=== PATIENT | male | born 1965 | race Hispanic/Latino ===

== ENCOUNTER 2016-09-28 15:15 | Observation (INO) | payer BC, MEDICARE ==
[2016-09-28] MEDS ORDERED: Morphine 4 mg/ml ISec IVP STA (15:41)
[2016-09-28] MEDS ORDERED: oxyCODONE 30 mg Immediate Release Tab PO ONE (15:58)
[2016-09-28 16:02] LABS: ADD MANUAL DIFF? NO
[2016-09-28 16:08] LABS: BASO # 0.03 K/mm3 (0.0-2.0); BASO % 0.3 % (0.0-3.0); EOS # 0.1 (0.0-0.7); GRAN # 5.76 (1.4-6.5); GRAN % 65.9 % (50.0-68.0); LYMPH # 2.3 (1.2-3.4); LYMPH % 26.4 % (22.0-35.0); MEAN CELL VOLUME 85.6 fL (80.0-105.0); MEAN CORPUSCULAR HEMOGLOBIN 30.5 pg (25.0-35.0); MEAN CORPUSCULAR HGB CONC 35.6 g/dl (31.0-37.0); MEAN PLATELET VOLUME 10.2 fl (7.0-11.0); MONO # 0.6 (0.1-0.6); MONO % 6.4 % (1.0-6.0); PLATELET COUNT 319 10^3/uL (120.0-450.0); RED CELL DISTRIBUTION WIDTH 13.5 % (11.5-14.5); WHITE BLOOD COUNT 8.8 10^3/ul (4.5-11.0)
--- NOTE | 2016-09-28 16:08 | ED PDOC ---
Arrival/HPI - General Time Seen by Provider: 09/28/16 15:22 Historian: Patient - History of Present Illness Narrative History of Present Illness (Text): 09/28/16 16:04 Patient w/ PMH of hypertension, chronic lower back pain due to herniated disk, chronic opiate use, depression and bipolar disorder, presents to the Emergency Room complaining of 2 day h/o L sided chest pain which radiates to the L arm associated with numbness to the fingers, chest pain described as soreness which comes and goes, last for a few minutes and resolves spontaneously on its own w/ o taking any medications, occurs even at rest and is not worse or initiated with exertion. Patient states that he takes Xanax 2mg and Oxycodone 30 mg 3 times a day due to chronic low back pain from herniated disk. Otherwise: (-) radiation, (-) diaphoresis, (-) dyspnea, (-) pleuritic component, (-) ripping or tearing quality, (-) positional component, (-) exertional component, (-) dizziness, (-) syncope, (-) nausea, (-) vomiting, (-) calf swelling/pain, (-) neuro deficits, (-) fever, (-) cough, (-) recent travel. Patient also reports having recent stress test and echo, doesn't recall when and what the results were if they were normal or abnormal. Denies any CP at this time. PMD: Dr. Fred Blanco Cardio: Adalberto Past Medical History - Provider Review Nursing Documentation Reviewed: Yes - Infectious Disease Hx of Infectious Diseases: None - Tetanus Immunization Tetanus Immunization: Unknown - Cardiac Hx Cardiac Disorders: Yes Hx Hypertension: Yes - Pulmonary Hx Respiratory Disorders: Yes (H/O OF CIGARETTE SMOKING-NOW USING E VAPE) - Neurological Hx Neurological Disorder: Yes Hx Seizures: Yes (2-16-16 WITHDRAWAL FROM [facility]) - HEENT Hx HEENT Disorder: No - Renal Hx Renal Disorder: Yes Hx Kidney Stones: Yes - Endocrine/Metabolic Hx Endocrine Disorders: No - Hematological/Oncological Hx Blood Disorders: No Hx Cancer: No - Integumentary Hx Dermatological Disorder: Yes (MULTIPLE TATOOS ALL OVER UPPER ARM) - Musculoskeletal/Rheumatological Hx Falls: Yes (Syncope) - Gastrointestinal Hx Gastrointestinal Disorders: Yes Other/Comment: COLON TUMOR REMOVED - Genitourinary/Gynecological Hx Genitourinary Disorders: Yes Hx Prostate Problems: Yes - Psychiatric Hx Psychophysiologic Disorder: Yes Hx Anxiety: Yes Hx Bipolar Disorder: Yes Hx Depression: Yes Hx Panic Disorder: Yes (PANIC ATTACKS) Hx Post Traumatic Stress Disorder: No Hx Psychosis: Yes Hx Schizophrenia: No Hx Substance Use: No Other/Comment: ETOH USE AND SMOKED CIGARETES - Past Surgical History Past Surgical History: Non-Contributing - Anesthesia Hx Anesthesia: Yes Hx Anesthesia Reactions: No Hx Malignant Hyperthermia: No - Suicidal Assessment Feels Threatened In Home Enviroment: No Family/Social History Family/Social History: CAD/KS (mother of [place] at age 66, father of [place] at age 68) Smoking Status: Never Smoked Hx Alcohol Use: No Hx Substance Use: No Hx Substance Use Treatment: No Allergies/Home Meds Allergies/Adverse Reactions: Allergies No Known Allergies Allergy (Verified 12/21/15 23:06) Home Medications: Home Meds Medication Instructions Recorded Confirmed Atorvastatin Calcium [Lipitor] 20 mg PO DAILY 08/05/15 05/11/16 Review of Systems - Review of Systems Constitutional: Normal. absent: Fatigue, Weight Change, Fevers Respiratory: Normal. absent: SOB, Cough, Sputum Cardiovascular: Normal. absent: Palpitations, Edema, Calf Pain Gastrointestinal: Normal. absent: Abdominal Pain, Stool Changes Musculoskeletal: Normal, Back Pain (chronic low back pain). absent: Arthralgias , Neck Pain Skin: Normal. absent: Rash, Pruritis Neurological: Normal. absent: Headache, Dizziness Physical Exam - Physical Exam Narrative Physical Exam (Text): 09/28/16 16:09 GENERAL APPEARANCE: Patient is awake, alert, oriented x 3, in no acute distress. Patient is laying in bed comfortably in no acute distress. SKIN: Warm, dry; (-) cyanosis. EYES: (-) conjunctival pallor. ENMT: Mucous membranes moist. NECK: (-) tenderness, (-) stiffness, (-) lymphadenopathy, (-) JVD. CHEST AND RESPIRATORY: (-) rash, (-) chest wall tenderness. Lungs: (-) rales , (-) rhonchi, (-) wheezes, (-) rub; breath sounds equal bilaterally. HEART AND CARDIOVASCULAR: (-) irregularity; (-) murmur, (-) gallop, (-) rub. ABDOMEN AND GI: Soft; (-) distention, (-) tenderness, (-) palpable pulsatile mass. EXTREMITIES: (-) deformity; (-) edema, (-) calf tenderness. (+) distal pulses. NEURO AND PSYCH: Mental status as above. Cranial nerves grossly intact; strength symmetric. Vital Signs Temp Pulse Resp BP Pulse Ox 09/28/16 16:22 98 F 68 17 123/69 98 09/28/16 15:21 97.2 F L 73 18 141/87 98 Medical Decision Making ED Course and Treatment: 09/28/16 16:10 51 yo M w/ multiple risk factors for heart disease, presents with 2 day h/o L sided CP. Of note, patient's previous medical records reviewed. Patient was last hospitalized in 12/21/15 for syncope, as mentioned in Dr. Pretty's note on 2015, patient's last echo was on 10/2014, which was wnl EF 65%, at that time had a recent holter which showed no arrhythmia, and last stress in 10/2014 was negative. LUIS DANIEL score 2 HEART score 4 Plan: -- Labs w/ troponin -- enameler -- Oxycodone for chronic low back pain -- EKG -- CXR -- Asa -- Reassess and disposition EKG: NSR at 75 bpm, (-) acute ST changes, as read by LEN. CXR: NAD, as read by PA Labs reviewed, 1st troponin (-). Patient made aware. On reevaluation, patient is resting comfortably in bed in no acute distress, using his cell phone. Patient reports no chest pain at this time, dyspnea or shortness of breath. Has no other complaints at this time. Vital signs stable. Call placed to patient's pmd, Dr. Fred Blanco, agrees with current plan for inpatient obs to tele with consult to Dr. Glover. Bridge orders placed. - Lab Interpretations Lab Results: 09/28/16 15:55 09/28/16 15:55 Lab Results 09/28/16 15:55: WBC 8.8 D, RBC 4.79, Hgb 14.6, Hct 41.0 L, MCV 85.6, MCH 30.5, MCHC 35.6, RDW 13.5, Plt Count 319, MPV 10.2, Gran % 65.9, Lymph % (Auto) 26.4, [place] % (Auto) 6.4 H, Eos % (Auto) 1.0 L, Baso % (Auto) 0.3, Gran # 5.76, Lymph # 2.3, [place] # 0.6, Eos # 0.1, Baso # 0.03, Sodium 140, Potassium 4.3, Chloride 106, Carbon Dioxide 23, Anion Gap 15, BUN 13, Creatinine 1.1, Est GFR ( Amer) > 60, Est GFR (Non-Af Amer) > 60, Random Glucose 102, Calcium 9.6, Magnesium 2.0, Total Bilirubin 0.6, AST 35, ALT 48, Alkaline Phosphatase 86, Lactate Dehydrogenase 365, Total Creatine Kinase 76, Troponin I < 0.01, Total Protein 7.4, Albumin 4.3, Globulin 3.2, Albumin/Globulin Ratio 1.3 - RAD Interpretation Radiology Orders: 09/28/16 15:41 CHEST PORTABLE [RAD] Stat - Medication Orders Current Medication Orders: Alprazolam (Xanax) 1.5 mg PO BID DAVE Stop: 10/06/16 10:01 Alprazolam (Xanax) 1.5 mg PO HS DAVE Stop: 10/05/16 22:01 Last Admin: 09/28/16 23:23 Dose: 1.5 MG Behavioural Document 09/28/16 23:23 KTR (Rec: 09/28/16 23:24 KTR [id number]) Maintenance Maintenance Dose Yes Behavior Behavior for Medication: Anxiety Atorvastatin Calcium (Lipitor) 20 mg PO DIN DAVE Oxycodone HCl (Oxycodone Immediate Release Tab) 30 mg PO Q6H PRN PRN Reason: Pain, severe (8-10) Last Admin: 09/28/16 21:43 Dose: 30 MG MAR Pain Assessment Document 09/28/16 21:43 KTR (Rec: 09/28/16 21:43 KTR [id number]) Pain Reassessment Is this a pain reassessment? No Presence of Pain Presence of Pain Yes Pain Scale Used Pain Scale Used Numeric Location Upper or Lower Lower Pain Location Body Site Back Description Description Constant Intensity of Pain at present 10 Aggravating Factors Contant Discontinued Medications Aspirin (Aspirin) Confirm Administered Dose 325 mg .ROUTE .STK-MED ONE Stop: 09/28/16 16:07 Last Admin: 09/28/16 16:08 Dose: 325 MG Aspirin (Aspirin) 325 mg PO STAT STA Stop: 09/28/16 16:09 Last Admin: 09/28/16 16:09 Dose: Oxycodone HCl (Oxycodone Immediate Release Tab) 30 mg PO ONCE ONE Stop: 09/28/16 15:59 Last Admin: 09/28/16 16:04 Dose: 30 MG - PA / SCRIPT MANAGER / Resident Statement MD/DO has reviewed & agrees with the documentation as recorded. Disposition/Present on Arrival - Present on Arrival Any Indicators Present on Arrival: No History of DVT/PE: No History of Uncontrolled Diabetes: No Urinary Catheter: No History Surgical Site Infection Following: None - Disposition Have Diagnosis and Disposition been Completed?: Yes Diagnosis: Chest pain Disposition: HOSPITALIZED Disposition Time: 17:00 Patient Plan: Observation (tele) Patient Problems: Current Active Problems Problem Status Diagnosed Chest pain Acute Condition: STABLE
[2016-09-28 16:19] LABS: ALB/GLOB RATIO 1.3 (1.1-1.8); ALKALINE PHOSPHATASE 86 U/L (38-133); ALT/SGPT 48 U/L (7-56); AST/SGOT 35 U/L (15-59); BILIRUBIN,TOTAL 0.6 mg/dL (0.2-1.3); BLOOD UREA NITROGEN 13 mg/dL (7-21); CALCIUM 9.6 mg/dL (8.4-10.5); CARBON DIOXIDE 23 mmol/L (21-33); CHLORIDE 106 mmol/L (98-107); GFR AFRICAN-AMERICAN > 60; GLUCOSE,RANDOM 102 mg/dL (70-110); POTASSIUM 4.3 mmol/L (3.6-5.0); SODIUM 140 mmol/L (132-148); TOTAL PROTEIN 7.4 g/dL (5.8-8.3)
[2016-09-28 16:24] VITALS: BMI 28.8
[2016-09-28 16:31] LABS: TROPONIN I < 0.01 ng/mL
[2016-09-28] MEDS: oxyCODONE 30 mg Immediate Release Tab PO PRN (21:43)
[2016-09-29] MEDS: oxyCODONE 30 mg Immediate Release Tab PO PRN ×3 (06:18→18:29)
[2016-09-29 07:22] LABS: ADD MANUAL DIFF? NO
[2016-09-29 07:25] LABS: BASO # 0.02 K/mm3 (0.0-2.0); BASO % 0.2 % (0.0-3.0); EOS # 0.1 (0.0-0.7); EOS % 1.3 % (1.5-5.0); GRAN # 4.38 (1.4-6.5); HEMATOCRIT 38.7 % (42.0-52.0); LYMPH # 3.3 (1.2-3.4); LYMPH % 38.8 % (22.0-35.0); MEAN CELL VOLUME 86.8 fL (80.0-105.0); MEAN CORPUSCULAR HEMOGLOBIN 30.5 pg (25.0-35.0); MEAN CORPUSCULAR HGB CONC 35.1 g/dl (31.0-37.0); MEAN PLATELET VOLUME 10.3 fl (7.0-11.0); MONO # 0.8 (0.1-0.6); MONO % 8.7 % (1.0-6.0); PLATELET COUNT 295 10^3/uL (120.0-450.0); RED CELL DISTRIBUTION WIDTH 13.8 % (11.5-14.5); WHITE BLOOD COUNT 8.6 10^3/ul (4.5-11.0)
[2016-09-29 07:47] LABS: BLOOD UREA NITROGEN 19 mg/dL (7-21); CALCIUM 9.2 mg/dL (8.4-10.5); CARBON DIOXIDE 23 mmol/L (21-33); CHLORIDE 108 mmol/L (98-107); GFR AFRICAN-AMERICAN > 60; GLUCOSE,RANDOM 98 mg/dL (70-110); SODIUM 139 mmol/L (132-148)
[2016-09-29 07:57] LABS: TROPONIN I 0.01 ng/mL
--- NOTE | 2016-09-29 08:03 | HP ---
CHIEF COMPLAINT: Chest pain. HISTORY OF PRESENT ILLNESS: This is a 51-year-old man who came to the office today complaining of 4 days of chest pain. He describes it as left-sided chest pain radiating up to the shoulder, and sometimes going down the left arm. He has multiple risk factors for coronary artery disease, and was sent to the Emergency Room. He came to [facility]'s ER and was evaluated. Labs and troponins were negative, but because of the history and the multiple risk factors, arrangements were made for him to be admitted. PAST MEDICAL HISTORY: This 51-year-old man has been on disability because of back pain. This is his first visit to the Emergency Room this year, but he came to the Emergency Room by ambulance on 7 different occasions last year; was admitted on 4 of those occasions. He came to the radiology department for x- rays in 2015. He was admitted only once. He had a thallium stress test in 2014 which was unremarkable, was seen by Dr. Palmer and Sukhwinder at that time, was unremarkable. On the last 4 days the patient reports a nonexertional type of chest pain. He said it seemed to come on at almost any time. He could be sitting or watching TV. It was not related to walking or carrying packages. There were no episodes of diaphoresis, or unusual dyspnea. He denied palpitations. He describes the pain as rather sharp and in the left upper chest wall to the shoulder. PAST MEDICAL HISTORY: Significant for hypertension, chronic low back pain, chronic opiate use, depression, bipolar disorder, benzodiazepine withdrawal seizures, and generalized anxiety disorder. He saw a psychiatrist in the past and was treated with Seroquel, amitriptyline, and Suboxone, although most recently he has only been taking opiates and benzos. CURRENT MEDICATIONS: Oxycodone 30 mg 4 or 5 times a day, Xanax 2 mg 3 times a day, and Ambien 10 mg at bedtime. He has no known allergies to medications. Has a history of tobacco use and alcohol consumption. REVIEW OF SYSTEMS: Positive for back pain. PHYSICAL EXAMINATION: The patient is a short muscular 51-year-old man. He moves about the room with relative ease. HEAD AND NECK: Unremarkable. Conjunctivae are pink. Mucous membranes are moist. NECK: Supple, without masses. The thyroid is not palpable. There are no palpable lymph nodes or JVD. LUNGS: Show good aeration, right and left. HEART: Regular, nontachycardic. ABDOMEN: Benign. EXTREMITIES: Showed no edema. IMPRESSION: 1. Atypical chest pain, most likely musculoskeletal origin, in a 51-year-old man with multiple risk factors, including family history of coronary artery disease, diabetes, tobacco use, and elevated cholesterol. 2. Chronic back pain and chronic opiate use. 3. Chronic benzodiazepine use. 4. Generalized anxiety disorder. 5. History of benzodiazepine withdrawal seizures. PLAN: The patient was already admitted to the telemetry floor. I am seeing him late this Tuesday evening in room 268. I spoke with him at length regarding his opiate dependency and benzodiazepine use, and I urged him to reconsider following up with a psychiatrist for depression, anxiety, and bipolar disorder, but he is not interested in doing so. I suggested he resumed the Suboxone in an attempt to taper down or discontinued his opiates, but he is not interested. I suggested spine followup, orthopedic or pain management, but he would rather just stay with his primary physician and take the medications as outlined above. In spite of my lengthy and exhaustive attempts at counseling the patient, he is just not interested in modifying his medication regimen. I explained to him that I will continue some dose of benzodiazepines to prevent withdrawal seizures , but while he was admitted under my service I will try to decrease his benzodiazepine and opiate analgesic use. I will ask cardiology to schedule thallium stress test in the morning. If unremarkable, he should be ready for discharge to home later tomorrow. I will talk with his private physician regarding his current prescriptions and suggested SSRIs and/or other antidepressants and pain management for his chronic opiate use. The last thallium stress test was negative 2014. If tomorrow's stress test was normal I imagine he would be ready for discharge to home relatively quickly soon thereafter. Alan Blanco MD cc: [id number] TT: 09/29/2016 08:03:38 jn CLARI
[2016-09-29 08:16] LABS: FREE T4 0.87 ng/dL (0.78-2.19); THYROID STIMULATING HORMONE 2.9 MIU/ml (0.46-4.68)
[2016-09-29 09:03] LABS: CHOLESTEROL 188 mg/dL (130-200)
--- NOTE | 2016-09-29 09:29 | RAD ---
HISTORY: chest pain COMPARISON: 05/26/2016 FINDINGS: LUNGS: No active pulmonary disease. PLEURA: No significant pleural effusion identified, no pneumothorax apparent. CARDIOVASCULAR: Possible mild left ventricular enlargement OSSEOUS STRUCTURES: Thoracic spondylosis VISUALIZED UPPER ABDOMEN: Normal. OTHER FINDINGS: None. IMPRESSION: No active pulmonary disease. Possible left ventricular enlargement
[2016-09-29] MEDS ORDERED: Aminophylline 25 mg/ml Inj ONE (09:35)
--- NOTE | 2016-09-29 09:45 | CON ---
DATE: 09/29/2016 REASON FOR CONSULTATION: Chest pain, cardiac evaluation. BRIEF CLINICAL HISTORY: This is a 51-year-old male with past medical history significant for psychia tric disorder who was admitted yesterday because of having chest pain often and no relation to exerti on, comes on the left side of chest, sometimes radiated, so patient decided to come. It has been hap pening for more than a month. PAST MEDICAL HISTORY: Significant for psychiatric disorder, history of hyperlipidemia, history of shantal mbar radiculopathy, history of multiple admissions to psych floor; history of back surgery, on disabi lity. PREVIOUS CARDIAC WORKUP: The patient had a stress test 10/25/2014 that shows normal myocardial perfu sascha study, normal wall motion. No interval change when compared from 01/29/2013. It was a Lexiscan . The patient cannot walk on the treadmill and prefers to have Lexiscan because of back surgery. Th e patient had echocardiography 11/04/2014 that shows normal LV size, ejection fraction 55%, trace aor tic regurgitation, trace mitral regurgitation and trace tricuspid regurg, RV systolic pressure at 27. SOCIAL HISTORY: Used to smoke a pack a day for many years, quit 2-3 months ago. Drinks every now an d then, but now says he is not drinking at all. He used to be a heavy drinker before. No history of other substance abuse. Currently, the patient is on disability. FAMILY HISTORY: No significant history of coronary artery disease. CURRENT MEDICATIONS: The patient is taking oxycodone 5 pills daily at least for back pain and takes clonazepam, amlodipine, Seroquel and atorvastatin. REVIEW OF SYSTEMS: As per HPI. PHYSICAL EXAMINATION: VITAL SIGNS: Temperature afebrile, heart rate 72, blood pressure 116/78. HEENT: PERRLA. Extraocular muscles intact. NECK: Supple. No carotid bruits. No thyromegaly. CHEST: Clear to auscultation. HEART: S1, S2 regular. ABDOMEN: Soft. EXTREMITIES: Clubbing and cyanosis negative. BLOOD WORKUP: WBC 8.6, hemoglobin 13.6, hematocrit 38.7, platelet count 295. Chemistry shows sodium 139, potassium 4, chloride 108, carbon dioxide 23, anion gap of 12, BUN 19, creatinine 1.2. Troponi n 0.01. EKG showed normal sinus, rate of 78. IMPRESSION: Atypical chest pain. Given his lifestyle and multiple risk factors, suggest echocardiog jack and stress test. The patient has multiple risk factors including hypertension, psychiatric disor francois as well, and hyperlipidemia. RECOMMENDATION: Will get a stress test today. The patient preferred to have Lexiscan, says he canno t walk on the treadmill because of the back surgery and also patient's disability. Will get lipid pr ofile, TSH, hemoglobin A1c as well. Will keep n.p.o. for now. Thank you, Dr. Blanco, for providing this opportunity in taking care of the patient. Javid Pretty MD cc: [id number] TT: 09/29/2016 09:45:13 Confirmation # [id number] Dictation # [id number] mn
--- NOTE | 2016-09-29 15:35 | CARD ---
APPROVED REPORT EKG Measurement Heart [id number] OR 134P4 [id number] <Conclusion> Normal sinus rhythm PRWP NSSTW changes
--- NOTE | 2016-09-29 17:35 | CARD ---
APPROVED REPORT EXAM: Two-dimensional and M-mode echocardiogram with Doppler and color Doppler. INDICATION Chest Pain LVFX 2D DIMENSIONS Left Atrium (2D)3.9 (1.6-4.0cm)IVSd1.0 (0.7-1.1cm) LVDd4.4 (3.9-5.9cm)PWd1.1 (0.7-1.1cm) LVDs2.9 (2.5-4.0cm)FS (%) 33.8 % LVEF (%)62.8 (>50%) M-Mode DIMENSIONS Aortic Root3.40 (2.2-3.7cm)Aortic Cusp Exc.2.00 (1.5-2.0cm) Aortic Valve AoV Peak Tdytxhay452.0cm/Arlin Peak GR.8mmHg Mitral Valve MV E Dipqmzwg56.6cm/sMV A Fqkwnfqh48.2cm/sE/A ratio0.9 TDI Lateral E' Peak V11.30cm/sMedial E' Peak V6.82cm/sE/Lateral E'6.3 E/Medial E'10.5 Pulmonary Valve PV Peak Itaiksvt14.0cm/sPV Peak Grad.1mmHg Tricuspid Valve TR Peak Wsfabjbh183ff/sRAP RVELTBJT91xcQcMK Peak Gr.20mmHg [id number] LEFT VENTRICLE The left ventricle is normal size. There is normal left ventricular wall thickness. The left ventricular function is normal.EF-55-60% There is normal LV segmental wall motion. Transmitral Doppler flow pattern is Grade III-reversible restrictive diastolic dysfunction. No left ventricle thrombus noted on this study. There is no ventricular septal defect visualized. There is no left ventricular aneurysm. RIGHT VENTRICLE The right ventricle is normal size. There is normal right ventricular wall thickness. The right ventricular systolic function is normal. ATRIA The left atrium size is normal. The right atrium size is normal. The interatrial septum is intact with no evidence for an atrial septal defect. AORTIC VALVE The aortic valve is thickened but opens well. There is trace aortic regurgitation. There is no aortic valvular stenosis. There is no aortic valvular vegetation. MITRAL VALVE The mitral valve is thickened but opens well. Mitral annular calcification is mild. Mitral regurgitation is trace to mild. There is no mitral valve stenosis. There is no evidence of mitral valve prolapse. TRICUSPID VALVE The tricuspid valve leaflets are thickened , but open well. There is trace to mild tricuspid regurgitation.RVSP-30 mmof Hg. There is no tricuspid valve stenosis. There is no tricuspid valve prolapse or vegetation. PULMONIC VALVE The pulmonic valve is borderline thickened. There is trace pulmonic valvular regurgitation. There is no pulmonic valvular stenosis. GREAT VESSELS The aortic root is normal in size. The ascending aorta is normal in size. The pulmonary artery is normal. The IVC is normal in size and collapses >50% with inspiration. PERICARDIAL EFFUSION There is no pleural effusion. Trivial Pericardial effusion <Conclusion> The left ventricle is normal size. There is normal left ventricular wall thickness. The left ventricular function is normal.EF-55-60% There is trace aortic regurgitation. Mitral regurgitation is trace to mild. There is trace to mild tricuspid regurgitation.RVSP-30 mmof Hg. There is trace pulmonic valvular regurgitation. There is no pleural effusion. Trivial Pericardial effusion The IVC is normal in size and collapses >50% with inspiration.
--- NOTE | 2016-09-29 22:12 | CARD ---
APPROVED REPORT Protocol: LEXISCAN Test Type: Lexiscan Sestamibi Stress Test Attending Physician: Dr. Javid Palmer Referring Physician: Dr. Alan Blanco Test Indications: Chest Pain Height:5 ft 8 in Weight:190lbs Medications: Xanax,Lipitor,Oxycodone Medical History: 51 y/o male. Hx of chest pain,hypertension,family hx of heart disease,back pain,bipolar. Target HR: 171 bpm Resting ECG: RSR. Non Specific ST_T Changes. Resting Heart Rate: 61 bpm Resting Blood Pressure: 100/60mmHg Submaximum (85%): 145 bpm PROCEDURE Pharmacologic stress testing was performed using 0.4mg per 5ml of regadenoson given intravenously over 7-10 seconds. POST EXERCISE Reason for Termination: Protocol completed Target HR: No Max HR: 63 bpm 64% of Maximum Predicted HR: 171 bpm Exercise duration: 00:30 min:sec, 0 Stage Exercise capacity: 1.0METs Max Blood Pressure: 120/70mmHg Blood Pressure response to exercise: normal resting BP - appropriate response Heart Rate response to exercise: appropriate Chest Pain: No, none Angina index: 0 Arrhythmia: No, none ST Change: No, none Deviation: 0 mm INTERPRETATION Stress EKG Conclusion: IV LEXISCAN NUCLEAR STRESS TEST NEGATIVE FOR CHEST PAIN AND NEGATIVE FOR ST-T CHANGES. NUCLEAR SCAN REPORT TO FOLLOW. Signed by Javid Palmer Electronically Approved: 09/29/2016 11:32:52 EXAM: Myocardial Perfusion REST/STRESS Stress Test Type: Pharmacologic Imaging Protocol Rest Spect myocardial perfusion imaging was performed in supine position 45 minutes following the injection of 10.3 mCi of Tc-99 Myoview. At peak stress, the patient was injected intravenously with 30.7mCi of Tc-99 tetrofosmin after an infusion time of 0 minutes and 10 seconds. Gated Stress Spect was performed 65 minutes after intravenous Tc-99 Myoview injection. The images were gated to evaluate regional wall motion and calculate ventricular ejection fraction.Images were reconstructed using backfilter projection method in short horizontal and verticle long axis. Spect slices were generated. LV Perfusion The quality of the study is good. The left ventricle is normal in size. The right ventricle is unremarkable. The lung uptake is within normal limits. The distribution of tracer reveals normal uptake pattern throughout the LV myocardium on the stress study. The rest myocardial perfusion study shows no significant change. Wall Motion Wall motion study shows good contractility of the left ventricle. LVEF = 74%. Conclusion 1. Normal SPECT myocardial perfusion study. 2. Normal gated wall motion of the left ventricle. 3. In comparison with the last study of 11/04/2014, there is no significant change.
[2016-09-30] MEDS: oxyCODONE 30 mg Immediate Release Tab PO PRN ×2 (00:04→07:46)
[2016-09-30 06:24] VITALS: O2SAT 97
[2016-09-30] MEDS ORDERED: oxyCODONE 20 mg Immediate Release Tab PO PRN (10:04)
[2016-09-30 13:11] VITALS: BP 96/57; PULSE 65; RESP 15; TEMP 97.7
[2016-09-30] MEDS ORDERED: oxyCODONE 30 mg Immediate Release Tab PO SCH (14:00)
--- NOTE | 2016-09-30 16:24 | PN ---
DATE: 09/30/2016 REASON FOR CONSULTATION AND FOLLOWUP: Chest pain, cardiac evaluation. BRIEF CLINICAL HISTORY: This is a 51-year-old male with past medical history significant for psychia tric disorder who was admitted yesterday because of having some chest pain off and on, no relation to exertion; history of back surgery. The patient underwent yesterday IV Lexiscan because of the patie nt's back surgery; it was essentially negative. Denies any chest pain, shortness of breath, any palp itation. PHYSICAL EXAMINATION: VITAL SIGNS: Temperature afebrile, heart rate ____, blood pressure 122/80. HEENT: PERRLA. Extraocular muscles intact. NECK: Supple. No carotid bruits. No thyromegaly. CHEST: Clear to auscultation. HEART: S1, S2 regular. ABDOMEN: Soft. EXTREMITIES: Clubbing and cyanosis negative. BLOOD WORKUP: WBC as of yesterday 8.6, hemoglobin 13.6, hematocrit 38.7, platelet count 295. Chemis try shows sodium 139, potassium 4, chloride 108, carbon dioxide 23, anion gap of 12, BUN 19, creatini ne 1.2. Triglyceride 523, cholesterol 188, LDL 83, HDL 29. TSH 2.9. Stress test showed normal wall motion and contractility, ejection fraction 74%. When compared with t he study of 11/04/2014, no significant change noted. The patient underwent also echocardiography on 09/29/2016 (that is yesterday) which shows ejection fraction 55-60%, trace to mild mitral regurgitati on, trace to mild tricuspid regurgitation, right ventricular systolic pressure 30, trace pulmonary in sufficiency, no pleural effusion, trivial pericardial effusion. RECOMMENDATION: Continue aggressive medical treatment, emphasis on weight reduction, modification of lifestyle, modification of risk factors for coronary artery disease. No further cardiac workup is p lanned at this time. We will consider to adding on Tricor, and abstinence of alcohol and abstinence of tobacco abuse. Will follow with you. Thank you, Dr. Blanco, for providing the opportunity in taking care of the patient. Will follow w ith you. Javid Pretty MD cc: [id number] TT: 09/30/2016 16:22:58 Confirmation # [id number] Dictation # [id number]
--- NOTE | 2016-09-30 23:13 | DS ---
SUBJECTIVE: This is a 51-year-old man I rarely see except for when hospitalized. 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 He came to the Emergency Room complaining of chest pain in the chest and left shoulder. He had thallium stress test 1-1/2 years a go. Because of multiple risk factors including hypertension, hyperlipidemia, smoking and family hist ory, he was admitted and stress test was ordered the following morning, but, unfortunately, the repor t was not read until late that evening. The patient stayed overnight. I saw him this morning. He w as hoping to stay overnight again one more night. I explained that I had decreased his benzodiazepin es, decreased his opiates and he should continue to taper these medicines. He should be on an SSRI a nd follow up with a psychiatrist, but he refused all these recommendations. In fact, he wanted to st ay another day because his pain medicines would not be ready at the drugstore until tomorrow. I expl ained to him that his tests were normal, there was no suspicion of coronary artery disease and he is ready for discharge from the acute care facility. FINAL DISCHARGE DIAGNOSES: 1. Chest pain not of cardiac origin. 2. Musculoskeletal chest wall and left shoulder pain. 3. Chronic low back pain. 4. Chronic opiate use. 5. Generalized anxiety disorder. 6. Chronic benzodiazepine use. 7. History of benzodiazepine withdrawal seizures. 8. Hypertension. PLAN: He was instructed to follow up. All of my recommendations were again reviewed with the day t, though it is unlikely he will follow up on any of them. I did suggest he follow up with his prima care physician and bring to his mind some of these suggestions I have made. Alan Blanco MD cc: [id number] TT: 09/30/2016 23:12:46 curtis
== END 2016-09-30 15:14 | disposition home or self-care (01) ==
LOC: ED 15:15 → ERH 17:09 → 2RNO 18:40
PROVIDERS: ADMIT Internal Medicine; ATTEND Internal Medicine
DX: R07.89 Other chest pain (principal); I10 Essential (primary) hypertension; E78.5 Hyperlipidemia, unspecified; G89.29 Other chronic pain; F31.9 Bipolar disorder, unspecified; F32.9 Major depressive disorder, single episode, unspecified; F41.1 Generalized anxiety disorder; Z79.891 Long term (current) use of opiate analgesic; M25.512 Pain in left shoulder; M54.5 Low back pain; Z87.891 Personal history of nicotine dependence; Z82.49 Family history of ischemic heart disease and other diseases of the circulatory system; Z83.3 Family history of diabetes mellitus
CPT/HCPCS: 36415; 71010; 78452; 80048; 80053; 80061; 82550; 83615; 83735; 84439; 84443; 84484; 85025; 93005; 93017; 93306; 99282; A9502; G0378

== ENCOUNTER 2016-10-18 18:00 | Emergency (ER) | payer BC, MEDICARE ==
[2016-10-18 18:05] VITALS: BMI 27.3
[2016-10-18 18:16] VITALS: TEMP 98.8
[2016-10-18 18:33] LABS: ADD MANUAL DIFF? NO
[2016-10-18 18:46] LABS: BASO # 0.01 K/mm3 (0.0-2.0); BASO % 0.2 % (0.0-3.0); EOS % 0.5 % (1.5-5.0); GRAN # 4.12 (1.4-6.5); GRAN % 66.3 % (50.0-68.0); HEMATOCRIT 40.5 % (42.0-52.0); LYMPH # 1.7 (1.2-3.4); LYMPH % 27.5 % (22.0-35.0); MEAN CELL VOLUME 87.1 fL (80.0-105.0); MEAN CORPUSCULAR HEMOGLOBIN 30.5 pg (25.0-35.0); MEAN CORPUSCULAR HGB CONC 35.1 g/dl (31.0-37.0); MEAN PLATELET VOLUME 10.2 fl (7.0-11.0); MONO # 0.3 (0.1-0.6); MONO % 5.5 % (1.0-6.0); PLATELET COUNT 323 10^3/uL (120.0-450.0); RED CELL DISTRIBUTION WIDTH 13.2 % (11.5-14.5); WHITE BLOOD COUNT 6.2 10^3/ul (4.5-11.0)
[2016-10-18] MEDS ORDERED: oxyCODONE 10 mg Immediate Release Tab PO STA (18:46)
[2016-10-18 19:03] LABS: ALB/GLOB RATIO 1.3 (1.1-1.8); ALKALINE PHOSPHATASE 92 U/L (38-133); ALT/SGPT 29 U/L (7-56); AST/SGOT 21 U/L (15-59); BILIRUBIN,TOTAL 0.6 mg/dL (0.2-1.3); BLOOD UREA NITROGEN 5 mg/dL (7-21); CALCIUM 9.7 mg/dL (8.4-10.5); CARBON DIOXIDE 25 mmol/L (21-33); CHLORIDE 105 mmol/L (98-107); GFR AFRICAN-AMERICAN > 60; GLUCOSE,RANDOM 140 mg/dL (70-110); MAGNESIUM 2.2 mg/dL (1.7-2.2); POTASSIUM 3.8 mmol/L (3.6-5.0); SODIUM 140 mmol/L (132-148); TOTAL PROTEIN 7.8 g/dL (5.8-8.3)
[2016-10-18 19:14] LABS: TROPONIN I < 0.01 ng/mL
[2016-10-18 20:36] VITALS: BP 128/78; PULSE 88; RESP 18; O2SAT 99
--- NOTE | 2016-10-18 20:56 | ED PDOC ---
Arrival/HPI - General Chief Complaint: Chest Pain Time Seen by Provider: 10/18/16 18:16 Historian: Patient - History of Present Illness Narrative History of Present Illness (Text): 10/18/16 18:16 A 51 year old male presents to the emergency department complaining of left sided chest pain radiating to left arm for the past 3 months. Patient describes the pain as a sharp sensation. He reports he was admitted 3 weeks ago for similar symptoms and had a negative stress test and echocardiogram. Patient denies any fever, chills, nausea, vomiting, diarrhea, abdominal pain, urinary symptoms, shortness of breath or any other complaints. PMD: Dr. Blanco Time/Duration: Other (3 months) Symptom Course: Unchanged Quality: Other Context: Other Past Medical History - Provider Review Nursing Documentation Reviewed: Yes - Infectious Disease Hx of Infectious Diseases: None - Tetanus Immunization Tetanus Immunization: Unknown - Cardiac Hx Cardiac Disorders: Yes Hx Hypertension: Yes - Pulmonary Hx Respiratory Disorders: Yes (H/O OF CIGARETTE SMOKING-NOW USING E VAPE) - Neurological Hx Neurological Disorder: Yes Hx Seizures: Yes - HEENT Hx HEENT Disorder: No - Renal Hx Renal Disorder: Yes Hx Kidney Stones: Yes - Endocrine/Metabolic Hx Endocrine Disorders: No - Hematological/Oncological Hx Blood Disorders: No Hx Cancer: No - Integumentary Hx Dermatological Disorder: Yes (tattoos) - Musculoskeletal/Rheumatological Hx Musculoskeletal Disorders: Yes Hx Falls: Yes (Syncope) - Gastrointestinal Hx Gastrointestinal Disorders: Yes Other/Comment: COLON TUMOR REMOVED - Genitourinary/Gynecological Hx Genitourinary Disorders: Yes Hx Prostate Problems: Yes - Psychiatric Hx Psychophysiologic Disorder: Yes Hx Anxiety: Yes Hx Bipolar Disorder: Yes Hx Depression: Yes Hx Panic Disorder: Yes (PANIC ATTACKS) Hx Post Traumatic Stress Disorder: No Hx Psychosis: Yes Hx Schizophrenia: No Hx Substance Use: No Other/Comment: SMOKED CIGARETES, USED TO SMOKE - Past Surgical History Past Surgical History: Non-Contributing - Anesthesia Hx Anesthesia: Yes Hx Anesthesia Reactions: No Hx Malignant Hyperthermia: No - Suicidal Assessment Feels Threatened In Home Enviroment: No Family/Social History - Physician Review Nursing Documentation Reviewed: Yes Family/Social History: No Known Family HX Smoking Status: Current Some Days Smoker Hx Alcohol Use: No Hx Substance Use: No Hx Substance Use Treatment: No Allergies/Home Meds Allergies/Adverse Reactions: Allergies No Known Allergies Allergy (Verified 12/21/15 23:06) Home Medications: Home Meds Medication Instructions Recorded Confirmed Atorvastatin Calcium [Lipitor] 20 mg PO DAILY 08/05/15 10/18/16 Review of Systems - Physician Review All systems were reviewed & negative as marked: Yes - Review of Systems Constitutional: absent: Fevers, Night Sweats Respiratory: absent: SOB Cardiovascular: Chest Pain (Left sided chest pain radiating to left arm) Gastrointestinal: absent: Abdominal Pain, Diarrhea, Nausea, Vomiting Genitourinary Male: absent: Dysuria, Frequency, Hematuria, Urinary Output Changes Physical Exam Vital Signs Reviewed: Yes Vital Signs Temp Pulse Resp BP Pulse Ox 10/18/16 20:35 88 18 128/78 99 10/18/16 18:07 98.8 F 80 16 134/81 98 Temperature: Afebrile Blood Pressure: Normal Pulse: Regular Respiratory Rate: Normal Appearance: Positive for: Well-Appearing, Non-Toxic, Comfortable Pain Distress: None Mental Status: Positive for: Alert and Oriented X 3 - Systems Exam Head: Present: Atraumatic, Normocephalic Pupils: Present: PERRL Extroacular Muscles: Present: EOMI Conjunctiva: Present: Normal Mouth: Present: Moist Mucous Membranes Neck: Present: Normal Range of Motion Respiratory/Chest: Present: Clear to Auscultation, Good Air Exchange. No: Respiratory Distress, Accessory Muscle Use Cardiovascular: Present: Regular Rate and Rhythm, Normal S1, S2. No: Murmurs Abdomen: Present: Normal Bowel Sounds. No: Tenderness, Distention, Peritoneal Signs Back: Present: Normal Inspection Upper Extremity: Present: Normal Inspection. No: Cyanosis, Edema Lower Extremity: Present: Normal Inspection. No: Edema Neurological: Present: GCS=15, CN II-XII Intact, Speech Normal Skin: Present: Warm, Dry, Normal Color. No: Rashes Psychiatric: Present: Alert, Oriented x 3, Normal Insight, Normal Concentration Medical Decision Making ED Course and Treatment: 10/18/16 18:16 Impression: A 51 year old male with left sided chest pain radiating to left arm. Physical exam unremarkable. Plan: -- Chest xray -- EKG -- Labs -- Urinalysis -- Xanax and Oxycodone -- Reassess and disposition Progress Notes: EKG shows NSR at [address]-segment elevations, normal intervals. Interpreted by me. Case discussed with Dr. Blanco, who agrees with plan to discharge patient and have him follow up outpatient in his office. 10/18/16 20:30 On re-evaluation, patient feels better and is in no acute distress. I have discussed the results and plan with the patient, who expresses understanding. Patient in agreement with plan to be discharged home. Patient is stable for discharge. Patient was instructed to follow up with physician or return if symptoms worsen or new concerning symptoms arise. - Lab Interpretations Lab Results: 10/18/16 18:10 10/18/16 18:10 Lab Results 10/18/16 18:10: Sodium 140, Potassium 3.8, Chloride 105, Carbon Dioxide 25, Anion Gap 14, BUN 5 L, Creatinine 0.9, Est GFR ( Amer) > 60, Est GFR (Non -Af Amer) > 60, Random Glucose 140 H, Calcium 9.7, Magnesium 2.2, Total Bilirubin 0.6, AST 21, ALT 29, Alkaline Phosphatase 92, Lactate Dehydrogenase 333, Total Creatine Kinase 122, Troponin I < 0.01, Total Protein 7.8, Albumin 4.4, Globulin 3.4, Albumin/Globulin Ratio 1.3 10/18/16 18:10: WBC 6.2 D, RBC 4.65, Hgb 14.2, Hct 40.5 L, MCV 87.1, MCH 30.5, MCHC 35.1, RDW 13.2, Plt Count 323, MPV 10.2, Gran % 66.3, Lymph % (Auto) 27.5, [place] % (Auto) 5.5, Eos % (Auto) 0.5 L, Baso % (Auto) 0.2, Gran # 4.12, Lymph # 1.7, [place] # 0.3, Eos # 0.0, Baso # 0.01 I have reviewed the lab results: Yes - RAD Interpretation Radiology Orders: 10/18/16 18:16 CHEST PORTABLE [RAD] Stat - Medication Orders Current Medication Orders: Discontinued Medications Alprazolam (Xanax) 2 mg PO STAT STA PRN Reason: Protocol Stop: 10/18/16 18:47 Last Admin: 10/18/16 18:56 Dose: 2 mg Oxycodone HCl (Oxycodone Immediate Release Tab) 10 mg PO STAT STA Stop: 10/18/16 18:47 Last Admin: 10/18/16 18:56 Dose: 10 mg - Scribe Statement The provider has reviewed the documentation as recorded by the Nieves Estrada Provider Salvatoreibpauline Attestation: All medical record entries made by the Scribe were at my direction and personally dictated by me. I have reviewed the chart and agree that the record accurately reflects my personal performance of the history, physical exam, medical decision making, and the department course for this patient. I have also personally directed, reviewed, and agree with the discharge instructions and disposition. Disposition/Present on Arrival - Present on Arrival Any Indicators Present on Arrival: No History of DVT/PE: No History of Uncontrolled Diabetes: No Urinary Catheter: No History of Decub. Ulcer: No History Surgical Site Infection Following: None - Disposition Have Diagnosis and Disposition been Completed?: Yes Diagnosis: Non-cardiac chest pain Disposition: HOME/ ROUTINE Disposition Time: 19:20 Condition: GOOD Discharge Instructions (ExitCare): Chest Pain (ED) Additional Instructions: Thank you for letting us take care of you today. Your provider was Dr. Vazquez. You were treated for non-cardiac chest pain. The emergency medical care you received today was directed at your acute symptoms. If you were prescribed any medication, please fill it and take as directed. It may take several days for your symptoms to resolve. Return to the Emergency Department if your symptoms worsen, do not improve, or if you have any other problems. Please contact your doctor or call one of the physicians/clinics you have been referred to that are listed on the Patient Visit Information form that is included in your discharge packet. Bring any paperwork you were given at discharge with you along with any medications you are taking to your follow up visit. Our treatment cannot replace ongoing medical care by a primary care provider (PCP) outside of the emergency department. Thank you for allowing the [facility] team to be part of your care today. Follow up with your doctor in 2-3 days to be re-evaluated. Referrals: Devin Blanco MD [Primary Care Provider] - Follow up with primary
--- NOTE | 2016-10-19 08:30 | RAD ---
HISTORY: chest pain COMPARISON: 09/28/2016 FINDINGS: LUNGS: No active pulmonary disease. PLEURA: No significant pleural effusion identified, no pneumothorax apparent. CARDIOVASCULAR: Normal. OSSEOUS STRUCTURES: No significant abnormalities. VISUALIZED UPPER ABDOMEN: Normal. OTHER FINDINGS: None. IMPRESSION: No active disease.
--- NOTE | 2016-10-19 22:55 | CARD ---
APPROVED REPORT EKG Measurement Heart [id number] <Conclusion> Normal sinus rhythm Nonspecific T wave abnormality Abnormal ECG
== END 2016-10-18 20:35 | disposition home or self-care (01) ==
LOC: ED 18:00
DX: R07.89 Other chest pain (principal)

== ENCOUNTER 2016-10-20 18:55 | Observation (INO) | payer BC, MEDICARE ==
[2016-10-20 18:55] VITALS: BMI 27.3
[2016-10-20] MEDS ORDERED: oxyCODONE 30 mg Immediate Release Tab PO ONE (19:59)
--- NOTE | 2016-10-20 20:12 | ED PDOC ---
Arrival/HPI - General Chief Complaint: Chest Pain Time Seen by Provider: 10/20/16 19:20 Historian: Patient - History of Present Illness Narrative History of Present Illness (Text): 10/20/16 19:20 A 51 year old male, whose past medical history includes hypertension, hyperlipidemia, vertebral disc disease, kidney stones, bipolar disorder, and BPH , presents to the emergency department complaining of chest discomfort radiating to the left arm. Patient states symptoms have been intermittent for 1 week. He says he was seen in the emergency department on different occasions over the past couple of months. He reports he was admitted and had a negative stress test. Patient says he was told symptoms are musculoskeletal. Patient states he feels it is much more and therefore he came to this emergency department for further evaluation. Patient denies any associated shortness of breath, fever, chills, abdominal pain, or any other complaints at this time. Patient mentions he was given Aspirin prior to arrival by the medics. PMD: Dr. Blanco Time/Duration: 1 week Symptom Onset: Sudden Symptom Course: Intermittent Quality: Other Activities at Onset: Rest Context: Home Past Medical History - Provider Review Nursing Documentation Reviewed: Yes - Infectious Disease Hx of Infectious Diseases: None - Tetanus Immunization Tetanus Immunization: Unknown - Cardiac Hx Hypertension: Yes - Pulmonary Hx Respiratory Disorders: Yes (H/O OF CIGARETTE SMOKING-NOW USING E VAPE) - Neurological Hx Seizures: Yes - HEENT Hx HEENT Disorder: No - Renal Hx Renal Disorder: Yes Hx Kidney Stones: Yes - Endocrine/Metabolic Hx Endocrine Disorders: No - Hematological/Oncological Hx Blood Disorders: No Hx Cancer: No - Integumentary Hx Dermatological Disorder: Yes (tattoos) - Musculoskeletal/Rheumatological Hx Musculoskeletal Disorders: Yes Hx Falls: Yes (Syncope) - Gastrointestinal Hx Gastrointestinal Disorders: Yes Other/Comment: COLON TUMOR REMOVED - Genitourinary/Gynecological Hx Sexually Transmitted Diseases: No - Psychiatric Hx Anxiety: Yes Hx Bipolar Disorder: Yes Hx Depression: Yes Hx Substance Use: No - Past Surgical History Past Surgical History: Non-Contributing - Anesthesia Hx Anesthesia: Yes Hx Anesthesia Reactions: No Hx Malignant Hyperthermia: No - Suicidal Assessment Feels Threatened In Home Enviroment: No Family/Social History - Physician Review Nursing Documentation Reviewed: Yes Family/Social History: Unknown Family HX Smoking Status: Current Some Days Smoker Hx Alcohol Use: No Hx Substance Use: No Hx Substance Use Treatment: No Allergies/Home Meds Allergies/Adverse Reactions: Allergies No Known Allergies Allergy (Verified 10/20/16 19:10) Home Medications: Home Meds Medication Instructions Recorded Confirmed Atorvastatin Calcium [Lipitor] 20 mg PO DAILY 08/05/15 10/20/16 Amitriptyline HCl 10 mg PO HS 10/19/16 10/20/16 Review of Systems - Physician Review All systems were reviewed & negative as marked: Yes - Review of Systems Constitutional: absent: Fevers, Other (chills) Respiratory: absent: SOB Cardiovascular: Chest Pain Gastrointestinal: absent: Abdominal Pain Physical Exam Vital Signs Reviewed: Yes Vital Signs Temp Pulse Resp BP Pulse Ox 10/20/16 21:11 69 19 138/89 98 10/20/16 19:59 98.2 F 70 19 129/87 100 Temperature: Afebrile Blood Pressure: Normal Pulse: Regular Respiratory Rate: Normal Appearance: Positive for: Well-Appearing, Non-Toxic, Comfortable Pain Distress: None Mental Status: Positive for: Alert and Oriented X 3 - Systems Exam Head: Present: Atraumatic, Normocephalic Pupils: Present: PERRL Extroacular Muscles: Present: EOMI Conjunctiva: Present: Normal Mouth: Present: Moist Mucous Membranes Neck: Present: Normal Range of Motion Respiratory/Chest: Present: Clear to Auscultation, Good Air Exchange. No: Respiratory Distress, Accessory Muscle Use Cardiovascular: Present: Regular Rate and Rhythm, Normal S1, S2. No: Murmurs Abdomen: Present: Normal Bowel Sounds. No: Tenderness, Distention, Peritoneal Signs Back: Present: Normal Inspection Upper Extremity: Present: Normal Inspection. No: Cyanosis, Edema Lower Extremity: Present: Normal Inspection. No: Edema Neurological: Present: GCS=15, CN II-XII Intact, Speech Normal Skin: Present: Warm, Dry, Normal Color. No: Rashes Psychiatric: Present: Alert, Oriented x 3, Normal Insight, Normal Concentration Medical Decision Making ED Course and Treatment: 10/20/16 19:20 Impression: A 51 year old male with chest pain. Differential Diagnosis include but are not limited to: ACS vs. musculoskeletal Plan: -- EKG -- Chest X-ray -- Labs -- Oxycodone -- Reassess and disposition Prior Visits: Notes and results from previous visits were reviewed. The patient last presented to the emergency department on 10/19/16 for evaluation of chest pain. Progress Notes: EKG: Ordered, reviewed, and independently interpreted the EKG. Rate : 70 BPM Rhythm : NSR Interpretation : Nonspecific ST/T changes. 10/20/16 21:04 Reviewed radiology, Chest X-ray shows no active disease. 10/20/16 21:[address] Sugey Blanco, who is aware and agrees with plan. Accepts pt in to his service. Pt will go to remote telemetry observation for chest pain. - Lab Interpretations Lab Results: 10/20/16 18:00 10/20/16 18:00 Lab Results 10/20/16 18:00: WBC 6.6, RBC 4.15, Hgb 12.8 L, Hct 36.8 L, MCV 88.7, MCH 30.8, MCHC 34.8, RDW 13.3, Plt Count 281, MPV 10.0 10/20/16 18:00: PT 11.3, INR 1.05, APTT 28.6 10/20/16 18:00: Sodium 141, Potassium 3.7, Chloride 106, Carbon Dioxide 26, Anion Gap 13, BUN 10, Creatinine 1.1, Est GFR ( Amer) > 60, Est GFR (Non- Af Amer) > 60, Random Glucose 97, Calcium 9.1, Total Bilirubin 0.4, AST 16, ALT 33, Alkaline Phosphatase 77, Lactate Dehydrogenase 350, Total Creatine Kinase 89 , Troponin I < 0.01, Total Protein 6.8, Albumin 4.0, Globulin 2.9, Albumin/ Globulin Ratio 1.4 I have reviewed the lab results: Yes - RAD Interpretation Radiology Orders: 10/20/16 19:53 CHEST PORTABLE [RAD] Stat - Medication Orders Current Medication Orders: Morphine Sulfate (Morphine) 6 mg IVP STAT STA Stop: 10/20/16 21:53 Discontinued Medications Oxycodone HCl (Oxycodone Immediate Release Tab) 30 mg PO ONCE ONE Stop: 10/20/16 20:00 Last Admin: 10/20/16 20:25 Dose: 30 mg - Scribe Statement The provider has reviewed the documentation as recorded by the Nieves Hand Provider Scribe Attestation: All medical record entries made by the Nieves were at my direction and personally dictated by me. I have reviewed the chart and agree that the record accurately reflects my personal performance of the history, physical exam, medical decision making, and the department course for this patient. I have also personally directed, reviewed, and agree with the discharge instructions and disposition. Disposition/Present on Arrival - Present on Arrival Any Indicators Present on Arrival: No History of DVT/PE: No History of Uncontrolled Diabetes: No Urinary Catheter: No History of Decub. Ulcer: No History Surgical Site Infection Following: None - Disposition Have Diagnosis and Disposition been Completed?: Yes Diagnosis: Chest pain Disposition: HOSPITALIZED Disposition Time: 21:28 Patient Plan: Observation Patient Problems: Current Active Problems Problem Status Onset Chest pain Acute Condition: STABLE Discharge Instructions (ExitCare): Chest Pain (ED) Referrals: Devin Blanco MD [Primary Care Provider] - Follow up with primary
[2016-10-20 20:15] LABS: HEMATOCRIT 36.8 % (42.0-52.0); MEAN CELL VOLUME 88.7 fL (80.0-105.0); MEAN CORPUSCULAR HEMOGLOBIN 30.8 pg (25.0-35.0); MEAN CORPUSCULAR HGB CONC 34.8 g/dl (31.0-37.0); RED CELL DISTRIBUTION WIDTH 13.3 % (11.5-14.5); WHITE BLOOD COUNT 6.6 10^3/ul (4.5-11.0)
[2016-10-20 20:21] LABS: INR 1.05 (0.93-1.08); PARTIAL THROMBOPLASTIN TIME 28.6 Seconds (23.7-30.8)
[2016-10-20 20:35] LABS: ALB/GLOB RATIO 1.4 (1.1-1.8); ALKALINE PHOSPHATASE 77 U/L (38-133); ALT/SGPT 33 U/L (7-56); AST/SGOT 16 U/L (15-59); BILIRUBIN,TOTAL 0.4 mg/dL (0.2-1.3); BLOOD UREA NITROGEN 10 mg/dL (7-21); CALCIUM 9.1 mg/dL (8.4-10.5); CARBON DIOXIDE 26 mmol/L (21-33); CHLORIDE 106 mmol/L (98-107); GFR AFRICAN-AMERICAN > 60; GLUCOSE,RANDOM 97 mg/dL (70-110); POTASSIUM 3.7 mmol/L (3.6-5.0); SODIUM 141 mmol/L (132-148); TOTAL PROTEIN 6.8 g/dL (5.8-8.3)
[2016-10-20 20:43] LABS: TROPONIN I < 0.01 ng/mL
[2016-10-21] MEDS ORDERED: oxyCODONE 30 mg Immediate Release Tab PO STA (06:00)
--- NOTE | 2016-10-21 06:44 | CP.PCM.PN ---
Subjective - Date & Time of Evaluation Date of Evaluation: 10/21/16 Time of Evaluation: 06:44 - Subjective Subjective: Patient was seen at bedside. He requested xanax which he takes at home. Later on requested oxycodone for his back pain. Has no other complaints. Medical record was reviewed. This 51 year old male was admitted with chest pain, neck pain , shoulder pain/ atypical chest pain. Has PMH of HTN, chronic low back pain, depression, seizure from benzodiazepine withdrawal, anxiety, chronic opiate use. Objective - Vital Signs/Intake and Output Vital Signs (last 24 hours): Temp Pulse Resp BP Pulse Ox 97.4 F L 71 20 124/87 98 10/21/16 00:36 10/21/16 06:00 10/21/16 00:36 10/21/16 00:36 10/20/16 23:31 - Labs Labs: PT 11.3 Seconds (9.9-11.8) 10/20/16 18:00 INR 1.05 (0.93-1.08) 10/20/16 18:00 APTT 28.6 Seconds (23.7-30.8) 10/20/16 18:00 - Constitutional Appears: Well, No Acute Distress - Head Exam Head Exam: ATRAUMATIC, NORMAL INSPECTION, NORMOCEPHALIC - Eye Exam Eye Exam: Normal appearance - ENT Exam ENT Exam: Normal External Ear Exam - Neck Exam Neck Exam: Normal Inspection - Respiratory Exam Respiratory Exam: NORMAL BREATHING PATTERN - Cardiovascular Exam Cardiovascular Exam: absent: JVD - GI/Abdominal Exam GI & Abdominal Exam: absent: Distended - Rectal Exam Rectal Exam: Deferred - Extremities Exam Extremities Exam: Normal Inspection - Back Exam Back Exam: NORMAL INSPECTION - Neurological Exam Neurological Exam: Alert, Oriented x3 - Psychiatric Exam Psychiatric exam: Normal Affect, Normal Mood - Skin Skin Exam: Normal Color Assessment and Plan - Assessment and Plan (Free Text) Assessment: A/P:Low back pain. Hypertension. Opiate use. Anxiety/Depression. Continue present management. Oxycodone as ordered.
--- NOTE | 2016-10-21 08:11 | RAD ---
HISTORY: chest pain COMPARISON: 10/18/2016 FINDINGS: LUNGS: No active pulmonary disease. PLEURA: No significant pleural effusion identified, no pneumothorax apparent. CARDIOVASCULAR: Normal. OSSEOUS STRUCTURES: No significant abnormalities. VISUALIZED UPPER ABDOMEN: Normal. OTHER FINDINGS: None. IMPRESSION: No active disease.
[2016-10-21] MEDS: oxyCODONE 30 mg Immediate Release Tab PO PRN ×3 (09:32→21:16)
[2016-10-21] MEDS: Pantoprazole 40 mg EC Tab PO SCH (10:59)
[2016-10-21] MEDS: Naproxen 550 mg Tab PO SCH ×2 (12:07→17:21)
--- NOTE | 2016-10-21 12:19 | CARD ---
APPROVED REPORT EKG Measurement Heart [id number] 144P [id number] <Conclusion> Arm lead reversal Normal sinus rhythm Nonspecific ST and T wave abnormality Abnormal ECG
--- NOTE | 2016-10-21 12:26 | CON ---
DATE: 10/21/2016 The patient is in room 363, bed 1. REASON FOR CONSULTATION: Chest pain. HISTORY OF PRESENT ILLNESS: A 51-year-old male, known psychiatric problem, was admitted with a histo ry that he was having left chest and left arm pain, which was continuous and it was also getting wors e by moving side to side and also moving the arm or raising the arm or moving the wrist, and he is al so tender at the points of pain in the chest area pain and also on the arm and wrist and shoulder. I t has no relation to exertion. PAST MEDICAL HISTORY: Significant for psychiatric disorder, history of hyperlipidemia, history of shantal mbar radiculopathy, history of multiple admissions to psychiatric floor, history of back surgery. Th e patient off and on gets back pain. PREVIOUS CARDIAC WORKUP: The patient had stress test 10/25/2014, which was normal and it was compared to stress test of 01/29/2013. There was no change. The patient again on 09/29/2016 had a stress test which was negative with LV ejection fraction 74%. The patient had echo 11/04/2014, which was normal with trace regurgitation and patient again had echo 09/29/2016, which again was normal with normal LV ejection fraction and trace regurgitation. PERSONAL HISTORY: The patient used to smoke a pack a day for many years. He stopped about 3-4 month s ago. He used to be heavy drinking before. He states that he stopped drinking. No history of subs tance abuse. FAMILY HISTORY: Not significant. MEDICATIONS AT HOME: The patient takes oxycodone for back pain, also takes clonazepam, amlodipine, S eroquel, atorvastatin. REVIEW OF SYSTEMS: All the systems reviewed, positives mentioned in the history, others were negativ e. PHYSICAL EXAMINATION: VITAL SIGNS: Blood pressure 151/108, respirations 18, pulse 61, temperature 97.4. HEAD: Normocephalic. EYES: Pupils normal. Conjunctivae normal. NECK: JVP low. Carotid equal. THORAX: AP diameter normal, tenderness on the left chest area of pain. MUSCULOSKELETAL: Also tenderness on left shoulder and left arm and left wrist, all the areas which p atient complaining of pain. LUNGS: Clear. CARDIOVASCULAR: S1, S2. ABDOMEN: Soft, no tenderness, no organomegaly. EXTREMITIES: No clubbing, no cyanosis. LABORATORIES: WBC 6.6, hemoglobin 12.8, hematocrit 36.8. Yesterday, hemoglobin was 13.7, hematocrit 40.6, platelets 281. Sodium 141, potassium 3.7, BUN 10, creatinine 1.1. AST, ALT normal. Troponin negative. Protein, albumin normal. Chest x-ray clear. EKG: Regular sinus rhythm, but was done with reversed limb leads, so we will rep eat the EKG. DIAGNOSES: Chest and arm pain, musculoskeletal, psychiatric disorder, hypertension, hyperlipidemia. As mentioned before, stress test and echo 09/29/2016 normal. PLAN: We will give Naprosyn b.i.d. for musculoskeletal pain. The patient is getting Klonopin 2 mg b .i.d., Elavil 10 mg at bedtime, Lipitor 20 daily, Pepcid 40 mg p.o. at bedtime, Protonix 40 in the mo rning. We will monitor blood pressure. If it stays up, we will adjust the medication. Will follow with you. Javid Palmer MD cc: [id number] TT: 10/21/2016 12:25:43 Confirmation # [id number] Dictation # [id number]
--- NOTE | 2016-10-21 17:09 | CARD ---
APPROVED REPORT EKG Measurement Heart [id number] <Conclusion> Normal sinus rhythm Normal ECG
[2016-10-21 17:39] VITALS: TEMP 97.9; O2SAT 96
--- NOTE | 2016-10-21 22:31 | HP ---
CHIEF COMPLAINT: Chest pain in the neck, pectoralis muscle, and then a sudden onset of left-sided wr ist pain with pain across the shoulder. HISTORY OF PRESENT ILLNESS: This is the second hospitalization this year for this 51-year-old man, v guy worried about his family history of coronary artery disease. He was admitted in 09/2016. He was also admitted to [facility] on 4 occasions in 2016 and there have been several ambulance trips to the Emergency Room throughout the course of 2010, 2011, 2012, 2013, 2014, and 2016. In the Emergency Room, labs and troponins were negative, but because of strong family history and multiple risk factors, arrangements were made for him to be admitted. PAST MEDICAL HISTORY: This 51-year-old man has been on disability because of back pain. He had a coleman llium stress test in 2014, which was unremarkable as well as a thallium stress test earlier this year , which was also negative. Holter monitor, 10 months ago was unremarkable. EKGs and echocardiogram d one in September of this year was also unremarkable with good LV function and a normal ejection fraction. The patient reports this to be a nonexertional type pain. It comes on at almost any time. He can be sitting watching TV. It was not related to walking or carrying packages. There was no episode of di aphoresis or exertional dyspnea. He denies palpitations and describes the pain as being rather sharp in the pectoralis muscle, in the neck, across the left shoulder and in the wrist. PAST MEDICAL HISTORY: Significant for hypertension, chronic low back pain, chronic opiate use, depr ession, bipolar disorder, benzodiazepine withdrawal seizures, generalized anxiety disorder. He saw a psychiatrist in the past and was treated with Seroquel, amitriptyline, Suboxone, although most recen tly, he has only been taking opiates and benzodiazepines. CURRENT MEDICATIONS: Include oxycodone, Xanax and Ambien. ALLERGIES: He has no known allergies to medications. SOCIAL HISTORY: Has a history of tobacco use and alcohol consumption. REVIEW OF SYSTEMS: Positive for back pain. PHYSICAL EXAMINATION: GENERAL: The patient is short muscular 51-year-old man. He moves about that room with relative ease . HEAD AND NECK: Unremarkable. HEENT: Conjunctivae are pink. Mucous membranes are moist. NECK: Supple, without masses. Thyroid is not palpable. There is no JVD, no swollen lymph nodes. LUNGS: Clear with good aeration, right and left. HEART: Regular, nontachycardic. ABDOMEN: Soft and benign. EXTREMITIES: Lower extremities show no edema. Upper extremities show no crepitus shoulder or elbow. There is no cervical spasm in the posterior cervical and trapezius group, although he does report t his to be a radiating pain many times from the neck down the arm. IMPRESSION: 1. Atypical chest pain, most likely musculoskeletal in origin in a 51-year-old man with multiple risk factors for coronary artery disease including diabetes, tobacco use and elevated cholesterol. 2. Chronic back pain. 3. Chronic opiate use. 4. Chronic benzodiazepine use. 5. Generalized anxiety disorder. 6. History of benzodiazepine withdrawal seizures. PLAN: In view of ____ etiology of the admitting symptoms has essentially been ruled out on prior adm issions, I will pursue further other possible causes including GI, and musculoskeletal. We will add a proton pump inhibitor at this time and consider GI consultation if symptoms persist. I have reviewe d his medical record and I see that x-ray or MRI of the cervical spine has never been looked into; th erefore, we will order an MRI of the C-spine for today to look for foraminal narrowing in the C6-7 ar ea. Prior labs have already been ordered by Dr. Devin Blanco upon admission late last night, and we will follow closely. Alan Blanco MD cc: [phone] TT: 10/21/2016 22:31:09 [email or web address]
[2016-10-22] MEDS: oxyCODONE 30 mg Immediate Release Tab PO PRN ×2 (04:11→09:53)
[2016-10-22] MEDS: Pantoprazole 40 mg EC Tab PO SCH (08:12)
[2016-10-22] MEDS: Naproxen 550 mg Tab PO SCH (09:29)
[2016-10-22 09:33] VITALS: BP 121/85
--- NOTE | 2016-10-22 09:41 | MRI ---
PROCEDURE: MR CERVICAL SPINE WITHOUT CONTRAST HISTORY: Left radicular pain COMPARISON: None available. TECHNIQUE: Multiecho multiplanar sequences were performed through the cervical spine without the use of intravenous contrast. FINDINGS: Normal lordotic curvature. Craniocervical junction unremarkable. Vertebral body heights preserved. No marrow signal abnormality. Normal cervical cord. No paraspinal abnormality. C2-C3: No disc herniation, spinal canal stenosis or neural foraminal narrowing. C3-C4: No disc herniation, spinal canal stenosis or neural foraminal narrowing. C4-C5: Minimal central disc protrusion C5-C6: No disc herniation, spinal canal stenosis or neural foraminal narrowing. C6-C7: There is a mild disc bulge and osteophytic ridge with mild bilateral foraminal stenosis C7-T1: No disc herniation, spinal canal stenosis or neural foraminal narrowing. OTHER FINDINGS: None. IMPRESSION: Disc bulge in osteophytic ridge at C6-7 with mild bilateral foraminal stenosis
[2016-10-22 10:01] VITALS: PULSE 72; RESP 18
--- NOTE | 2016-10-22 12:16 | PN ---
DATE: 10/22/2016 The patient is in room 363, bed 1. REASON FOR CONSULTATION: Chest pain. HISTORY OF PRESENT ILLNESS: The patient is a 51-year-old male, known psychiatric problem, was admitt ed with a history that he was having left chest and left arm pain which was continuous and was also g etting worse by moving side to side and raising the arm is also tender at the same points on the arm as well as on chest and wrist. Chest pain has no relation with exertion. The patient had 3 stress t ests in the past which were mentioned in our consultation and last stress test was 09/29/2016 which wa s negative with a normal LV ejection fraction. The patient was put on naproxen and his symptoms are much better. PHYSICAL EXAMINATION: VITAL SIGNS: Blood pressure 121/85, respirations 18, pulse 72, temperature 97.9. HEAD: Normocephalic. EYES: Pupils normal. Conjunctivae normal. NOSE AND THROAT: Normal. NECK: JVP low. Carotid equal. THORAX: AP diameter normal. LUNGS: Clear. CARDIOVASCULAR: S1, S2. Tenderness on the chest wall and arm is much better. ABDOMEN: Soft. No organomegaly. Bowel sounds normal. EXTREMITIES: No clubbing, no cyanosis. LABORATORY DATA: Done on 10/20 and they were mentioned in our previous progress note. DIAGNOSES: Chest pain and arm pain, musculoskeletal; psychiatric disorder, hypertension, hyperlipide eli. The patient had a stress test and echo on 09/29/2016. Both were normal. Prior to that, the [facility] also had a stress test on 10/25/2014 and 01/29/2013. All these stress tests were negative. The neris chapa's chest pain is musculoskeletal in nature. We will continue present therapy. We will follow w ith you. Javid Palmer MD cc: [id number] TT: 10/22/2016 12:16:25 Confirmation # [id number] Dictation # [id number] tn
--- NOTE | 2016-10-23 21:07 | DS ---
This is a 51-year-old man who has a history of polysubstance use, multiple tattoos, tobacco use, etc. , who has recently been hospitalized on several occasions because of atypical chest pain. A recent s tress test was unremarkable. Cardiac evaluation was negative. Echocardiogram was unremarkable and t he patient was home. He reported on the day of admission, he had a pain in his neck radiating down t o his left chest, across his chest, into the pectoralis and then had a sudden sharp pain in his wrist , prompting him to come to the Emergency Room. In the Emergency Room, he once again told the staff cesario carpenter was terribly concerned with his multiple risk factors including family history of coronary artery d isease, tobacco use, cholesterol and hypertension, so he was admitted. On the telemetry floor, he wa s monitored and was unremarkable. A detailed history taken. I felt the symptoms were more musculosk eletal, perhaps related to his cervical radiculopathy and of course the secondary etiology to h is symptoms have to be entertained. He was treated with IV proton pump inhibitors and MRI of the cer vical spine was scheduled with proton pump inhibitors and p.o. NSAID (naproxen 375 mg b.i.d.) His sy mptoms seemed to have improved. The MRI revealed a foraminal narrowing at the C6-7 foramen on the le ft, which correlated clearly with his symptoms. The patient was informed and in fact quite relieved to hear there was an etiology to his symptoms confirmed and he was ready for discharge to home. FINAL DISCHARGE DIAGNOSES: 1. Left cervical radiculopathy. 2. Chest pain. 3. Hypertension. 4. Hyperlipidemia. 5. Tobacco use. 6. Family history of coronary artery disease. 7. Chronic pain. 8. Anxiety. 9. Polysubstance use. PLAN: He will follow up with us in the office in 1 week. Alan Blanco MD cc: [id number] TT: 10/23/2016 21:07:26 [email or web address]
== END 2016-10-22 12:24 | disposition home or self-care (01) ==
LOC: ED 18:55 → ERH 21:24 → 3RNO 23:50
PROVIDERS: ADMIT Internal Medicine; ATTEND Internal Medicine
DX: M54.12 Radiculopathy, cervical region (principal); R07.89 Other chest pain; I10 Essential (primary) hypertension; E78.5 Hyperlipidemia, unspecified; F41.1 Generalized anxiety disorder; F31.9 Bipolar disorder, unspecified; M79.602 Pain in left arm; M54.16 Radiculopathy, lumbar region; G89.29 Other chronic pain; Z87.891 Personal history of nicotine dependence; Z79.891 Long term (current) use of opiate analgesic; Z82.49 Family history of ischemic heart disease and other diseases of the circulatory system
CPT/HCPCS: 71010; 72141; 80053; 82550; 83615; 84484; 85027; 85610; 85730; 93005; 96374; 99284; G0378; J2270

== ENCOUNTER 2016-10-24 20:30 | Observation (INO) | payer BC, MEDICARE ==
[2016-10-24 20:35] VITALS: BMI 28.5
--- NOTE | 2016-10-24 21:41 | ED PDOC ---
Arrival/HPI - General Chief Complaint: Chest Pain Time Seen by Provider: 10/24/16 21:23 Historian: Patient - History of Present Illness Narrative History of Present Illness (Text): 10/24/16 21:41 A 51 year old male presents to the emergency department complaining of sudden onset left sided chest pain that started about an hour prior to arrival. Patient notes sharp and stabbing pain radiating to back. Patient reports he was sitting and watching TV. Patient notes he has shortness of breath, but denies any fever, cough, abdominal pain or any other complaints at this time. Time/Duration: 1 hour Symptom Onset: Sudden Symptom Course: Unchanged Activities at Onset: Rest Modifying Factors (Text): none Context: Home Associated Symptoms (Text): shortness of breath Past Medical History - Provider Review Nursing Documentation Reviewed: Yes - Infectious Disease Hx of Infectious Diseases: None - Tetanus Immunization Tetanus Immunization: Unknown - Cardiac Hx Hypertension: Yes - Pulmonary Hx Respiratory Disorders: Yes (H/O OF CIGARETTE SMOKING-NOW USING E VAPE) - Neurological Hx Seizures: Yes - HEENT Hx HEENT Disorder: No - Renal Hx Renal Disorder: Yes Hx Kidney Stones: Yes - Endocrine/Metabolic Hx Endocrine Disorders: No - Hematological/Oncological Hx Blood Disorders: No Hx Cancer: No - Integumentary Hx Dermatological Disorder: Yes (tattoos) - Musculoskeletal/Rheumatological Hx Falls: Yes (PASS OUT AFTER AN OVERDOSE OF AMITRIPTYLINE) - Gastrointestinal Hx Gastrointestinal Disorders: Yes Other/Comment: COLON TUMOR REMOVED - Genitourinary/Gynecological Hx Sexually Transmitted Diseases: No - Psychiatric Hx Anxiety: Yes Hx Bipolar Disorder: Yes Hx Depression: Yes Hx Substance Use: No - Past Surgical History Past Surgical History: Non-Contributing - Anesthesia Hx Anesthesia: Yes Hx Anesthesia Reactions: No Hx Malignant Hyperthermia: No - Suicidal Assessment Feels Threatened In Home Enviroment: No Family/Social History - Physician Review Nursing Documentation Reviewed: Yes Family/Social History: No Known Family HX Smoking Status: Current Some Days Smoker Hx Alcohol Use: No Hx Substance Use: No Hx Substance Use Treatment: No Allergies/Home Meds Allergies/Adverse Reactions: Allergies No Known Allergies Allergy (Verified 10/24/16 20:36) Home Medications: Home Meds Medication Instructions Recorded Confirmed Atorvastatin Calcium [Lipitor] 20 mg PO DAILY 08/05/15 10/24/16 Amitriptyline HCl 10 mg PO HS 10/19/16 10/24/16 Alprazolam [Xanax] 2 mg PO QID 10/21/16 10/24/16 Naproxen [Anaprox DS] 550 mg PO BID 10/22/16 10/24/16 Omeprazole 40 mg PO DAILY 10/22/16 10/24/16 Review of Systems - Review of Systems Constitutional: absent: Fevers Respiratory: SOB. absent: Cough Cardiovascular: Chest Pain Gastrointestinal: absent: Abdominal Pain Physical Exam - Physical Exam Narrative Physical Exam (Text): 10/24/16 21:39 Head: Atraumatic. Normocephalic. Eyes: PERRL. EOMI. Conjunctivae are not pale. ENT: Mucous membranes are moist and intact. Oropharynx is clear and symmetric. Neck: Supple. Full ROM. No JVD. No lymphadenopathy. Paraspinal tenderness. Cardiovascular: Regular rate. Regular rhythm. No murmurs, rubs, or gallops. Distal pulses are 2+ and symmetric. Pulses equal in both upper extremities. Pulmonary/Chest: Palpable left anterior wall chest pain. Lungs clear. No rash or edema. Abdominal: Soft and non-distended. There is no tenderness. No rebound, guarding, or rigidity. No organomegaly. Good bowel sounds. Back: No CVA tenderness. No midline tenderness. No rash. Palpable left upper back pain with no edema/erythema. Extremities: No edema. No cyanosis. No clubbing. Full range of motion in all extremities. No calf tenderness. Mild pain to lateral aspect of left knee, no swelling or drawers sign, no ligamentous laxity, no patella or bony pain, no ankle or hip pain bilaterally. Distal pulses intact. Skin: Skin is warm and dry. No petechiae. No purpura. Neurological: Alert, awake, and oriented to person, place, time, and situation. Normal speech. Motor and sensory exam intact. Psychiatric: No suicidal ideation. No depression. Anxious. Vital Signs Reviewed: Yes Vital Signs Temp Pulse Resp BP Pulse Ox 10/24/16 20:30 97.8 F 88 18 124/77 100 Temperature: Afebrile Blood Pressure: Normal Pulse: Regular Respiratory Rate: Normal Appearance: Positive for: Well-Appearing, Non-Toxic, Comfortable Pain Distress: None Mental Status: Positive for: Alert and Oriented X 3 Medical Decision Making ED Course and Treatment: 10/24/16 21:45 Impression: A 51 year old male complaining of sudden onset left sided chest pain radiating to back. Plan: -- EKG -- chest xray -- labs -- Urinalysis -- Aspirin -- Reassess and disposition Prior Visits: Notes and results from previous visits were reviewed. Patient last reported to emergency department on 10/20/16 for evaluation of chest discomfort radiating to the left arm. Dr. Blanco accepted patient to his service. Patient went to remote telemetry observation for chest pain. Patient was advised to follow up and discharged on 10/22/16. Progress Notes: Patient's multiple recent visits for chest pain reviewed. Patient had an unremarkable stress test, never had cardiac catheterization. Patient reports smoking, and a family history of [place] and hypercholesterolemia. Plan is to obtain cardiac enzyme, D Dimer, and consult cardiology. Ddimer unremarkable. Plan to obtain ct angio to evaluate for dissection, although at this time no pulse deficits. I discussed case with PMD and I consulted with Dr. Palmer, patient's symptoms and risk factors reviewed. He has not had cardiac catherization in past, he continues to have chest pain intermittently. Prior unremarkable stress test reportedly. Will admit due to PERSISTENT CHEST PAIN and multiple risk factors, will admit to telemetry. Patient with no calf pain. States his "left knee gave out" as he was on steps prior to getting on ambulance. On exam, no ligamentous laxity, mild lateral pain but weight bearing with no edema or calf pain. Suspect mild left knee sprain. - Lab Interpretations Lab Results: 10/24/16 21:50 10/24/16 21:50 Lab Results 10/24/16 21:50: Sodium 141, Potassium 4.0, Chloride 106, Carbon Dioxide 26, Anion Gap 13, BUN 14, Creatinine 0.9, Est GFR ( Amer) > 60, Est GFR (Non- Af Amer) > 60, Random Glucose 99, Calcium 9.1, Total Bilirubin 0.6, AST 31, ALT 35, Alkaline Phosphatase 90, Total Protein 6.9, Albumin 3.9, Globulin 3.0, Albumin/Globulin Ratio 1.3 10/24/16 21:50: PT 10.8, INR 1.00, APTT 28.1, D-Dimer, Quantitative 0.23 10/24/16 21:50: WBC 8.4 D, RBC 4.29, Hgb 13.3 L, Hct 37.9 L, MCV 88.3, MCH 31.0 , MCHC 35.1, RDW 13.5, Plt Count 277, MPV 10.1, Gran % 65.1, Lymph % (Auto) 29.4 , Clay % (Auto) 4.5, Eos % (Auto) 0.8 L, Baso % (Auto) 0.2, Gran # 5.44, Lymph # 2.5, Clay # 0.4, Eos # 0.1, Baso # 0.02 10/24/16 21:50: Lactate Dehydrogenase 459, Total Creatine Kinase 92, Troponin I < 0.01 I have reviewed the lab results: Yes - RAD Interpretation Radiology Orders: 10/24/16 21:36 CHEST PORTABLE [RAD] Stat 10/24/16 22:58 ANGIOGRAPHY DISECTION PROTOCOL [CT] Stat - EKG Interpretation EKG Interpretation (Text): 10/24/16 22:56 EKG at 20:41 normal sinus rhythm no acute st elevations Interpreted by ED Physician: Yes Type: 12 lead EKG - Medication Orders Current Medication Orders: Discontinued Medications Aspirin (Aspirin Chewable) 81 mg PO STAT STA Stop: 10/24/16 21:37 Last Admin: 10/24/16 21:56 Dose: 81 mg - Scribe Statement The provider has reviewed the documentation as recorded by the Nieves Javier All medical record entries made by the Salvatoreibpauline were at my direction and personally dictated by me. I have reviewed the chart and agree that the record accurately reflects my personal performance of the history, physical exam, medical decision making, and the department course for this patient. I have also personally directed, reviewed, and agree with the discharge instructions and disposition. Disposition/Present on Arrival - Present on Arrival Any Indicators Present on Arrival: No History of DVT/PE: No History of Uncontrolled Diabetes: No Urinary Catheter: No History of Decub. Ulcer: No History Surgical Site Infection Following: None - Disposition Have Diagnosis and Disposition been Completed?: Yes Diagnosis: Chest pain, Back pain, Knee sprain Disposition: HOSPITALIZED Disposition Time: 23:02 Patient Plan: Admission, Observation, Telemetry Patient Problems: Current Active Problems Problem Status Onset Back pain Acute Chest pain Acute Condition: FAIR Discharge Instructions (ExitCare): Chest Pain (ED) Referrals: Suczewski,Edward J, MD [Primary Care Provider] - Follow up with primary
[2016-10-24 22:02] LABS: ADD MANUAL DIFF? NO
[2016-10-24 22:29] LABS: BASO # 0.02 K/mm3 (0.0-2.0); BASO % 0.2 % (0.0-3.0); EOS # 0.1 (0.0-0.7); EOS % 0.8 % (1.5-5.0); GRAN # 5.44 (1.4-6.5); GRAN % 65.1 % (50.0-68.0); HEMATOCRIT 37.9 % (42.0-52.0); LYMPH # 2.5 (1.2-3.4); LYMPH % 29.4 % (22.0-35.0); MEAN CELL VOLUME 88.3 fL (80.0-105.0); MEAN CORPUSCULAR HGB CONC 35.1 g/dl (31.0-37.0); MEAN PLATELET VOLUME 10.1 fl (7.0-11.0); MONO # 0.4 (0.1-0.6); MONO % 4.5 % (1.0-6.0); PLATELET COUNT 277 10^3/uL (120.0-450.0); RED CELL DISTRIBUTION WIDTH 13.5 % (11.5-14.5); WHITE BLOOD COUNT 8.4 10^3/ul (4.5-11.0)
[2016-10-24 22:35] LABS: TROPONIN I < 0.01 ng/mL
[2016-10-24 22:36] LABS: ALB/GLOB RATIO 1.3 (1.1-1.8); ALKALINE PHOSPHATASE 90 U/L (38-133); ALT/SGPT 35 U/L (7-56); AST/SGOT 31 U/L (15-59); BILIRUBIN,TOTAL 0.6 mg/dL (0.2-1.3); BLOOD UREA NITROGEN 14 mg/dL (7-21); CALCIUM 9.1 mg/dL (8.4-10.5); CARBON DIOXIDE 26 mmol/L (21-33); CHLORIDE 106 mmol/L (98-107); GFR AFRICAN-AMERICAN > 60; GLUCOSE,RANDOM 99 mg/dL (70-110); SODIUM 141 mmol/L (132-148); TOTAL PROTEIN 6.9 g/dL (5.8-8.3)
[2016-10-24 22:37] LABS: PARTIAL THROMBOPLASTIN TIME 28.1 Seconds (23.7-30.8)
[2016-10-24 22:39] LABS: D DIMER 0.23 mg/L FEU (0-0.50)
[2016-10-25 00:49] LABS: URINE BILIRUBIN NEGATIVE (NEGATIVE); URINE BLOOD NEGATIVE (NEGATIVE); URINE GLUCOSE (UA) NEGATIVE (NEGATIVE); URINE KETONE NEGATIVE (NEGATIVE); URINE LEUKOCYTE ESTERASE NEGATIVE Leu/uL (NEGATIVE); URINE PROTEIN NEGATIVE mg/dL (<30 mg/dL); URINE UROBILINOGEN 0.2 E.U./dL (<1 E.U./dL)
[2016-10-25 00:58] LABS: URINE APPEARANCE CLEAR (CLEAR); URINE COLOR YELLOW (YELLOW)
--- NOTE | 2016-10-25 01:13 | CP.PCM.PN ---
Subjective - Date & Time of Evaluation Date of Evaluation: 10/25/16 Time of Evaluation: 01:12 - Subjective Subjective: Patient was seen at bedside. States that he takes xanax 2 mg prn and Roxycodone for pain, has seen , pain managment MD in the past. 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 States that he wants his xanax now and he will needd his oxycodone in the morning when he wakes up , when he is expecting to have pain, states that he does not want pain medication now . Has no other complaints now. Medical record was reviewed. This 51 year old white male is admitted with left sided chest pain, backpain. Has PMH of HTN,back pain, chronic opiate use, depression, bipolar disorder, anxiety, benzodiazepine withdrawal seizures,anxiety. Objective - Vital Signs/Intake and Output Vital Signs (last 24 hours): Temp Pulse Resp BP Pulse Ox 97.7 F 71 18 143/88 99 10/25/16 00:21 10/25/16 00:21 10/25/16 00:21 10/25/16 00:21 10/25/16 00:21 - Labs Labs: PT 10.8 Seconds (9.9-11.8) 10/24/16 21:50 INR 1.00 (0.93-1.08) 10/24/16 21:50 APTT 28.1 Seconds (23.7-30.8) 10/24/16 21:50 - Constitutional Appears: No Acute Distress, Older Than Stated Age - Head Exam Head Exam: ATRAUMATIC, NORMAL INSPECTION, NORMOCEPHALIC - Eye Exam Eye Exam: Normal appearance - ENT Exam ENT Exam: Normal External Ear Exam - Neck Exam Neck Exam: Normal Inspection - Respiratory Exam Respiratory Exam: NORMAL BREATHING PATTERN - Cardiovascular Exam Cardiovascular Exam: absent: JVD - GI/Abdominal Exam GI & Abdominal Exam: absent: Distended - Rectal Exam Rectal Exam: Deferred - Extremities Exam Extremities Exam: Normal Inspection - Back Exam Back Exam: NORMAL INSPECTION - Neurological Exam Neurological Exam: Alert, Oriented x3 - Psychiatric Exam Psychiatric exam: Normal Affect, Normal Mood - Skin Skin Exam: Normal Color Assessment and Plan - Assessment and Plan (Free Text) Assessment: A/P:Low back pain. Chest pain. Bipolar disorder. Anxiety. HTN. Xanax 2 mg PO x 1. Will give oxycodone prn in AM.
[2016-10-25 01:44] VITALS: RESP 20
[2016-10-25] MEDS ORDERED: oxyCODONE 30 mg Immediate Release Tab PO STA (04:53)
[2016-10-25 05:51] VITALS: BP 125/79; PULSE 85; TEMP 97.8; O2SAT 98
--- NOTE | 2016-10-25 07:29 | RAD ---
HISTORY: chest pain COMPARISON: Comparison is made to 10/20/2026 FINDINGS: LUNGS: No active pulmonary disease. PLEURA: No significant pleural effusion identified, no pneumothorax apparent. CARDIOVASCULAR: Normal. OSSEOUS STRUCTURES: No significant abnormalities. VISUALIZED UPPER ABDOMEN: Normal. OTHER FINDINGS: None. IMPRESSION: No active disease.
--- NOTE | 2016-10-25 10:08 | CT ---
PROCEDURE: CT Angiography Chest, Abdomen and Pelvis with and without intravenous contrast HISTORY: chest pain radiating to back COMPARISON: None. TECHNIQUE: Contiguous axial images of the chest, abdomen and pelvis were obtained in the phase of aortic enhancement. A noncontrast enhanced CT of the chest was also obtained to evaluate for possible intramural thrombus. Coronal and sagittal reformats were generated. IV dose administered: 150 cc of Omni 350 Radiation dose: Total exam DLP = 1615 mGy-cm. This CT exam was performed using one or more of the following dose reduction techniques: Automated exposure control, adjustment of the mA and/or kV according to patient size, and/or use of iterative reconstruction technique. FINDINGS: CT ANGIOGRAPHY OF THE CHEST WITH & WITHOUT CONTRAST: AORTA (CHEST AND ABDOMEN): The thoracic and abdominal aorta are unremarkable, without aneurysm, dissection or rupture. No intramural thrombus identified in the thoracic aorta on the non-contrast ct of the chest. The celiac axis, superior mesenteric artery, inferior mesenteric artery and the renal arteries are widely patent. The pelvic arteries are unremarkable. LUNGS: Clear. No nodule, mass or consolidation. MEDIASTINUM: Unremarkable. Normal caliber aorta and pulmonary arterial trunk. No aortic dissection. Normal size heart. LYMPH NODES: Unremarkable. PLEURA: Unremarkable. No pneumothorax. No pleural fluid. BONES: Unremarkable. OTHER FINDINGS: None. CT ANGIOGRAPHY OF THE ABDOMEN AND PELVIS WITH CONTRAST: LIVER: Unremarkable. No gross lesion or ductal dilatation. GALLBLADDER AND BILE DUCTS: Unremarkable. PANCREAS: Unremarkable. No gross lesion or ductal dilatation. SPLEEN: Unremarkable. ADRENALS: Unremarkable. No mass. KIDNEYS AND URETERS: Unremarkable. No hydronephrosis. No solid mass. VASCULATURE: Unremarkable. No aortic aneurysm. STOMACH AND BOWEL: Unremarkable. No obstruction. No gross mural thickening. APPENDIX: Normal appendix. PERITONEUM: Unremarkable. No free fluid. No free air. LYMPH NODES: Unremarkable. No enlarged lymph nodes. BLADDER: Unremarkable. REPRODUCTIVE: Unremarkable. BONES: No acute fracture. OTHER FINDINGS: The report concurs with the preliminary [facility] report IMPRESSION: No evidence of aortic dissection or aneurysm. No evidence of pulmonary embolus
--- NOTE | 2016-10-25 10:23 | CARD ---
APPROVED REPORT EKG Measurement Heart [id number] <Conclusion> Normal sinus rhythm Normal ECG
--- NOTE | 2016-10-25 10:33 | CON ---
DATE: 10/25/2016 REASON FOR CONSULTATION: Recurrent multiple admissions for the chest pain, cardiac evaluation. BRIEF CLINICAL HISTORY: This is a 51-year-old male with a past medical history significant for psych iatric disorder, who admitted this morning again having chest pain. This is the 6th or 7th ER visit with recurrent chest pain in the left side, heavy sitting on the chest all the time. Sometimes , he says it increases on exertion. PAST MEDICAL HISTORY: Significant for psychiatric disorder, history of hyperlipidemia, history of shantal mbar radiculopathy, history of multiple admissions psych floor, history of back injury, history of di sability. PREVIOUS CARDIAC WORKUP: The patient had a stress test 10/25/2014 that shows normal myocardial perfus ion study, normal wall motion, no interval change since 2012. It was a Lexiscan as the patient canno t walk. The patient had echocardiography 11/04/2014 that shows normal size, ejection fraction 55%, tr nino aortic regurgitation, trace mitral regurgitation, trace tricuspid regurgitation, RV systolic pres sure 27. The patient had a repeat stress test on 09/29/2016 that was a Lexiscan, normal myocardial pe rfusion study, no change from 11/04/2014. The patient had also echocardiography 09/29/2016 and that sh ows ejection fraction 55%-60%, trace pulmonary insufficiency, trace to mild tricuspid regurgitation, right ventricular systolic pressure 60, trace to mild mitral regurgitation and trace aortic regurgita tion. SOCIAL HISTORY: Used to smoke a pack for many years, claims that quit 2-3 months. Drinks every now and then and used to be heavy drinker, but now says he slowed down. The patient is on current disabi lity because of back injury. FAMILY HISTORY: Not significant for coronary artery disease. CURRENT MEDICATIONS: The patient is taking oxycodone, clonazepam, amlodipine, omeprazole, Naprosyn, atorvastatin, amitriptyline and Xanax. REVIEW OF SYSTEMS: As per HPI. PHYSICAL EXAMINATION: VITAL SIGNS: Temperature afebrile, heart rate 85, blood pressure 125/79. HEENT: PERRLA. Extraocular muscles intact. NECK: Supple. No carotid bruits. No thyromegaly. CHEST: Clear to auscultation. HEART: S1, S2 regular. ABDOMEN: Soft. EXTREMITIES: Clubbing, cyanosis negative. BLOOD WORKUP: WBC 8.4, hemoglobin 13. , hematocrit 37.9, platelet count 277. Chemistry shows so dium 141, potassium 4, chloride 106, carbon dioxide 26, anion gap of 13, BUN , creatinine 0.9. Troponin 0.01, negative. IMPRESSION: So far troponin negative, no evidence of acute myocardial infarction, multiple ER visits 6-7 times, multiple stress tests, most recently in the last month 10/14/2016. After that, patient ad mitted 3 times complaining of chest pain and he says that he does not want to . That is why he ke eps on coming. In view of above suggested cardiac catheterization to definitely define the cor onary anatomy or rule in or rule out any significant coronary artery disease giving the chest pain. Discussed with the patient risks, benefits, alternatives. The patient agreed. We will proceed for c ardiac catheterization. Though the troponin is negative, but since this is the 7th or 8th ER visit o ai a period of 6 months, suggest cardiac catheterization though all previous stress tests negative. We will follow with you. Discussed with the patient. Thank you, Dr. Blanco, for providing us the opportunity in taking care of the patient. Javid Pretty MD cc: [id number] TT: 10/25/2016 10:32:59 Confirmation # [id number] Dictation # [id number] en
--- NOTE | 2016-10-25 13:08 | CON ---
DATE: 10/25/2016 ADDENDUM REASON FOR DICTATION: Addendum to the initial consult dictated this morning. After discussing with the patient, the patient agreed for cardiac catheterization. The patient was s cheduled for cardiac catheterization at 12:00 noon, but later on learned that patient signed out AMA, so we will hold the cath. We will inform Dr. Blanco. Thank you, Dr. Blanco, for providing us the opportunity in taking care of the patient. REASON FOR ADDENDUM: The patient signed out AMA. Javid Pretty MD cc: [id number] TT: 10/25/2016 13:06:57 Confirmation # [id number] Dictation # [id number] en
== END 2016-10-25 09:30 | disposition left against medical advice (07) ==
LOC: ED 20:30 → ERH 22:00 → 2RNO 10-25 00:34
PROVIDERS: ADMIT Internal Medicine; ATTEND Internal Medicine
DX: R07.9 Chest pain, unspecified (principal); R56.9 Unspecified convulsions; F31.9 Bipolar disorder, unspecified; F41.9 Anxiety disorder, unspecified; F17.210 Nicotine dependence, cigarettes, uncomplicated; E78.5 Hyperlipidemia, unspecified; I10 Essential (primary) hypertension; S83.92XA Sprain of unspecified site of left knee, initial encounter; M54.9 Dorsalgia, unspecified; M54.16 Radiculopathy, lumbar region; I08.8 Other rheumatic multiple valve diseases; Z79.891 Long term (current) use of opiate analgesic; Z87.442 Personal history of urinary calculi; W19.XXXA Unspecified fall, initial encounter
CPT/HCPCS: 71010; 71275; 74175; 80053; 81003; 82550; 83615; 84484; 85025; 85378; 85610; 85730; 93005; 99285; G0378; G0480; Q9967

== ENCOUNTER 2016-12-08 11:16 | Emergency (ER) | payer BC, MEDICARE ==
[2016-12-08 11:21] VITALS: BMI 28.4
[2016-12-08 11:25] VITALS: TEMP 97.3; O2SAT 100
[2016-12-08] MEDS ORDERED: Sodium Chloride 0.9% 1,000 ML IV STA (11:30)
--- NOTE | 2016-12-08 11:37 | ED PDOC ---
Arrival/HPI <Lea Ruiz - Last Filed: 12/08/16 12:43> - General Historian: Patient - History of Present Illness Time/Duration: Other (5 days) Symptom Onset: Gradual Symptom Course: Worsening Activities at Onset: Other (n/a) <Julianna Patel - Last Filed: 12/08/16 12:49> - General Chief Complaint: Cough, Cold, Congestion Time Seen by Provider: 12/08/16 11:19 - History of Present Illness Narrative History of Present Illness (Text): 12/08/16 11:31 Patient is a 51 y/o with pmh of htn, chronic back pain, opioid dependency, active tobacco use, medical non compliance presenting with a "cold". Patient states he feels like he has a cold. However patient denies cough, and congestion. Patient states for the past 5 days, he has been experiencing fatigue and feeling tired. Patient states he vomited 2 days ago, had diarrhea yesterday. Patient admits to subjective fever. Patient denies sick contact, denies eating new foods. Patient denies cp, sob, dysuria. Patient states he took Advil with no relief. (Julianna Patel) Past Medical History - Provider Review Nursing Documentation Reviewed: Yes - Travel History Have you recently traveled outside [place] w/in the past 3 mons?: No - Infectious Disease Hx of Infectious Diseases: None - Tetanus Immunization Tetanus Immunization: Unknown - Cardiac Hx Cardiac Disorders: Yes Hx Hypertension: Yes - Pulmonary Hx Respiratory Disorders: Yes (H/O OF CIGARETTE SMOKING-NOW USING E VAPE) - Neurological Hx Neurological Disorder: No Hx Seizures: No (Pt Denies) - HEENT Hx HEENT Disorder: Yes (wears contacts) - Renal Hx Renal Disorder: No - Endocrine/Metabolic Hx Endocrine Disorders: No - Hematological/Oncological Hx Blood Disorders: No - Integumentary Hx Dermatological Disorder: Yes (tattoos) - Musculoskeletal/Rheumatological Hx Falls: Yes - Gastrointestinal Hx Gastrointestinal Disorders: Yes Other/Comment: COLON TUMOR REMOVED - Genitourinary/Gynecological Hx Genitourinary Disorders: No - Psychiatric Hx Psychophysiologic Disorder: Yes Hx Anxiety: Yes Hx Bipolar Disorder: Yes Hx Depression: Yes Hx Substance Use: Yes - Past Surgical History Past Surgical History: Non-Contributing - Surgical History Other/Comment: Right Knee Surgery due to torn ligament - Anesthesia Hx Anesthesia: Yes Hx Anesthesia Reactions: No Hx Malignant Hyperthermia: No - Suicidal Assessment Feels Threatened In Home Enviroment: No <Julianna Patel - Last Filed: 12/08/16 12:49> Family/Social History - Physician Review Nursing Documentation Reviewed: Yes Family/Social History: No Known Family HX Smoking Status: Light Smoker < 10 Cigarettes Daily Hx Alcohol Use: No Hx Substance Use: Yes Hx Substance Use Treatment: No <Julianna Patel - Last Filed: 12/08/16 12:49> Allergies/Home Meds <SaraLea - Last Filed: 12/08/16 12:43> <Julianna Patel - Last Filed: 12/08/16 12:49> Allergies/Adverse Reactions: Allergies No Known Allergies Allergy (Verified 12/08/16 11:21) Home Medications: Home Meds Medication Instructions Recorded Confirmed Atorvastatin Calcium [Lipitor] 20 mg PO DAILY 08/05/15 12/08/16 Amitriptyline HCl 10 mg PO HS 10/19/16 12/08/16 Alprazolam [Xanax] 2 mg PO QID PRN 10/21/16 12/08/16 Naproxen [Anaprox DS] 550 mg PO BID 10/22/16 12/08/16 Omeprazole 40 mg PO DAILY 10/22/16 12/08/16 Review of Systems - Review of Systems Constitutional: Fatigue, Fevers Eyes: Normal ENT: Normal Respiratory: Normal Cardiovascular: Normal Gastrointestinal: Diarrhea, Nausea, Vomiting. absent: Abdominal Pain, Appetite Changes Genitourinary Male: Normal Musculoskeletal: Back Pain Skin: Normal Neurological: Normal Endocrine: Normal Hemo/Lymphatic: Normal Psychiatric: Depression <Julianna Patel - Last Filed: 12/08/16 12:49> Physical Exam Vital Signs Reviewed: Yes Temperature: Afebrile Blood Pressure: Normal Pulse: Regular Respiratory Rate: Normal Appearance: Positive for: Well-Appearing, Non-Toxic, Comfortable, Unkept Pain Distress: None Mental Status: Positive for: Alert and Oriented X 3 - Systems Exam Head: Present: Atraumatic, Normocephalic Pupils: Present: PERRL Conjunctiva: No: Icteric Mouth: Present: Moist Mucous Membranes Neck: Present: Normal Range of Motion Respiratory/Chest: Present: Clear to Auscultation, Good Air Exchange. No: Respiratory Distress, Accessory Muscle Use, Wheezes, Rales, Retracting, Rhonchi Cardiovascular: Present: Regular Rate and Rhythm, Normal S1, S2. No: Murmurs, Tachycardic, Bradycardic Abdomen: Present: Normal Bowel Sounds. No: Tenderness, Distention (obese abdomen.), Peritoneal Signs, Rebound, Guarding, Hernias Back: Present: Normal Inspection. No: CVA Tenderness, Midline Tenderness, Paraspinal Tenderness Upper Extremity: Present: Normal Inspection. No: Cyanosis, Edema Lower Extremity: Present: Normal Inspection. No: Edema Neurological: Present: GCS=15 Skin: Present: Warm, Dry, Normal Color, Other (multiple tattoos. ). No: Rashes Psychiatric: Present: Alert, Oriented x 3, Normal Insight, Normal Concentration <Julianna Patle - Last Filed: 12/08/16 12:49> Vital Signs Temp Pulse Resp BP Pulse Ox 12/08/16 12:18 89 18 141/76 100 12/08/16 11:24 97.3 F L 92 H 19 143/89 100 Medical Decision Making <Lea Ruiz - Last Filed: 12/08/16 12:43> <Julianna Patel - Last Filed: 12/08/16 12:49> ED Course and Treatment: Patient Seen With Resident: In agreement with resident note. Patient was seen and evaluated with resident, came up with plan and treatment together. A 51 year old male with fatigue after recent nausea, vomiting, and diarrhea. Additional HPI as noted by resident. Patient is obese. No acute findings on physical exam. Ordered chest xray, labs and urinalysis. Will give patient Pepcid , Zofran and IV fluids. 12/08/16 12:44 CXR and labs are unremarkable. No abdominal tenderness on exam, which is otherwise normal. Patient is well-appearing with last vomiting 2-3 days ago and none in the ED; tolerating po - ok for d/c to f/u pmd. (Lea Ruiz) 12/08/16 11:40 patient is a 51 y/o with pmh of htn, chronic back pain, opioid dependency, active tobacco use, medical non compliance c/o fatigue, nausea, vomiting and diarrhea. Differentials: gastroenteritis versus gastritis versus opioid withdrawal. Plan: CBC, CMP, LIPASE, UA Pepcid, zofran and 1 L NS. 12/08/16 12:08 Patient requesting oxycone and xanax. 12/08/16 12:48 All the labs were normal. Patient to be discharged. (Julianna Patel) - Lab Interpretations Lab Results: 12/08/16 11:35 12/08/16 11:35 Lab Results 12/08/16 11:35: Sodium 142, Potassium 3.9, Chloride 107, Carbon Dioxide 24, Anion Gap 15, BUN 10, Creatinine 0.8, Est GFR ( Amer) > 60, Est GFR (Non- Af Amer) > 60, Random Glucose 102, Calcium 9.5, Total Bilirubin 0.5, AST 15, ALT 36, Alkaline Phosphatase 85, Total Protein 7.2, Albumin 4.5, Globulin 2.7, Albumin/Globulin Ratio 1.7, Lipase 118 12/08/16 11:35: WBC 9.4, RBC 5.19, Hgb 15.8, Hct 45.7, MCV 88.1, MCH 30.4, MCHC 34.6, RDW 12.1, Plt Count 258, MPV 10.2, Gran % 72.6 H, Lymph % (Auto) 21.7 L, [place] % (Auto) 5.4, Eos % (Auto) 0.2 L, Baso % (Auto) 0.1, Gran # 6.80 H, Lymph # 2.0, [place] # 0.5, Eos # 0.0, Baso # 0.01 - RAD Interpretation Radiology Orders: 12/08/16 11:46 CHEST TWO VIEWS (PA/LAT) [RAD] Stat - Medication Orders Current Medication Orders: Discontinued Medications Famotidine (Pepcid) 20 mg IVP STAT STA Stop: 12/08/16 11:31 Last Admin: 12/08/16 11:43 Dose: 20 mg Sodium Chloride (Sodium Chloride 0.9%) 1,000 mls @ 999 mls/hr IV .Q1H1M STA Stop: 12/08/16 12:30 Last Admin: 12/08/16 11:41 Dose: 999 mls/hr Ondansetron HCl (Zofran Inj) 4 mg IVP STAT STA Stop: 12/08/16 11:31 Last Admin: 12/08/16 11:43 Dose: 4 mg - PA / RN RECOVERY / Resident Statement / has reviewed & agrees with the documentation as recorded. / has examined the patient and agrees with the treatment plan. <Lea Ruiz - Last Filed: 12/08/16 12:43> Disposition/Present on Arrival - Present on Arrival Any Indicators Present on Arrival: No - Disposition Have Diagnosis and Disposition been Completed?: Yes Disposition Time: 12:40 Patient Plan: Discharge <SaraLea - Last Filed: 12/08/16 12:43> - Present on Arrival History of DVT/PE: No History of Uncontrolled Diabetes: No Urinary Catheter: No History of Decub. Ulcer: No History Surgical Site Infection Following: None <Julianna Patel - Last Filed: 12/08/16 12:49> - Disposition Diagnosis: Nausea, vomiting, and diarrhea Disposition: HOME/ ROUTINE Patient Problems: Current Active Problems Problem Status Onset Nausea, vomiting, and diarrhea Acute Condition: GOOD Discharge Instructions (ExitCare): Acute Nausea and Vomiting (ED), Acute Diarrhea (ED) Additional Instructions: Drink plenty of fluids. Advance diet slowly as tolerated. Follow up with your primary care doctor. Return to the emergency department if any new concerning symptoms. Referrals: Devin Blanco MD [Primary Care Provider] - Follow up with primary
[2016-12-08 11:46] LABS: ADD MANUAL DIFF? NO
[2016-12-08 11:50] LABS: BASO # 0.01 K/mm3 (0.0-2.0); BASO % 0.1 % (0.0-3.0); EOS % 0.2 % (1.5-5.0); GRAN % 72.6 % (50.0-68.0); HEMATOCRIT 45.7 % (42.0-52.0); LYMPH % 21.7 % (22.0-35.0); MEAN CELL VOLUME 88.1 fL (80.0-105.0); MEAN CORPUSCULAR HEMOGLOBIN 30.4 pg (25.0-35.0); MEAN CORPUSCULAR HGB CONC 34.6 g/dl (31.0-37.0); MEAN PLATELET VOLUME 10.2 fl (7.0-11.0); MONO # 0.5 (0.1-0.6); MONO % 5.4 % (1.0-6.0); PLATELET COUNT 258 10^3/uL (120.0-450.0); RED CELL DISTRIBUTION WIDTH 12.1 % (11.5-14.5); WHITE BLOOD COUNT 9.4 10^3/ul (4.5-11.0)
[2016-12-08 11:59] LABS: ALB/GLOB RATIO 1.7 (1.1-1.8); ALKALINE PHOSPHATASE 85 U/L (38-133); ALT/SGPT 36 U/L (7-56); AST/SGOT 15 U/L (15-59); BILIRUBIN,TOTAL 0.5 mg/dL (0.2-1.3); BLOOD UREA NITROGEN 10 mg/dL (7-21); CALCIUM 9.5 mg/dL (8.4-10.5); CARBON DIOXIDE 24 mmol/L (21-33); CHLORIDE 107 mmol/L (98-107); GFR AFRICAN-AMERICAN > 60; GLUCOSE,RANDOM 102 mg/dL (70-110); LIPASE 118 U/L (23-300); POTASSIUM 3.9 mmol/L (3.6-5.0); SODIUM 142 mmol/L (132-148); TOTAL PROTEIN 7.2 g/dL (5.8-8.3)
[2016-12-08 12:18] VITALS: BP 141/76; PULSE 89; RESP 18
--- NOTE | 2016-12-08 12:22 | RAD ---
HISTORY: cough, generalized weakness COMPARISON: 10/24/2016. TECHNIQUE: Chest PA and lateral FINDINGS: LUNGS: The lungs are well inflated and clear. PLEURA: No significant pleural effusion identified. No pneumothorax apparent. CARDIOVASCULAR: Normal. OSSEOUS STRUCTURES: No significant abnormalities. VISUALIZED UPPER ABDOMEN: Normal. OTHER FINDINGS: None. IMPRESSION: No active pulmonary disease.
== END 2016-12-08 12:49 | disposition home or self-care (01) ==
LOC: ED 11:16
DX: R11.2 Nausea with vomiting, unspecified (principal); R19.7 Diarrhea, unspecified; I10 Essential (primary) hypertension; Z72.0 Tobacco use
CPT/HCPCS: 71020; 80053; 83690; 85025; 96374; 96375; 99284; J2405; J7040

== ENCOUNTER 2016-12-25 19:39 | Observation (INO) | payer BC, MEDICARE ==
[2016-12-25 19:39] VITALS: BMI 28.4
[2016-12-25] MEDS ORDERED: Sodium Chloride 0.9% 1,000 ML IV STA (20:19)
[2016-12-25 21:12] LABS: BASO # 0.01 K/mm3 (0.0-2.0); BASO % 0.2 % (0.0-3.0); EOS % 0.6 % (1.5-5.0); GRAN % 71.2 % (50.0-68.0); LYMPH # 1.4 (1.2-3.4); LYMPH % 22.7 % (22.0-35.0); MEAN CELL VOLUME 87.1 fL (80.0-105.0); MEAN CORPUSCULAR HEMOGLOBIN 30.6 pg (25.0-35.0); MEAN CORPUSCULAR HGB CONC 35.1 g/dl (31.0-37.0); MEAN PLATELET VOLUME 9.9 fl (7.0-11.0); MONO # 0.3 (0.1-0.6); MONO % 5.3 % (1.0-6.0); PLATELET COUNT 317 10^3/uL (120.0-450.0); RED CELL DISTRIBUTION WIDTH 11.9 % (11.5-14.5); WHITE BLOOD COUNT 6.2 10^3/ul (4.5-11.0)
[2016-12-25 21:18] LABS: ALB/GLOB RATIO 1.4 (1.1-1.8); ALBUMIN 4.5 g/dL (3.0-4.8); ALT/SGPT 33 U/L (7-56); AST/SGOT 22 U/L (15-59); BLOOD UREA NITROGEN 7 mg/dL (7-21); CALCIUM 9.9 mg/dL (8.4-10.5); GFR AFRICAN-AMERICAN > 60; GFR NON-AFRICAN AMERICAN > 60; LIPASE 23 U/L (23-300)
--- NOTE | 2016-12-25 22:00 | ED PDOC ---
Arrival/HPI - General Chief Complaint: GI Problem Time Seen by Provider: 12/25/16 20:08 Historian: Patient - History of Present Illness Narrative History of Present Illness (Text): 12/25/16 21:54 51 yo M with pmh of anxiety, chronic back pain, high cholesterol, HTN, complains of 1 week history of multiple episodes of nonbloody, nonbilious vomiting every time he eats as well as nonbloody diarrhea after each meal. Reports no abdominal pain. Otherwise: (-) recent travel, (-) recent antibiotic use, (-) sick contacts, (-) urinary symptoms, (-) fever, (-) melena, (-) hematochezia. Has no history of prior abdominal surgery. Patient states that he has had a colonoscopy 2-3 years ago which was normal, has never had an endoscopy. States that he was seen in this ER 1 week ago for similar symptoms. is requesting to be admitted to the hospital. PMD Fred Blanco Past Medical History - Provider Review Nursing Documentation Reviewed: Yes - Infectious Disease Hx of Infectious Diseases: None - Tetanus Immunization Tetanus Immunization: Unknown - Cardiac Hx Cardiac Disorders: Yes Hx Hypertension: Yes - Pulmonary Hx Respiratory Disorders: Yes (H/O OF CIGARETTE SMOKING-NOW USING E VAPE) - Neurological Hx Neurological Disorder: No Hx Seizures: No (Pt Denies) - HEENT Hx HEENT Disorder: Yes (wears contacts) - Renal Hx Renal Disorder: No - Endocrine/Metabolic Hx Endocrine Disorders: No - Hematological/Oncological Hx Blood Disorders: No - Integumentary Hx Dermatological Disorder: Yes (tattoos) - Musculoskeletal/Rheumatological Hx Falls: Yes - Gastrointestinal Hx Gastrointestinal Disorders: Yes Other/Comment: COLON TUMOR REMOVED - Genitourinary/Gynecological Hx Genitourinary Disorders: No - Psychiatric Hx Psychophysiologic Disorder: Yes Hx Anxiety: Yes Hx Bipolar Disorder: Yes Hx Depression: Yes Hx Substance Use: No - Past Surgical History Past Surgical History: Non-Contributing - Surgical History Other/Comment: Right Knee Surgery due to torn ligament - Anesthesia Hx Anesthesia: Yes Hx Anesthesia Reactions: No Hx Malignant Hyperthermia: No - Suicidal Assessment Feels Threatened In Home Enviroment: No Family/Social History - Physician Review Nursing Documentation Reviewed: Yes Family/Social History: No Known Family HX Smoking Status: Light Smoker < 10 Cigarettes Daily Hx Alcohol Use: No Hx Substance Use: No Hx Substance Use Treatment: No Allergies/Home Meds Allergies/Adverse Reactions: Allergies No Known Allergies Allergy (Verified 12/25/16 19:51) Home Medications: Home Meds Medication Instructions Recorded Confirmed Atorvastatin Calcium [Lipitor] 20 mg PO DAILY 08/05/15 12/25/16 Amitriptyline HCl 10 mg PO HS 10/19/16 12/25/16 Alprazolam [Xanax] 2 mg PO QID PRN 10/21/16 12/25/16 Naproxen [Anaprox DS] 550 mg PO BID 10/22/16 12/25/16 Omeprazole 40 mg PO DAILY 10/22/16 12/25/16 Oxycodone HCl [Roxicodone] 30 mg PO QID 12/25/16 12/25/16 Review of Systems - Review of Systems Constitutional: Normal. absent: Fatigue, Weight Change, Fevers Respiratory: Normal. absent: SOB, Cough, Sputum Cardiovascular: Normal. absent: Chest Pain, Palpitations, Edema Gastrointestinal: Normal, Diarrhea, Vomiting. absent: Abdominal Pain, Stool Changes Musculoskeletal: Normal, Back Pain (chronic back pain). absent: Arthralgias, Neck Pain Skin: Normal. absent: Rash, Pruritis, Skin Lesions Physical Exam - Physical Exam Narrative Physical Exam (Text): 12/25/16 22:01 GENERAL APPEARANCE: Patient is awake, alert, oriented x 3, in no acute distress. Patient laying in bed comfortably. SKIN: Warm, dry; (-) cyanosis. EYES: (-) conjunctival pallor, (-) scleral icterus. ENMT: Mucous membranes dry. NECK: (-) tenderness, (-) stiffness, (-) lymphadenopathy. CHEST AND RESPIRATORY: (-) rales, (-) rhonchi, (-) wheezes; breath sounds equal bilaterally. HEART AND CARDIOVASCULAR: (-) irregularity; (-) murmur, (-) gallop. ABDOMEN AND GI: (-) distention. Bowel sounds active; (+) mild LLQ tenderness, (-) guarding, (-) rebound, (-) palpable masses, (-) CVA tenderness. EXTREMITIES: (-) deformity, (-) edema, (+) distal pulses. NEURO AND PSYCH: Mental status as above; (-) focal findings. Vital Signs Temp Pulse Resp BP Pulse Ox 12/25/16 19:46 98.9 F 95 H 19 147/89 98 Medical Decision Making ED Course and Treatment: 12/25/16 22:01 51 yo M with pmh of anxiety, chronic back pain, high cholesterol, HTN, complains of 1 week history of multiple episodes of nonbloody, nonbilious vomiting every time he eats as well as nonbloody diarrhea after each meal. based on history and exam, likely gastroenteritis, to rule out colitis, diverticulitis. Plan: -- Labs -- IV fluids -- Urinalysis -- NS bolus -- Stool for C diff and culture -- Pepcid / Zofran -- Reassess and disposition -- CT AP w/ IV contrast 12/25/16 23:16 Lab results reviewed and are within normal limits. On reevaluation, patient is lying in bed comfortably in no acute distress. Patient went to CT. Patient returned from CT without any incident. On reevaluation, patient reports no nausea at this time and is requesting to eat and drink, however CT results are still pending. Patient is also asking for dose of his pain medication and oxycodone 30 mg, states that he does not have his medications with him and did not take it prior to arrival. On exam, patient is sitting in bed comfortably in no acute distress, abdomen remains soft with no tenderness, no guarding, no rebound. CT results reviewed and shows no acute findings. Case d/w Dr. Blanco, agrees with plan for inpt observation, requesting consult with GI Dr. Lorenz. Diagnostic results discussed with the patient in great detail. Patient states he fully agrees with and understands the plan and disposition. I have given the patient opportunity to ask any additional questions. - Lab Interpretations Lab Results: 12/25/16 20:32 12/25/16 20:32 Lab Results 12/25/16 20:32: Sodium 142, Potassium 3.9, Chloride 105, Carbon Dioxide 26, Anion Gap 15, BUN 7, Creatinine 0.7, Est GFR ( Amer) > 60, Est GFR (Non- Af Amer) > 60, Random Glucose 102, Calcium 9.9, Total Bilirubin 0.4, AST 22, ALT 33, Alkaline Phosphatase 110, Total Protein 7.7, Albumin 4.5, Globulin 3.3, Albumin/Globulin Ratio 1.4, Lipase 23 12/25/16 20:32: WBC 6.2 D, RBC 4.90, Hgb 15.0, Hct 42.7, MCV 87.1, MCH 30.6, MCHC 35.1, RDW 11.9, Plt Count 317, MPV 9.9, Gran % 71.2 H, Lymph % (Auto) 22.7 , Mora % (Auto) 5.3, Eos % (Auto) 0.6 L, Baso % (Auto) 0.2, Gran # 4.40, Lymph # 1.4, Mora # 0.3, Eos # 0.0, Baso # 0.01 I have reviewed the lab results: Yes Interpretation: All labs normal - RAD Interpretation Narrative RAD Interpretations (Text): 12/25/16 23:38 CT A/P w/ IV contrast : FINDINGS: Limitations: Motion artifact - mild. Lower thorax: No acute findings. ABDOMEN: Liver: Unremarkable. No mass. Gallbladder and bile ducts: No calcified stones. No ductal dilation. Pancreas: No ductal dilation. No mass. Spleen: Too small to characterize lesion. Mild splenomegaly. Adrenals: No mass. Kidneys and ureters: Small calculus within RIGHT kidney. No hydronephrosis. Stomach and bowel: Postsurgical changes of descending colon. Moderate to large amount of stool within colon. No definite mural thickening. No obstruction. Appendix: No definite findings to suggest acute appendicitis. PELVIS: Bladder: Unremarkable. Reproductive: Unremarkable as visualized. ABDOMEN and PELVIS: Intraperitoneal space: No significant fluid collection. No free air. Bones/joints: No acute fracture. Soft tissues: Small inguinal hernias containing fat. Vasculature: Mild to moderate atherosclerotic disease of aorta and iliac arteries. Lymph nodes: No pathologically enlarged lymph nodes. IMPRESSION: 1. Mild splenomegaly. 2. Nonobstructing renal calculus. 3. Incidental/non-acute findings are described above. Dictated and Authenticated by: Giovanny Churchill MD 12/25/2016 11:30 PM Eastern Time ([place] & [place]) Radiology Orders: 12/25/16 20:21 ABD & PELVIS IV CONTRAST ONLY [CT] Stat - Medication Orders Current Medication Orders: Discontinued Medications Famotidine (Pepcid) 20 mg IVP STAT STA Stop: 12/25/16 20:20 Last Admin: 12/25/16 20:50 Dose: 20 mg Sodium Chloride (Sodium Chloride 0.9%) 1,000 mls @ 1,000 mls/hr IV .Q1H STA Stop: 12/25/16 21:18 Last Admin: 12/25/16 20:48 Dose: 1,000 mls/hr Iohexol (Omnipaque 350 100 Ml) Confirm Administered Dose 350 mg .ROUTE .STK-MED ONE Stop: 12/25/16 22:16 Ondansetron HCl (Zofran Inj) 4 mg IVP STAT STA Stop: 12/25/16 20:21 Last Admin: 12/25/16 20:50 Dose: 4 mg Oxycodone HCl (Oxycodone Immediate Release Tab) 30 mg PO STAT STA Stop: 12/25/16 23:10 Last Admin: 12/25/16 23:20 Dose: 30 mg - PA / JEWEL [employer]ER / Resident Statement / has reviewed & agrees with the documentation as recorded. Disposition/Present on Arrival - Present on Arrival Any Indicators Present on Arrival: No History of DVT/PE: No History of Uncontrolled Diabetes: No Urinary Catheter: No History of Decub. Ulcer: No History Surgical Site Infection Following: None - Disposition Have Diagnosis and Disposition been Completed?: Yes Diagnosis: Intractable vomiting, Diarrhea, Dehydration Disposition: HOSPITALIZED Disposition Time: 23:30 Patient Plan: Observation Patient Problems: Current Active Problems Problem Status Onset Intractable vomiting Acute Diarrhea Acute Dehydration Acute Condition: STABLE
[2016-12-25] MEDS ORDERED: Iohexol 350 MG/100 ML VIAL ONE (22:15)
[2016-12-25] MEDS ORDERED: oxyCODONE 30 mg Immediate Release Tab PO STA (23:09)
--- NOTE | 2016-12-25 23:30 | CT ---
EXAM: CT Abdomen and Pelvis With Intravenous Contrast CLINICAL HISTORY: 51 years old, male; Pain; Abdominal pain; Patient HX: Diarrhea TECHNIQUE: Axial computed tomography images of the abdomen and pelvis with intravenous contrast. This CT exam was performed using one or more of the following dose reduction techniques: automated exposure control, adjustment of the mA and/or kV according to patient size, and/or use of iterative reconstruction technique. Coronal and sagittal reformatted images were created and reviewed. CONTRAST: 95 mL of OMNIPAQUE 350 administered intravenously. COMPARISON: No relevant prior studies available. FINDINGS: Limitations: Motion artifact - mild. Lower thorax: No acute findings. ABDOMEN: Liver: Unremarkable. No mass. Gallbladder and bile ducts: No calcified stones. No ductal dilation. Pancreas: No ductal dilation. No mass. Spleen: Too small to characterize lesion. Mild splenomegaly. Adrenals: No mass. Kidneys and ureters: Small calculus within RIGHT kidney. No hydronephrosis. Stomach and bowel: Postsurgical changes of descending colon. Moderate to large amount of stool within colon. No definite mural thickening. No obstruction. Appendix: No definite findings to suggest acute appendicitis. PELVIS: Bladder: Unremarkable. Reproductive: Unremarkable as visualized. ABDOMEN and PELVIS: Intraperitoneal space: No significant fluid collection. No free air. Bones/joints: No acute fracture. Soft tissues: Small inguinal hernias containing fat. Vasculature: Mild to moderate atherosclerotic disease of aorta and iliac arteries. Lymph nodes: No pathologically enlarged lymph nodes. IMPRESSION: 1. Mild splenomegaly. 2. Nonobstructing renal calculus. 3. Incidental/non-acute findings are described above.
[2016-12-26] MEDS ORDERED: Sodium Chloride 0.9% 1,000 ML IV SCH (00:15)
--- NOTE | 2016-12-26 01:33 | CP.PCM.PN ---
Subjective - Date & Time of Evaluation Date of Evaluation: 12/26/16 Time of Evaluation: 01:30 - Subjective Subjective: S:Requests something for sleep. Has no other complaints now. Denies CP, sob, nausea, sweating. Pertinent medical record was reviewed. Home medications reviewed. O: Last Vital Signs 3 Temp 98.2 F 12/26/16 00:30 Pulse 95 H 12/26/16 00:39 Resp 16 12/26/16 00:39 BP 144/88 12/26/16 00:30 Pulse Ox 99 12/26/16 00:39 Awake, alert, not in distress. LUNGS:Normal breathing pattern. NEURO:Speech normal. A:Adjustment insomnia. P:Amitriptyline 10 mg PO now. Xanax 2 mg po now. Objective - Vital Signs/Intake and Output Vital Signs (last 24 hours): Temp Pulse Resp BP Pulse Ox 98.2 F 95 H 16 144/88 99 12/26/16 00:30 12/26/16 00:39 12/26/16 00:39 12/26/16 00:30 12/26/16 00:39 Intake and Output: 12/25/16 12/26/16 18:59 06:59 Intake Total 100 Balance 100 - Medications Medications: Current Medications Alprazolam (Xanax) 2 mg PO STAT STA PRN Reason: Protocol Stop: 12/26/16 01:30 Amitriptyline HCl (Elavil) 10 mg PO STAT STA Stop: 12/26/16 01:30 Sodium Chloride (Sodium Chloride 0.9%) 1,000 mls @ 100 mls/hr IV .Q10H DAVE Last Admin: 12/26/16 00:39 Dose: 100 mls/hr
[2016-12-26 06:14] VITALS: BP 143/93; PULSE 113; RESP 20; TEMP 97.7; O2SAT 96
[2016-12-26] MEDS ORDERED: oxyCODONE 30 mg Immediate Release Tab PO SCH (08:45)
[2016-12-27] MEDS ORDERED: Pantoprazole 20 mg EC Tab PO SCH (06:00)
== END 2016-12-26 17:01 | disposition home or self-care (01) ==
LOC: ED 19:39 → ERH 23:52 → 3RNO 12-26 01:08
PROVIDERS: ADMIT Internal Medicine; ATTEND Internal Medicine
DX: N20.0 Calculus of kidney (principal); E86.0 Dehydration; K52.9 Noninfective gastroenteritis and colitis, unspecified; R16.1 Splenomegaly, not elsewhere classified; I10 Essential (primary) hypertension; F51.02 Adjustment insomnia; F41.9 Anxiety disorder, unspecified; E78.00 Pure hypercholesterolemia, unspecified; G89.29 Other chronic pain
CPT/HCPCS: 74177; 80053; 83690; 85025; 96374; 96375; 99285; G0378; J2405; J7040; Q9967

== ENCOUNTER 2017-05-13 08:09 | Emergency (ER) | payer BC, MEDICARE ==
[2017-05-13 08:22] VITALS: BMI 28.1
[2017-05-13 08:34] VITALS: TEMP 97.6
[2017-05-13 08:39] LABS: BASO # 0.01 K/mm3 (0.0-2.0); BASO % 0.2 % (0.0-3.0); EOS % 0.5 % (1.5-5.0); GRAN # 4.59 (1.4-6.5); GRAN % 70.5 % (50.0-68.0); HEMATOCRIT 43.5 % (42.0-52.0); LYMPH # 1.5 (1.2-3.4); LYMPH % 23.3 % (22.0-35.0); MEAN CELL VOLUME 88.8 fl (80.0-105.0); MEAN CORPUSCULAR HEMOGLOBIN 30.8 pg (25.0-35.0); MEAN CORPUSCULAR HGB CONC 34.7 g/dl (31.0-37.0); MEAN PLATELET VOLUME 9.9 fl (7.0-11.0); MONO # 0.4 (0.1-0.6); MONO % 5.5 % (1.0-6.0); RED CELL DISTRIBUTION WIDTH 13.7 % (11.5-14.5); WHITE BLOOD COUNT 6.5 10^3/ul (4.5-11.0)
[2017-05-13 08:49] LABS: ALB/GLOB RATIO 1.7 (1.1-1.8); ALKALINE PHOSPHATASE 95 U/L (38-126); ALT/SGPT 44 U/L (7-56); AST/SGOT 19 U/L (17-59); BILIRUBIN,TOTAL 0.7 mg/dL (0.2-1.3); BLOOD UREA NITROGEN 10 mg/dL (7-21); CALCIUM 9.7 mg/dL (8.4-10.5); CARBON DIOXIDE 23 mmol/L (21-33); CHLORIDE 107 mmol/L (98-107); GFR AFRICAN-AMERICAN > 60; GLUCOSE,RANDOM 189 mg/dL (70-110); POTASSIUM 3.7 mmol/L (3.6-5.0); SODIUM 141 mmol/L (132-148); TOTAL PROTEIN 7.1 g/dL (5.8-8.3)
--- NOTE | 2017-05-13 10:09 | CT ---
PROCEDURE: CT HEAD WITHOUT CONTRAST. HISTORY: r/o ICH - s/p seizure and fall COMPARISON: 05/26/2016 TECHNIQUE: Axial computed tomography images were obtained through the head/brain without intravenous contrast. Radiation dose: Total exam DLP = 714 mGy-cm. This CT exam was performed using one or more of the following dose reduction techniques: Automated exposure control, adjustment of the mA and/or kV according to patient size, and/or use of iterative reconstruction technique. FINDINGS: HEMORRHAGE: No intracranial hemorrhage. BRAIN: No mass effect or edema. No atrophy or chronic microvascular ischemic changes. VENTRICLES: Unremarkable. No hydrocephalus. CALVARIUM: Unremarkable. PARANASAL SINUSES: Unremarkable as visualized. No significant inflammatory changes. MASTOID AIR CELLS: Unremarkable as visualized. No inflammatory changes. OTHER FINDINGS: None. IMPRESSION: No acute findings
--- NOTE | 2017-05-13 10:13 | ED PDOC ---
Arrival/HPI - General Chief Complaint: Altered Mental Status Time Seen by Provider: 05/13/17 08:15 - History of Present Illness Narrative History of Present Illness (Text): 05/13/17 08:25 A 51 year old male, whose past medical history includes anxiety, chronic back pain, high cholesterol, hypertension ziyad substance abuse, presents to the emergency department complaining of possible seizure. Patient reports his sister told him he had a seizure this morning but patient is uncertain. Patient has no physical complaints. Patient denies any tongue bites, urinary incontinence. Patient ambulating normally in ER . PMD: Dr. Alan Blanco Past Medical History - Provider Review Nursing Documentation Reviewed: Yes - Infectious Disease Hx of Infectious Diseases: None - Tetanus Immunization Tetanus Immunization: Unknown - Cardiac Hx Cardiac Disorders: Yes Hx Angina: Yes - Pulmonary Hx Respiratory Disorders: Yes (H/O OF CIGARETTE SMOKING-NOW USING E VAPE) - Neurological Hx Neurological Disorder: No Hx Seizures: No (Pt Denies) - HEENT Hx HEENT Disorder: Yes (wears contacts) - Renal Hx Renal Disorder: No - Endocrine/Metabolic Hx Endocrine Disorders: No - Hematological/Oncological Hx Blood Disorders: No - Integumentary Hx Dermatological Disorder: Yes (tattoos) - Musculoskeletal/Rheumatological Hx Falls: No - Gastrointestinal Hx Gastrointestinal Disorders: Yes Other/Comment: COLON TUMOR REMOVED - Genitourinary/Gynecological Hx Genitourinary Disorders: No - Psychiatric Hx Psychophysiologic Disorder: Yes Hx Anxiety: Yes Hx Bipolar Disorder: Yes Hx Depression: Yes Hx Substance Use: No - Past Surgical History Past Surgical History: Non-Contributing - Surgical History Other/Comment: Knee repair - Anesthesia Hx Anesthesia: Yes Hx Anesthesia Reactions: No Hx Malignant Hyperthermia: No - Suicidal Assessment Feels Threatened In Home Enviroment: No Family/Social History - Physician Review Nursing Documentation Reviewed: Yes Family/Social History: No Known Family HX Smoking Status: Light Smoker < 10 Cigarettes Daily Hx Alcohol Use: No Hx Substance Use: No Hx Substance Use Treatment: No Allergies/Home Meds Allergies/Adverse Reactions: Allergies No Known Allergies Allergy (Verified 05/13/17 08:29) Home Medications: Home Meds Medication Instructions Recorded Confirmed Atorvastatin Calcium [Lipitor] 20 mg PO DAILY 08/05/15 05/13/17 Amitriptyline HCl 10 mg PO HS 10/19/16 05/13/17 Alprazolam [Xanax] 2 mg PO QID PRN 10/21/16 05/13/17 Review of Systems - Review of Systems Constitutional: absent: Other (patient denies of any physical complaints; no tongue bites) Genitourinary Male: absent: Other (no urinary incontinence) Physical Exam Vital Signs Reviewed: Yes Vital Signs Temp Pulse Resp BP Pulse Ox 05/13/17 10:38 100 H 18 124/76 96 05/13/17 08:33 123 H 20 98 05/13/17 08:21 97.6 F 146 H 20 116/83 98 05/13/17 08:10 97.6 F 146 H 18 116/83 98 Temperature: Afebrile Blood Pressure: Normal Pulse: Regular Respiratory Rate: Normal Appearance: Positive for: Well-Appearing Pain Distress: None Mental Status: Positive for: Alert and Oriented X 3 Finger Stick Blood Glucose: 180 - Systems Exam Head: Present: Atraumatic, Normocephalic Pupils: Present: PERRL Extroacular Muscles: Present: EOMI Conjunctiva: Present: Normal Mouth: Present: Moist Mucous Membranes, Normal Tounge (no tongue bites) Neck: Present: Normal Range of Motion Respiratory/Chest: Present: Clear to Auscultation, Good Air Exchange. No: Respiratory Distress, Accessory Muscle Use Cardiovascular: Present: Regular Rate and Rhythm, Normal S1, S2. No: Murmurs Abdomen: Present: Normal Bowel Sounds. No: Tenderness, Distention, Peritoneal Signs Back: Present: Normal Inspection Upper Extremity: Present: Normal Inspection. No: Cyanosis, Edema Lower Extremity: Present: Normal Inspection. No: Edema Neurological: Present: GCS=15, CN II-XII Intact, Speech Normal Skin: Present: Warm, Dry, Normal Color. No: Rashes Psychiatric: Present: Alert, Oriented x 3, Normal Insight, Normal Concentration Medical Decision Making ED Course and Treatment: 05/13/17 08:30 Impression: 51 year old male with complaint of possible seizure this morning. No acute findings on physical exam. Plan: -- Head CT -- Labs -- Reassess and disposition Prior Visits: Notes and results from previous visits were reviewed. Patient was last seen in the emergency department on 12/25/2016 for multiple episodes of nonbloody, nonbilious vomiting with associated nonbloody diarrhea. Patient was admitted. Progress Notes: EKG: Ordered, reviewed, and independently interpreted the EKG. Rate : 132 BPM Rhythm : Sinus tachycardia Interpretation : No ST-segment elevations or depressions, no T-wave inversions, normal intervals. Comparison : No previous EKG for comparison. 05/13/2017 10:[address] IMPRESSION: No acute findings. Dictator: Devin Case MD 05/13/17 10:13 Patient walked out of emergency department with no distress and taken home by [id number]. Patient understood follow-up instructions. - Lab Interpretations Lab Results: 05/13/17 08:30 05/13/17 08:30 Lab Results 05/13/17 10:00: Urine Opiates Screen Negative, Urine Methadone Screen Negative, Ur Barbiturates Screen Negative, Ur Phencyclidine Scrn Negative, Ur Amphetamines Screen Negative, U Benzodiazepines Scrn Positive, U Oth Cocaine Metabols Negative, U Cannabinoids Screen Negative 05/13/17 08:30: Sodium 141, Potassium 3.7, Chloride 107, Carbon Dioxide 23, Anion Gap 14, BUN 10, Creatinine 0.7 L, Est GFR ( Amer) > 60, Est GFR ( Non-Af Amer) > 60, Random Glucose 189 H, Calcium 9.7, Total Bilirubin 0.7, AST 19, ALT 44, Alkaline Phosphatase 95, Total Protein 7.1, Albumin 4.5, Globulin 2.7, Albumin/Globulin Ratio 1.7 05/13/17 08:30: WBC 6.5, RBC 4.90, Hgb 15.1, Hct 43.5, MCV 88.8, MCH 30.8, MCHC 34.7, RDW 13.7, Plt Count 200, MPV 9.9, Gran % 70.5 H, Lymph % (Auto) 23.3, [place] % (Auto) 5.5, Eos % (Auto) 0.5 L, Baso % (Auto) 0.2, Gran # 4.59, Lymph # 1.5, [place] # 0.4, Eos # 0.0, Baso # 0.01 05/13/17 08:28: POC Glucose (mg/dL) 180 H I have reviewed the lab results: Yes - RAD Interpretation Radiology Orders: 05/13/17 08:30 HEAD W/O CONTRAST [CT] Stat - Scribe Statement The provider has reviewed the documentation as recorded by the Scribe Kalia Santorodi Provider Nieves Attestation: All medical record entries made by the Nieves were at my direction and personally dictated by me. I have reviewed the chart and agree that the record accurately reflects my personal performance of the history, physical exam, medical decision making, and the department course for this patient. I have also personally directed, reviewed, and agree with the discharge instructions and disposition. Disposition/Present on Arrival - Present on Arrival Any Indicators Present on Arrival: No History of DVT/PE: No History of Uncontrolled Diabetes: No Urinary Catheter: No History of Decub. Ulcer: No History Surgical Site Infection Following: None - Disposition Have Diagnosis and Disposition been Completed?: Yes Diagnosis: Seizure Disposition: HOME/ ROUTINE Disposition Time: 10:15 Condition: IMPROVED Discharge Instructions (ExitCare): Recurrent Seizures in Adults (ED) Additional Instructions: Thank you for letting us take care of you today. The emergency medical care you received today was directed at your acute symptoms. If you were prescribed any medication, please fill it and take as directed. It may take several days for your symptoms to resolve. Return to the Emergency Department if your symptoms worsen, do not improve, or if you have any other problems. Please contact your doctor or call one of the physicians/clinics you have been referred to that are listed on the Patient Visit Information form that is included in your discharge packet. Bring any paperwork you were given at discharge with you along with any medications you are taking to your follow up visit. Our treatment cannot replace ongoing medical care by a primary care provider (PCP) outside of the emergency department. Thank you for allowing the [facility] team to be part of your care today. Follow up with Dr. Blanco in 1-2 days for re-evaluation and further management. Referrals: Devin Blanco MD [Primary Care Provider] - Follow up with primary Forms: [employer] (Italian)
[2017-05-13 10:40] VITALS: BP 124/76; PULSE 100; RESP 18; O2SAT 96
--- NOTE | 2017-05-14 09:43 | CARD ---
APPROVED REPORT EKG Measurement Heart [id number] <Conclusion> Sinus tachycardia, new Mildly prolonged QTc
== END 2017-05-13 10:41 | disposition home or self-care (01) ==
LOC: ED 08:09
DX: R56.9 Unspecified convulsions (principal); E78.00 Pure hypercholesterolemia, unspecified; F17.210 Nicotine dependence, cigarettes, uncomplicated; I10 Essential (primary) hypertension
CPT/HCPCS: 70450; 80053; 82948; 85025; 93005; 99285; G0480

== ENCOUNTER 2017-05-13 11:14 | Inpatient (IN) | payer BC, MEDICARE ==
[2017-05-13 11:30] VITALS: BMI 29.0
--- NOTE | 2017-05-13 12:13 | ED PDOC ---
Arrival/HPI - General Chief Complaint: Medical Clearance Time Seen by Provider: 05/13/17 11:15 Historian: Patient, EMS - History of Present Illness Narrative History of Present Illness (Text): 05/13/17 11:20 A 51 year old male, whose past medical history includes anxiety, chronic back pain, high cholesterol, hypertension, is brought in by EMS. Patient denies having another seizure. Per EMS, patient's sister was upset patient was not admitted to the hospital. Patient is ambulating normally in ER at this time. PMD: Dr. Alan Blanco Past Medical History - Provider Review Nursing Documentation Reviewed: Yes - Infectious Disease Hx of Infectious Diseases: None - Tetanus Immunization Tetanus Immunization: Unknown - Cardiac Hx Cardiac Disorders: Yes Hx Angina: Yes - Pulmonary Hx Respiratory Disorders: Yes (H/O OF CIGARETTE SMOKING-NOW USING E VAPE) - Neurological Hx Neurological Disorder: No Hx Seizures: No (Pt Denies) - HEENT Hx HEENT Disorder: Yes (wears contacts) - Renal Hx Renal Disorder: No - Endocrine/Metabolic Hx Endocrine Disorders: No - Hematological/Oncological Hx Blood Disorders: No - Integumentary Hx Dermatological Disorder: Yes (tattoos) - Musculoskeletal/Rheumatological Hx Falls: No - Gastrointestinal Hx Gastrointestinal Disorders: Yes Other/Comment: COLON TUMOR REMOVED - Genitourinary/Gynecological Hx Genitourinary Disorders: No - Psychiatric Hx Psychophysiologic Disorder: Yes Hx Anxiety: Yes Hx Bipolar Disorder: Yes Hx Depression: Yes Hx Substance Use: No - Past Surgical History Past Surgical History: Non-Contributing - Surgical History Other/Comment: Knee repair - Anesthesia Hx Anesthesia: Yes Hx Anesthesia Reactions: No Hx Malignant Hyperthermia: No - Suicidal Assessment Feels Threatened In Home Enviroment: No Family/Social History - Physician Review Nursing Documentation Reviewed: Yes Family/Social History: No Known Family HX Smoking Status: Light Smoker < 10 Cigarettes Daily Hx Alcohol Use: No Hx Substance Use: No Hx Substance Use Treatment: No Allergies/Home Meds Allergies/Adverse Reactions: Allergies No Known Allergies Allergy (Verified 05/13/17 08:29) Home Medications: Home Meds Medication Instructions Recorded Confirmed Atorvastatin Calcium [Lipitor] 20 mg PO DAILY 08/05/15 05/13/17 Amitriptyline HCl 10 mg PO HS 10/19/16 05/13/17 Alprazolam [Xanax] 2 mg PO QID PRN 10/21/16 05/13/17 Review of Systems - Review of Systems Constitutional: absent: Other (no physical complaints; no other seizure acitivity since prior visit today) Physical Exam Vital Signs Reviewed: Yes Vital Signs Temp Pulse Resp BP Pulse Ox 05/13/17 12:06 118 H 18 141/87 97 05/13/17 11:30 98.6 F 138 H 20 118/67 99 Temperature: Afebrile Blood Pressure: Normal Pulse: Regular Respiratory Rate: Normal Appearance: Positive for: Well-Appearing Pain Distress: None Mental Status: Positive for: Alert and Oriented X 3 - Systems Exam Head: Present: Atraumatic, Normocephalic Pupils: Present: PERRL Extroacular Muscles: Present: EOMI Conjunctiva: Present: Normal Mouth: Present: Moist Mucous Membranes Neck: Present: Normal Range of Motion Respiratory/Chest: Present: Clear to Auscultation, Good Air Exchange. No: Respiratory Distress, Accessory Muscle Use Cardiovascular: Present: Regular Rate and Rhythm, Normal S1, S2. No: Murmurs Abdomen: Present: Normal Bowel Sounds. No: Tenderness, Distention, Peritoneal Signs Back: Present: Normal Inspection Upper Extremity: Present: Normal Inspection. No: Cyanosis, Edema Lower Extremity: Present: Normal Inspection. No: Edema Neurological: Present: GCS=15, CN II-XII Intact, Speech Normal Skin: Present: Warm, Dry, Normal Color. No: Rashes Psychiatric: Present: Alert, Oriented x 3, Normal Insight, Normal Concentration Medical Decision Making ED Course and Treatment: 05/13/17 11:25 Impression: 51 year old male brought in by EMS for further evaluation. No acute findings on physical exam. Plan: -- Ativan (Cancelled) -- Reassess and disposition Prior Visits: Notes and results from previous visits were reviewed. Patient was last seen in the emergency department earlier today 05/13/2017 for possible seizure. Patient was d/c home. Progress Notes: - Medication Orders Current Medication Orders: Alprazolam (Xanax) 2 mg PO Q6 [facility] Last Admin: 05/13/17 17:30 Dose: 2 mg Amlodipine Besylate (Norvasc) 10 mg PO DAILY [facility] Atorvastatin Calcium (Lipitor) 20 mg PO DIN [facility] Last Admin: 05/13/17 17:29 Dose: 20 mg Oxycodone/Acetaminophen (Percocet 5/325 Mg Tab) 1 tab PO Q4H PRN PRN Reason: Pain, severe (8-10) Stop: 05/16/17 14:20 Last Admin: 05/13/17 14:24 Dose: 1 tab MAR Pain Assessment Document 05/13/17 14:24 RM (Rec: 05/13/17 14:24 RM [id number]) Pain Reassessment Is this a pain reassessment? No Sleep Is patient sleeping during reassessment? No Presence of Pain Presence of Pain Yes Pain Scale Used Pain Scale Used Numeric Location Left, Right or Bilateral Bilateral Upper or Lower Lower Pain Location Body Site Back Description Description Intermittent Intensity of Pain at present 5 - Scribe Statement The provider has reviewed the documentation as recorded by the Nieves Ordoñez Provider Scribe Attestation: All medical record entries made by the Scribe were at my direction and personally dictated by me. I have reviewed the chart and agree that the record accurately reflects my personal performance of the history, physical exam, medical decision making, and the department course for this patient. I have also personally directed, reviewed, and agree with the discharge instructions and disposition. Disposition/Present on Arrival - Present on Arrival Any Indicators Present on Arrival: No History of DVT/PE: No History of Uncontrolled Diabetes: No Urinary Catheter: No History of Decub. Ulcer: No History Surgical Site Infection Following: None - Disposition Have Diagnosis and Disposition been Completed?: Yes Diagnosis: Seizure-like activity Disposition: HOSPITALIZED Disposition Time: 11:40 Condition: STABLE
[2017-05-13] MEDS: Oxycodone/Acetaminophen 5/325 mg Tab PO PRN ×2 (14:24→20:40)
[2017-05-14] MEDS: Oxycodone/Acetaminophen 5/325 mg Tab PO PRN (04:59)
[2017-05-14 09:48] VITALS: BP 163/109; PULSE 88; RESP 20; TEMP 98.3; O2SAT 90
== END 2017-05-14 11:23 | disposition left against medical advice (07) | DRG 101 ==
LOC: ED 11:14 → ERH 11:41 → 3RNO 12:39
PROVIDERS: ADMIT Internal Medicine; ATTEND Internal Medicine
DX: R56.9 Unspecified convulsions (principal); I10 Essential (primary) hypertension; E78.00 Pure hypercholesterolemia, unspecified; M54.9 Dorsalgia, unspecified; G89.29 Other chronic pain; F41.9 Anxiety disorder, unspecified

== ENCOUNTER 2017-05-15 15:45 | Inpatient (IN) | payer BC, MEDICARE ==
[2017-05-15 15:45] VITALS: BMI 29.0
[2017-05-15] MEDS ORDERED: Sodium Chloride 0.9% 1,000 ML IV STA ×2 (16:08→16:42)
[2017-05-15 16:11] LABS: BASO # 0.02 K/mm3 (0.0-2.0); BASO % 0.1 % (0.0-3.0); EOS % 0.1 % (1.5-5.0); GRAN # 15.66 (1.4-6.5); GRAN % 79.4 % (50.0-68.0); HEMATOCRIT 51.6 % (42.0-52.0); LYMPH % 15.4 % (22.0-35.0); MEAN CORPUSCULAR HGB CONC 34.1 g/dl (31.0-37.0); MEAN PLATELET VOLUME 10.7 fl (7.0-11.0); RED CELL DISTRIBUTION WIDTH 13.7 % (11.5-14.5); WHITE BLOOD COUNT 19.7 10^3/ul (4.5-11.0)
[2017-05-15 16:18] LABS: INR 1.01 (0.93-1.08)
[2017-05-15 16:38] LABS: ALB/GLOB RATIO 1.5 (1.1-1.8); ALKALINE PHOSPHATASE 110 U/L (38-126); ALT/SGPT 37 U/L (7-56); AST/SGOT 42 U/L (17-59); BILIRUBIN,TOTAL 0.8 mg/dL (0.2-1.3); BLOOD UREA NITROGEN 10 mg/dL (7-21); CALCIUM 11.1 mg/dL (8.4-10.5); CARBON DIOXIDE 12 mmol/L (21-33); CHLORIDE 103 mmol/L (98-107); GFR AFRICAN-AMERICAN > 60; GLUCOSE,RANDOM 166 mg/dL (70-110); MAGNESIUM 2.4 mg/dL (1.7-2.2); PHOSPHOROUS 3.6 mg/dL (2.5-4.5); POTASSIUM 4.6 mmol/L (3.6-5.0); SODIUM 143 mmol/L (132-148); TOTAL PROTEIN 9.1 g/dL (5.8-8.3)
--- NOTE | 2017-05-15 17:04 | RAD ---
HISTORY: r/o infiltrate COMPARISON: 12/08/2016 FINDINGS: LUNGS: No active pulmonary disease. PLEURA: No significant pleural effusion identified, no pneumothorax apparent. CARDIOVASCULAR: Normal. OSSEOUS STRUCTURES: No significant abnormalities. VISUALIZED UPPER ABDOMEN: Normal. OTHER FINDINGS: None. IMPRESSION: No active disease.
--- NOTE | 2017-05-15 17:36 | ED PDOC ---
Arrival/HPI - General Chief Complaint: Seizure Time Seen by Provider: 05/15/17 15:46 Historian: Patient - History of Present Illness Narrative History of Present Illness (Text): 05/15/17 15:52 A 51 year old male, whose past medical history includes anxiety, chronic back pain, high cholesterol, hypertension, is borught in by EMS and presents to the emergency department complaining of difficulty ambulating and seizure activity. Upon arrival to ER, patient began seizing and was given Ativan 8 mg, which resolved seizure. Patient was admitted 2 days ago for seizure activity at home and left AMA the folowing day. Also, patient also Left Against Medical Advice from [facility] this morning. PMD: Dr. Alan Blanco Past Medical History - Provider Review Nursing Documentation Reviewed: Yes - Infectious Disease Hx of Infectious Diseases: None - Tetanus Immunization Tetanus Immunization: Unknown - Cardiac Hx Cardiac Disorders: Yes Hx Angina: Yes - Pulmonary Hx Respiratory Disorders: Yes (H/O OF CIGARETTE SMOKING-NOW USING E VAPE) - Neurological Hx Neurological Disorder: No Hx Seizures: No (Pt Denies) - HEENT Hx HEENT Disorder: Yes (wears contacts) - Renal Hx Renal Disorder: No - Endocrine/Metabolic Hx Endocrine Disorders: No - Hematological/Oncological Hx Blood Disorders: No - Integumentary Hx Dermatological Disorder: Yes (tattoos) - Musculoskeletal/Rheumatological Hx Falls: No - Gastrointestinal Hx Gastrointestinal Disorders: Yes Other/Comment: COLON TUMOR REMOVED - Genitourinary/Gynecological Hx Genitourinary Disorders: No - Psychiatric Hx Psychophysiologic Disorder: Yes Hx Anxiety: Yes Hx Bipolar Disorder: Yes Hx Depression: Yes Hx Substance Use: No - Past Surgical History Past Surgical History: Non-Contributing - Surgical History Other/Comment: Knee repair - Anesthesia Hx Anesthesia: Yes Hx Anesthesia Reactions: No Hx Malignant Hyperthermia: No - Suicidal Assessment Feels Threatened In Home Enviroment: No Family/Social History - Physician Review Nursing Documentation Reviewed: Yes Family/Social History: No Known Family HX Smoking Status: Light Smoker < 10 Cigarettes Daily Hx Alcohol Use: No Hx Substance Use: No Hx Substance Use Treatment: No Allergies/Home Meds Allergies/Adverse Reactions: Allergies No Known Allergies Allergy (Verified 05/15/17 15:52) Home Medications: Home Meds Medication Instructions Recorded Confirmed Atorvastatin Calcium [Lipitor] 20 mg PO DAILY 08/05/15 05/15/17 Amitriptyline HCl 10 mg PO HS 10/19/16 05/15/17 Alprazolam [Xanax] 2 mg PO QID PRN 10/21/16 05/15/17 Review of Systems - Physician Review All systems were reviewed & negative as marked: Yes - Review of Systems Constitutional: Other (difficulty ambulating) Neurological: Seizure Physical Exam Vital Signs Reviewed: Yes Vital Signs Temp Pulse Resp BP Pulse Ox 05/15/17 16:55 101 H 17 126/85 98 05/15/17 16:09 97.6 F 124 H 20 152/93 H 97 05/15/17 15:45 140 H 20 181/117 H 98 Temperature: Afebrile Blood Pressure: Hypertensive Pulse: Tachycardic Respiratory Rate: Normal Appearance: Positive for: Other (activley seizing) Pain Distress: None Mental Status: Positive for: Alert and Oriented X 3 Finger Stick Blood Glucose: 152 - Systems Exam Head: Present: Atraumatic, Normocephalic Pupils: Present: PERRL Extroacular Muscles: Present: EOMI Conjunctiva: Present: Normal Mouth: Present: Moist Mucous Membranes Neck: Present: Normal Range of Motion Respiratory/Chest: Present: Clear to Auscultation, Good Air Exchange. No: Respiratory Distress, Accessory Muscle Use Cardiovascular: Present: Tachycardic Abdomen: Present: Normal Bowel Sounds. No: Tenderness Back: Present: Normal Inspection Upper Extremity: Present: Normal Inspection. No: Cyanosis, Edema Lower Extremity: Present: Normal Inspection. No: Edema Neurological: Present: GCS=15, CN II-XII Intact, Speech Normal Skin: Present: Warm, Dry, Normal Color. No: Rashes Psychiatric: Present: Alert, Oriented x 3, Normal Insight, Normal Concentration Medical Decision Making ED Course and Treatment: 05/15/17 15:58 Impression: 51 year old male with seizure and difficulty ambulating. Physical exam shows patient actively seizing; tachycardic; normal bowel sounds; lungs clear. Plan: -- EKG -- Chest X-ray -- Labs -- Ativan -- IV Fluids -- Urinalysis -- Urine Culture -- Reassess and disposition Prior Visits: Notes and results from previous visits were reviewed. Patient was last seen in the emergency department on 05/13/2017 for seizure-like activity. Patient returned twice on the same day, first time for possible seizure, 2nd time due to patient's sister being upset that patient wasn't admitted to hospital. Patient was admitted. Progress Notes: EKG: Ordered, reviewed, and independently interpreted the EKG. Rate : 123 BPM Rhythm : Sinus tachycardia Interpretation : No ST-segment elevations or depressions, no T-wave inversions, normal intervals. Comparison : No previous EKG for comparison. 05/15/2017 17:02 Chest X-ray IMPRESSION: No active disease. Dictator: Devin Case MD 05/15/2017 17:[address] Blanco, whom will admit patient under remote telemetry observation. - Lab Interpretations Lab Results: 05/15/17 16:00 05/15/17 16:00 Lab Results 05/15/17 16:00: Alcohol, Quantitative < 10 05/15/17 16:00: Sodium 143, Potassium 4.6, Chloride 103, Carbon Dioxide 12 L, Anion Gap 33 H, BUN 10, Creatinine 1.0, Est GFR ( Amer) > 60, Est GFR ( Non-Af Amer) > 60, Random Glucose 166 H, Calcium 11.1 H, Phosphorus 3.6, Magnesium 2.4 H, Total Bilirubin 0.8, AST 42, ALT 37, Alkaline Phosphatase 110, Total Creatine Kinase 1037 H, CK-MB (CK-2) 4.1 H, CK-MB (CK-2) % Cancelled, Total Protein 9.1 H, Albumin 5.5 H, Globulin 3.6, Albumin/Globulin Ratio 1.5 05/15/17 16:00: PT 11.0, INR 1.01 05/15/17 16:00: WBC 19.7 H D, RBC 5.67, Hgb 17.6 D, Hct 51.6, MCV 91.0, MCH 31.0, MCHC 34.1, RDW 13.7, Plt Count 395, MPV 10.7, Gran % 79.4 H, Lymph % (Auto ) 15.4 L, [place] % (Auto) 5.0, Eos % (Auto) 0.1 L, Baso % (Auto) 0.1, Gran # 15.66 H, Lymph # 3.0, [place] # 1.0 H, Eos # 0.0, Baso # 0.02 I have reviewed the lab results: Yes - RAD Interpretation Radiology Orders: 05/15/17 16:05 CHEST PORTABLE [RAD] Stat - Medication Orders Current Medication Orders: Discontinued Medications Sodium Chloride (Sodium Chloride 0.9%) 1,000 mls @ 999 mls/hr IV .Q1H1M STA Stop: 05/15/17 17:08 Last Admin: 05/15/17 16:14 Dose: 999 mls/hr eMAR Start Stop Document 05/15/17 16:14 SE (Rec: 05/15/17 16:14 SE [id number]) Intravenous Solution Start Date 05/15/17 Start Time 16:14 Sodium Chloride (Sodium Chloride 0.9%) 1,000 mls @ 999 mls/hr IV .Q1H1M STA Stop: 05/15/17 17:42 Last Admin: 05/15/17 16:51 Dose: 999 mls/hr eMAR Start Stop Document 05/15/17 16:51 SE (Rec: 05/15/17 16:51 SE [id number]) Intravenous Solution Start Date 05/15/17 Start Time 16:51 Lorazepam (Ativan) 4 mg IVP ONCE STA PRN Reason: Protocol Stop: 05/15/17 15:49 Last Admin: 05/15/17 15:48 Dose: 4 mg IVP Administration Document 05/15/17 15:48 SE (Rec: 05/15/17 16:07 SE [id number]) Charges for Administration # of IVP Administrations 1 Lorazepam (Ativan) 4 mg IVP ONCE STA PRN Reason: Protocol Stop: 05/15/17 15:59 Last Admin: 05/15/17 15:55 Dose: 4 mg IVP Administration Document 05/15/17 15:55 SE (Rec: 05/15/17 16:07 [id number] Charges for Administration # of IVP Administrations 1 - Scribe Statement The provider has reviewed the documentation as recorded by the Nieves Ordoñez Provider Scribe Attestation: All medical record entries made by the Scribe were at my direction and personally dictated by me. I have reviewed the chart and agree that the record accurately reflects my personal performance of the history, physical exam, medical decision making, and the department course for this patient. I have also personally directed, reviewed, and agree with the discharge instructions and disposition. Disposition/Present on Arrival - Present on Arrival Any Indicators Present on Arrival: No History of DVT/PE: No History of Uncontrolled Diabetes: No Urinary Catheter: No History of Decub. Ulcer: No History Surgical Site Infection Following: None - Disposition Have Diagnosis and Disposition been Completed?: Yes Diagnosis: Benzodiazepine withdrawal, Seizure Disposition: HOSPITALIZED Disposition Time: 17:00 Patient Plan: Admission, Telemetry Condition: FAIR
[2017-05-15 18:11] LABS: URINE BILIRUBIN NEGATIVE (NEGATIVE); URINE BLOOD SMALL (NEGATIVE); URINE GLUCOSE (UA) 100 mg/dL (NEGATIVE); URINE KETONE NEGATIVE (NEGATIVE); URINE LEUKOCYTE ESTERASE NEGATIVE Leu/uL (NEGATIVE); URINE PROTEIN 30 mg/dL (<30 mg/dL); URINE UROBILINOGEN 0.2 E.U./dL (<1 E.U./dL)
[2017-05-15 18:14] LABS: URINE APPEARANCE SL CLOUDY (CLEAR); URINE COLOR YELLOW (YELLOW)
[2017-05-15 18:25] LABS: URINE BACTERIA FEW (NEG)
--- NOTE | 2017-05-15 18:50 | CT ---
EXAM: CT Head Without Intravenous Contrast CLINICAL HISTORY: 51 years old, male; Signs and symptoms; Weakness, extremity; Patient HX: R/O ich TECHNIQUE: Axial computed tomography images of the head/brain without intravenous contrast. All CT scans at this facility use one or more dose reduction techniques, viz.: automated exposure control; ma/kV adjustment per patient size (including targeted exams where dose is matched to indication; i.e. head); or iterative reconstruction technique. COMPARISON: CT - HEAD W/O CONTRAST 2017-05-13 09:02 FINDINGS: Brain: No intracranial hemorrhage. No mass. No definite edema. Ventricles: No hydrocephalus. Bones/joints: No acute fracture. Soft tissues: Unremarkable. Sinuses: No acute sinusitis. Mastoid air cells: No mastoid effusion. Orbits: Unremarkable as visualized. IMPRESSION: 1. No intracranial hemorrhage.
[2017-05-15] MEDS: Oxycodone/Acetaminophen 5/325 mg Tab PO PRN (20:39)
[2017-05-15] MEDS ORDERED: levETIRAcetam 1,000 MG in Sodium Chloride 0.9% 100 ML IV ONE (21:27)
[2017-05-15] MEDS ORDERED: Multivitamin (MVI) 10 ML, Thiamine 100 MG, Folic Acid 1 MG in Sodium Chloride 0.9% 1,00... IV ONE ×2 (21:28→21:49)
[2017-05-15 22:38] LABS: BASO # 0.01 K/mm3 (0.0-2.0); BASO % 0.1 % (0.0-3.0); EOS % 0.1 % (1.5-5.0); GRAN # 13.28 (1.4-6.5); GRAN % 87.5 % (50.0-68.0); HEMATOCRIT 44.3 % (42.0-52.0); LYMPH % 6.6 % (22.0-35.0); MEAN CELL VOLUME 89.3 fl (80.0-105.0); MEAN CORPUSCULAR HEMOGLOBIN 30.6 pg (25.0-35.0); MEAN CORPUSCULAR HGB CONC 34.3 g/dl (31.0-37.0); MEAN PLATELET VOLUME 9.8 fl (7.0-11.0); MONO # 0.9 (0.1-0.6); MONO % 5.7 % (1.0-6.0); RED CELL DISTRIBUTION WIDTH 13.7 % (11.5-14.5); WHITE BLOOD COUNT 15.2 10^3/ul (4.5-11.0)
--- NOTE | 2017-05-15 22:51 | PCM.RRT ---
MUD CAR WORKER Nurse Assessment - Situation Date: 05/15/17 Time MUD CAR WORKER was called: 22:15 MUD CAR WORKER Responder Arrival Time: 22:45 MUD CAR WORKER Location:: [address] [place] [address] Room Number: [id number] MUD CAR WORKER Reason for Call: Looks Sicker (possible seizure) MUD CAR WORKER Called By: RN - IV IV Inserted during MUD CAR WORKER?: Yes - Respiratory Oxygen Delivery Method: Nasal Cannula @L/min Oxygen Flow Rate: 2 Received Nebulizer Treatments:: No Was the Patient Ventilated with Bag/Mask 100% O2?: No Secretions Suctioned?: No Was the Patient Intubated?: No Was the Patient Placed on a Ventilator?: No - Medication Medications Administered During MUD CAR WORKER: ativan 2mgIVP x2 - Diagnostic Test Ordered EKG: No Chest X-Ray: No CT Scan: No - Stat Labs Ordered MUD CAR WORKER Stat Labs Ordered: CBC, BLOOD C&S X2 MUD CAR WORKER Other Labs Ordered: CK, CPR started during MUD CAR WORKER?: No - Vital Signs Vital Sign: Rapid Response Vital Sign Blood Pressure 212/146 Pulse Rate 149 Respiratory Rate 21 Temperature 97.8 F Oxygen Saturation 95 - Finger Stick Blood Glucose Finger Stick Blood Glucose: 116 - [place] Coma Scale Coma Scale Eye Opening: Spontaneous Coma Scale Motor: Obeys Commands Movement Coma Scale Verbal: Oriented - Sepsis Screen Part 2 Sepsis Screen Part 2: WBC over 12,000 - Time MUD CAR WORKER Ended Time MUD CAR WORKER Ended: 21:45 - Vital Signs at end of MUD CAR WORKER Vital Signs at end of MUD CAR WORKER: Rapid Response End Vital Sign Blood Pressure 183/118 Pulse Rate 123 Respiratory Rate 22 Temperature 99.8 F O2 Sat by Pulse Oximetry 97 - Recommendations 5) MUD CAR WORKER Level of Care Recommendations: Remain in current setting Notifications: Attending Physician I.Reason for MUD CAR WORKER - A) Acute Change in Patient: (Select all that apply): Staff member or family is worried about patient - Neurological Status (Select all that apply): Alert, Responsive, Oriented, Verbal, Follows Commands. absent: Confused, Lethargic - Respiratory Oxygen Delivery Method: Nasal Cannula @L/min Oxygen Flow Rate: 2 (2L) - Constitutional Appears: Well, Non-toxic, No Acute Distress - Head Head Exam: ATRAUMATIC, NORMAL INSPECTION, NORMOCEPHALIC - Eyes Eye Exam: EOMI, Normal appearance Additional Comments: pupils were dilated and poorly reactive to light - Respiratory Exam Respiratory Exam: Clear to Ausculation Bilateral. absent: Wheezes, Respiratory Distress - Cardiovascular Exam Cardiovascular Exam: Tachycardia, +S1, +S2. absent: JVD - GI/Abdominal Exam GI & Abdominal Exam: Soft. absent: Distended, Tenderness - Neurological Exam Neurological Exam: Alert, Awake, Oriented x3 - Extremities Exam Extremities Exam: Normal Inspection Additional comments: tattoos covering UE b/l RLE was intermittently flexed up at the hip (raised to ceiling) Plan - Assessment of Findings&Treatment Plan 51yo M PMH anxiety, chronic back pain, high cholesterol, hypertension admitted for seizures. MUD CAR WORKER was called for possible seizure like activity, and team responded STAT. The patient was able to provide information that he is on Percocet and Xanax for chronic back pain and anxiety, respectively, but that he has not taken his medications in a week because he "cannot find the bottles." Patient denied ETOH, tobacco or substance abuse. Patient was noted to be awake and alert and able to follow conversation and was answering questions in coherent manner and following commands. The patient had intermittent RLE and neck clonus. The patient did not have any tongue biting (but was actually able to converse), foaming at mouth, loss of urine/bowel control. 2mg Ativan IVP were given and clonus resolved but returned after a few minutes, when another 2mg IVP Ativan was given. Patient's symptoms resolved and he expressed that he was feeling better. No post-ictal state was noted. Meds and Labs were reviewed. Given patient's ability to converse during episodes and was not altered, this episode was likely a pseudoseizure/psychomotor agitation likely 2/2 benzodiazepene vs true seizure. Plan: 1. Psychomotor agitation likely 2/2 benzo withdrawal vs seizure - ordered CBC, CMP, Mag, Phos AM labs - blood cultures were ordered given elevated WBC; CXR, CT Head and UA were unremarkable - banana bag ordered - Keppra 1gm ordered - Ativan 2mg Q2H PRN added - EEG ordered - aspiration precautions - fall risk precautions - neuro checks Q4H - seizure precautions - VS Q4H
[2017-05-15] MEDS ORDERED: diaZEpam 10 mg/2 ml Inj IVP STA (23:11)
[2017-05-16 00:41] LABS: ALB/GLOB RATIO 1.6 (1.1-1.8); ALKALINE PHOSPHATASE 80 U/L (38-126); ALT/SGPT 49 U/L (7-56); AST/SGOT 44 U/L (17-59); BILIRUBIN,TOTAL 0.6 mg/dL (0.2-1.3); BLOOD UREA NITROGEN 11 mg/dL (7-21); CALCIUM 9.1 mg/dL (8.4-10.5); CARBON DIOXIDE 23 mmol/L (21-33); CHLORIDE 109 mmol/L (98-107); GFR AFRICAN-AMERICAN > 60; GLUCOSE,RANDOM 128 mg/dL (70-110); POTASSIUM 3.8 mmol/L (3.6-5.0); SODIUM 141 mmol/L (132-148); TOTAL PROTEIN 6.8 g/dL (5.8-8.3)
--- NOTE | 2017-05-16 03:10 | CP.PCM.CON ---
<Shawanda Barrera - Last Filed: 05/16/17 03:15> History of Present Illness - History of Present Illness History of Present Illness: Shawanda Barrera DO PGY1 - ICU Consult Note CC: Seizures HPI: 51yo M with PMH of anxiety, chronic back pain, HLD, HTN admitted for seizures. Patient was noted to have seizure-like activity in the ER which resolved with 8mg Ativan IV. After admission, on the floors, MITER CUTTER was called for possible seizure like activity including intermittent RLE and neck clonus. Patient was also severely hypertensive at the time. These symptoms resolved with total 4mg ativan and 0.1mg clonidine. Afterwards, the patient reported that he normally takes upwards of 10mg ativan and 60mg oxycodone daily, for anxiety and chronic back pain, but that he has not been receiving it for the past week because he lost his medications. He reports that he was at [facility] yesterday for detox, and left AMA. Patient was reportedly able to carry on a normal conversation, with unaltered mental status throughout the episodes of seizure-like activity. He denies any history of seizures. He now denies any CP, SOB, headache, back pain, fever, chills, nausea, vomiting, diarrhea. He did not bite his tongue or lose control of his bladder/bowels. 12 point ROS is negative except as listed above. PMH: As above PSH: "colon tumor removed" Soc: Smokes 1/4 PPD; Denies alcohol or illicits All: NKDA Past Patient History - Infectious Disease Hx of Infectious Diseases: None - Tetanus Immunizations Tetanus Immunization: Unknown - Past Social History Smoking Status: Never Smoked - CARDIAC Hx Cardiac Disorders: Yes Hx Angina: Yes - PULMONARY Hx Respiratory Disorders: Yes (H/O OF CIGARETTE SMOKING-NOW USING E VAPE) - NEUROLOGICAL Hx Neurological Disorder: No Hx Seizures: No (Pt Denies) - HEENT Hx HEENT Problems: Yes (wears contacts) - RENAL Hx Chronic Kidney Disease: No - ENDOCRINE/METABOLIC Hx Endocrine Disorders: No - HEMATOLOGICAL/ONCOLOGICAL Hx Blood Disorders: No - INTEGUMENTARY Hx Dermatological Problems: Yes (tattoos) - MUSCULOSKELETAL/RHEUMATOLOGICAL Hx Falls: Yes - GASTROINTESTINAL Hx Gastrointestinal Disorders: Yes Other/Comment: COLON TUMOR REMOVED - GENITOURINARY/GYNECOLOGICAL Hx Genitourinary Disorders: No - PSYCHIATRIC Hx Psychophysiologic Disorder: Yes Hx Anxiety: Yes Hx Bipolar Disorder: Yes Hx Depression: Yes - SURGICAL HISTORY Other/Comment: Knee repair - ANESTHESIA Hx Anesthesia: Yes Hx Anesthesia Reactions: No Hx Malignant Hyperthermia: No Meds Allergies/Adverse Reactions: Allergies Allergy/AdvReac Type Severity Reaction Status Date / Time No Known Allergies Allergy Verified 05/15/17 15:52 - Medications Medications: Current Medications Amitriptyline HCl (Elavil) 10 mg PO HS DAVE Last Admin: 05/15/17 21:41 Dose: 10 mg Clonidine HCl (Catapres) 0.1 mg PO TID DAVE Last Admin: 05/15/17 23:20 Dose: 0.1 mg Multivitamins/Vitamin C 10 ml/Thiamine HCl 100 mg/ Folic Acid 1 mg/ Sodium Chloride 1,011.2 mls @ 100 mls/hr IV .Q10H7M ONE Stop: 05/16/17 07:34 Last Admin: 05/16/17 02:40 Dose: 100 mls/hr Lorazepam (Ativan) 2 mg IVP Q6H DAVE PRN Reason: Protocol Last Admin: 05/16/17 01:40 Dose: 2 mg Lorazepam (Ativan) 2 mg IVP Q2H PRN; Protocol PRN Reason: Seizure activity Oxycodone/Acetaminophen (Percocet 5/325 Mg Tab) 1 tab PO Q4H PRN PRN Reason: Pain, moderate (4-7) Stop: 05/18/17 20:21 Last Admin: 05/15/17 20:39 Dose: 1 tab Physical Exam - Constitutional Appears: Non-toxic, No Acute Distress - Head Exam Head Exam: ATRAUMATIC, NORMOCEPHALIC - Eye Exam Eye Exam: EOMI, Normal appearance, PERRL Additional comments: Patient wearing colored contacts. Difficult to assess pupil reactivity. Patient unwilling to take them off for exam. - ENT Exam ENT Exam: Mucous Membranes Moist - Neck Exam Neck exam: Positive for: Full Rom, Normal Inspection - Respiratory Exam Respiratory Exam: Clear to Auscultation Bilateral, NORMAL BREATHING PATTERN - Cardiovascular Exam Cardiovascular Exam: REGULAR RHYTHM, +S1, +S2 - GI/Abdominal Exam GI & Abdominal Exam: Normal Bowel Sounds, Soft. absent: Tenderness - Extremities Exam Extremities exam: Negative for: calf tenderness, pedal edema - Neurological Exam Neurological exam: Alert, CN II-XII Intact, Oriented x3 Additional comments: Mild tremor in both hands with activity, L>R. No asterixis. - Psychiatric Exam Psychiatric exam: Normal Affect, Normal Mood - Skin Skin Exam: Dry, Intact Results - Vital Signs Recent Vital Signs: Last Vital Signs Temp 98 F 05/16/17 02:00 Pulse 111 H 05/16/17 02:00 Resp 22 05/16/17 02:00 BP 124/87 05/16/17 02:00 Pulse Ox 97 05/16/17 02:00 - Labs Result Diagrams: 05/15/17 22:30 05/16/17 00:10 Labs: Laboratory Results - last 24 hr 05/15/17 05/15/17 05/15/17 18:00 18:00 22:29 WBC RBC Hgb Hct MCV MCH MCHC RDW Plt Count MPV Gran % Lymph % (Auto) [place] % (Auto) Eos % (Auto) Baso % (Auto) Gran # Lymph # [place] # Eos # Baso # Sodium Potassium Chloride Carbon Dioxide Anion Gap BUN Creatinine Est GFR ( Amer) Est GFR (Non-Af Amer) POC Glucose (mg/dL) 116 H Random Glucose Calcium Total Bilirubin AST ALT Alkaline Phosphatase Total Creatine Kinase CK-MB (CK-2) CK-MB (CK-2) % Total Protein Albumin Globulin Albumin/Globulin Ratio Prolactin Urine Color Yellow Urine Appearance Sl cloudy Urine pH 6.0 Ur Specific [place] 1.015 Urine Protein 30 H Urine Glucose (UA) 100 H Urine Ketones Negative Urine Blood Small H Urine Nitrate Negative Urine Bilirubin Negative Urine Urobilinogen 0.2 Ur Leukocyte Esterase Negative Urine RBC 1 - 3 Urine WBC 2 - 5 Ur Epithelial Cells 1 - 3 Urine Bacteria Few Urine Opiates Screen Negative Urine Methadone Screen Negative Ur Barbiturates Screen Negative Ur Phencyclidine Scrn Negative Ur Amphetamines Screen Negative U Benzodiazepines Scrn Positive U Oth Cocaine Metabols No result U Cannabinoids Screen Negative 05/15/17 05/16/17 22:30 00:10 WBC 15.2 H D RBC 4.96 Hgb 15.2 D Hct 44.3 MCV 89.3 MCH 30.6 MCHC 34.3 RDW 13.7 Plt Count 269 MPV 9.8 Gran % 87.5 H Lymph % (Auto) 6.6 L [place] % (Auto) 5.7 Eos % (Auto) 0.1 L Baso % (Auto) 0.1 Gran # 13.28 H Lymph # 1.0 L [place] # 0.9 H Eos # 0.0 Baso # 0.01 Sodium 141 Potassium 3.8 Chloride 109 H Carbon Dioxide 23 Anion Gap 13 BUN 11 Creatinine 0.8 Est GFR ( Amer) > 60 Est GFR (Non-Af Amer) > 60 POC Glucose (mg/dL) Random Glucose 128 H Calcium 9.1 Total Bilirubin 0.6 AST 44 ALT 49 Alkaline Phosphatase 80 Total Creatine Kinase 2097 H CK-MB (CK-2) 7.9 H CK-MB (CK-2) % 0.4 L Total Protein 6.8 Albumin 4.2 Globulin 2.6 Albumin/Globulin Ratio 1.6 Prolactin Cancelled Urine Color Urine Appearance Urine pH Ur Specific [place] Urine Protein Urine Glucose (UA) Urine Ketones Urine Blood Urine Nitrate Urine Bilirubin Urine Urobilinogen Ur Leukocyte Esterase Urine RBC Urine WBC Ur Epithelial Cells Urine Bacteria Urine Opiates Screen Urine Methadone Screen Ur Barbiturates Screen Ur Phencyclidine Scrn Ur Amphetamines Screen U Benzodiazepines Scrn U Oth Cocaine Metabols U Cannabinoids Screen Assessment & Plan - Assessment and Plan (Free Text) Assessment: 51yo M with PMH of anxiety, chronic back pain, HLD, HTN admitted for seizures. ICU consulted for recurrent seizures and elevated BP. After management of the MITER CUTTER, patient no longer having any seizure like activity , resting comfortably, with stabilization of his vitals. Recommend continue PRN IV Ativan, PRN clonidine, and neurology consult. At this time, patient does not warrant escalation of care to ICU. Please reconsult as needed. <Nati REYNOLDS,Trey - Last Filed: 05/16/17 08:29> Meds - Medications Medications: Current Medications Alprazolam (Xanax) 0.5 mg PO TID DAVE PRN Reason: Protocol Amitriptyline HCl (Elavil) 10 mg PO HS DAVE Last Admin: 05/15/17 21:41 Dose: 10 mg Clonidine HCl (Catapres) 0.1 mg PO TID PRN PRN Reason: Systolic Blood Pressure Lorazepam (Ativan) 2 mg IVP Q2H PRN; Protocol PRN Reason: Seizure activity Last Admin: 05/16/17 06:37 Dose: 2 mg Oxycodone/Acetaminophen (Percocet 5/325 Mg Tab) 1 tab PO Q4H PRN PRN Reason: Pain, moderate (4-7) Stop: 05/18/17 20:21 Last Admin: 05/16/17 04:21 Dose: 1 tab Results - Vital Signs Recent Vital Signs: Last Vital Signs Temp 98 F 05/16/17 02:00 Pulse 111 H 05/16/17 02:00 Resp 22 05/16/17 02:00 BP 124/87 05/16/17 02:00 Pulse Ox 97 05/16/17 02:00 - Labs Result Diagrams: 05/16/17 05:00 05/16/17 05:30 Labs: Laboratory Results - last 24 hr 05/15/17 05/15/17 05/15/17 18:00 18:00 22:29 WBC RBC Hgb Hct MCV MCH MCHC RDW Plt Count MPV Gran % Lymph % (Auto) [place] % (Auto) Eos % (Auto) Baso % (Auto) Gran # Lymph # [place] # Eos # Baso # Sodium Potassium Chloride Carbon Dioxide Anion Gap BUN Creatinine Est GFR ( Amer) Est GFR (Non-Af Amer) POC Glucose (mg/dL) 116 H Random Glucose Calcium Phosphorus Magnesium Total Bilirubin AST ALT Alkaline Phosphatase Total Creatine Kinase CK-MB (CK-2) CK-MB (CK-2) % Total Protein Albumin Globulin Albumin/Globulin Ratio Prolactin Urine Color Yellow Urine Appearance Sl cloudy Urine pH 6.0 Ur Specific [place] 1.015 Urine Protein 30 H Urine Glucose (UA) 100 H Urine Ketones Negative Urine Blood Small H Urine Nitrate Negative Urine Bilirubin Negative Urine Urobilinogen 0.2 Ur Leukocyte Esterase Negative Urine RBC 1 - 3 Urine WBC 2 - 5 Ur Epithelial Cells 1 - 3 Urine Bacteria Few Urine Opiates Screen Negative Urine Methadone Screen Negative Ur Barbiturates Screen Negative Ur Phencyclidine Scrn Negative Ur Amphetamines Screen Negative U Benzodiazepines Scrn Positive U Oth Cocaine Metabols No result U Cannabinoids Screen Negative 05/15/17 05/16/17 05/16/17 22:30 00:10 05:00 WBC 15.2 H D 11.2 H D RBC 4.96 4.83 Hgb 15.2 D 14.4 Hct 44.3 43.3 MCV 89.3 89.6 MCH 30.6 29.8 MCHC 34.3 33.3 RDW 13.7 13.9 Plt Count 269 279 MPV 9.8 10.3 Gran % 87.5 H 71.6 H Lymph % (Auto) 6.6 L 20.9 L [place] % (Auto) 5.7 7.0 H Eos % (Auto) 0.1 L 0.3 L Baso % (Auto) 0.1 0.2 Gran # 13.28 H 8.05 H Lymph # 1.0 L 2.3 Eaton # 0.9 H 0.8 H Eos # 0.0 0.0 Baso # 0.01 0.02 Sodium 141 Potassium 3.8 Chloride 109 H Carbon Dioxide 23 Anion Gap 13 BUN 11 Creatinine 0.8 Est GFR ( Amer) > 60 Est GFR (Non-Af Amer) > 60 POC Glucose (mg/dL) Random Glucose 128 H Calcium 9.1 Phosphorus Magnesium Total Bilirubin 0.6 AST 44 ALT 49 Alkaline Phosphatase 80 Total Creatine Kinase 2097 H CK-MB (CK-2) 7.9 H CK-MB (CK-2) % 0.4 L Total Protein 6.8 Albumin 4.2 Globulin 2.6 Albumin/Globulin Ratio 1.6 Prolactin Cancelled Urine Color Urine Appearance Urine pH Ur Specific [place] Urine Protein Urine Glucose (UA) Urine Ketones Urine Blood Urine Nitrate Urine Bilirubin Urine Urobilinogen Ur Leukocyte Esterase Urine RBC Urine WBC Ur Epithelial Cells Urine Bacteria Urine Opiates Screen Urine Methadone Screen Ur Barbiturates Screen Ur Phencyclidine Scrn Ur Amphetamines Screen U Benzodiazepines Scrn U Oth Cocaine Metabols U Cannabinoids Screen 05/16/17 05:30 WBC RBC Hgb Hct MCV MCH MCHC RDW Plt Count MPV Gran % Lymph % (Auto) [place] % (Auto) Eos % (Auto) Baso % (Auto) Gran # Lymph # [place] # Eos # Baso # Sodium 140 Potassium 3.9 Chloride 109 H Carbon Dioxide 24 Anion Gap 11 BUN 10 Creatinine 0.8 Est GFR ( Amer) > 60 Est GFR (Non-Af Amer) > 60 POC Glucose (mg/dL) Random Glucose 98 Calcium 9.2 Phosphorus 3.0 Magnesium 2.2 Total Bilirubin 0.8 AST 49 ALT 47 Alkaline Phosphatase 79 Total Creatine Kinase CK-MB (CK-2) CK-MB (CK-2) % Total Protein 6.8 Albumin 4.2 Globulin 2.6 Albumin/Globulin Ratio 1.6 Prolactin Urine Color Urine Appearance Urine pH Ur Specific [place] Urine Protein Urine Glucose (UA) Urine Ketones Urine Blood Urine Nitrate Urine Bilirubin Urine Urobilinogen Ur Leukocyte Esterase Urine RBC Urine WBC Ur Epithelial Cells Urine Bacteria Urine Opiates Screen Urine Methadone Screen Ur Barbiturates Screen Ur Phencyclidine Scrn Ur Amphetamines Screen U Benzodiazepines Scrn U Oth Cocaine Metabols U Cannabinoids Screen Attending/Attestation - Attestation I have personally seen and examined this patient.: Yes I have fully participated in the care of the patient.: Yes I have reviewed all pertinent clinical information: Yes Notes (Text): -I agree with the above ICU consult note completed by the resident physician, with the following additions and/or changes: -The patient is a 51 year old man with a history of anxiety disorder, chronic low-back pain, HLD, HTN, chronic benzodiazepine and opiate medication use, who was admitted yesterday for seizures. Of note, patient's previous medical records indicate a history of benzo withdrawal seizures. Overnight, a rapid response was activated by the telemetry lopez after the patient was found to be seizing. IV Ativan doses were administered with resolution of the seizure. Post- seizure, the patient was very hypertensive, with SBP's ranging in the 180's and tachycardic (HX=[id number]'s). Presumably, the underlying etiology of this seizure appears to be benzo withdrawal (similar to patient's prior episodes). However, will defer to primary team to consult neurology in AM for a definitive epilepsy work-up. We added PRN Clonidine for his HTN and PRN IV Ativan for seizures. Also , low-dose Xanax TID (scheduled dose) was started (to help patient gradually wean off and/or decrease dependence on Benzo's). Overnight, the patient's BP normalized with the Clonidine. Consequently, because his vitals are relatively normal and he's in no acute distress, he doesn't require ICU level of care at this time. Please feel free to re-consult if the patient's condition deteriorates. Thanks.
[2017-05-16] MEDS: Oxycodone/Acetaminophen 5/325 mg Tab PO PRN ×5 (04:21→22:03)
[2017-05-16 06:29] LABS: BASO # 0.02 K/mm3 (0.0-2.0); BASO % 0.2 % (0.0-3.0); EOS % 0.3 % (1.5-5.0); GRAN # 8.05 (1.4-6.5); GRAN % 71.6 % (50.0-68.0); HEMATOCRIT 43.3 % (42.0-52.0); LYMPH # 2.3 (1.2-3.4); LYMPH % 20.9 % (22.0-35.0); MEAN CELL VOLUME 89.6 fl (80.0-105.0); MEAN CORPUSCULAR HEMOGLOBIN 29.8 pg (25.0-35.0); MEAN CORPUSCULAR HGB CONC 33.3 g/dl (31.0-37.0); MEAN PLATELET VOLUME 10.3 fl (7.0-11.0); MONO # 0.8 (0.1-0.6); RED CELL DISTRIBUTION WIDTH 13.9 % (11.5-14.5); WHITE BLOOD COUNT 11.2 10^3/ul (4.5-11.0)
[2017-05-16 06:37] LABS: ALB/GLOB RATIO 1.6 (1.1-1.8); ALKALINE PHOSPHATASE 79 U/L (38-126); ALT/SGPT 47 U/L (7-56); AST/SGOT 49 U/L (17-59); BILIRUBIN,TOTAL 0.8 mg/dL (0.2-1.3); BLOOD UREA NITROGEN 10 mg/dL (7-21); CALCIUM 9.2 mg/dL (8.4-10.5); CARBON DIOXIDE 24 mmol/L (21-33); CHLORIDE 109 mmol/L (98-107); GFR AFRICAN-AMERICAN > 60; GLUCOSE,RANDOM 98 mg/dL (70-110); MAGNESIUM 2.2 mg/dL (1.7-2.2); POTASSIUM 3.9 mmol/L (3.6-5.0); SODIUM 140 mmol/L (132-148); TOTAL PROTEIN 6.8 g/dL (5.8-8.3)
--- NOTE | 2017-05-16 10:01 | CARD ---
APPROVED REPORT EKG Measurement Heart [id number] <Conclusion> Sinus tachycardia Mildly prolonged QTc No change
[2017-05-16 14:03] LABS: URINE BILIRUBIN NEGATIVE (NEGATIVE); URINE BLOOD TRACE-INTACT (NEGATIVE); URINE GLUCOSE (UA) NEGATIVE (NEGATIVE); URINE KETONE 40 mg/dL (NEGATIVE); URINE LEUKOCYTE ESTERASE NEGATIVE Leu/uL (NEGATIVE); URINE PROTEIN TRACE mg/dL (<30 mg/dL); URINE UROBILINOGEN 0.2 E.U./dL (<1 E.U./dL)
[2017-05-16 14:27] LABS: URINE APPEARANCE CLEAR (CLEAR); URINE COLOR YELLOW (YELLOW)
[2017-05-16 14:38] LABS: URINE RBC 0 - 2 /hpf (0-2); URINE WBC 0 - 2 /hpf (0-6)
[2017-05-16 14:39] LABS: URINE BACTERIA FEW (NEG); URINE EPITHELIAL CELLS 0 - 2 /hpf (0-5); URINE URIC ACID CRYSTALS FEW /hpf
--- NOTE | 2017-05-16 16:12 | CP.PCM.CON ---
<Christina Osorio - Last Filed: 05/16/17 17:44> History of Present Illness - History of Present Illness History of Present Illness: PGY-2 Neurology consult note for Dr. Ortega's service 51 yo male with PMH of anxiety, chronic back pain, HLD, HTN admitted for benzodiazepeine withdrawal. Patient states he came to the hospital because he was having a mental breakdown. He state he was shaking in the ED. Patient was noted to have seizure-like activity in the ER and received 8mg Ativan. An SURVEILLANCE INSPECTOR was called overnight for possible seizure like activity as well, during these episodes patient was hypertensive. symptoms resolved after receiving 4mg ativan and clonidine. Pateint denies tongue biting, loss of bowel or bladder, or postictal states. Patient states that he normally takes xanax and percocet, for anxiety and chronic back pain. He reports that he was at [facility] yesterday for detox, and left AMA. He states that he is non compliant with his HTN medication. He denies any history of seizures. He denies any CP, SOB, headache, back pain, fever, chills, nausea, vomiting, diarrhea. He did not bite his tongue or lose control of his bladder/bowels. PMH: HTN, hyperlipidemia, anxiety PSH: colonoscopy Soc: Smokes 1/4 PPD; Denies alcohol or illicit drug use family history: heart disease All: NKDA Review of Systems - Review of Systems All systems: reviewed and no additional remarkable complaints except (as stated in HPI) Past Patient History - Infectious Disease Hx of Infectious Diseases: None - Tetanus Immunizations Tetanus Immunization: Unknown - Past Social History Smoking Status: Never Smoked - CARDIAC Hx Cardiac Disorders: Yes Hx Angina: Yes - PULMONARY Hx Respiratory Disorders: Yes (H/O OF CIGARETTE SMOKING-NOW USING E VAPE) - NEUROLOGICAL Hx Neurological Disorder: No Hx Seizures: No (Pt Denies) - HEENT Hx HEENT Problems: Yes (wears contacts) - RENAL Hx Chronic Kidney Disease: No - ENDOCRINE/METABOLIC Hx Endocrine Disorders: No - HEMATOLOGICAL/ONCOLOGICAL Hx Blood Disorders: No - INTEGUMENTARY Hx Dermatological Problems: Yes (tattoos) - MUSCULOSKELETAL/RHEUMATOLOGICAL Hx Falls: Yes - GASTROINTESTINAL Hx Gastrointestinal Disorders: Yes Other/Comment: COLON TUMOR REMOVED - GENITOURINARY/GYNECOLOGICAL Hx Genitourinary Disorders: No - PSYCHIATRIC Hx Psychophysiologic Disorder: Yes Hx Anxiety: Yes Hx Bipolar Disorder: Yes Hx Depression: Yes - SURGICAL HISTORY Other/Comment: Knee repair - ANESTHESIA Hx Anesthesia: Yes Hx Anesthesia Reactions: No Hx Malignant Hyperthermia: No Meds Allergies/Adverse Reactions: Allergies Allergy/AdvReac Type Severity Reaction Status Date / Time No Known Allergies Allergy Verified 05/15/17 15:52 - Medications Medications: Current Medications Alprazolam (Xanax) 0.5 mg PO TID DAVE PRN Reason: Protocol Last Admin: 05/16/17 14:06 Dose: 0.5 mg Amitriptyline HCl (Elavil) 10 mg PO HS DAVE Last Admin: 05/15/17 21:41 Dose: 10 mg Clonidine HCl (Catapres) 0.1 mg PO TID PRN PRN Reason: Systolic Blood Pressure Sodium Chloride (Sodium Chloride 0.9%) 1,000 mls @ 100 mls/hr IV .Q10H DAVE Lorazepam (Ativan) 2 mg IVP Q2H PRN; Protocol PRN Reason: Seizure activity Last Admin: 05/16/17 06:37 Dose: 2 mg Oxycodone/Acetaminophen (Percocet 5/325 Mg Tab) 1 tab PO Q4H PRN PRN Reason: Pain, moderate (4-7) Stop: 05/18/17 20:21 Last Admin: 05/16/17 14:10 Dose: 1 tab Physical Exam - Constitutional Appears: No Acute Distress - Head Exam Head Exam: ATRAUMATIC, NORMAL INSPECTION, NORMOCEPHALIC - Eye Exam Eye Exam: EOMI, Normal appearance - ENT Exam ENT Exam: Mucous Membranes Moist - Respiratory Exam Respiratory Exam: Clear to Auscultation Bilateral, NORMAL BREATHING PATTERN. absent: Rales, Rhonchi, Wheezes, Respiratory Distress - Cardiovascular Exam Cardiovascular Exam: REGULAR RHYTHM. absent: Tachycardia - Neurological Exam Neurological exam: Alert, CN II-XII Intact, Oriented x3 - Skin Skin Exam: Dry, Intact, Normal Color, Warm Results - Vital Signs Recent Vital Signs: Last Vital Signs Temp 98.1 F 05/16/17 08:55 Pulse 96 H 05/16/17 08:55 Resp 20 05/16/17 08:55 BP 132/93 H 05/16/17 08:55 Pulse Ox 96 05/16/17 08:55 - Labs Result Diagrams: 05/16/17 05:00 05/16/17 05:30 Labs: Laboratory Results - last 24 hr 05/15/17 05/15/17 05/15/17 18:00 18:00 22:29 WBC RBC Hgb Hct MCV MCH MCHC RDW Plt Count MPV Gran % Lymph % (Auto) [place] % (Auto) Eos % (Auto) Baso % (Auto) Gran # Lymph # [place] # Eos # Baso # Sodium Potassium Chloride Carbon Dioxide Anion Gap BUN Creatinine Est GFR ( Amer) Est GFR (Non-Af Amer) POC Glucose (mg/dL) 116 H Random Glucose Calcium Phosphorus Magnesium Total Bilirubin AST ALT Alkaline Phosphatase Total Creatine Kinase CK-MB (CK-2) CK-MB (CK-2) % Total Protein Albumin Globulin Albumin/Globulin Ratio Prolactin Urine Color Yellow Urine Appearance Sl cloudy Urine pH 6.0 Ur Specific [place] 1.015 Urine Protein 30 H Urine Glucose (UA) 100 H Urine Ketones Negative Urine Blood Small H Urine Nitrate Negative Urine Bilirubin Negative Urine Urobilinogen 0.2 Ur Leukocyte Esterase Negative Urine RBC 1 - 3 Urine WBC 2 - 5 Ur Epithelial Cells 1 - 3 Uric Acid Crystals Urine Bacteria Few Urine Opiates Screen Negative Urine Methadone Screen Negative Ur Barbiturates Screen Negative Ur Phencyclidine Scrn Negative Ur Amphetamines Screen Negative U Benzodiazepines Scrn Positive U Oth Cocaine Metabols No result U Cannabinoids Screen Negative 05/15/17 05/16/17 05/16/17 22:30 00:10 05:00 WBC 15.2 H D 11.2 H D RBC 4.96 4.83 Hgb 15.2 D 14.4 Hct 44.3 43.3 MCV 89.3 89.6 MCH 30.6 29.8 MCHC 34.3 33.3 RDW 13.7 13.9 Plt Count 269 279 MPV 9.8 10.3 Gran % 87.5 H 71.6 H Lymph % (Auto) 6.6 L 20.9 L [place] % (Auto) 5.7 7.0 H Eos % (Auto) 0.1 L 0.3 L Baso % (Auto) 0.1 0.2 Gran # 13.28 H 8.05 H Lymph # 1.0 L 2.3 [place] # 0.9 H 0.8 H Eos # 0.0 0.0 Baso # 0.01 0.02 Sodium 141 Potassium 3.8 Chloride 109 H Carbon Dioxide 23 Anion Gap 13 BUN 11 Creatinine 0.8 Est GFR ( Amer) > 60 Est GFR (Non-Af Amer) > 60 POC Glucose (mg/dL) Random Glucose 128 H Calcium 9.1 Phosphorus Magnesium Total Bilirubin 0.6 AST 44 ALT 49 Alkaline Phosphatase 80 Total Creatine Kinase 2097 H CK-MB (CK-2) 7.9 H CK-MB (CK-2) % 0.4 L Total Protein 6.8 Albumin 4.2 Globulin 2.6 Albumin/Globulin Ratio 1.6 Prolactin Cancelled Urine Color Urine Appearance Urine pH Ur Specific [place] Urine Protein Urine Glucose (UA) Urine Ketones Urine Blood Urine Nitrate Urine Bilirubin Urine Urobilinogen Ur Leukocyte Esterase Urine RBC Urine WBC Ur Epithelial Cells Uric Acid Crystals Urine Bacteria Urine Opiates Screen Urine Methadone Screen Ur Barbiturates Screen Ur Phencyclidine Scrn Ur Amphetamines Screen U Benzodiazepines Scrn U Oth Cocaine Metabols U Cannabinoids Screen 05/16/17 05/16/17 05:30 13:49 WBC RBC Hgb Hct MCV MCH MCHC RDW Plt Count MPV Gran % Lymph % (Auto) [place] % (Auto) Eos % (Auto) Baso % (Auto) Gran # Lymph # [place] # Eos # Baso # Sodium 140 Potassium 3.9 Chloride 109 H Carbon Dioxide 24 Anion Gap 11 BUN 10 Creatinine 0.8 Est GFR ( Amer) > 60 Est GFR (Non-Af Amer) > 60 POC Glucose (mg/dL) Random Glucose 98 Calcium 9.2 Phosphorus 3.0 Magnesium 2.2 Total Bilirubin 0.8 AST 49 ALT 47 Alkaline Phosphatase 79 Total Creatine Kinase CK-MB (CK-2) CK-MB (CK-2) % Total Protein 6.8 Albumin 4.2 Globulin 2.6 Albumin/Globulin Ratio 1.6 Prolactin Urine Color Yellow Urine Appearance Clear Urine pH 6.0 Ur Specific [place] >= 1.030 Urine Protein Trace H Urine Glucose (UA) Negative Urine Ketones 40 H Urine Blood Trace-intact H Urine Nitrate Negative Urine Bilirubin Negative Urine Urobilinogen 0.2 Ur Leukocyte Esterase Negative Urine RBC 0 - 2 Urine WBC 0 - 2 Ur Epithelial Cells 0 - 2 Uric Acid Crystals Few Urine Bacteria Few Urine Opiates Screen Urine Methadone Screen Ur Barbiturates Screen Ur Phencyclidine Scrn Ur Amphetamines Screen U Benzodiazepines Scrn U Oth Cocaine Metabols U Cannabinoids Screen Assessment & Plan - Assessment and Plan (Free Text) Assessment: 51 yo male with PMH of anxiety, chronic back pain, HLD, HTN admitted for benzodiazepeine withdrawal and seizures like activity, provoked seizure from detox of medications. 1. provoked seizure - work up in the past was negative - head CT negative - avoid chronic use of benzo and opiates, they will lower seizure threshold - no AEDs for now - EEG reviewed, showed medication changes due to beta effect, otherwise normal EEG - psych consult, follow recommendation thank you for the consult, please reconsult if needed Case reviewed and discussed with attending, Dr. Ortega <Dean Ortega - Last Filed: 05/16/17 21:58> Meds - Medications Medications: Current Medications Alprazolam (Xanax) 0.5 mg PO TID DAVE PRN Reason: Protocol Last Admin: 05/16/17 17:47 Dose: 0.5 mg Amitriptyline HCl (Elavil) 10 mg PO HS DAVE Last Admin: 05/15/17 21:41 Dose: 10 mg Clonidine HCl (Catapres) 0.1 mg PO TID PRN PRN Reason: Systolic Blood Pressure Sodium Chloride (Sodium Chloride 0.9%) 1,000 mls @ 100 mls/hr IV .Q10H DAVE Last Admin: 05/16/17 17:48 Dose: 100 mls/hr Lorazepam (Ativan) 2 mg IVP Q2H PRN; Protocol PRN Reason: Seizure activity Last Admin: 05/16/17 06:37 Dose: 2 mg Oxycodone/Acetaminophen (Percocet 5/325 Mg Tab) 1 tab PO Q4H PRN PRN Reason: Pain, moderate (4-7) Stop: 05/18/17 20:21 Last Admin: 05/16/17 17:47 Dose: 1 tab Results - Vital Signs Recent Vital Signs: Last Vital Signs Temp 98.5 F 05/16/17 16:00 Pulse 89 05/16/17 16:00 Resp 20 05/16/17 16:00 BP 152/98 H 05/16/17 16:00 Pulse Ox 95 05/16/17 16:00 - Labs Result Diagrams: 05/16/17 05:00 05/16/17 05:30 Labs: Laboratory Results - last 24 hr 05/15/17 05/15/17 05/16/17 22:29 22:30 00:10 WBC 15.2 H D RBC 4.96 Hgb 15.2 D Hct 44.3 MCV 89.3 MCH 30.6 MCHC 34.3 RDW 13.7 Plt Count 269 MPV 9.8 Gran % 87.5 H Lymph % (Auto) 6.6 L [place] % (Auto) 5.7 Eos % (Auto) 0.1 L Baso % (Auto) 0.1 Gran # 13.28 H Lymph # 1.0 L [place] # 0.9 H Eos # 0.0 Baso # 0.01 Sodium 141 Potassium 3.8 Chloride 109 H Carbon Dioxide 23 Anion Gap 13 BUN 11 Creatinine 0.8 Est GFR ( Amer) > 60 Est GFR (Non-Af Amer) > 60 POC Glucose (mg/dL) 116 H Random Glucose 128 H Calcium 9.1 Phosphorus Magnesium Total Bilirubin 0.6 AST 44 ALT 49 Alkaline Phosphatase 80 Total Creatine Kinase 2097 H CK-MB (CK-2) 7.9 H CK-MB (CK-2) % 0.4 L Total Protein 6.8 Albumin 4.2 Globulin 2.6 Albumin/Globulin Ratio 1.6 Prolactin Cancelled Urine Color Urine Appearance Urine pH Ur Specific [place] Urine Protein Urine Glucose (UA) Urine Ketones Urine Blood Urine Nitrate Urine Bilirubin Urine Urobilinogen Ur Leukocyte Esterase Urine RBC Urine WBC Ur Epithelial Cells Uric Acid Crystals Urine Bacteria 05/16/17 05/16/17 05/16/17 05:00 05:30 13:49 WBC 11.2 H D RBC 4.83 Hgb 14.4 Hct 43.3 MCV 89.6 MCH 29.8 MCHC 33.3 RDW 13.9 Plt Count 279 MPV 10.3 Gran % 71.6 H Lymph % (Auto) 20.9 L [place] % (Auto) 7.0 H Eos % (Auto) 0.3 L Baso % (Auto) 0.2 Gran # 8.05 H Lymph # 2.3 [place] # 0.8 H Eos # 0.0 Baso # 0.02 Sodium 140 Potassium 3.9 Chloride 109 H Carbon Dioxide 24 Anion Gap 11 BUN 10 Creatinine 0.8 Est GFR ( Amer) > 60 Est GFR (Non-Af Amer) > 60 POC Glucose (mg/dL) Random Glucose 98 Calcium 9.2 Phosphorus 3.0 Magnesium 2.2 Total Bilirubin 0.8 AST 49 ALT 47 Alkaline Phosphatase 79 Total Creatine Kinase CK-MB (CK-2) CK-MB (CK-2) % Total Protein 6.8 Albumin 4.2 Globulin 2.6 Albumin/Globulin Ratio 1.6 Prolactin Urine Color Yellow Urine Appearance Clear Urine pH 6.0 Ur Specific [place] >= 1.030 Urine Protein Trace H Urine Glucose (UA) Negative Urine Ketones 40 H Urine Blood Trace-intact H Urine Nitrate Negative Urine Bilirubin Negative Urine Urobilinogen 0.2 Ur Leukocyte Esterase Negative Urine RBC 0 - 2 Urine WBC 0 - 2 Ur Epithelial Cells 0 - 2 Uric Acid Crystals Few Urine Bacteria Few Attending/Attestation - Attestation I have personally seen and examined this patient.: Yes I have fully participated in the care of the patient.: Yes I have reviewed all pertinent clinical information: Yes
[2017-05-16] MEDS: Sodium Chloride 0.9% 1,000 ML IV SCH ×2 (17:48→23:11)
--- NOTE | 2017-05-16 18:04 | EEG ---
DATE: 05/16/2017 CONDITION OF THE RECORDING: Drowsy. DIAGNOSIS: Seizure. MEDICATIONS: Reviewed by nurse's reconciliation sheet. INTERPRETATION: This is a 16-channel [employer] recording. The background activity was composed of 8 to 9 cycles per second. There was increased amount of beta activity of 16 to 20 cycles per second seen in this recording likely due to medication effect. There was a small amount of theta activity of 5 to 7 cycles per second seen in this tracing. Drowsiness was characterized by mixed beta and theta activities. Sleep was characterized by vertex transient waves, sleep spindles, and bilateral slowing. Photic stimulation showed no change in the tracing. No paroxysmal activity is noted in the recording. CONCLUSION: This is a normal drowsy EEG with increased beta activity due to medication effect. No evidence of any seizure-like activity. Please clinically correlate. Dean Ortega MD
--- NOTE | 2017-05-16 23:59 | CP.PCM.PN ---
Subjective - Date & Time of Evaluation Date of Evaluation: 05/16/17 Time of Evaluation: 23:58 - Subjective Subjective: S:Patient was seen for insomnia. Has no other complaints. Medical record was reviewed. O:Not in acute distress. Last Vital Signs 3 Temp 98.5 F 05/16/17 16:00 Pulse 89 05/16/17 16:00 Resp 20 05/16/17 16:00 BP 152/98 H 05/16/17 16:00 Pulse Ox 95 05/16/17 16:00 LUNGS:Normal breathing pattern. A:Adjustment insomnia. P:Benadryl 25 mg PO stat. Recheck BP. Objective - Vital Signs/Intake and Output Vital Signs (last 24 hours): Temp Pulse Resp BP Pulse Ox 98.5 F 89 20 152/98 H 95 05/16/17 16:00 05/16/17 16:00 05/16/17 16:00 05/16/17 16:00 05/16/17 16:00 Intake and Output: 05/16/17 05/17/17 18:59 06:59 Intake Total 700 540 Output Total 1100 Balance 700 -560 - Medications Medications: Current Medications Alprazolam (Xanax) 0.5 mg PO TID DAVE PRN Reason: Protocol Last Admin: 05/16/17 17:47 Dose: 0.5 mg Amitriptyline HCl (Elavil) 10 mg PO HS [facility] Last Admin: 05/16/17 22:03 Dose: 10 mg Clonidine HCl (Catapres) 0.1 mg PO TID PRN PRN Reason: Systolic Blood Pressure Sodium Chloride (Sodium Chloride 0.9%) 1,000 mls @ 100 mls/hr IV .Q10H [facility] Last Admin: 05/16/17 23:11 Dose: Not Given Lorazepam (Ativan) 2 mg IVP Q2H PRN; Protocol PRN Reason: Seizure activity Last Admin: 05/16/17 06:37 Dose: 2 mg Oxycodone/Acetaminophen (Percocet 5/325 Mg Tab) 1 tab PO Q4H PRN PRN Reason: Pain, moderate (4-7) Stop: 05/18/17 20:21 Last Admin: 05/16/17 22:03 Dose: 1 tab - Labs Labs: 05/16/17 05:00 05/16/17 05:30 PT 11.0 SECONDS (9.4-12.5) 05/15/17 16:00 INR 1.01 (0.93-1.08) 05/15/17 16:00
[2017-05-17] MEDS: Sodium Chloride 0.9% 1,000 ML IV SCH ×2 (04:34→21:39)
[2017-05-17] MEDS: Oxycodone/Acetaminophen 5/325 mg Tab PO PRN ×5 (04:36→21:37)
--- NOTE | 2017-05-17 08:19 | HP ---
HISTORY OF PRESENT ILLNESS: The patient is a 51-year-old male, who was admitted with seizure, possible benzodiazepine and opiate withdrawal. PAST MEDICAL HISTORY: The patient is known to have a past medical history positive for lower back pain, which was treated with opioids. He also has a history of hypertension. He has a history of anxiety and depression. SOCIAL HISTORY: He is a former smoker. Denies drinking alcohol. The patient presented to the Emergency Room several days ago at the sister's request because of mental status changes. The sister claims that the patient was wandering around the house and unable to understand her. She was unable to understand him. She became quite concerned, therefore he came to the Emergency Room; however, signed out against the medical advice. Upon return to home, he apparently suffered another seizure. This time, he went to [facility] where they kept the patient overnight. They told him they do not do detoxification on inpatient, he was therefore sent home. Once again at home, he suffered a seizure once again. The family called for a squad, he was brought to the Emergency Room. In the Emergency Room at [facility], seizure was witnessed by the ER staff. Rapid response was called and the patient is admitted. MEDICATIONS: At the time of admission included Lipitor 20 mg once a day, amitriptyline 10 mg at bedtime, Xanax 2 mg four times a day, and Percocet four times a day. ALLERGIES: HE HAS NO KNOWN MEDICAL ALLERGIES. PHYSICAL EXAMINATION VITAL SIGNS: His blood pressure 181/117, heart rate is 140, and he is afebrile. When seen, the patient is awake and alert; however, he does not appear to be normal self. He appears to be rather more paranoid than usual. HEENT: The head, eyes, ears, nose, and throat are unremarkable. NECK: Supple. No lymphadenopathy. No goiter. LUNGS: Clear to auscultation and percussion. HEART: Regular. ABDOMEN: Round, soft and nontender. EXTREMITIES: Free of cyanosis, clubbing, or edema. There are multiple tattoos over the upper extremity. LABORATORY DATA: The white blood cell count is 19.7, hemoglobin and hematocrit are 17.6 and 51.6, and platelet count is 395. BUN and creatinine are 10 and 1.0 respectively. Sodium is 143, potassium is 4.6, bicarb is low at 12, nonfasting glucose is 166. CK is elevated at 1037 with CKMB at 4.1, which is also elevated. IMPRESSION AND PLAN: So, the patient is admitted to remote telemetry. We are requesting consultation from Psychiatry as well as Neurology. The patient to be reevaluated in the morning and to be followed closely. Devin Blanco MD
--- NOTE | 2017-05-17 09:50 | CP.PCM.CON ---
History of Present Illness - History of Present Illness History of Present Illness: Patient was seen at bedside. Indicates he is stable and doing well. He denies any psychiatric symptoms. He says that when he gets back out of the hospital, he will be able to fill his xanax and percocet prescriptions and that he plans to continue with these meds from his previous prescriber. Client has no insight in regards to his addiction, and does not want change at this time. He was offered referrals which he declined. I will sign off on this patient, please call if there are any further needs. Past Patient History - Infectious Disease Hx of Infectious Diseases: None - Tetanus Immunizations Tetanus Immunization: Unknown - Past Social History Smoking Status: Never Smoked - CARDIAC Hx Cardiac Disorders: Yes Hx Angina: Yes - PULMONARY Hx Respiratory Disorders: Yes (H/O OF CIGARETTE SMOKING-NOW USING E VAPE) - NEUROLOGICAL Hx Neurological Disorder: No Hx Seizures: No (Pt Denies) - HEENT Hx HEENT Problems: Yes (wears contacts) - RENAL Hx Chronic Kidney Disease: No - ENDOCRINE/METABOLIC Hx Endocrine Disorders: No - HEMATOLOGICAL/ONCOLOGICAL Hx Blood Disorders: No - INTEGUMENTARY Hx Dermatological Problems: Yes (tattoos) - MUSCULOSKELETAL/RHEUMATOLOGICAL Hx Falls: Yes - GASTROINTESTINAL Hx Gastrointestinal Disorders: Yes Other/Comment: COLON TUMOR REMOVED - GENITOURINARY/GYNECOLOGICAL Hx Genitourinary Disorders: No - PSYCHIATRIC Hx Psychophysiologic Disorder: Yes Hx Anxiety: Yes Hx Bipolar Disorder: Yes Hx Depression: Yes - SURGICAL HISTORY Other/Comment: Knee repair - ANESTHESIA Hx Anesthesia: Yes Hx Anesthesia Reactions: No Hx Malignant Hyperthermia: No Meds Allergies/Adverse Reactions: Allergies Allergy/AdvReac Type Severity Reaction Status Date / Time No Known Allergies Allergy Verified 05/15/17 15:52 - Medications Medications: Current Medications Alprazolam (Xanax) 0.5 mg PO TID DAVE PRN Reason: Protocol Last Admin: 05/17/17 09:26 Dose: 0.5 mg Amitriptyline HCl (Elavil) 10 mg PO HS [facility] Last Admin: 05/16/17 22:03 Dose: 10 mg Clonidine HCl (Catapres) 0.1 mg PO TID PRN PRN Reason: Systolic Blood Pressure Sodium Chloride (Sodium Chloride 0.9%) 1,000 mls @ 100 mls/hr IV .Q10H [facility] Last Admin: 05/17/17 04:34 Dose: 100 mls/hr Lorazepam (Ativan) 2 mg IVP Q2H PRN; Protocol PRN Reason: Seizure activity Last Admin: 05/16/17 06:37 Dose: 2 mg Oxycodone/Acetaminophen (Percocet 5/325 Mg Tab) 1 tab PO Q4H PRN PRN Reason: Pain, moderate (4-7) Stop: 05/18/17 20:21 Last Admin: 05/17/17 09:27 Dose: 1 tab Results - Vital Signs Recent Vital Signs: Last Vital Signs Temp 98.7 F 05/17/17 08:29 Pulse 91 H 05/17/17 08:29 Resp 20 05/17/17 08:29 BP 150/90 05/17/17 08:29 Pulse Ox 97 05/17/17 08:29 - Labs Result Diagrams: 05/16/17 05:00 05/16/17 05:30 Labs: Laboratory Results - last 24 hr 05/16/17 13:49 Urine Color Yellow Urine Appearance Clear Urine pH 6.0 Ur Specific [place] >= 1.030 Urine Protein Trace H Urine Glucose (UA) Negative Urine Ketones 40 H Urine Blood Trace-intact H Urine Nitrate Negative Urine Bilirubin Negative Urine Urobilinogen 0.2 Ur Leukocyte Esterase Negative Urine RBC 0 - 2 Urine WBC 0 - 2 Ur Epithelial Cells 0 - 2 Uric Acid Crystals Few Urine Bacteria Few
--- NOTE | 2017-05-17 15:06 | PN ---
DATE: 05/16/2017 The patient is a 51-year-old male who was admitted with a seizure. Seizure was witnessed in the emergency room by the ER staff. The patient had apparently presented to the emergency room because of some seizure-like activity several days ago. However, he was awake, alert, and oriented and showed not postictal signs in ER and was discharged to home. As he returned home, his sister witnessed further seizure activity. Again, the patient presented to the emergency room. He was admitted overnight, but the following morning, he signed out against medical advise before I could see the patient. He returned home, again showed seizure activity, kimber was called. At this time, he went to [facility], spent overnight and was discharged to home the following morning. Upon returning to home, he again showed seizure activity, was brought to the emergency room and this was witnessed and that is why the patient is admitted. During his hospital stay, he underwent EEG which was negative for epileptogenic lesions. When seeing this evening, the patient is awake, alert and oriented. He is not a good historian. The patient seems to be twisting events and denying the seriousness of his condition. I spoke to the patient's sister, Kami, by phone. She told be me that she was actually fearful for her life because of his strange actions. They are moving from their house, she is afraid and does not want to live with him anymore. She is seeking a lone apartment. Dr. Ruano, the psychiatrist, has been asked to consult on the patient as well as Dr. Ortega, the neurologist. As mentioned above, when seeing, the patient was awake, alert and oriented and initially seen appropriate; however, was caught in several untruth during our discussion. Morning laboratory shows a white blood cell count to be 11.2, hemoglobin and hematocrit are 14.4 and 43.3, BUN and creatinine are 10 and 0.8 respectively. His blood pressure is 132/93, heart rate is 96, and he is afebrile. The patient is to be reevaluated in the morning and case to be discussed with psychiatry as well as neurology. Devin Blanco MD MTDD
--- NOTE | 2017-05-17 19:51 | CON ---
HISTORY OF PRESENT ILLNESS: Shortly, the patient is a 51-year-old male, long history of benzodiazepine as well as pain killers abuse and misuse, questionable history of bipolar disorder. The patient was admitted on the medical side for evaluation of possible seizure activities and benzodiazepine dependence and confused, possibly delirium stage. Psych consult was called for evaluation of medication as well as confusion. This mortgage or loan underwriter is very familiar with this patient from the multiple interactions with him into the Psychiatric Inpatient Unit which took place here in [place] in 2014. The patient also was admitted to the medical side and this mortgage or loan underwriter was consulting on the case. The patient has history of agitation and aggressive behavior, but aggressive behavior was related to delirium stage. The patient was seen and examined today, discussed with nurse practitioner . The patient presented to be alert and mildly confused, but he knows that he is in the hospital. The patient also knows what is the date today, but the patient was looking in the board where date was recorded. The patient is superficially cooperative, reported that he feels good. He denied that he had any seizure activities. The patient said that he might be withdrawing from the benzodiazepines and Xanax. The patient reported now he feels better. He denied being depressed, denied thoughts of killing himself or others. The patient denied hearing voices or seeing things. The patient reported that he is not seeing psychiatrist in the community, but he is planning to do so. The patient said he does not want to go to Dr. Vizcarra's office as outpatient because he had some argument in the office. The patient was educated about [facility] as well as [facility] as well as [facility] as well as [facility] outpatient programs. Discussed with nursing staff. As per nursing staff, the patient is compliant with treatment, no agitation, no aggression. This mortgage or loan underwriter also reviewed Neurology note and Neurology notes indicate that the patient does not have seizure activities, but changes on EEG related to the medication what he is taking. Also Neurology note indicates that the patient was at [facility] and left AMA 2 days prior. The patient gave permission to speak to the patient's sister, Kami, phone number for her is [phone]. The patient does not remember her phone number and this phone number was taken from the previous notes. This mortgage or loan underwriter contacted Kami, left a message, awaiting for call back. MEDICATIONS: This mortgage or loan underwriter reviewed medications. Medications are Xanax 0.5 mg 3 times a day as scheduled, Elavil 10 mg at nighttime, Catapres, Ativan, Percocet as well as sodium chloride. LABORATORY DATA: Labs reviewed. WBC is 11.2. Chemistry is also reviewed. AST and ALT within normal limits. Total creatine kinase is elevated, but it is trending down. Toxicology was positive for benzodiazepines but not opioids. MENTAL STATUS EXAMINATION: The patient presented to be alert, oriented, superficially cooperative. The patient has multiple tattoos on upper extremities, on neck, on the lower extremities. Intermittent eye contact. Speech was normal rate but underproductive. Mood described "I feel fine." Affect was constricted but reactive. Mood congruent. Thought process seems to be goal directed. Thought content, the patient denied visual, auditory, or tactile hallucinations. Denied paranoid ideation. The patient denied thoughts of harming himself or others. Denied intent or plan. Insight and judgment seem to be limited but improving. Impulses are well controlled. The patient denied being depressed and does not appear to be depressed either. IMPRESSION: The patient has history of pain killers as well as benzodiazepines addiction. Most likely, the patient was withdrawing from the benzodiazepines, that is what the patient said, and most likely, the patient had seizure-like activities due to withdrawal symptoms. The patient has questionable history of bipolar disorder, history of polysubstance abuse and dependence. PLAN: Continue current management. This mortgage or loan underwriter contacted the patient's sister, Kami, left a message, awaiting for call back. Discussed with the nursing staff as well as previous notes reviewed. The patient was offered psychiatric admission in order to make sure that the patient is not confused anymore as well as medication management. The patient declined that offer. At this presentation, the patient does not meet the criteria for psychiatric screening services for involuntary commitment. Case will be discussed with the primary care physician, Dr. Blanco. We also will call Pharmacy to confirm the medications. We will get back to him and advise accordingly. Thank you very much for letting me participate in care of your patient. Bindu Sandy MD
[2017-05-18] MEDS: Oxycodone/Acetaminophen 5/325 mg Tab PO PRN ×3 (01:34→09:52)
[2017-05-18] MEDS: Sodium Chloride 0.9% 1,000 ML IV SCH (05:49)
[2017-05-18 08:20] VITALS: BP 149/100; PULSE 78; RESP 18; TEMP 97.8; O2SAT 96
--- NOTE | 2017-05-18 10:30 | PN ---
DATE: 05/17/2017 SUBJECTIVE: The patient seen this Tuesday at [facility] in room 367, bed 2. Prior to my visiting the patient, I received a phone call from my partner, Dr. Devin Blanco, who spoke with the patient's sister, who is concerned about her safety as the patient sometime seems to go off on confused tangents. She was moving from the apartment today and requesting that we keep him in the hospital as she was concerned for herself. I spoke with Dr. Ruano, psychiatrist, who knows the patient well for the 4 years approximately. The patient had been evaluated for a psychiatric involuntary commitment on two occasions in the recent past, so it was felt to not be a threat to himself or others. She has been following the patient during this hospital stay and feels he is not a threat, but has offered him voluntary admission to mental health floor here at [facility]. The patient had declined, but she will offer that opportunity to him again tomorrow. PHYSICAL EXAMINATION: GENERAL: Today on physical exam, the patient has an obviously clouded sensorium. He is not his usual self, he is still little bit foggy, this may be chronic because of his longstanding benzodiazepine and opiate use. HEAD AND NECK: Otherwise, unremarkable except for multiple tattoos. LUNGS: Clear. HEART: Regular, not tachycardic. EXTREMITIES: Show no edema. IMPRESSION: 1. Multiple benzodiazepine withdrawal seizures in the past week with at least four visits to emergency room, admission to leave AMA, then a hospital admission to another facility, and now this admission. That's four occasions, all in the past week. 2. Longstanding history of benzodiazepine withdrawal seizures. 3. History of longstanding opiate use. 4. Chronic low back pain. 5. History of hypertension. 6. Anxiety. 7. Depression. 8. History of tobacco use. 9. Altered mental status, perhaps due to chronic medication use and abuse, and/or current dosing of high-dose benzodiazepines. PLAN: The patient will stay in the hospital overnight to be reevaluated by Psychiatry in the morning. Neurology notes appreciated as well. The patient is currently being tapered from his benzodiazepines. In the future, I would urge all physicians to avoid benzodiazepines and narcotic analgesics due to his deteriorating overall health and mental status, including alertness and cognitive function. Alan Blanco MD [facility] # [id number] CLARI
--- NOTE | 2017-05-18 20:00 | PN ---
DATE: SUBJECTIVE: The patient was followed up today. As per nursing report, the patient was compliant with the medication. There is no aggression or agitation. The patient has a long history of misusing and abusing pain killers as well as benzodiazepines. The patient acknowledged that he was not using benzodiazepines appropriately and that is why most likely he might be withdrawing from the benzodiazepines. This bid writer is familiar with this patient for the past 3 to 4 years. This admission, the patient presented very well, improving very fast. There is no agitation or aggression. The patient was compliant with the medication and units rules and regulations. This bid writer attempted to speak to the patient's sister yesterday, give her a call, but she did not call me back. Based on the presentation, the patient might benefit from the psychiatric admission for medication adjustment, but the patient declined that offer. At the same time, the patient does not meet the criteria for [facility] involuntary screening process. This bid writer discussed the case with Dr. Blanco in details yesterday. This bid writer offered the patient admission today, but the patient declined that offer. OBJECTIVE: VITAL SIGNS: Reviewed, temperature is 97.8, pulse is 78, blood pressure is 149/100, respirations are 18, and oxygen saturation is 96. MENTAL STATUS EXAMINATION: The patient was seen today at the morning time. The patient presented to be alert, pleasant, and cooperative. The patient had fair eye contact. Speech was normal rate, tone, quality, and quantity. Mood described "I feel better." Affect was constricted, but reactive. Mood congruent. Thought process was coherent and goal directed, but the patient also has some cognitive limitations due to chronic infuse and abuse painkillers. The patient denied hearing voices, denied seeing things, and denied paranoid type ideation. The patient adamantly denied thoughts of harming himself or others. Denied intent or plan. Insight and judgment improving. Impulses are well controlled. MEDICATIONS: Reviewed. The patient was on Xanax 0.5 mg three times a day, Elavil 10 mg at the nighttime, Catapres, Ativan, and Percocet. LABORATORY DATA: Reviewed. IMPRESSION: Rule out substance-induced mood disorder, rule out benzodiazepines misuse and abuse, rule out pain killers misuse and abuse, and medications were confirmed yesterday by nurse practitioner. PLAN: The patient is to follow up with outpatient psychiatrist. The patient knows information about [facility]. The patient has history of being seen by in the Community, but does not want to go back there. The patient might benefit from the admission to the psychiatric inpatient unit, but declined that offer. The patient does not meet the criteria for involuntary commitment. Case was discussed with the primary care physician. The patient was found to be not in any imminent danger to self or others. Should you have any questions, give me a call back. Thank you very much for letting me to participate in the care of your patient. Bindu Sandy MD
== END 2017-05-18 15:20 | disposition home or self-care (01) | DRG 897 ==
LOC: ED 15:45 → ERH 17:17 → 3RNO 18:28
PROVIDERS: ADMIT Internal Medicine; ATTEND Internal Medicine
DX: F13.239 Sedative, hypnotic or anxiolytic dependence with withdrawal, unspecified (principal); R56.9 Unspecified convulsions; F41.9 Anxiety disorder, unspecified; G89.29 Other chronic pain; M54.5 Low back pain; I10 Essential (primary) hypertension; F51.02 Adjustment insomnia; E78.00 Pure hypercholesterolemia, unspecified; F17.210 Nicotine dependence, cigarettes, uncomplicated; Z91.14 Patient's other noncompliance with medication regimen

== ENCOUNTER 2017-05-23 10:08 | Emergency (ER) | payer BC, MEDICARE ==
[2017-05-23 10:32] VITALS: BMI 71.8
--- NOTE | 2017-05-23 10:42 | ED PDOC ---
Arrival/HPI - General Chief Complaint: Psychiatric Evaluation Time Seen by Provider: 05/23/17 10:23 Historian: Patient - History of Present Illness Narrative History of Present Illness (Text): 05/23/17 10:39 51yo male with PMHx of anxiety and chronic back pain present to ED requesting refill of his Xanax and Percocet. states he took Xanax this morning, but out of his Percocet. States his PMD refused to prescribe the Percocet and referred him to a pain specialist and he have not seen the pain specialist. Notes Percocet is for his back pain secondary to herniated disc. He denies any trauma, urinary/ fecal incontinence, abdominal pain, saddle anesthesia, focal weakness, suicidal ideation, homicidal ideation, hallucination. Past Medical History - Provider Review Nursing Documentation Reviewed: Yes - Infectious Disease Hx of Infectious Diseases: None - Tetanus Immunization Tetanus Immunization: Unknown - Cardiac Hx Cardiac Disorders: Yes Hx Angina: Yes - Pulmonary Hx Respiratory Disorders: Yes (H/O OF CIGARETTE SMOKING-NOW USING E VAPE) - Neurological Hx Neurological Disorder: No Hx Seizures: No (Pt Denies) - HEENT Hx HEENT Disorder: Yes (wears contacts) - Renal Hx Renal Disorder: No - Endocrine/Metabolic Hx Endocrine Disorders: No - Hematological/Oncological Hx Blood Disorders: No - Integumentary Hx Dermatological Disorder: Yes (tattoos) - Musculoskeletal/Rheumatological Hx Falls: Yes - Gastrointestinal Hx Gastrointestinal Disorders: Yes Other/Comment: COLON TUMOR REMOVED - Genitourinary/Gynecological Hx Genitourinary Disorders: No - Psychiatric Hx Psychophysiologic Disorder: Yes Hx Anxiety: Yes Hx Bipolar Disorder: Yes Hx Depression: Yes Hx Substance Use: No - Past Surgical History Past Surgical History: Non-Contributing - Surgical History Other/Comment: Knee repair - Anesthesia Hx Anesthesia: Yes Hx Anesthesia Reactions: No Hx Malignant Hyperthermia: No - Suicidal Assessment Feels Threatened In Home Enviroment: No Family/Social History - Physician Review Nursing Documentation Reviewed: Yes Family/Social History: Unknown Family HX Smoking Status: Never Smoked Hx Alcohol Use: No Hx Substance Use: No Hx Substance Use Treatment: No Allergies/Home Meds Allergies/Adverse Reactions: Allergies No Known Allergies Allergy (Verified 05/15/17 15:52) Home Medications: Home Meds Medication Instructions Recorded Confirmed Atorvastatin Calcium [Lipitor] 20 mg PO DAILY 08/05/15 05/23/17 Amitriptyline HCl 10 mg PO HS 10/19/16 05/23/17 Alprazolam [Xanax] 2 mg PO QID PRN 10/21/16 05/23/17 Oxycodone HCl/Acetaminophen 1 each PO PRN PRN 05/23/17 05/23/17 [Percocet 10-325 mg Tablet] Review of Systems - Physician Review All systems were reviewed & negative as marked: Yes - Review of Systems Constitutional: Normal Eyes: Normal ENT: Normal Respiratory: Normal Cardiovascular: Normal Gastrointestinal: Normal Genitourinary Male: Normal Musculoskeletal: Back Pain Skin: Normal Neurological: Normal Endocrine: Normal Hemo/Lymphatic: Normal Psychiatric: Normal Physical Exam Vital Signs Reviewed: Yes Vital Signs Temp Pulse Resp BP Pulse Ox 05/23/17 10:36 98.7 F 98 H 19 161/88 H 99 Temperature: Afebrile Blood Pressure: Normal Pulse: Regular Respiratory Rate: Normal Appearance: Positive for: Well-Appearing, Non-Toxic, Comfortable Pain Distress: None Mental Status: Positive for: Alert and Oriented X 3 - Systems Exam Head: Present: Atraumatic, Normocephalic Pupils: Present: PERRL Extroacular Muscles: Present: EOMI Conjunctiva: Present: Normal Mouth: Present: Moist Mucous Membranes Neck: Present: Normal Range of Motion Respiratory/Chest: Present: Clear to Auscultation, Good Air Exchange. No: Respiratory Distress, Accessory Muscle Use Cardiovascular: Present: Regular Rate and Rhythm, Normal S1, S2. No: Murmurs Abdomen: Present: Normal Bowel Sounds. No: Tenderness, Distention, Peritoneal Signs Back: Present: Midline Tenderness, Paraspinal Tenderness. No: Pain with Leg Raise Upper Extremity: Present: Normal Inspection. No: Cyanosis, Edema Lower Extremity: Present: Normal Inspection. No: Edema Neurological: Present: GCS=15, CN II-XII Intact, Speech Normal Skin: Present: Warm, Dry, Normal Color. No: Rashes Psychiatric: Present: Alert, Oriented x 3, Normal Insight, Normal Concentration Medical Decision Making ED Course and Treatment: 05/23/17 11:18 PT declined blood work in ED. States he have to leave because he have somewhere to be. He plan follow his psychiatrist and pain management for his prescriptions. He denied SI/HI in ED. He was ambulatory and had no focal neurological deficit. He was DC and advised to f/u with his PMD - Medication Orders Current Medication Orders: Discontinued Medications Ketorolac Tromethamine (Toradol) 60 mg IM STAT STA Stop: 05/23/17 10:34 Last Admin: 05/23/17 11:15 Dose: 60 mg MAR Pain Assessment Document 05/23/17 11:15 [facility] (Rec: 05/23/17 11:17 [facility]-[id number]) Pain Reassessment Is this a pain reassessment? No Sleep Is patient sleeping during reassessment? No Presence of Pain Presence of Pain Yes Pain Scale Used Pain Scale Used Numeric IM Administration Charges Document 05/23/17 11:15 [facility] (Rec: 05/23/17 11:17 [facility]-[id number]) Injection Site MAR Injection Site Left Deltoid Charges for Administration # of IM Administrations 1 Disposition/Present on Arrival - Present on Arrival Any Indicators Present on Arrival: No History of DVT/PE: No History of Uncontrolled Diabetes: No Urinary Catheter: No History of Decub. Ulcer: No History Surgical Site Infection Following: None - Disposition Have Diagnosis and Disposition been Completed?: Yes Diagnosis: Back pain Disposition: HOME/ ROUTINE Disposition Time: 11:20 Patient Plan: Discharge Condition: STABLE Discharge Instructions (ExitCare): Chronic Back Pain (ED) Additional Instructions: Follow up with your doctors for prescription refill Return to ED for any new symptoms Referrals: [facility] [Outside] - Follow up with primary Forms: Girly Stuff (Divehi)
[2017-05-23 10:44] VITALS: BP 161/88; PULSE 98; RESP 19; TEMP 98.7; O2SAT 99
[2017-05-23 11:22] LABS: BASO # 0.01 K/mm3 (0.0-2.0); BASO % 0.1 % (0.0-3.0); EOS % 0.1 % (1.5-5.0); GRAN # 7.07 (1.4-6.5); GRAN % 70.5 % (50.0-68.0); HEMATOCRIT 47.3 % (42.0-52.0); LYMPH # 2.3 (1.2-3.4); LYMPH % 23.1 % (22.0-35.0); MEAN CELL VOLUME 91.1 fl (80.0-105.0); MEAN PLATELET VOLUME 10.2 fl (7.0-11.0); MONO # 0.6 (0.1-0.6); MONO % 6.2 % (1.0-6.0); RED CELL DISTRIBUTION WIDTH 13.7 % (11.5-14.5)
[2017-05-23 12:04] LABS: ALB/GLOB RATIO 1.6 (1.1-1.8); ALKALINE PHOSPHATASE 81 U/L (38-126); ALT/SGPT 39 U/L (7-56); AST/SGOT 24 U/L (17-59); BILIRUBIN,TOTAL 0.6 mg/dL (0.2-1.3); BLOOD UREA NITROGEN 10 mg/dL (7-21); CALCIUM 10.5 mg/dL (8.4-10.5); CARBON DIOXIDE 23 mmol/L (21-33); CHLORIDE 106 mmol/L (98-107); GFR AFRICAN-AMERICAN > 60; GLUCOSE,RANDOM 102 mg/dL (70-110); POTASSIUM 4.1 mmol/L (3.6-5.0); SODIUM 142 mmol/L (132-148)
== END 2017-05-23 11:33 | disposition home or self-care (01) ==
LOC: ED 10:08
DX: M54.9 Dorsalgia, unspecified (principal); G89.29 Other chronic pain; F41.9 Anxiety disorder, unspecified
CPT/HCPCS: 80053; 85025; 96372; 99283; G0480; J1885

== ENCOUNTER 2017-05-23 14:16 | Emergency (ER) | payer BC, MEDICARE ==
[2017-05-23 14:16] VITALS: BMI 71.8
[2017-05-23 14:32] VITALS: RESP 18; TEMP 98.2; O2SAT 99
--- NOTE | 2017-05-23 14:40 | ED PDOC ---
Arrival/HPI - General Chief Complaint: Psychiatric Evaluation Time Seen by Provider: 05/23/17 14:36 Historian: Patient - History of Present Illness Narrative History of Present Illness (Text): 05/23/17 14:37 51yo male biba for right hand pain s/p trauma. Notes that he punched a wall during an argument with a family member. He was seen here few hours ago for percocet refill. He is now demanding percocet. He denies SI/HI, any other complaint. Past Medical History - Provider Review Nursing Documentation Reviewed: Yes - Infectious Disease Hx of Infectious Diseases: None - Tetanus Immunization Tetanus Immunization: Unknown - Cardiac Hx Cardiac Disorders: Yes Hx Angina: Yes - Pulmonary Hx Respiratory Disorders: Yes (H/O OF CIGARETTE SMOKING-NOW USING E VAPE) - Neurological Hx Neurological Disorder: No Hx Seizures: No (Pt Denies) - HEENT Hx HEENT Disorder: Yes (wears contacts) - Renal Hx Renal Disorder: No - Endocrine/Metabolic Hx Endocrine Disorders: No - Hematological/Oncological Hx Blood Disorders: No - Integumentary Hx Dermatological Disorder: Yes (tattoos) - Musculoskeletal/Rheumatological Hx Falls: Yes - Gastrointestinal Hx Gastrointestinal Disorders: Yes Other/Comment: COLON TUMOR REMOVED - Genitourinary/Gynecological Hx Genitourinary Disorders: No - Psychiatric Hx Psychophysiologic Disorder: Yes Hx Anxiety: Yes Hx Bipolar Disorder: Yes Hx Depression: Yes Hx Substance Use: No - Past Surgical History Past Surgical History: Non-Contributing - Surgical History Other/Comment: Knee repair - Anesthesia Hx Anesthesia: Yes Hx Anesthesia Reactions: No Hx Malignant Hyperthermia: No - Suicidal Assessment Feels Threatened In Home Enviroment: No Family/Social History - Physician Review Nursing Documentation Reviewed: Yes Family/Social History: Unknown Family HX Smoking Status: Never Smoked Hx Alcohol Use: No Hx Substance Use: No Hx Substance Use Treatment: No Allergies/Home Meds Allergies/Adverse Reactions: Allergies No Known Allergies Allergy (Verified 05/23/17 14:26) Home Medications: Home Meds Medication Instructions Recorded Confirmed Atorvastatin Calcium [Lipitor] 20 mg PO DAILY 08/05/15 05/23/17 Amitriptyline HCl 10 mg PO HS 10/19/16 05/23/17 Alprazolam [Xanax] 2 mg PO QID PRN 10/21/16 05/23/17 Review of Systems - Physician Review All systems were reviewed & negative as marked: Yes - Review of Systems Constitutional: Normal Eyes: Normal ENT: Normal Respiratory: Normal Cardiovascular: Normal Gastrointestinal: Normal Genitourinary Male: Normal Musculoskeletal: Arthralgias (right hand pain) Skin: Normal Neurological: Normal Endocrine: Normal Hemo/Lymphatic: Normal Psychiatric: Normal Physical Exam Vital Signs Reviewed: Yes Vital Signs Temp Pulse Resp BP Pulse Ox 05/23/17 14:31 98.2 F 84 18 151/91 H 99 Temperature: Afebrile Blood Pressure: Normal Pulse: Regular Respiratory Rate: Normal Appearance: Positive for: Well-Appearing, Non-Toxic, Comfortable Pain Distress: None Mental Status: Positive for: Alert and Oriented X 3 - Systems Exam Head: Present: Atraumatic, Normocephalic Pupils: Present: PERRL Extroacular Muscles: Present: EOMI Conjunctiva: Present: Normal Mouth: Present: Moist Mucous Membranes Neck: Present: Normal Range of Motion Respiratory/Chest: Present: Clear to Auscultation, Good Air Exchange. No: Respiratory Distress, Accessory Muscle Use Cardiovascular: Present: Regular Rate and Rhythm, Normal S1, S2. No: Murmurs Abdomen: Present: Normal Bowel Sounds. No: Tenderness, Distention, Peritoneal Signs Back: Present: Normal Inspection Upper Extremity: Present: Normal ROM, NORMAL PULSES, Neurovascularly Intact, Other (Small abrasions noted on right volar hand). No: Cyanosis, Edema, Tenderness (Right hand), Swelling, Deformity Lower Extremity: Present: Normal Inspection. No: Edema Neurological: Present: GCS=15, CN II-XII Intact, Speech Normal Skin: Present: Warm, Dry, Normal Color. No: Rashes Psychiatric: Present: Alert, Oriented x 3, Normal Insight, Normal Concentration Medical Decision Making ED Course and Treatment: 05/23/17 15:10 Right hand xray - No acute fracture/dislocation noted Wound cleaned with peroxide. Bacitracine applied and dressed. Referred to his PMD - RAD Interpretation Radiology Orders: 05/23/17 14:37 HAND RIGHT 3 VIEWS [RAD] Stat Disposition/Present on Arrival - Present on Arrival Any Indicators Present on Arrival: No History of DVT/PE: No History of Uncontrolled Diabetes: No Urinary Catheter: No History of Decub. Ulcer: No History Surgical Site Infection Following: None - Disposition Have Diagnosis and Disposition been Completed?: Yes Diagnosis: Hand contusion Disposition: HOME/ ROUTINE Disposition Time: 15:15 Patient Plan: Discharge Condition: STABLE Discharge Instructions (ExitCare): Abrasion (ED), Arthralgia (ED) Additional Instructions: Follow up with your doctor Keep wound clean and dry Return to Ed for nay new symptoms Prescriptions: Bacitracin 1 ea EXT BID #15 fp Ibuprofen [Motrin Tab] 600 mg PO Q6 #20 tab Forms: FUJIAN HAIYUAN (Armenian)
--- NOTE | 2017-05-23 15:25 | RAD ---
PROCEDURE: Right Hand Radiographs. HISTORY: hand pain s/p trauma COMPARISON: None. FINDINGS: BONES: Normal. No fracture. JOINTS: Normal. No osteoarthritic changes. SOFT TISSUES: Normal. OTHER FINDINGS: The patient has rings on each finger which she refused to remove. IMPRESSION: No acute findings
[2017-05-23 15:28] VITALS: BP 148/86; PULSE 79
== END 2017-05-23 15:55 | disposition home or self-care (01) ==
LOC: ED 14:16
DX: S60.221A Contusion of right hand, initial encounter (principal); W22.01XA Walked into wall, initial encounter; Y92.89 Other specified places as the place of occurrence of the external cause

== ENCOUNTER 2017-05-26 14:27 | Emergency (ER) | payer BC, MEDICARE ==
[2017-05-26 14:35] VITALS: BMI 31.1
[2017-05-26 15:13] VITALS: BP 148/87; PULSE 100; RESP 18; TEMP 98.4; O2SAT 97
--- NOTE | 2017-05-26 15:39 | ED PDOC ---
Arrival/HPI - General Chief Complaint: Back Pain Time Seen by Provider: 05/26/17 14:50 Historian: Patient EM Caveat: Altered Mental Status - History of Present Illness Narrative History of Present Illness (Text): 51 year old male with Past medical history of MDD w/ Psychosis, Schizoaffective disorder, possible dementia, hyperlipidemia, and hypertension presents with back pain. Of note, patient seems to be slightly altered. History and ROS was difficult to obtain. Patient is a poor historian. Per patient, the back pain started 10 minutes ago. When asked again he stated that the back pain started on "02/28" and then begins to tell a story about his 02/28 experience and his attempt to get his gun license. He states the back pain is a 10/10, achy, constants, and radiates to the back and front of his leg. When asked again about radiation he denied it. Pain is exacerbated with extension. When asked what makes the pain better he states "pain meds". Patient stated he went to multiple hospitals and pharmacies to try to receive pain medication without any success. His primary stopped his percocet prescriptions and referred him to a roof cement and paint maker. Patient states he has an appointment with pain management tomorrow. He denies any bowel/urinary incontinence, or saddle anaesthesias. ROS POSITIVES: back pain NEGATIVES: bowel/urinary incontinence, saddle anaesthesia, fever, chills, headache, stomach pain, nausea, vomiting, diarrhea, constipation, urinary symptoms, chest pain, shortness of breath. Past medical history: hypertension, hyperlipidemia, MDD w/ Psychosis, schizoaffective disorder, possible dementia Past surgical history: lipoma removal. Colonoscopy (States he has scar from colonoscopy on his head) Allergies: Denies Social Hx: 2 PPD for 15 years, admits to occasional alcohol use, denies illicit drug use Hos: [facility] [place] for Seizure. Please refer to chart. Patient says he thought it was a seizure because he was sticking his tongue out, but it was back pain. FamilyHx: Father - DC, stroke, Alzheimer's Dementia Meds: Reviewed Time/Duration: Prior to Arrival Symptom Onset: Sudden Symptom Course: Unchanged Quality: Aching Severity Level: 10 Past Medical History - Provider Review Nursing Documentation Reviewed: Yes - Infectious Disease Hx of Infectious Diseases: None - Tetanus Immunization Tetanus Immunization: Unknown - Cardiac Hx Cardiac Disorders: Yes Hx Angina: Yes - Pulmonary Hx Respiratory Disorders: Yes (H/O OF CIGARETTE SMOKING-NOW USING E VAPE) - Neurological Hx Neurological Disorder: No Hx Seizures: No (Pt Denies) - HEENT Hx HEENT Disorder: Yes (wears contacts) - Renal Hx Renal Disorder: No - Endocrine/Metabolic Hx Endocrine Disorders: No - Hematological/Oncological Hx Blood Disorders: No - Integumentary Hx Dermatological Disorder: Yes (tattoos) - Musculoskeletal/Rheumatological Hx Falls: Yes - Gastrointestinal Hx Gastrointestinal Disorders: Yes Other/Comment: COLON TUMOR REMOVED - Genitourinary/Gynecological Hx Genitourinary Disorders: No - Psychiatric Hx Psychophysiologic Disorder: Yes Hx Anxiety: Yes Hx Bipolar Disorder: Yes Hx Depression: Yes Hx Substance Use: No - Past Surgical History Past Surgical History: Non-Contributing - Surgical History Other/Comment: Knee repair - Anesthesia Hx Anesthesia: Yes Hx Anesthesia Reactions: No Hx Malignant Hyperthermia: No - Suicidal Assessment Feels Threatened In Home Enviroment: No Family/Social History - Physician Review Nursing Documentation Reviewed: Yes Family/Social History: CVA/TIA, CAD/DC Smoking Status: Never Smoked Hx Alcohol Use: No Hx Substance Use: No Hx Substance Use Treatment: No Allergies/Home Meds Allergies/Adverse Reactions: Allergies No Known Allergies Allergy (Verified 05/26/17 11:41) Home Medications: Home Meds Medication Instructions Recorded Confirmed Atorvastatin Calcium [Lipitor] 20 mg PO DAILY 08/05/15 05/26/17 Amitriptyline HCl 10 mg PO HS 10/19/16 05/26/17 Alprazolam [Xanax] 2 mg PO QID PRN 10/21/16 05/26/17 Review of Systems - Physician Review All systems were reviewed & negative as marked: Yes - Review of Systems Respiratory: Normal. absent: SOB Cardiovascular: Normal. absent: Chest Pain Physical Exam - Physical Exam Physical Exam Limitations: Altered Mental Status, Uncooperative Vital Signs Reviewed: Yes Vital Signs Temp Pulse Resp BP Pulse Ox 05/26/17 14:28 98.4 F 100 H 18 148/87 97 Temperature: Afebrile Blood Pressure: Normal Pulse: Tachycardic Respiratory Rate: Normal Appearance: Positive for: Non-Toxic, Comfortable, Unkept. No: Ill-Appearing Pain Distress: Other (unable to determine.) Mental Status: Positive for: Confused - Systems Exam Head: Present: Atraumatic, Normocephalic Pupils: Present: Sluggish Extroacular Muscles: Present: EOMI Conjunctiva: Present: Normal Ears: Present: Normal Mouth: Present: Moist Mucous Membranes Nose (External): Present: Atraumatic Respiratory/Chest: Present: Clear to Auscultation. No: Respiratory Distress, Wheezes, Rales, Rhonchi, Tender to Palpation Cardiovascular: Present: Regular Rate and Rhythm, Normal S1, S2, Peripheal Pulses Present. No: Murmurs Abdomen: Present: Normal Bowel Sounds. No: Tenderness, Distention, Peritoneal Signs, Rebound, Guarding Back: Present: Paraspinal Tenderness (in region of L3/L4), Other (NEGATIVE straight leg test). No: CVA Tenderness, Midline Tenderness Upper Extremity: Present: Normal Inspection Lower Extremity: Present: Normal Inspection, NORMAL PULSES, Normal ROM, Neurovascularly Intact, Capillary Refill < 2 s. No: Edema Neurological: Present: GCS=15, Speech Normal, Motor Func Grossly Intact, Normal Sensory Function, Gait Normal Psychiatric: Present: Alert, Other (Tangetial, circumstantial, flight of ideas, Odd behavior. ) Medical Decision Making ED Course and Treatment: 51 year old male who presents with back pain. --Patient Eloped before orders could be put in. Disposition/Present on Arrival - Present on Arrival Any Indicators Present on Arrival: No History of DVT/PE: No History of Uncontrolled Diabetes: No Urinary Catheter: No History of Decub. Ulcer: No History Surgical Site Infection Following: None - Disposition Have Diagnosis and Disposition been Completed?: Yes Diagnosis: Lumbar back pain Disposition: ELOPEMENT - ER ONLY Disposition Time: 15:52 Patient Plan: Discharge Condition: GOOD Discharge Instructions (ExitCare): Back Pain (ED) Additional Instructions: Please follow up with your primary medical physician as soon as possible Please follow up with pain management physician. Referrals: [facility], [Primary Care Provider] - Follow up with primary Forms: [employer] (Colombian)
== END 2017-05-26 16:09 | disposition left against medical advice (07) ==
LOC: ED 14:27
DX: M54.5 Low back pain (principal); E78.5 Hyperlipidemia, unspecified; I10 Essential (primary) hypertension

== ENCOUNTER 2017-05-26 17:49 | Emergency (ER) | payer BC, MEDICARE ==
[2017-05-26 17:51] VITALS: BMI 31.1
--- NOTE | 2017-05-26 18:06 | ED PDOC ---
Arrival/HPI - General Chief Complaint: Back Pain Time Seen by Provider: 05/26/17 17:51 Historian: Patient - Critical Care Narrative Critical Care (Text): 05/26/17 18:07 Patient has back pain since 2010. He has a current prescription but does not want to wait for the pharmacy to fill the prescription. Patient was discharged from here about 1 hour ago. No additional complaints. He admits to going to multiple ERs and multiple pharmacies throughout the day. He also has an appointment tomorrow with Dr Felix for an epidural injection. - History of Present Illness Narrative History of Present Illness (Text): 05/26/17 18:09 see above Past Medical History - Infectious Disease Hx of Infectious Diseases: None - Tetanus Immunization Tetanus Immunization: Unknown - Cardiac Hx Cardiac Disorders: Yes Hx Angina: Yes - Pulmonary Hx Respiratory Disorders: Yes (H/O OF CIGARETTE SMOKING-NOW USING E VAPE) - Neurological Hx Neurological Disorder: No Hx Seizures: No (Pt Denies) - HEENT Hx HEENT Disorder: Yes (wears contacts) - Renal Hx Renal Disorder: No - Endocrine/Metabolic Hx Endocrine Disorders: No - Hematological/Oncological Hx Blood Disorders: No - Integumentary Hx Dermatological Disorder: Yes (tattoos) - Musculoskeletal/Rheumatological Hx Falls: Yes - Gastrointestinal Hx Gastrointestinal Disorders: Yes Other/Comment: COLON TUMOR REMOVED - Genitourinary/Gynecological Hx Genitourinary Disorders: No - Psychiatric Hx Psychophysiologic Disorder: Yes Hx Anxiety: Yes Hx Bipolar Disorder: Yes Hx Depression: Yes Hx Substance Use: No - Past Surgical History Past Surgical History: Non-Contributing - Surgical History Other/Comment: Knee repair - Anesthesia Hx Anesthesia: Yes Hx Anesthesia Reactions: No Hx Malignant Hyperthermia: No - Suicidal Assessment Feels Threatened In Home Enviroment: No Family/Social History Family/Social History: No Known Family HX Smoking Status: Never Smoked Hx Alcohol Use: No Hx Substance Use: No Hx Substance Use Treatment: No Allergies/Home Meds Allergies/Adverse Reactions: Allergies No Known Allergies Allergy (Verified 05/26/17 11:41) Home Medications: Home Meds Medication Instructions Recorded Confirmed Atorvastatin Calcium [Lipitor] 20 mg PO DAILY 08/05/15 05/26/17 Amitriptyline HCl 10 mg PO HS 10/19/16 05/26/17 Alprazolam [Xanax] 2 mg PO QID PRN 10/21/16 05/26/17 Physical Exam Temperature: Afebrile Pulse: Regular Respiratory Rate: Normal Pain Distress: Mild Mental Status: Positive for: Alert and Oriented X 3 - Systems Exam Head: Present: Atraumatic Disposition/Present on Arrival - Present on Arrival Any Indicators Present on Arrival: No History of DVT/PE: No History of Uncontrolled Diabetes: No Urinary Catheter: No History Surgical Site Infection Following: None - Disposition Have Diagnosis and Disposition been Completed?: Yes Diagnosis: Back pain Disposition: HOME/ ROUTINE Disposition Time: 18:10 Patient Problems: Current Active Problems Problem Status Onset Back pain Acute Condition: STABLE Discharge Instructions (ExitCare): Chronic Back Pain (ED) Additional Instructions: Keep your appointment for epidural injection tomorrow. Go to pharmacy to fill current prescription Forms: [employer] (Paraguayan)
[2017-05-26 18:13] VITALS: BP 139/74; PULSE 78; RESP 18; TEMP 97.6; O2SAT 96
== END 2017-05-26 18:24 | disposition home or self-care (01) ==
LOC: ED 17:49
DX: M54.9 Dorsalgia, unspecified (principal)

== ENCOUNTER 2017-05-26 19:57 | Emergency (ER) | payer BC, MEDICARE ==
[2017-05-26 19:58] VITALS: BMI 31.1
== END 2017-05-26 20:00 | disposition left against medical advice (07) ==
LOC: ED 19:57
DX: Z02.89 Encounter for other administrative examinations (principal); Z00.00 Encounter for general adult medical examination without abnormal findings

== ENCOUNTER → 2017-05-26 | Emergency (ER) | payer BC, MEDICARE ==
[2017-05-26 11:36] VITALS: BMI 71.8
--- NOTE | 2017-05-26 11:44 | ED PDOC ---
Arrival/HPI - General Time Seen by Provider: 05/26/17 11:42 Historian: Patient - History of Present Illness Narrative History of Present Illness (Text): 05/26/17 11:44 51 y/o male, pmh including htn/hyperlipidemia/seizure, nkda, c/o Past Medical History - Infectious Disease Hx of Infectious Diseases: None - Tetanus Immunization Tetanus Immunization: Unknown - Cardiac Hx Cardiac Disorders: Yes Hx Angina: Yes - Pulmonary Hx Respiratory Disorders: Yes (H/O OF CIGARETTE SMOKING-NOW USING E VAPE) - Neurological Hx Neurological Disorder: No Hx Seizures: No (Pt Denies) - HEENT Hx HEENT Disorder: Yes (wears contacts) - Renal Hx Renal Disorder: No - Endocrine/Metabolic Hx Endocrine Disorders: No - Hematological/Oncological Hx Blood Disorders: No - Integumentary Hx Dermatological Disorder: Yes (tattoos) - Musculoskeletal/Rheumatological Hx Falls: Yes - Gastrointestinal Hx Gastrointestinal Disorders: Yes Other/Comment: COLON TUMOR REMOVED - Genitourinary/Gynecological Hx Genitourinary Disorders: No - Psychiatric Hx Psychophysiologic Disorder: Yes Hx Anxiety: Yes Hx Bipolar Disorder: Yes Hx Depression: Yes Hx Substance Use: No - Past Surgical History Past Surgical History: Non-Contributing - Surgical History Other/Comment: Knee repair - Anesthesia Hx Anesthesia: Yes Hx Anesthesia Reactions: No Hx Malignant Hyperthermia: No - Suicidal Assessment Feels Threatened In Home Enviroment: No Family/Social History Smoking Status: Never Smoked Hx Alcohol Use: No Hx Substance Use: No Hx Substance Use Treatment: No Allergies/Home Meds Allergies/Adverse Reactions: Allergies No Known Allergies Allergy (Verified 05/26/17 11:41) Home Medications: Home Meds Medication Instructions Recorded Confirmed Atorvastatin Calcium [Lipitor] 20 mg PO DAILY 08/05/15 05/26/17 Amitriptyline HCl 10 mg PO HS 10/19/16 05/26/17 Alprazolam [Xanax] 2 mg PO QID PRN 10/21/16 05/26/17 Disposition/Present on Arrival - Present on Arrival History of DVT/PE: No History of Uncontrolled Diabetes: No Urinary Catheter: No History Surgical Site Infection Following: None - Disposition
== END | disposition left against medical advice (07) ==
LOC: ED 11:36
DX: Z02.89 Encounter for other administrative examinations (principal); M54.9 Dorsalgia, unspecified

== ENCOUNTER 2017-05-27 20:54 | Emergency (ER) | payer BC, MEDICARE ==
[2017-05-27 20:56] VITALS: BP 143/101; PULSE 91; RESP 18; O2SAT 99; BMI 23.3
[2017-05-27] MEDS ORDERED: Oxycodone/Acetaminophen 5/325 mg Tab PO STA (21:14)
--- NOTE | 2017-05-27 21:19 | ED PDOC ---
Arrival/HPI - General Chief Complaint: Back Pain Time Seen by Provider: 05/27/17 20:56 Historian: Patient - History of Present Illness Narrative History of Present Illness (Text): you were treated in the ED today for lower back pain otherwise without any fall/ injury/nausea/vomiting/headache/dizziness/difficulty breathing/chest pain/ abdomen pain/numbness/tingling/loss of limb or bowel or bladder function/pain with urination/thoughts to harm yourself or others or hallucinations. 05/27/17 21:15 Past Medical History - Provider Review Nursing Documentation Reviewed: Yes - Travel History Have you recently traveled outside [place] w/in the past 3 mons?: No - Infectious Disease Hx of Infectious Diseases: None - Tetanus Immunization Tetanus Immunization: Unknown - Cardiac Hx Cardiac Disorders: Yes Hx Hypertension: Yes - Pulmonary Hx Respiratory Disorders: Yes (H/O OF CIGARETTE SMOKING-NOW USING E VAPE) - Neurological Hx Neurological Disorder: No - HEENT Hx HEENT Disorder: Yes (wears contacts) - Renal Hx Renal Disorder: Yes Hx Kidney Stones: Yes - Endocrine/Metabolic Hx Endocrine Disorders: No - Hematological/Oncological Hx Blood Disorders: No - Integumentary Hx Dermatological Disorder: Yes (tattoos) - Musculoskeletal/Rheumatological Hx Musculoskeletal Disorders: Yes Hx Falls: Yes - Gastrointestinal Hx Gastrointestinal Disorders: Yes Other/Comment: COLON TUMOR REMOVED - Genitourinary/Gynecological Hx Sexually Transmitted Diseases: No - Psychiatric Hx Anxiety: Yes Hx Bipolar Disorder: Yes Hx Depression: Yes Hx Substance Use: No - Past Surgical History Past Surgical History: Non-Contributing - Surgical History Other/Comment: Knee repair - Anesthesia Hx Anesthesia: Yes Hx Anesthesia Reactions: No Hx Malignant Hyperthermia: No - Suicidal Assessment Feels Threatened In Home Enviroment: No Family/Social History - Physician Review Nursing Documentation Reviewed: Yes Family/Social History: No Known Family HX Smoking Status: Never Smoked Hx Alcohol Use: No Hx Substance Use: No Hx Substance Use Treatment: No Allergies/Home Meds Allergies/Adverse Reactions: Allergies No Known Allergies Allergy (Verified 05/27/17 03:53) Home Medications: Home Meds Medication Instructions Recorded Confirmed Atorvastatin Calcium [Lipitor] 20 mg PO DAILY 08/05/15 05/26/17 Amitriptyline HCl 10 mg PO HS 10/19/16 05/26/17 Alprazolam [Xanax] 2 mg PO QID PRN 10/21/16 05/26/17 Review of Systems - Review of Systems Constitutional: Normal Eyes: Normal ENT: Normal Respiratory: Normal Cardiovascular: Normal Gastrointestinal: Normal Genitourinary Male: Normal Musculoskeletal: Other (lumbar back pain) Skin: Normal Neurological: Normal Endocrine: Normal Hemo/Lymphatic: Normal Psychiatric: Normal Physical Exam Vital Signs Reviewed: Yes Vital Signs Pulse Resp BP Pulse Ox 05/27/17 20:55 91 H 18 143/101 H 99 Temperature: Afebrile Blood Pressure: Hypertensive Pulse: Regular Respiratory Rate: Normal Appearance: Positive for: Well-Appearing Pain Distress: None Mental Status: Positive for: Alert and Oriented X 3 - Systems Exam Head: Present: Atraumatic, Normocephalic Pupils: Present: PERRL Extroacular Muscles: Present: EOMI Conjunctiva: Present: Normal Ears: Present: Normal Mouth: Present: Moist Mucous Membranes Pharnyx: Present: Normal Nose (External): Present: Atraumatic Nose (Internal): Present: Normal Inspection Neck: Present: Normal Range of Motion Respiratory/Chest: Present: Clear to Auscultation Cardiovascular: Present: Regular Rate and Rhythm Abdomen: No: Tenderness, Distention, Normal Bowel Sounds, Peritoneal Signs, Rebound, Guarding, McBurney's Point Tender, Rovsing's Sign Present, Hernias, Feeding Tubes, Ostomy Tubes, Mass/Organomegaly, Scars, Other Back: Present: Normal Inspection, Other (no cervical or thoracic or lumbar spinal or paraspinal tenderness.) Upper Extremity: Present: Normal Inspection Lower Extremity: Present: Normal Inspection Neurological: Present: GCS=15, CN II-XII Intact, Speech Normal Medical Decision Making ED Course and Treatment: you were treated in the ED today for lower back pain otherwise without any fall/ injury/nausea/vomiting/headache/dizziness/difficulty breathing/chest pain/ abdomen pain/numbness/tingling/loss of limb or bowel or bladder function/pain with urination/thoughts to harm yourself or others or hallucinations. You were otherwise breathing easily, smiling, good strength/sensation, walking easily, clear lungs, no abdomen tenderness, no spinal tenderness or redness or sign of infection, no fever temp 97.9, stable heart rate 91, stable breathing rate 18, excellent oxygen level 99% room air, elevated blood pressure 143/101 which we recommend repeat in 2-3 days primary care office to determine further treatment , you have been recommended for spine imaginag but you refused and cautioned for complications, but you stated you have had so many radiology images done you don't want any more at this time, 1 percocet done in the ED with improvement , counselled to monitor symptoms and thus discharged home with a taxi ride; as you weren't driving. 1. Recommend tylenol for mild pain. 2. Recommend motrin as directed for moderate pain. 3. Recommend followup primary care 2-3 days to review symptoms, referral to spine clinic. 4. If any worsening pain, fever, chills, nausea, vomiting, difficulty breathing, numbness, loss of limb function , pain with urination or any medical condition then return to the ED. 05/27/17 21:20 Reassessment Condition: Re-examined - Medication Orders Current Medication Orders: Oxycodone/Acetaminophen (Percocet 5/325 Mg Tab) 1 tab PO STAT STA Stop: 05/27/17 21:15 Disposition/Present on Arrival - Present on Arrival Any Indicators Present on Arrival: No History of DVT/PE: No History of Uncontrolled Diabetes: No Urinary Catheter: No History of Decub. Ulcer: No History Surgical Site Infection Following: None - Disposition Have Diagnosis and Disposition been Completed?: Yes Diagnosis: Low back pain Disposition: HOME/ ROUTINE Disposition Time: 21:23 Condition: IMPROVED Additional Instructions: you were treated in the ED today for lower back pain otherwise without any fall/ injury/nausea/vomiting/headache/dizziness/difficulty breathing/chest pain/ abdomen pain/numbness/tingling/loss of limb or bowel or bladder function/pain with urination/thoughts to harm yourself or others or hallucinations. You were otherwise breathing easily, smiling, good strength/sensation, walking easily, clear lungs, no abdomen tenderness, no spinal tenderness or redness or sign of infection, no fever temp 97.9, stable heart rate 91, stable breathing rate 18, excellent oxygen level 99% room air, elevated blood pressure 143/101 which we recommend repeat in 2-3 days primary care office to determine further treatment , you have been recommended for spine imaginag but you refused and cautioned for complications, but you stated you have had so many radiology images done you don't want any more at this time, 1 percocet done in the ED with improvement , counselled to monitor symptoms and thus discharged home with a taxi ride; as you weren't driving. 1. Recommend tylenol for mild pain. 2. Recommend motrin as directed for moderate pain. 3. Recommend followup primary care 2-3 days to review symptoms, referral to spine clinic. 4. If any worsening pain, fever, chills, nausea, vomiting, difficulty breathing, numbness, loss of limb function , pain with urination or any medical condition then return to the ED.
== END 2017-05-27 21:40 | disposition home or self-care (01) ==
LOC: ED 20:54
DX: M54.5 Low back pain (principal)

== ENCOUNTER 2017-05-29 04:48 | Emergency (ER) | payer BC, MEDICARE ==
[2017-05-29 04:49] VITALS: BMI 23.3
[2017-05-29 05:00] VITALS: BP 136/88; PULSE 105; RESP 20; TEMP 98.1; O2SAT 97
--- NOTE | 2017-05-29 05:17 | ED PDOC ---
Arrival/HPI - General Chief Complaint: Back Pain Time Seen by Provider: 05/29/17 05:04 Historian: Patient - History of Present Illness Narrative History of Present Illness (Text): 05/29/17 05:10 A 51 year old male, whose past medical history includes chronic back pain, hypertension, and hyperlipidemia, presents to the emergency department complaining of place to stay. Patient reports he has "nowhere to go". Has no acute medical concern. Patient hostile to questioning and insists we need to provide him a place to stay. Patient has been offered medical screening and will most likely be discharged, to which he objected to. PMD: Dr. Devin Blanco Past Medical History - Provider Review Nursing Documentation Reviewed: Yes - Infectious Disease Hx of Infectious Diseases: None - Tetanus Immunization Tetanus Immunization: Unknown - Cardiac Hx Cardiac Disorders: Yes Hx Hypertension: Yes - Pulmonary Hx Respiratory Disorders: Yes (H/O OF CIGARETTE SMOKING-NOW USING E VAPE) - Neurological Hx Neurological Disorder: No - HEENT Hx HEENT Disorder: Yes (wears contacts) - Renal Hx Renal Disorder: Yes Hx Kidney Stones: Yes - Endocrine/Metabolic Hx Endocrine Disorders: No - Hematological/Oncological Hx Blood Disorders: No - Integumentary Hx Dermatological Disorder: Yes (tattoos) - Musculoskeletal/Rheumatological Hx Musculoskeletal Disorders: Yes Hx Falls: Yes - Gastrointestinal Hx Gastrointestinal Disorders: Yes Other/Comment: COLON TUMOR REMOVED - Genitourinary/Gynecological Hx Sexually Transmitted Diseases: No - Psychiatric Hx Anxiety: Yes Hx Bipolar Disorder: Yes Hx Depression: Yes Hx Substance Use: No - Past Surgical History Past Surgical History: Non-Contributing - Surgical History Other/Comment: Knee repair - Anesthesia Hx Anesthesia: Yes Hx Anesthesia Reactions: No Hx Malignant Hyperthermia: No - Suicidal Assessment Feels Threatened In Home Enviroment: No Family/Social History - Physician Review Nursing Documentation Reviewed: Yes Family/Social History: No Known Family HX Smoking Status: Never Smoked Hx Alcohol Use: No Hx Substance Use: No Hx Substance Use Treatment: No Allergies/Home Meds Allergies/Adverse Reactions: Allergies No Known Allergies Allergy (Verified 05/27/17 03:53) Home Medications: Home Meds Medication Instructions Recorded Confirmed Atorvastatin Calcium [Lipitor] 20 mg PO DAILY 08/05/15 05/29/17 Amitriptyline HCl 10 mg PO HS 05/02/17 12/10/17 Alprazolam [Xanax] 2 mg PO QID PRN 10/21/16 05/29/17 Review of Systems - Review of Systems Systems not reviewed;Unavailable: Other (has no acute medical concern) Physical Exam Vital Signs Reviewed: Yes Vital Signs Temp Pulse Resp BP Pulse Ox 05/29/17 04:59 98.1 F 105 H 20 136/88 97 Temperature: Afebrile Blood Pressure: Normal Pulse: Regular Respiratory Rate: Normal Appearance: Positive for: Well-Appearing, Non-Toxic Pain Distress: None Mental Status: Positive for: Alert and Oriented X 3 - Systems Exam Head: Present: Atraumatic, Normocephalic Pupils: Present: PERRL Extroacular Muscles: Present: EOMI Conjunctiva: Present: Normal Mouth: Present: Moist Mucous Membranes Neck: Present: Normal Range of Motion Respiratory/Chest: Present: Clear to Auscultation, Good Air Exchange. No: Respiratory Distress, Accessory Muscle Use Cardiovascular: Present: Regular Rate and Rhythm, Normal S1, S2. No: Murmurs Abdomen: Present: Other (prutiberent) Back: Present: Normal Inspection Upper Extremity: Present: Normal Inspection. No: Cyanosis, Edema Lower Extremity: Present: Normal Inspection. No: Edema Neurological: Present: GCS=15, CN II-XII Intact, Speech Normal Skin: Present: Other (extensive tattoos) Psychiatric: Present: Alert, Oriented x 3, Normal Insight, Normal Concentration Medical Decision Making ED Course and Treatment: 05/29/17 05:12 Impression: 51 year old male with no acute medical concern and asking for a place to stay. Plan: -- Reassess and disposition Prior Visits: Notes and results from previous visits were reviewed. Patient was last seen in the emergency department on 05/27/2017 for lower back pain. Patient d/c home. Progress Notes: - Scribe Statement The provider has reviewed the documentation as recorded by the Nieves Ordoñez Provider Scribe Attestation: All medical record entries made by the Salvatoreibpauline were at my direction and personally dictated by me. I have reviewed the chart and agree that the record accurately reflects my personal performance of the history, physical exam, medical decision making, and the department course for this patient. I have also personally directed, reviewed, and agree with the discharge instructions and disposition. Disposition/Present on Arrival - Present on Arrival Any Indicators Present on Arrival: No History of DVT/PE: No History of Uncontrolled Diabetes: No Urinary Catheter: No History of Decub. Ulcer: No History Surgical Site Infection Following: None - Disposition Have Diagnosis and Disposition been Completed?: Yes Diagnosis: Back pain Disposition: HOME/ ROUTINE Disposition Time: 06:02 Patient Plan: Discharge Condition: FAIR Discharge Instructions (ExitCare): Chronic Back Pain (ED) Print Language: ITALIAN Forms: [employer] (Tajik)
== END 2017-05-29 05:20 | disposition home or self-care (01) ==
LOC: ED 04:48
DX: M54.5 Low back pain (principal); E78.5 Hyperlipidemia, unspecified; I10 Essential (primary) hypertension

== ENCOUNTER 2017-05-29 07:41 | Emergency (ER) | payer BC, MEDICARE ==
[2017-05-29 07:41] VITALS: BMI 23.3
== END 2017-05-29 07:58 | disposition left against medical advice (07) ==
LOC: ED 07:41
DX: Z02.89 Encounter for other administrative examinations (principal); Z00.00 Encounter for general adult medical examination without abnormal findings

== ENCOUNTER 2017-07-16 20:59 | Observation (INO) | payer BC, MEDICARE ==
[2017-07-16 20:59] VITALS: BMI 20.5
[2017-07-16 22:16] LABS: HEMOGLOBIN 14.3 g/dL (14.0-18.0); MEAN CELL VOLUME 91.4 fl (80.0-105.0); MEAN CORPUSCULAR HEMOGLOBIN 30.8 pg (25.0-35.0); MEAN CORPUSCULAR HGB CONC 33.6 g/dl (31.0-37.0); MEAN PLATELET VOLUME 10.9 fl (7.0-11.0); RBC 4.65 10^6/uL (3.5-6.1); RED CELL DISTRIBUTION WIDTH 13.3 % (11.5-14.5); WHITE BLOOD COUNT 10.1 10^3/ul (4.5-11.0)
[2017-07-16 22:31] LABS: ALB/GLOB RATIO 1.7 (1.1-1.8); ALT/SGPT 38 U/L (7-56); AST/SGOT 22 U/L (17-59); BLOOD UREA NITROGEN 15 mg/dL (7-21); CALCIUM 9.6 mg/dL (8.4-10.5); GFR AFRICAN-AMERICAN > 60; GFR NON-AFRICAN AMERICAN > 60
[2017-07-16 22:36] LABS: INR 0.91 (0.93-1.08); PARTIAL THROMBOPLASTIN TIME 30.2 Seconds (25.1-36.5); PROTHROMBIN TIME 10.4 SECONDS (9.4-12.5)
[2017-07-16 22:40] LABS: TROPONIN I < 0.01 ng/mL
--- NOTE | 2017-07-16 23:18 | ED PDOC ---
Arrival/HPI - General Chief Complaint: Chest Pain Time Seen by Provider: 07/16/17 21:05 Historian: Patient - History of Present Illness Narrative History of Present Illness (Text): 07/16/17 22:30 51 year old male, whose past medical history includes depression, anxiety, hypertension, hyperlipidemia, and chronic lower back pain, presents to the Emergency department complaining of intermittent chest discomfort for that past couple days. Patient describes the discomfort as a heaviness sensation. Patient is a smoker, but denies any fevers, chills, cough, shortness of breath, abdominal pain, nausea, vomiting, diarrhea, back pain, neck pain, leg urinary/ bowel changes, headache, dizziness, or any other complaint. PMD: Dr. Blanco Time/Duration: Other (couple days) Symptom Course: Intermittent Activities at Onset: Light Context: Home Past Medical History - Provider Review Nursing Documentation Reviewed: Yes - Infectious Disease Hx of Infectious Diseases: None - Tetanus Immunization Tetanus Immunization: Unknown - Cardiac Hx Hypertension: Yes - Pulmonary Hx Respiratory Disorders: Yes (H/O OF CIGARETTE SMOKING-NOW USING E VAPE) - Neurological Hx Seizures: No (Pt Denies) - HEENT Hx HEENT Disorder: Yes (wears contacts) - Renal Hx Renal Disorder: Yes Hx Kidney Stones: Yes - Endocrine/Metabolic Hx Endocrine Disorders: No - Hematological/Oncological Hx Blood Disorders: No - Integumentary Hx Dermatological Disorder: Yes (tattoos) - Musculoskeletal/Rheumatological Hx Musculoskeletal Disorders: Yes Hx Falls: Yes - Gastrointestinal Hx Gastrointestinal Disorders: Yes Other/Comment: COLON TUMOR REMOVED - Genitourinary/Gynecological Hx Sexually Transmitted Diseases: No - Psychiatric Hx Anxiety: Yes Hx Bipolar Disorder: Yes Hx Depression: Yes Hx Substance Use: No - Past Surgical History Past Surgical History: Non-Contributing - Surgical History Other/Comment: Knee repair - Anesthesia Hx Anesthesia: Yes Hx Anesthesia Reactions: No Hx Malignant Hyperthermia: No - Suicidal Assessment Feels Threatened In Home Enviroment: No Family/Social History - Physician Review Nursing Documentation Reviewed: Yes Family/Social History: No Known Family HX Smoking Status: Heavy Smoker > 10 Cigarettes Daily Hx Alcohol Use: No Hx Substance Use: No Hx Substance Use Treatment: No Allergies/Home Meds Allergies/Adverse Reactions: Allergies No Known Allergies Allergy (Verified 05/30/17 09:17) Home Medications: Home Meds Medication Instructions Recorded Confirmed Atorvastatin Calcium [Lipitor] 20 mg PO DAILY 08/05/15 05/30/17 Oxycodone HCl/Acetaminophen 1 each PO BID 05/30/17 05/30/17 [Percocet 10-325 mg Tablet] Review of Systems - Physician Review All systems were reviewed & negative as marked: Yes - Review of Systems Constitutional: absent: Fevers, Other (Chills) Respiratory: absent: SOB, Cough Cardiovascular: Chest Pain Gastrointestinal: absent: Abdominal Pain, Diarrhea, Nausea, Vomiting Genitourinary Male: absent: Dysuria, Frequency, Hematuria Musculoskeletal: absent: Back Pain, Neck Pain, Other (leg pain) Neurological: absent: Headache, Dizziness Physical Exam Vital Signs Reviewed: Yes Vital Signs Temp Pulse Resp BP Pulse Ox 07/16/17 22:55 106 H 18 126/87 95 07/16/17 21:02 98.8 F 115 H 20 155/94 H 95 Temperature: Afebrile Blood Pressure: Normal Pulse: Tachycardic Respiratory Rate: Normal Appearance: Positive for: Well-Appearing, Non-Toxic, Comfortable Pain Distress: None Mental Status: Positive for: Alert and Oriented X 3 - Systems Exam Head: Present: Atraumatic, Normocephalic Pupils: Present: PERRL Extroacular Muscles: Present: EOMI Conjunctiva: Present: Normal Mouth: Present: Moist Mucous Membranes Neck: Present: Normal Range of Motion Respiratory/Chest: Present: Clear to Auscultation, Good Air Exchange. No: Respiratory Distress, Accessory Muscle Use Cardiovascular: Present: Regular Rate and Rhythm, Normal S1, S2. No: Murmurs Abdomen: Present: Normal Bowel Sounds. No: Tenderness, Distention, Peritoneal Signs Back: Present: Normal Inspection Upper Extremity: Present: Normal Inspection. No: Cyanosis, Edema Lower Extremity: Present: Normal Inspection. No: Edema Neurological: Present: GCS=15, CN II-XII Intact, Speech Normal Skin: Present: Warm, Dry, Normal Color. No: Rashes Psychiatric: Present: Alert, Oriented x 3, Normal Insight, Normal Concentration Medical Decision Making ED Course and Treatment: 07/16/17 21:30 Impression: 51 year old male presents complaining of intermittent chest discomfort for the past couple of days. Plan: -- EKG -- Labs -- Chest X-ray -- Aspirin -- Reassess and disposition Prior Visits: Notes and results from previous visits were reviewed. Patient was last seen in the emergency department on 05/29/17 05:[address]. Patient was discharged. Progress Notes: EKG shows Sinus Tachycardic at 112 BPM with non-specific ST/T changes. Interpreted by me. 07/16/17 23:26 CXR Impression: As read by me, no acute processes. 07/16/17 23:[address] Case discussed [address] PMD Dr[address] Blanco who is aware and agrees with the plan. 07/17/17 00:00 Pt. was further questioned about his past opiate and benzodiazepam use.States he has been off all drugs for over a month and does not request any of the meds.States he feels fine and has not been experiencing any withdrawal symptoms. - Lab Interpretations Lab Results: 07/16/17 21:55 07/16/17 21:55 Lab Results 07/16/17 21:55: D-Dimer, Quantitative < 200 07/16/17 21:55: WBC 10.1, RBC 4.65, Hgb 14.3, Hct 42.5, MCV 91.4, MCH 30.8, MCHC 33.6, RDW 13.3, Plt Count 273, MPV 10.9 07/16/17 21:55: Sodium 140, Potassium 4.0, Chloride 106, Carbon Dioxide 24, Anion Gap 14, BUN 15, Creatinine 0.8, Est GFR ( Amer) > 60, Est GFR (Non- Af Amer) > 60, Random Glucose 105, Calcium 9.6, Total Bilirubin 0.3, AST 22, ALT 38, Alkaline Phosphatase 88, Lactate Dehydrogenase 404, Total Creatine Kinase 267 H, CK-MB (CK-2) 2.0, CK-MB (CK-2) % Cancelled, Troponin I < 0.01, Total Protein 6.3, Albumin 4.0, Globulin 2.3, Albumin/Globulin Ratio 1.7 07/16/17 21:55: PT 10.4, INR 0.91 L, APTT 30.2 I have reviewed the lab results: Yes - RAD Interpretation Radiology Orders: 07/16/17 21:36 CHEST PORTABLE [RAD] Stat - EKG Interpretation Interpreted by ED Physician: Yes Type: 12 lead EKG - Medication Orders Current Medication Orders: Discontinued Medications Aspirin (Aspirin) 325 mg PO ONCE STA Stop: 07/16/17 21:38 Last Admin: 07/16/17 21:52 Dose: 325 mg - Scribe Statement The provider has reviewed the documentation as recorded by the Nieves Fried Provider Nieves Attestation: All medical record entries made by the Scribe were at my direction and personally dictated by me. I have reviewed the chart and agree that the record accurately reflects my personal performance of the history, physical exam, medical decision making, and the department course for this patient. I have also personally directed, reviewed, and agree with the discharge instructions and disposition. Disposition/Present on Arrival - Present on Arrival Any Indicators Present on Arrival: No History of DVT/PE: No History of Uncontrolled Diabetes: No Urinary Catheter: No History of Decub. Ulcer: No History Surgical Site Infection Following: None - Disposition Have Diagnosis and Disposition been Completed?: Yes Diagnosis: Chest pain Disposition: HOSPITALIZED Disposition Time: 00:03 Patient Plan: Observation Condition: STABLE Discharge Instructions (ExitCare): Chest Pain (ED) Referrals: Devin Blanco MD [Primary Care Provider] - Follow up with primary Forms: [employer] (Slovenian)
[2017-07-17 04:08] LABS: BARBITURATES, UR NEGATIVE (NEGATIVE); OPIATES, UR NEGATIVE (NEGATIVE); PHENCYCLIDINE, UR NEGATIVE (NEGATIVE)
[2017-07-17 04:15] LABS: BENZODIAZEPINES, UR POSITIVE (NEGATIVE)
--- NOTE | 2017-07-17 09:02 | RAD ---
HISTORY: Chest pain COMPARISON: 05/15/2017. FINDINGS: LUNGS: The lungs are well inflated and clear. PLEURA: No significant pleural effusion identified, no pneumothorax apparent. CARDIOVASCULAR: Normal. OSSEOUS STRUCTURES: No significant abnormalities. VISUALIZED UPPER ABDOMEN: Normal. OTHER FINDINGS: None. IMPRESSION: No active pulmonary disease.
[2017-07-17 11:56] VITALS: RESP 20
[2017-07-17] MEDS: Naproxen 275 mg Tab PO SCH ×2 (12:10→17:52)
--- NOTE | 2017-07-17 19:31 | CARD ---
APPROVED REPORT EKG Measurement Heart [id number] [id number] <Conclusion> Sinus tachycardia Otherwise normal ECG
[2017-07-17] MEDS ORDERED: Naproxen 275 mg Tab PO STA (22:53)
--- NOTE | 2017-07-17 22:53 | CP.PCM.PN ---
Subjective - Date & Time of Evaluation Date of Evaluation: 07/17/17 Time of Evaluation: 22:35 - Subjective Subjective: S:Patient was seen at bedside. He requests something for sleep and pain. Take trazodone , amitryptiline at home for sleep. States that he has tow herniated disc, he is being worked up for gout. Needs pain medication. No other complaints. Pertinent medical record was reviewed. O: Last Vital Signs 3 Temp 97.4 F L 07/17/17 17: Pulse 95 H 07/17/17 18:00 Resp 20 07/17/17 17:19 BP 137/88 07/17/17 17:19 Pulse Ox 98 07/17/17 06:00 Awake, alert , not in distress. LUNGS: Normal breathing pattern. A: back pain. Adjustment insomnia. P:Anaprox 275 mg PO x 1. Ambien 10 mg PO x 1. Objective - Vital Signs/Intake and Output Vital Signs (last 24 hours): Temp Pulse Resp BP Pulse Ox 97.4 F L 95 H 20 137/88 98 07/17/17 17:19 07/17/17 18:00 07/17/17 17:19 07/17/17 17:19 07/17/17 06:00 - Medications Medications: Current Medications Acetaminophen (Tylenol 325mg Tab) 650 mg PO Q6H PRN PRN Reason: Fever >100.4 F Alprazolam (Xanax) 0.25 mg PO BID [facility] Stop: 07/24/17 12:01 Last Admin: 07/17/17 17:52 Dose: 0.25 mg Amlodipine Besylate (Norvasc) 10 mg PO DAILY [facility] Last Admin: 07/17/17 08:59 Dose: 10 mg Atorvastatin Calcium (Lipitor) 20 mg PO DIN [facility] Last Admin: 07/17/17 17:52 Dose: 20 mg Gabapentin (Neurontin) 300 mg PO TID [facility] PRN Reason: Protocol Last Admin: 07/17/17 17:52 Dose: 300 mg Naproxen (Anaprox) 275 mg PO BID [facility] Last Admin: 07/17/17 17:52 Dose: 275 mg - Labs Labs: PT 10.4 SECONDS (9.4-12.5) 07/16/17 21:55 INR 0.91 (0.93-1.08) L 07/16/17 21:55 APTT 30.2 Seconds (25.1-36.5) 07/16/17 21:55
--- NOTE | 2017-07-17 22:57 | CON ---
CARDIOLOGY CONSULTATION DATE: 07/17/2017 HISTORY OF PRESENT ILLNESS: The patient is a 51-year-old male who presented with atypical chest pain. His symptoms were described as focal in nature. The patient has had similar symptoms in the past where he underwent a stress test in September of last year with Dr. Pretty which was reported to be within normal limits. His cardiac risk factors includes hypertension, hypercholesterolemia and also occasional smoking. No diabetes mellitus noted. SOCIAL HISTORY: The patient is an active smoker. FAMILY HISTORY: He has a family history for CAD. REVIEW OF SYSTEMS: A 14-point review of systems was reviewed in detail. The patient is completely asymptomatic now. PHYSICAL EXAMINATION VITAL SIGNS: Stable. NECK: Negative JVD. LUNGS: Without rales. HEART: S1 and S2. EXTREMITIES: Without edema. EKG shows normal sinus rhythm with no acute changes. LABORATORY DATA: Troponins are negative x2. Potassium is 4.0. The hemoglobin is 14.3. IMPRESSION 1. Atypical chest pain. 2. No evidence for acute coronary syndrome. 3. Hypertension. 4. Nicotine addiction. 5. Hypercholesterolemia. Given these findings, we will obtain serial troponins. We will continue in the morning, we will transfer the case back to Dr. Pretty. Raymond Reyes MD
[2017-07-18 06:20] VITALS: O2SAT 96
[2017-07-18 08:22] LABS: HDL CHOLESTEROL 42 mg/dL (29-60)
[2017-07-18 08:33] LABS: LDL CHOLESTEROL 84 mg/dL (0-129)
[2017-07-18 08:34] LABS: TROPONIN I < 0.01 ng/mL
[2017-07-18] MEDS: Naproxen 275 mg Tab PO SCH ×2 (09:52→18:00)
[2017-07-18] MEDS ORDERED: Influenza Vaccine 60 mcg/0.5 mL SYR (4YR UP) IM ONE (15:10)
--- NOTE | 2017-07-18 15:19 | PN ---
DATE: 07/18/2017 REASON FOR CONSULTATION AND FOLLOWUP: Atypical chest pain, cardiac evaluation, refused cardiac catheterization. SUBJECTIVE: Patient denies right lower pain, lying flat on the bed, not in apparent distress. PHYSICAL EXAMINATION: As follows: VITAL SIGNS: Temperature afebrile, heart rate 77, blood pressure 109/70. HEENT: PERRLA intact. NECK: Supple. No carotid bruits or thyromegaly. CHEST: Clear to auscultation. HEART: S1. S2, regular. ABDOMEN: Soft. EXTREMITIES: Clubbing and cyanosis negative. LABORATORY DATA: Blood workup as follows: , hemoglobin , hematocrit 42.5, platelet count 273,000. Chemistry shows sodium 140, potassium 4, chloride 106, carbon dioxide 24. Anion gap of 14, BUN 15, creatinine 0.8, troponin 0.01 x2 negative, triglycerides 201, cholesterol 147, LDL 84, HDL 42, TSH 1.21. IMPRESSION: Atypical chest pain, multiple admissions for the chest pain, patient recently had multiple times admitted and prior stress test was negative. Patient's last stress test in 10/25/2014 was negative. Then patient's most recently stress test done in 09/29/2016, Lexiscan was negative. Patient's echocardiogram on 09/29/2016, ejection fraction percent, trace pulmonary insufficiency, tricuspid regurgitation, [id number] mitral regurgitation, mild aortic regurgitation. Troponin negative, so far no evidence of acute myocardial infarction. In view of above cardiac catheterization offered, patient is scheduled for 10 o'clock, but patient refused cardiac catheterization. Prior to that, patient has also been scheduled on 10/25/ cardiac catheterization, but patient refused. We will discontinue telemetry. Further recommendation as per hospital course. Atypical chest pain again, no evidence of acute myocardial infarction, but since because of recurrent multiple episodes of chest pain, cardiac catheterization offered today again and patient refused, scheduled at 10 o'clock. Patient prior to that also refused cardiac catheterization, 10/25/2016 and signed out against medical advice. We will discontinue telemetry. Thank you, Dr. Blanco, for the opportunity in taking care of the patient, Sami Alvarez. Javid Pretty MD [facility] # [id number]
[2017-07-18 18:07] VITALS: BP 145/91; PULSE 89; TEMP 98.3
--- NOTE | 2017-07-20 10:09 | HP ---
CHIEF COMPLAINT: Chest pain. HISTORY OF PRESENT ILLNESS: This is a 51-year-old man with risk factors including smoking and tobacco use with a normal thallium stress test several months ago, who came to the emergency room complaining of chest pain. He states that in the past, he has seen Dr. Pretty, and cardiac catheterization was recommended because of his continued chest pain. The patient declined catheterization, but now reports chest pain on the left chest, and therefore, after evaluation in the emergency room, admission was arranged late Tuesday night. PAST MEDICAL HISTORY: Significant for benzodiazepine withdrawal seizures, opiate use and abuse, osteoarthritis, hyperlipidemia, tobacco use, hypertension, chronic low back pain, anxiety and depression. SOCIAL HISTORY: He is a former smoker. He does not drink alcohol. HOME MEDICATIONS: Include Lipitor and amlodipine. ALLERGIES: HE HAS NO KNOWN ALLERGIES TO MEDICATIONS. LABORATORY DATA: Essentially unremarkable. Troponin is negative. EKG is unremarkable. Urine drug screen is positive for benzodiazepines, negative for opiates. PHYSICAL EXAMINATION: GENERAL: On physical exam, the patient was seen in room# 270, bed 2, on a court monitor. He is awake, alert, clear, and appropriate. He reports the chest pain with his left axillary area and shoulder area pain, feels achiness, did not radiate down the arm. There was no associated palpitation, diaphoresis, or nausea. He also reports multitude of personal and social problems related to his sister, ____ restraining where he will stay. [facility], but it was closed. He contacted the police to look for assistance, and he states he developed these symptoms and came to the ER. HEAD AND NECK: Unremarkable. HEENT: Conjunctivae pink. Mucous membranes moist. NECK: Supple without masses. LUNGS: Clear. HEART: Regular, not tachycardic. ABDOMEN: Soft, nontender. EXTREMITIES: Show no edema. SKIN: Multiple tattoos on whole body. IMPRESSION: Atypical chest pain in a patient with multiple risk factors including hypertension, hyperlipidemia, tobacco use, and family history. PLAN: We will admit for overnight observation as the patient came in early this Tuesday morning. Ask Cardiology to eval as to whether or not he will be a candidate for catheterization as was earlier reported in the emergency room, however, I feel strongly that the symptoms are unlikely to be a cardiac origin. We will follow closely. Alan Blanco MD [facility] # [id number]
== END 2017-07-18 20:58 | disposition home or self-care (01) ==
LOC: ED 20:59 → ERH 07-17 00:28 → 2RSO 07-17 02:18
PROVIDERS: ADMIT Internal Medicine; ATTEND Internal Medicine
DX: R07.89 Other chest pain (principal); I10 Essential (primary) hypertension; E78.00 Pure hypercholesterolemia, unspecified; F17.200 Nicotine dependence, unspecified, uncomplicated; F51.02 Adjustment insomnia; Z82.49 Family history of ischemic heart disease and other diseases of the circulatory system
CPT/HCPCS: 36415; 71045; 80053; 80061; 82550; 82553; 83036; 83615; 84443; 84484; 85027; 85378; 85610; 85730; 90674; 93005; 99285; G0008; G0378; G0480

== ENCOUNTER 2017-07-18 21:41 | Emergency (ER) | payer BC, MEDICARE ==
[2017-07-18 21:42] VITALS: BMI 20.5
[2017-07-18 22:02] VITALS: TEMP 98.8
--- NOTE | 2017-07-18 23:01 | ED PDOC ---
Arrival/HPI - General Chief Complaint: Chest Pain Time Seen by Provider: 07/18/17 22:28 Historian: Patient - History of Present Illness Narrative History of Present Illness (Text): 07/18/17 23:01 Sami Alvarez is a 51 year old male, whose past medical history includes hypertension, hyperlipidemia, anxiety, and depression, who presents to the Emergency department complaining of chest pain and auditory hallucinations. Patient was recently admitted to the hospital on 07/16/2017 for chest pain .He was seen and cleared by the slasher tender.Hx. of negative stress test.He denies any drug use.Discomfort appears reproducible with movement and is positional.Patient denies any fever, chills, shortness of breath, nausea, vomiting, diarrhea, neck pain, headache, dizziness, suicidal/homicidal ideation or any other complaints. Symptom Onset: Gradual Symptom Course: Unchanged Activities at Onset: Light Context: Home Past Medical History - Provider Review Nursing Documentation Reviewed: Yes - Infectious Disease Hx of Infectious Diseases: None - Tetanus Immunization Tetanus Immunization: Unknown - Cardiac Hx Hypertension: Yes - Pulmonary Hx Respiratory Disorders: No - Neurological Hx Neurological Disorder: No - HEENT Hx HEENT Disorder: No - Renal Hx Renal Disorder: No - Endocrine/Metabolic Hx Endocrine Disorders: No - Hematological/Oncological Hx Blood Disorders: No - Integumentary Hx Dermatological Disorder: No - Musculoskeletal/Rheumatological Hx Musculoskeletal Disorders: No Hx Falls: Yes - Gastrointestinal Hx Gastrointestinal Disorders: No - Genitourinary/Gynecological Hx Genitourinary Disorders: No - Psychiatric Hx Anxiety: Yes Hx Depression: Yes Hx Substance Use: No - Past Surgical History Past Surgical History: Non-Contributing - Surgical History Other/Comment: Knee repair - Anesthesia Hx Anesthesia: Yes Hx Anesthesia Reactions: No Hx Malignant Hyperthermia: No - Suicidal Assessment Feels Threatened In Home Enviroment: No Family/Social History - Physician Review Nursing Documentation Reviewed: Yes Family/Social History: Unknown Family HX Smoking Status: Former Smoker Hx Alcohol Use: No Hx Substance Use: No Hx Substance Use Treatment: No Allergies/Home Meds Allergies/Adverse Reactions: Allergies No Known Allergies Allergy (Verified 05/30/17 09:17) Home Medications: Home Meds Medication Instructions Recorded Confirmed Atorvastatin Calcium [Lipitor] 20 mg PO DAILY 08/05/15 07/18/17 Review of Systems - Physician Review All systems were reviewed & negative as marked: Yes - Review of Systems Constitutional: Normal. absent: Fevers Eyes: Normal ENT: Normal Respiratory: Normal. absent: SOB, Cough Cardiovascular: Chest Pain Gastrointestinal: Normal. absent: Abdominal Pain, Diarrhea, Nausea, Vomiting Genitourinary Male: Normal. absent: Dysuria, Frequency, Hematuria, Urinary Output Changes Musculoskeletal: Normal. absent: Back Pain, Neck Pain Skin: Normal. absent: Rash Neurological: Normal. absent: Headache, Dizziness Endocrine: Normal Hemo/Lymphatic: Normal Psychiatric: Other (+hallucinations) Physical Exam Vital Signs Reviewed: Yes Vital Signs Temp Pulse Resp BP Pulse Ox 07/19/17 04:52 68 18 130/93 H 98 07/19/17 02:39 86 16 133/72 96 07/19/17 00:00 89 18 136/78 97 07/18/17 22:01 98.8 F 104 H 20 142/83 95 Temperature: Afebrile Blood Pressure: Normal Pulse: Regular Respiratory Rate: Normal Appearance: Positive for: Well-Appearing, Non-Toxic, Comfortable Pain Distress: None Mental Status: Positive for: Alert and Oriented X 3 - Systems Exam Head: Present: Atraumatic, Normocephalic Pupils: Present: PERRL Extroacular Muscles: Present: EOMI Conjunctiva: Present: Normal Mouth: Present: Moist Mucous Membranes Neck: Present: Normal Range of Motion Respiratory/Chest: Present: Clear to Auscultation, Good Air Exchange. No: Respiratory Distress, Accessory Muscle Use Cardiovascular: Present: Regular Rate and Rhythm, Normal S1, S2. No: Murmurs Abdomen: Present: Normal Bowel Sounds. No: Tenderness, Distention, Peritoneal Signs Back: Present: Normal Inspection Upper Extremity: Present: Normal Inspection. No: Cyanosis, Edema Lower Extremity: Present: Normal Inspection. No: Edema Neurological: Present: GCS=15, CN II-XII Intact, Speech Normal Skin: Present: Warm, Dry, Normal Color. No: Rashes Psychiatric: Present: Alert, Oriented x 3, Normal Insight, Normal Concentration Medical Decision Making ED Course and Treatment: 07/18/17 23:01 Impression: 51 year old male complaining of chest pain and auditory hallucinations today. Plan: -- EKG -- Chest X-ray -- Labs, cardiac enzymes, alcohol level -- Reassess and disposition Prior Visits: Notes and results from previous visits were reviewed. Progress Notes: Reviewed EKG, sinus tachycardia at 106 bpm. Septal infarct. Non-specific ST/T wave changes. 07/19/17 01:58 Chest X-ray reviewed, shows no acute processes. Case discussed with Dr. Givens.States pt. with non cardiac chest pain evaluated by the slasher tender.Pt. with psychiatric issues to be evaluated by PES. - Lab Interpretations Lab Results: 07/18/17 22:05 07/18/17 22:05 Lab Results 07/19/17 01:35: Urine Opiates Screen Negative, Urine Methadone Screen Negative, Ur Barbiturates Screen Negative, Ur Phencyclidine Scrn Negative, Ur Amphetamines Screen Negative, U Benzodiazepines Scrn Positive, U Oth Cocaine Metabols Negative, U Cannabinoids Screen Negative 07/18/17 22:05: WBC 9.3, RBC 4.75, Hgb 14.7, Hct 42.9, MCV 90.3, MCH 30.9, MCHC 34.3, RDW 12.8, Plt Count 248, MPV 11.0 07/18/17 22:05: Alcohol, Quantitative < 10 07/18/17 22:05: Sodium 141, Potassium 3.6, Chloride 102, Carbon Dioxide 25, Anion Gap 18, BUN 17, Creatinine 0.9, Est GFR ( Amer) > 60, Est GFR (Non- Af Amer) > 60, Random Glucose 145 H, Calcium 9.9, Total Bilirubin 0.4, AST 28, ALT 37, Alkaline Phosphatase 80, Lactate Dehydrogenase 393, Total Creatine Kinase 107, Troponin I < 0.01, Total Protein 7.1, Albumin 4.3, Globulin 2.8, Albumin/Globulin Ratio 1.5 07/18/17 22:05: PT 10.8, INR 0.95, APTT 30.4 I have reviewed the lab results: Yes - RAD Interpretation Radiology Orders: 07/18/17 22:57 CHEST PORTABLE [RAD] Stat Software Verification Engineer: ED Physician - EKG Interpretation Interpreted by ED Physician: Yes Type: 12 lead EKG - Scribe Statement The provider has reviewed the documentation as recorded by the Scribe Mary Gill All medical record entries made by the Scribe were at my direction and personally dictated by me. I have reviewed the chart and agree that the record accurately reflects my personal performance of the history, physical exam, medical decision making, and the department course for this patient. I have also personally directed, reviewed, and agree with the discharge instructions and disposition. Disposition/Present on Arrival - Present on Arrival Any Indicators Present on Arrival: No History of DVT/PE: No History of Uncontrolled Diabetes: No Urinary Catheter: No History of Decub. Ulcer: No History Surgical Site Infection Following: None - Disposition Have Diagnosis and Disposition been Completed?: Yes Diagnosis: Chest pain, Bipolar disorder Disposition: HOME/ ROUTINE Disposition Time: 05:40 Patient Plan: Discharge Condition: GOOD Discharge Instructions (ExitCare): Chest Pain (ED), Bipolar Disorder (ED) Additional Instructions: Follow up outpatient as instructed by psychiatry/PES.Follow up with your doctor this week. Referrals: Magdalena Bradshaw Req, [Primary Care Provider] - Follow up with [facility] [Outside] - Follow up with primary Forms: [employer] (Mosotho)
[2017-07-18 23:18] LABS: HEMOGLOBIN 14.7 g/dL (14.0-18.0); MEAN CELL VOLUME 90.3 fl (80.0-105.0); MEAN CORPUSCULAR HEMOGLOBIN 30.9 pg (25.0-35.0); MEAN CORPUSCULAR HGB CONC 34.3 g/dl (31.0-37.0); RBC 4.75 10^6/uL (3.5-6.1); RED CELL DISTRIBUTION WIDTH 12.8 % (11.5-14.5); WHITE BLOOD COUNT 9.3 10^3/ul (4.5-11.0)
[2017-07-18 23:30] LABS: INR 0.95 (0.93-1.08); PARTIAL THROMBOPLASTIN TIME 30.4 Seconds (25.1-36.5); PROTHROMBIN TIME 10.8 SECONDS (9.4-12.5)
[2017-07-18 23:51] LABS: ALB/GLOB RATIO 1.5 (1.1-1.8); ALBUMIN 4.3 g/dL (3.0-4.8); ALT/SGPT 37 U/L (7-56); AST/SGOT 28 U/L (17-59); BLOOD UREA NITROGEN 17 mg/dL (7-21); CALCIUM 9.9 mg/dL (8.4-10.5); GFR AFRICAN-AMERICAN > 60; GFR NON-AFRICAN AMERICAN > 60; TROPONIN I < 0.01 ng/mL
[2017-07-19 02:12] LABS: BARBITURATES, UR NEGATIVE (NEGATIVE); OPIATES, UR NEGATIVE (NEGATIVE); PHENCYCLIDINE, UR NEGATIVE (NEGATIVE)
[2017-07-19 02:27] LABS: BENZODIAZEPINES, UR POSITIVE (NEGATIVE)
[2017-07-19 04:54] VITALS: BP 130/93; PULSE 68; RESP 18; O2SAT 98
--- NOTE | 2017-07-19 08:40 | RAD ---
HISTORY: chest pain COMPARISON: 07/16/2017 FINDINGS: LUNGS: No active pulmonary disease. PLEURA: No significant pleural effusion identified, no pneumothorax apparent. CARDIOVASCULAR: Normal. OSSEOUS STRUCTURES: No significant abnormalities. VISUALIZED UPPER ABDOMEN: Normal. OTHER FINDINGS: None. IMPRESSION: No active disease.
--- NOTE | 2017-07-19 10:57 | CARD ---
APPROVED REPORT EKG Measurement Heart [id number] DC [id number] [id number] <Conclusion> Sinus tachycardia Septal infarct, age undetermined Abnormal ECG
== END 2017-07-19 06:09 | disposition home or self-care (01) ==
LOC: ED 21:41
DX: R07.9 Chest pain, unspecified (principal); F31.9 Bipolar disorder, unspecified; I10 Essential (primary) hypertension; E78.5 Hyperlipidemia, unspecified; Z87.891 Personal history of nicotine dependence
CPT/HCPCS: 71045; 80053; 82550; 83615; 84484; 85027; 85610; 85730; 90791; 93005; 99284; G0480

== ENCOUNTER 2017-08-03 08:45 | Emergency (ER) | payer BC, MEDICARE ==
[2017-08-03 08:46] VITALS: BMI 20.5
[2017-08-03 09:37] VITALS: BP 137/81; PULSE 92; RESP 16; TEMP 98; O2SAT 97
--- NOTE | 2017-08-03 09:55 | ED PDOC ---
Arrival/HPI - General Chief Complaint: Back Pain Time Seen by Provider: 08/03/17 09:50 Historian: Patient - History of Present Illness Narrative History of Present Illness (Text): 08/03/17 09:52 51 y/o male, pmh including lumber herniated disc, psychiatric history including benzo withdrawal, nkda, c/o lower back pain s/p sneeze this morning. Pt. stated that he walk to the ER without any cane or crutches, stated that he has lower back pain s/p sneezing, no numbness or tinging, no urinary or bowel incontinence or retention, no rash, no urinary symptoms, no pain medication taken at home, request food and oral pain medication, no tremors or facial twitching, no abdominal pain, no nausea or vomiting, no other medical or psychological complaints. Past Medical History - Provider Review Nursing Documentation Reviewed: Yes - Infectious Disease Hx of Infectious Diseases: None - Tetanus Immunization Tetanus Immunization: Unknown - Cardiac Hx Hypertension: Yes - Pulmonary Hx Respiratory Disorders: No - Neurological Hx Neurological Disorder: No - HEENT Hx HEENT Disorder: No - Renal Hx Renal Disorder: No - Endocrine/Metabolic Hx Endocrine Disorders: No - Hematological/Oncological Hx Blood Disorders: No - Integumentary Hx Dermatological Disorder: No - Musculoskeletal/Rheumatological Hx Musculoskeletal Disorders: No Hx Falls: Yes - Gastrointestinal Hx Gastrointestinal Disorders: No - Genitourinary/Gynecological Hx Genitourinary Disorders: No - Psychiatric Hx Anxiety: Yes Hx Depression: Yes Hx Substance Use: No - Past Surgical History Past Surgical History: Non-Contributing - Surgical History Other/Comment: Knee repair - Anesthesia Hx Anesthesia: Yes Hx Anesthesia Reactions: No Hx Malignant Hyperthermia: No - Suicidal Assessment Feels Threatened In Home Enviroment: No Family/Social History - Physician Review Nursing Documentation Reviewed: Yes Family/Social History: Unknown Family HX Smoking Status: Former Smoker Hx Alcohol Use: No Hx Substance Use: No Hx Substance Use Treatment: No Allergies/Home Meds Allergies/Adverse Reactions: Allergies No Known Allergies Allergy (Verified 08/03/17 09:15) Home Medications: Home Meds Medication Instructions Recorded Confirmed Atorvastatin Calcium [Lipitor] 20 mg PO DAILY 08/05/15 08/03/17 Review of Systems - Review of Systems Constitutional: absent: Fatigue, Fevers Eyes: absent: Vision Changes ENT: absent: Hearing Changes Respiratory: absent: SOB, Cough Cardiovascular: absent: Chest Pain Gastrointestinal: absent: Abdominal Pain, Diarrhea, Nausea, Vomiting Musculoskeletal: Back Pain, Myalgias. absent: Arthralgias, Neck Pain, Joint Swelling Skin: absent: Rash, Pruritis Neurological: absent: Headache, Dizziness Psychiatric: absent: Anxiety, Depression Physical Exam Vital Signs Reviewed: Yes Vital Signs Temp Pulse Resp BP Pulse Ox 08/03/17 09:18 98.0 F 92 H 16 137/81 97 Temperature: Afebrile Blood Pressure: Normal Pulse: Regular Respiratory Rate: Normal Appearance: Positive for: Well-Appearing, Non-Toxic, Comfortable Pain Distress: Mild Mental Status: Positive for: Alert and Oriented X 3 - Systems Exam Head: Present: Atraumatic, Normocephalic Pupils: Present: PERRL Extroacular Muscles: Present: EOMI Conjunctiva: Present: Normal Mouth: Present: Moist Mucous Membranes Neck: Present: Normal Range of Motion Respiratory/Chest: Present: Clear to Auscultation, Good Air Exchange. No: Respiratory Distress, Accessory Muscle Use Cardiovascular: Present: Regular Rate and Rhythm, Normal S1, S2. No: Murmurs Abdomen: Present: Normal Bowel Sounds. No: Tenderness, Distention, Peritoneal Signs, Rebound, Guarding Back: Present: Normal Inspection, Other (LS spine: no midline tenderness or step off, no paraspinal tenderness, no rash, SLR test negative, FROM without limitation, sensation intact, motor 5/5, walking with normal gait and posture. ) Upper Extremity: Present: Normal Inspection. No: Cyanosis, Edema Lower Extremity: Present: Normal Inspection. No: Edema Neurological: Present: GCS=15, CN II-XII Intact, Speech Normal. No: Motor Func Grossly Intact, Gait Normal, Memory Normal Skin: Present: Warm, Dry, Normal Color. No: Rashes Psychiatric: Present: Alert, Oriented x 3, Normal Insight, Normal Concentration Medical Decision Making ED Course and Treatment: 08/03/17 09:56 -MOtrin and flexeril ordered -no emergent indication of radiology study at this time -Food and juice given -Pt. has no further questions. -Discharge home with Naproxen, flexeril, bed rest, follow up with your own pmd and pain management within 2 days, return to the ER for any new or worsening signs or symptoms. - Medication Orders Current Medication Orders: Cyclobenzaprine HCl (Flexeril) 10 mg PO STAT STA Stop: 08/03/17 09:52 Ibuprofen (Motrin Tab) 600 mg PO STAT STA Stop: 08/03/17 09:52 - PA / DIRECTOR GENERAL / Resident Statement / has reviewed & agrees with the documentation as recorded. Disposition/Present on Arrival - Present on Arrival Any Indicators Present on Arrival: No History of DVT/PE: No History of Uncontrolled Diabetes: No Urinary Catheter: No History of Decub. Ulcer: No History Surgical Site Infection Following: None - Disposition Have Diagnosis and Disposition been Completed?: Yes Diagnosis: Lower back pain Disposition: HOME/ ROUTINE Disposition Time: 09:57 Patient Plan: Discharge Condition: GOOD Additional Instructions: -Discharge home with Naproxen, flexeril, bed rest, follow up with your own pmd and pain management within 2 days, return to the ER for any new or worsening signs or symptoms. Prescriptions: Cyclobenzaprine [Cyclobenzaprine HCl] 10 mg PO TID PRN #21 tab PRN Reason: Other Naproxen 500 mg PO BID PRN #20 tab PRN Reason: Other Referrals: [facility] [Outside] - Follow up with primary Forms: WORK NOTE
== END 2017-08-03 10:27 | disposition home or self-care (01) ==
LOC: ED 08:45
DX: M54.5 Low back pain (principal)

== ENCOUNTER 2017-09-07 02:18 | Emergency (ER) | payer BC, MEDICARE ==
[2017-09-07 02:19] VITALS: BMI 20.5
--- NOTE | 2017-09-07 02:43 | ED PDOC ---
Arrival/HPI - General Chief Complaint: Trauma Time Seen by Provider: 09/07/17 02:21 Historian: Patient - History of Present Illness Narrative History of Present Illness (Text): 09/07/17 02:41 Sami Alvarez is a 51 year old male, whose past medical history includes substance abuse, hypertension, hyperlipidemia, chronic lower back pain, anxiety , and depression, who presents to the Emergency department status post mechanical fall. Patient states he fell while walking prior to arrival and sustained abrasions to his right hand with associated discomfort to the area. Patient also reports some lower back pain and notes he has a history of chronic lower back pain/herniated discs. Patient denies any decreased range out motion, weakness/numbness/tingling in the extremity, head trauma, headache, dizziness, or any other complaints. Time/Duration: Prior to Arrival Symptom Onset: Sudden Symptom Course: Unchanged Activities at Onset: Light Context: Walking Past Medical History - Provider Review Nursing Documentation Reviewed: Yes - Infectious Disease Hx of Infectious Diseases: None - Tetanus Immunization Tetanus Immunization: Unknown - Cardiac Hx Hypertension: Yes - Pulmonary Hx Respiratory Disorders: No - Neurological Hx Neurological Disorder: No - HEENT Hx HEENT Disorder: No - Renal Hx Renal Disorder: No - Endocrine/Metabolic Hx Endocrine Disorders: No - Hematological/Oncological Hx Blood Disorders: No - Integumentary Hx Dermatological Disorder: No - Musculoskeletal/Rheumatological Hx Musculoskeletal Disorders: No Hx Falls: Yes - Gastrointestinal Hx Gastrointestinal Disorders: No - Genitourinary/Gynecological Hx Genitourinary Disorders: No - Psychiatric Hx Anxiety: Yes Hx Depression: Yes Hx Substance Use: No - Past Surgical History Past Surgical History: Non-Contributing - Surgical History Other/Comment: Knee repair - Anesthesia Hx Anesthesia: Yes Hx Anesthesia Reactions: No Hx Malignant Hyperthermia: No - Suicidal Assessment Feels Threatened In Home Enviroment: No Family/Social History - Physician Review Nursing Documentation Reviewed: Yes Family/Social History: Unknown Family HX Smoking Status: Light Smoker < 10 Cigarettes Daily Hx Alcohol Use: Yes Frequency of alcohol use: Socially Hx Substance Use: No Hx Substance Use Treatment: No Allergies/Home Meds Allergies/Adverse Reactions: Allergies No Known Allergies Allergy (Verified 08/03/17 09:15) Home Medications: Home Meds Medication Instructions Recorded Confirmed Atorvastatin Calcium [Lipitor] 20 mg PO DAILY 08/05/15 08/03/17 Review of Systems - Physician Review All systems were reviewed & negative as marked: Yes - Review of Systems Constitutional: Normal. absent: Fevers Eyes: Normal ENT: Normal Respiratory: Normal. absent: SOB, Cough Cardiovascular: Normal. absent: Chest Pain Gastrointestinal: Normal. absent: Abdominal Pain, Nausea, Vomiting Genitourinary Male: Normal. absent: Dysuria, Frequency, Hematuria, Urinary Output Changes Musculoskeletal: Back Pain. absent: Neck Pain Skin: Other (+abrasions to right hand) Neurological: Normal. absent: Headache, Dizziness Endocrine: Normal Hemo/Lymphatic: Normal Psychiatric: Normal Physical Exam Vital Signs Reviewed: Yes Temperature: Afebrile Blood Pressure: Normal Pulse: Regular Respiratory Rate: Normal Appearance: Positive for: Well-Appearing, Non-Toxic, Comfortable Pain Distress: None Mental Status: Positive for: Alert and Oriented X 3 - Systems Exam Head: Present: Atraumatic, Normocephalic Pupils: Present: PERRL Extroacular Muscles: Present: EOMI Conjunctiva: Present: Normal Mouth: Present: Moist Mucous Membranes Neck: Present: Normal Range of Motion. No: Meningeal Signs, MIDLINE TENDERNESS , Paraspinal Tenderness Respiratory/Chest: Present: Clear to Auscultation, Good Air Exchange. No: Respiratory Distress, Accessory Muscle Use Cardiovascular: Present: Regular Rate and Rhythm, Normal S1, S2. No: Murmurs Abdomen: Present: Normal Bowel Sounds. No: Tenderness, Distention, Peritoneal Signs Back: Present: Paraspinal Tenderness (Paralumbar tenderness/muscle spasms). No : CVA Tenderness, Midline Tenderness Upper Extremity: Present: Normal ROM, NORMAL PULSES, Tenderness (Superficial abrasion to dorsum of right hand with some palpable tenderness to the area.), Neurovascularly Intact, Capillary Refill < 2s. No: Cyanosis, Edema, Swelling, Erythema, Temperature Abnormalties, Deformity Lower Extremity: Present: Normal Inspection, NORMAL PULSES, Normal ROM, Neurovascularly Intact. No: Edema, CALF TENDERNESS, Tenderness, Swelling, Erythema, Deformity Neurological: Present: GCS=15, CN II-XII Intact, Speech Normal, Motor Func Grossly Intact, Normal Sensory Function, Normal Cerebellar Funct, Gait Normal, Memory Normal Skin: Present: Warm, Dry, Normal Color. No: Rashes Psychiatric: Present: Alert, Oriented x 3, Normal Insight, Normal Concentration Medical Decision Making ED Course and Treatment: 09/07/17 02:42 Impression: 52 year old male complaining of right hand abrasion with associated discomfort to the area and lower back pain. Plan: -- XR Right Hand -- XR Lumbar Spine -- Toradol -- Flexeril -- Reassess and disposition Prior Visits: Notes and results from previous visits were reviewed. Progress Notes: 09/07/17 03:19 Reviewed radiology, XR Right Hand shows no acute fractures/processes. XR Lumbar Spine shows no acute fractures/processes. - RAD Interpretation Radiology Orders: 09/07/17 02:46 HAND RIGHT 3 VIEWS [RAD] Stat LS SPINE WITH OBL > 18 YRS OLD [RAD] Stat Marble Finisher: ED Physician - Medication Orders Current Medication Orders: Discontinued Medications Cyclobenzaprine HCl (Flexeril) 10 mg PO ONCE ONE Stop: 09/07/17 02:48 Last Admin: 09/07/17 02:53 Dose: 10 mg Ketorolac Tromethamine (Toradol) 60 mg IM ONCE ONE Stop: 09/07/17 02:48 Last Admin: 09/07/17 02:53 Dose: 60 mg MAR Pain Assessment Document 09/07/17 02:53 RD (Rec: 09/07/17 02:54 RD [id number]) Pain Reassessment Is this a pain reassessment? No Sleep Is patient sleeping during reassessment? No Presence of Pain Presence of Pain Yes Location Upper or Lower Lower Pain Location Body Site Back Description Description Intermittent Pain Behavior Irritability Aggravating Factors ADL's IM Administration Charges Document 09/07/17 02:53 RD (Rec: 09/07/17 02:54 RD [id number]) Injection Site MAR Injection Site Right Vastus Lateralis Charges for Administration # of IM Administrations 1 - Scribe Statement The provider has reviewed the documentation as recorded by the Scribe Mary Gill All medical record entries made by the Scribe were at my direction and personally dictated by me. I have reviewed the chart and agree that the record accurately reflects my personal performance of the history, physical exam, medical decision making, and the department course for this patient. I have also personally directed, reviewed, and agree with the discharge instructions and disposition. Disposition/Present on Arrival - Present on Arrival Any Indicators Present on Arrival: No History of DVT/PE: No History of Uncontrolled Diabetes: No Urinary Catheter: No History of Decub. Ulcer: No History Surgical Site Infection Following: None - Disposition Have Diagnosis and Disposition been Completed?: Yes Diagnosis: Low back strain, Muscle spasm Disposition: HOME/ ROUTINE Disposition Time: 03:49 Patient Plan: Discharge Condition: GOOD Discharge Instructions (ExitCare): Lumbar Muscle Strain (DC), Muscle Spasms (DC ) Additional Instructions: Rest/no strenuous physical activity/take meds as prescribed/follow up with your doctor this week Prescriptions: Cyclobenzaprine [Cyclobenzaprine HCl] 10 mg PO TID PRN #15 tab PRN Reason: Muscle Spasm Naproxen [Naprosyn] 500 mg PO BID PRN #14 tab PRN Reason: Pain Forms: [employer] (Dutch), WORK NOTE
[2017-09-07 04:07] VITALS: RESP 17; TEMP 98.1; O2SAT 100
[2017-09-07 04:08] VITALS: BP 137/84; PULSE 85
--- NOTE | 2017-09-07 12:14 | RAD ---
PROCEDURE: Right Hand Radiographs. HISTORY: injury COMPARISON: None. FINDINGS: BONES: Fracture involving the distal tuft of the 5th digit only seen on the lateral view. JOINTS: Normal. No osteoarthritic changes. SOFT TISSUES: Soft tissue swelling attests to the acuity of the fracture. OTHER FINDINGS: None. IMPRESSION: Distal tuft fracture, acute 5th digit.
--- NOTE | 2017-09-07 12:15 | RAD ---
PROCEDURE: Radiographs of the Lumbar Spine. HISTORY: injury COMPARISON: No prior. FINDINGS: BONES: Normal alignment. No listhesis. No fracture. Non marginal osteophyte formation noted lower lumbar spine DISC SPACES: Disc degenerative changes, primarily disc space narrowing L3-4 and L4-5. OTHER FINDINGS: Calcified nonaneurysmal abdominal aorta. IMPRESSION: No significant or acute findings to account for/ related to the clinical presentation.
== END 2017-09-07 04:07 | disposition home or self-care (01) ==
LOC: ED 02:18
DX: S39.012A Strain of muscle, fascia and tendon of lower back, initial encounter (principal); W19.XXXA Unspecified fall, initial encounter; Y93.01 Activity, walking, marching and hiking; F17.210 Nicotine dependence, cigarettes, uncomplicated; I10 Essential (primary) hypertension; E78.5 Hyperlipidemia, unspecified
CPT/HCPCS: 72110; 73130; 96372; 99284; J1885

== ENCOUNTER 2017-09-12 10:51 | Emergency (ER) | payer BC, MEDICARE ==
[2017-09-12 10:52] VITALS: BMI 20.5
[2017-09-12 11:05] VITALS: BP 144/92; PULSE 96; RESP 16; TEMP 98.3; O2SAT 97
--- NOTE | 2017-09-12 11:13 | ED PDOC ---
Arrival/HPI - General Chief Complaint: Med Refill Time Seen by Provider: 09/12/17 11:10 Historian: Patient - History of Present Illness Narrative History of Present Illness (Text): 09/12/17 11:13 Sami Alvarez is a 51 year old male, whose past medical history includes substance abuse, hypertension, hyperlipidemia, chronic lower back pain, anxiety , and depression, who presents to the Emergency department requesting refill for Roxicodon, Xanax. Patient stated he was not able to see Dr. Blanco today , but he has an appointment to see him tomorrow. Patient denies other somatic complains. Denies sob, cp, abdominal pain, GI/ incontinence, saddle anesthesia, urinary retention, or abnormal gait. Time/Duration: Other (see hpi) Quality: Aching Context: Home Past Medical History - Provider Review Nursing Documentation Reviewed: Yes - Infectious Disease Hx of Infectious Diseases: None - Tetanus Immunization Tetanus Immunization: Unknown - Cardiac Hx Cardiac Disorders: Yes Hx Hypertension: Yes - Pulmonary Hx Respiratory Disorders: No - Neurological Hx Neurological Disorder: No - HEENT Hx HEENT Disorder: No - Renal Hx Renal Disorder: No - Endocrine/Metabolic Hx Endocrine Disorders: No - Hematological/Oncological Hx Blood Disorders: No - Integumentary Hx Dermatological Disorder: No - Musculoskeletal/Rheumatological Hx Musculoskeletal Disorders: Yes Hx Falls: Yes - Gastrointestinal Hx Gastrointestinal Disorders: No - Genitourinary/Gynecological Hx Genitourinary Disorders: No - Psychiatric Hx Psychophysiologic Disorder: Yes Hx Anxiety: Yes Hx Depression: Yes Hx Substance Use: Yes - Past Surgical History Past Surgical History: Non-Contributing - Surgical History Hx Orthopedic Surgery: Yes Other/Comment: Knee repair - Anesthesia Hx Anesthesia: Yes Hx Anesthesia Reactions: No Hx Malignant Hyperthermia: No - Suicidal Assessment Feels Threatened In Home Enviroment: No Family/Social History - Physician Review Nursing Documentation Reviewed: Yes Family/Social History: Other (noncontributory) Smoking Status: Light Smoker < 10 Cigarettes Daily Hx Alcohol Use: Yes Hx Substance Use: Yes Hx Substance Use Treatment: No Allergies/Home Meds Allergies/Adverse Reactions: Allergies No Known Allergies Allergy (Verified 09/12/17 10:58) Home Medications: Home Meds Medication Instructions Recorded Confirmed Atorvastatin Calcium [Lipitor] 20 mg PO DAILY 08/05/15 08/03/17 Review of Systems - Review of Systems Constitutional: Normal. absent: Fatigue, Weight Change, Fevers, Night Sweats Eyes: Normal ENT: Normal Respiratory: Normal Cardiovascular: Normal Gastrointestinal: Normal Genitourinary Male: Normal Musculoskeletal: Back Pain (chronic back pain) Skin: Normal Neurological: Normal Endocrine: Normal Hemo/Lymphatic: Normal Psychiatric: Anxiety (chronic anxiety) Physical Exam Vital Signs Temp Pulse Resp BP Pulse Ox 09/12/17 10:58 98.3 F 96 H 16 144/92 H 97 Temperature: Afebrile Blood Pressure: Normal Pulse: Regular Respiratory Rate: Normal Appearance: Positive for: Well-Appearing, Non-Toxic, Comfortable Pain Distress: None Mental Status: Positive for: Alert and Oriented X 3 - Systems Exam Head: Present: Atraumatic, Normocephalic Pupils: Present: PERRL Extroacular Muscles: Present: EOMI Conjunctiva: Present: Normal Mouth: Present: Moist Mucous Membranes Neck: Present: Normal Range of Motion Respiratory/Chest: Present: Clear to Auscultation, Good Air Exchange. No: Respiratory Distress, Accessory Muscle Use, Wheezes, Decreased Breath Sounds, Rales, Retracting, Rhonchi Cardiovascular: Present: Regular Rate and Rhythm, Normal S1, S2. No: Murmurs Abdomen: No: Tenderness Back: Present: Normal Inspection, Other (No skin rash visualized on lower back) . No: CVA Tenderness, Midline Tenderness, Paraspinal Tenderness, Pain with Leg Raise Upper Extremity: Present: Normal Inspection, Normal ROM Lower Extremity: Present: Normal Inspection, NORMAL PULSES, Normal ROM Neurological: Present: GCS=15, CN II-XII Intact, Motor Func Grossly Intact, Normal Sensory Function, Normal Cerebellar Funct, Gait Normal Skin: Present: Warm, Dry, Normal Color. No: Rashes Psychiatric: Present: Alert, Oriented x 3, Normal Insight Medical Decision Making ED Course and Treatment: 09/12/17 11:22 Re-evaluation. Patient feels better. Discussed results and plan with patient who expresses understanding. All questions answered and there is agreement with the plan to discharge home with instructions. Patient stable for discharge. Return if symptoms persist or worsen. Patient stated he has an appointment to see Dr. Blanco tomorrow. Patient was recommended to return to emergency if symptoms worsen. Patient was recommended to stop smoking in ED bathroom. Security spoke with patient regarding smoking in hospital property. Re-evaluation Time: 11:22 Reassessment Condition: Re-examined, Improved Disposition/Present on Arrival - Present on Arrival Any Indicators Present on Arrival: No History of DVT/PE: No History of Uncontrolled Diabetes: No Urinary Catheter: No History of Decub. Ulcer: No History Surgical Site Infection Following: None - Disposition Have Diagnosis and Disposition been Completed?: Yes Diagnosis: Chronic lower back pain Disposition: HOME/ ROUTINE Disposition Time: Patient Plan: Discharge Patient Problems: Current Active Problems Problem Status Onset Chronic lower back pain Acute Condition: GOOD Additional Instructions: Call Dr. Blanco PMD for follow up visit in 1 day. Take medication as instructed. Return to emergency if symptoms worsen. Have your doctor check your blood pressure tomorrow. Prescriptions: Cyclobenzaprine [Cyclobenzaprine HCl] 10 mg PO DAILY #5 tab Naproxen 500 mg PO BID PRN #10 tablet PRN Reason: Pain, Severe (8-10) Referrals: [facility] Leeann Hogan, [Primary Care Provider] - Follow up with primary Devin Blanco MD [Staff Provider] - Follow up with primary Forms: [employer] (Arabic)
== END 2017-09-12 11:43 | disposition home or self-care (01) ==
LOC: ED 10:51
DX: M54.5 Low back pain (principal); G89.29 Other chronic pain
CPT/HCPCS: 96372; 99282; J1885

== ENCOUNTER 2017-09-19 20:49 | Emergency (ER) | payer BC, MEDICARE ==
[2017-09-19 20:49] VITALS: BMI 20.5
--- NOTE | 2017-09-19 21:25 | ED PDOC ---
Arrival/HPI - General Chief Complaint: Chest Pain Time Seen by Provider: 09/19/17 21:07 Historian: Patient - History of Present Illness Narrative History of Present Illness (Text): 09/19/17 21:24 52 year old male, whose past medical history includes substance abuse, hypertension (on unknown blood pressure medication), hyperlipidemia (on Lipitor) , chronic lower back pain, anxiety, and depression, presents to the emergency department complaining of left sided chest pain that began yesterday. Patient also reports he was packing up boxes yesterday. He also reports he has family history of heart disease and wanted to be evaluated. Patient denies any associated symptoms. Patient denies any fever, chills, shortness of breath, nausea, vomiting, diarrhea, urinary symptoms, back pain, neck pain, headache, dizziness, trauma/injury, suicidal/homicidal ideation or any other complaints. PMD: Dr. Blanco Time/Duration: 24 hours Symptom Onset: Sudden Symptom Course: Unchanged Activities at Onset: Light Context: Home Past Medical History - Provider Review Nursing Documentation Reviewed: Yes - Infectious Disease Hx of Infectious Diseases: None - Tetanus Immunization Tetanus Immunization: Unknown - Cardiac Hx Cardiac Disorders: Yes Hx Hypertension: Yes - Pulmonary Hx Respiratory Disorders: No - Neurological Hx Neurological Disorder: No - HEENT Hx HEENT Disorder: No - Renal Hx Renal Disorder: No - Endocrine/Metabolic Hx Endocrine Disorders: No - Hematological/Oncological Hx Blood Disorders: No - Integumentary Hx Dermatological Disorder: No - Musculoskeletal/Rheumatological Hx Musculoskeletal Disorders: Yes Hx Falls: Yes - Gastrointestinal Hx Gastrointestinal Disorders: No - Genitourinary/Gynecological Hx Genitourinary Disorders: No - Psychiatric Hx Psychophysiologic Disorder: Yes Hx Anxiety: Yes Hx Depression: Yes Hx Substance Use: Yes - Past Surgical History Past Surgical History: Non-Contributing - Surgical History Hx Orthopedic Surgery: Yes Other/Comment: Knee repair - Anesthesia Hx Anesthesia: Yes Hx Anesthesia Reactions: No Hx Malignant Hyperthermia: No - Suicidal Assessment Feels Threatened In Home Enviroment: No Family/Social History - Physician Review Nursing Documentation Reviewed: Yes Family/Social History: Other (Heart disease ) Smoking Status: Light Smoker < 10 Cigarettes Daily Hx Alcohol Use: Yes Hx Substance Use: Yes Hx Substance Use Treatment: No Allergies/Home Meds Allergies/Adverse Reactions: Allergies No Known Allergies Allergy (Verified 09/12/17 10:58) Home Medications: Home Meds Medication Instructions Recorded Confirmed Atorvastatin Calcium [Lipitor] 20 mg PO DAILY 08/05/15 09/19/17 Review of Systems - Physician Review All systems were reviewed & negative as marked: Yes - Review of Systems Constitutional: absent: Fevers, Other (Chills) Respiratory: absent: SOB Cardiovascular: Chest Pain (left sided chest pain) Gastrointestinal: absent: Abdominal Pain, Diarrhea, Nausea, Vomiting Genitourinary Male: absent: Dysuria, Frequency Musculoskeletal: absent: Back Pain, Neck Pain Neurological: absent: Headache, Dizziness Psychiatric: absent: Suicidal Ideation (homicidal ideation ) Physical Exam Vital Signs Reviewed: Yes Vital Signs Pulse Resp BP Pulse Ox 09/20/17 05:00 76 18 128/74 97 09/20/17 03:00 77 18 124/78 97 09/20/17 01:00 77 18 126/76 97 09/19/17 23:00 85 18 130/83 98 09/19/17 21:07 90 20 139/88 97 Blood Pressure: Normal Pulse: Regular Respiratory Rate: Normal Appearance: Positive for: Well-Appearing, Non-Toxic, Comfortable Pain Distress: None Mental Status: Positive for: Alert and Oriented X 3 - Systems Exam Head: Present: Atraumatic, Normocephalic Pupils: Present: PERRL Extroacular Muscles: Present: EOMI Conjunctiva: Present: Normal Mouth: Present: Moist Mucous Membranes Neck: Present: Normal Range of Motion Respiratory/Chest: Present: Clear to Auscultation, Good Air Exchange. No: Respiratory Distress, Accessory Muscle Use, Tender to Palpation Cardiovascular: Present: Regular Rate and Rhythm, Normal S1, S2. No: Murmurs Abdomen: No: Tenderness, Distention, Peritoneal Signs Back: Present: Normal Inspection Upper Extremity: Present: Normal Inspection. No: Cyanosis, Edema Lower Extremity: Present: Normal Inspection. No: Edema Neurological: Present: GCS=15, CN II-XII Intact, Speech Normal Skin: Present: Warm, Dry, Normal Color. No: Rashes Psychiatric: Present: Alert, Oriented x 3, Normal Insight, Normal Concentration Medical Decision Making ED Course and Treatment: 09/19/17 21:25 Impression: 52 year old male presents complaining of left sided chest pain that began yesterday. Plan: -- Labs -- EKG -- Chest X-ray -- Asprin, Nitrostat -- Urinalysis -- Reassess and disposition Prior Visits: Notes and results from previous visits were reviewed. Patient was last seen in the emergency department on 09/12/17 presents for refill of Roxicodon, Xanax. Patient was discharged. Progress Notes: EKG shows NSR at 91 BPM with Normal axis. Normal Intervals. Normal EKG. Interpreted by me. CXR Impression: As read by me, no acute processes. 09/19/17 23:[address] Blanco who is aware and agrees with the plan. Pending results and disposition. Requests patient to follow up with him. - Lab Interpretations Lab Results: 09/19/17 21:40 09/19/17 21:40 Lab Results 09/20/17 05:00: Lactate Dehydrogenase 362, Total Creatine Kinase 760 H, CK-MB ( CK-2) Pending, CK-MB (CK-2) % Pending, Troponin I < 0.01 09/19/17 21:40: Sodium 142, Potassium 4.0, Chloride 104, Carbon Dioxide 26, Anion Gap 16, BUN 19, Creatinine 0.9, Est GFR ( Amer) > 60, Est GFR (Non- Af Amer) > 60, Random Glucose 93, Calcium 10.3, Total Bilirubin 0.6, AST 48, ALT 46, Alkaline Phosphatase 110, Lactate Dehydrogenase 459, Total Creatine Kinase 1100 H, CK-MB (CK-2) 4.9 H, CK-MB (CK-2) % Cancelled, Troponin I < 0.01, Total Protein 7.4, Albumin 4.5, Globulin 2.9, Albumin/Globulin Ratio 1.6 09/19/17 21:40: PT 11.3, INR 0.99 09/19/17 21:40: WBC 9.4, RBC 5.17, Hgb 15.8, Hct 45.9, MCV 88.8, MCH 30.6, MCHC 34.4, RDW 12.7, Plt Count 256, MPV 11.0, Gran % 68.4 H, Lymph % (Auto) 26.2, Craig % (Auto) 4.6, Eos % (Auto) 0.7 L, Baso % (Auto) 0.1, Gran # 6.40, Lymph # ( Auto) 2.5, Craig # (Auto) 0.4, Eos # (Auto) 0.1, Baso # (Auto) 0.01 I have reviewed the lab results: Yes - RAD Interpretation Radiology Orders: 09/19/17 21:27 CHEST PORTABLE [RAD] Stat - EKG Interpretation Interpreted by ED Physician: Yes Type: 12 lead EKG - Medication Orders Current Medication Orders: Discontinued Medications Aspirin (Aspirin Chewable) 324 mg PO STAT STA Stop: 09/19/17 21:28 Last Admin: 09/19/17 21:40 Dose: 324 mg Nitroglycerin (Nitrostat Sl Tab) 0.4 mg SL STAT STA Stop: 09/19/17 21:28 Last Admin: 09/19/17 21:40 Dose: 0.4 mg - Scribe Statement The provider has reviewed the documentation as recorded by the Nieves Fried Provider Scribe Attestation: All medical record entries made by the Salvatoreibpauline were at my direction and personally dictated by me. I have reviewed the chart and agree that the record accurately reflects my personal performance of the history, physical exam, medical decision making, and the department course for this patient. I have also personally directed, reviewed, and agree with the discharge instructions and disposition. Disposition/Present on Arrival - Present on Arrival Any Indicators Present on Arrival: No History of DVT/PE: No History of Uncontrolled Diabetes: No Urinary Catheter: No History of Decub. Ulcer: No History Surgical Site Infection Following: None - Disposition Have Diagnosis and Disposition been Completed?: Yes Diagnosis: Atypical chest pain Disposition: HOME/ ROUTINE Disposition Time: 06:33 Patient Plan: Discharge Condition: GOOD Discharge Instructions (ExitCare): Chest Pain (ED) Referrals: Devin Blanco MD [Primary Care Provider] - Follow up with primary Forms: [employer] (Korean)
[2017-09-19 22:16] LABS: BASO # 0.01 K/mm3 (0.0-2.0); BASO % 0.1 % (0.0-3.0); EOS # 0.1 (0.0-0.7); EOS % 0.7 % (1.5-5.0); GRAN # 6.4 (1.4-6.5); GRAN % 68.4 % (50.0-68.0); HEMOGLOBIN 15.8 g/dL (14.0-18.0); LYMPH # 2.5 (1.2-3.4); LYMPH % 26.2 % (22.0-35.0); MEAN CELL VOLUME 88.8 fl (80.0-105.0); MEAN CORPUSCULAR HEMOGLOBIN 30.6 pg (25.0-35.0); MEAN CORPUSCULAR HGB CONC 34.4 g/dl (31.0-37.0); MONO # 0.4 (0.1-0.6); MONO % 4.6 % (1.0-6.0); RBC 5.17 10^6/uL (3.5-6.1); RED CELL DISTRIBUTION WIDTH 12.7 % (11.5-14.5); WHITE BLOOD COUNT 9.4 10^3/ul (4.5-11.0)
[2017-09-19 22:21] LABS: ALB/GLOB RATIO 1.6 (1.1-1.8); ALBUMIN 4.5 g/dL (3.0-4.8); ALT/SGPT 46 U/L (7-56); AST/SGOT 48 U/L (17-59); BLOOD UREA NITROGEN 19 mg/dL (7-21); CALCIUM 10.3 mg/dL (8.4-10.5); GFR AFRICAN-AMERICAN > 60; GFR NON-AFRICAN AMERICAN > 60
[2017-09-19 22:24] LABS: INR 0.99 (0.93-1.08); PROTHROMBIN TIME 11.3 SECONDS (9.4-12.5)
[2017-09-19 22:38] LABS: CK-MB 4.9 ng/mL (0.0-3.6); TROPONIN I < 0.01 ng/mL
[2017-09-20 06:02] VITALS: RESP 18
[2017-09-20 06:25] LABS: TROPONIN I < 0.01 ng/mL
[2017-09-20 06:42] LABS: CK-MB 3.9 ng/mL (0.0-3.6)
[2017-09-20 07:00] VITALS: BP 127/72; PULSE 70; O2SAT 98
--- NOTE | 2017-09-20 08:03 | RAD ---
HISTORY: Chest Pain, Left Sided COMPARISON: Chest radiograph 07/18/2017. FINDINGS: LUNGS: Diminished inspiratory volume noted. No acute infiltrate bilaterally. PLEURA: No significant pleural effusion identified, no pneumothorax apparent. CARDIOVASCULAR: Normal. OSSEOUS STRUCTURES: No significant abnormalities. VISUALIZED UPPER ABDOMEN: Normal. OTHER FINDINGS: None. IMPRESSION: Diminished inspiratory volume. No acute infiltrate or pleural effusion identified bilaterally.
--- NOTE | 2017-09-20 19:26 | CARD ---
APPROVED REPORT EKG Measurement Heart [id number] <Conclusion> Normal sinus rhythm Nonspecific T wave abnormality Abnormal ECG
== END 2017-09-20 06:35 | disposition home or self-care (01) ==
LOC: ED 20:49
DX: R07.89 Other chest pain (principal); E78.5 Hyperlipidemia, unspecified; I10 Essential (primary) hypertension; F17.210 Nicotine dependence, cigarettes, uncomplicated

== ENCOUNTER 2017-09-20 18:25 | Emergency (ER) | payer BC, MEDICARE ==
[2017-09-20 18:26] VITALS: BMI 20.5
[2017-09-20 18:52] VITALS: BP 153/93; PULSE 90; RESP 17; TEMP 97.8; O2SAT 97
--- NOTE | 2017-09-20 18:55 | ED PDOC ---
Arrival/HPI - General Chief Complaint: Anxiety Time Seen by Provider: 09/20/17 18:42 Historian: Patient - History of Present Illness Narrative History of Present Illness (Text): 09/20/17 18:52 pt p/w + worsening anxiety and jitteriness today; pt expressed concern that his symptoms might be approaching the level he had to deal with few years ago and he was admitted to the psych floor at that time for further treatment/management ; pt also states he was seen and treated in the ED overnight here at [facility] for atypical chest pain; pt states when he was discharged home, that's when his anxiety/jitteriness became severe; pt states no HI/SI, pt states he has few auditory hallucinations that he has had in the past, hearing his mother and states there are no commands from the voices; pt states infrequent visual hallucinations (seeing mother in the house?), pt has had similar hallucinations before however; pt states no tactile hallucinations; pt denied fever/chills/sweats, no cp/sob/palpitations, no abd pain, no n/v, no numbness/ tingling, no urinary/bowel changes, no fall/trauma/sick contact, no travel; pt is here for further eval pt's without other complaints. pt also states he ran out of his medications ~ 4 days ago + smoker + infreq drinker PCP: doc Time/Duration: Prior to Arrival Symptom Onset: Sudden Symptom Course: Unchanged Activities at Onset: Rest Context: Home Past Medical History - Provider Review Nursing Documentation Reviewed: Yes - Travel History Have you recently traveled outside [place] w/in the past 3 mons?: No - Past History Past History: No Previous - Infectious Disease Hx of Infectious Diseases: None - Tetanus Immunization Tetanus Immunization: Unknown - Cardiac Hx Cardiac Disorders: Yes Hx Hypertension: Yes - Pulmonary Hx Respiratory Disorders: No - Neurological Hx Neurological Disorder: No - HEENT Hx HEENT Disorder: No - Renal Hx Renal Disorder: No - Endocrine/Metabolic Hx Endocrine Disorders: No - Hematological/Oncological Hx Blood Disorders: No - Integumentary Hx Dermatological Disorder: No - Musculoskeletal/Rheumatological Hx Musculoskeletal Disorders: Yes Hx Back Pain: Yes Hx Falls: Yes - Gastrointestinal Hx Gastrointestinal Disorders: No - Genitourinary/Gynecological Hx Genitourinary Disorders: No - Psychiatric Hx Psychophysiologic Disorder: Yes Hx Anxiety: Yes Hx Depression: Yes Hx Substance Use: Yes - Past Surgical History Past Surgical History: Non-Contributing - Surgical History Hx Orthopedic Surgery: Yes Other/Comment: Knee repair - Anesthesia Hx Anesthesia: Yes Hx Anesthesia Reactions: No Hx Malignant Hyperthermia: No - Suicidal Assessment Feels Threatened In Home Enviroment: No Family/Social History - Physician Review Nursing Documentation Reviewed: Yes Family/Social History: No Known Family HX Smoking Status: Light Smoker < 10 Cigarettes Daily Hx Alcohol Use: Yes Hx Substance Use: Yes Hx Substance Use Treatment: No Allergies/Home Meds Allergies/Adverse Reactions: Allergies No Known Allergies Allergy (Verified 09/20/17 18:35) Home Medications: Home Meds Medication Instructions Recorded Confirmed Atorvastatin Calcium [Lipitor] 20 mg PO DAILY 08/05/15 09/20/17 Review of Systems - Review of Systems Constitutional: Normal Eyes: Normal ENT: Normal Respiratory: Normal Cardiovascular: Palpitations Gastrointestinal: Normal Genitourinary Male: Normal Musculoskeletal: Normal Skin: Normal Neurological: Normal Endocrine: Normal Hemo/Lymphatic: Normal Psychiatric: Anxiety. absent: Depression, Suicidal Ideation Physical Exam Vital Signs Reviewed: Yes Vital Signs Temp Pulse Resp BP Pulse Ox 09/20/17 18:36 97.8 F 90 17 153/93 H 97 Temperature: Afebrile Blood Pressure: Hypertensive Pulse: Regular Respiratory Rate: Normal Appearance: Positive for: Well-Appearing, Non-Toxic, Other (alert/awake, sitting at the chair in the exam room, NAD, mildly uncomfortable, cooperative) Pain Distress: None Mental Status: Positive for: Alert and Oriented X 3 - Systems Exam Head: Present: Atraumatic, Normocephalic Pupils: Present: PERRL, Other (no nystagmus, no photophobia, sclera anicteric, visual field intact b/l) Extroacular Muscles: Present: EOMI Conjunctiva: Present: Normal Ears: Present: Normal Mouth: Present: Moist Mucous Membranes, Normal Teeth, Other (no drooling/stridor , no dysphonia) Pharnyx: Present: Normal Nose (External): Present: Atraumatic Nose (Internal): Present: Normal Inspection Neck: Present: Normal Range of Motion, Trachea Midline. No: MIDLINE TENDERNESS Respiratory/Chest: Present: Clear to Auscultation, Good Air Exchange, Other ( CTA b/l, no w/r/r). No: Respiratory Distress, Accessory Muscle Use Cardiovascular: Present: Regular Rate and Rhythm, Normal S1, S2. No: Murmurs Abdomen: Present: Normal Bowel Sounds, Other (well nourished male, no focal tenderness, no masses/rebound/guarding/rigidity) Upper Extremity: Present: Normal Inspection, Normal ROM, NORMAL PULSES, Neurovascularly Intact, Capillary Refill < 2s Lower Extremity: Present: Normal Inspection, NORMAL PULSES, Normal ROM, Neurovascularly Intact, Capillary Refill < 2 s, Other (+ ambulatory, strength 5/ 5 grossly intact in all limbs) Neurological: Present: GCS=15, CN II-XII Intact, Speech Normal, Other (NIH stroke scale ~ 0) Skin: Present: Warm, Dry, Normal Color, Other (cap refill < 1sec, no ulcerations , no petechiae) Psychiatric: Present: Alert, Oriented x 3, Normal Affect. No: Depressed Mood, Hallucinations Medical Decision Making ED Course and Treatment: 09/20/17 18:45 Impression: severe anxiety, ? auditory hallucination i have consider all the differential diagnosis regarding pt's chief medical complaints/clinical findings, including but are not limited to: psych eval A/P: severe anxiety - labs - observe - ekg - observe - supportive care PT IS MEDICALLY CLEARED FOR PSYCH EVAL 6:54pm - I spoke to PES counselor reservations and ticketing agent, will evaluate patient 09/20/17 20:08 pt evaluated by PES, states patient is stable and does not exhibit any psych emergencies currently and patient can be discharged with outpt f/u with psych pt is doing well currently pt is awaiting his lab results 09/20/17 21:00 pt remained comfortable pt was resting in bed, napping pt remained MEDICALLY and PSYCH stable for discharge out of the ED pt is made aware of pt's medical results pt is encouraged not to smoke, drink alcohol, and dont do drugs pt is encouraged hydration pt is encouraged outpt f/u pt will be discharged home Re-evaluation Time: 19:00 Reassessment Condition: Improved - Lab Interpretations Lab Results: 09/20/17 20:13 Lab Results 09/20/17 20:13: Sodium 142, Potassium 4.3, Chloride 105, Carbon Dioxide 30, Anion Gap 11, BUN 16, Creatinine 0.9, Est GFR ( Amer) > 60, Est GFR (Non- Af Amer) > 60, Random Glucose 106, Calcium 9.9 09/20/17 20:13: Alcohol, Quantitative < 10 09/20/17 20:13: Salicylates < 1 L, Acetaminophen < 10.0 L I have reviewed the lab results: Yes Interpretation: All labs normal - EKG Interpretation EKG Interpretation (Text): 09/20/17 21:39 PT REFUSED Disposition/Present on Arrival - Present on Arrival Any Indicators Present on Arrival: No History of DVT/PE: No History of Uncontrolled Diabetes: No Urinary Catheter: No History of Decub. Ulcer: No History Surgical Site Infection Following: None - Disposition Have Diagnosis and Disposition been Completed?: Yes Diagnosis: Anxiety, Palpitation, General medical exam, Poor compliance with medication Disposition: HOME/ ROUTINE Disposition Time: 21:00 Patient Plan: Discharge Patient Problems: Current Active Problems Problem Status Onset Anxiety Acute Palpitation Acute General medical exam Acute Poor compliance with medication Acute Condition: STABLE Discharge Instructions (ExitCare): Palpitations, Anxiety, Adult (DC) Print Language: MALTESE Additional Instructions: Make sure to see your doctor in 1-2 days DRINK PLENTY OF FLUIDS take your medications as prescribed DONT SMOKE DONT DO DRUGS DONT Drink alcohol RETURN TO ED IF worse pain, cant breath, persistent vomiting, high fever >101- 102 for hours, altered behavior, slurr speech, facial changes, focal weakness ( arm/leg or both), unable to urinate, suicidal/homicidal ideations, hallucinations, heavy/persistent bleeding, passing out, chest pain, or other medical emergencies Referrals: Devin Blanco MD [Primary Care Provider] - Follow up with primary Forms: [employer] (Albanian)
[2017-09-20 20:28] LABS: BLOOD UREA NITROGEN 16 mg/dL (7-21); CALCIUM 9.9 mg/dL (8.4-10.5); GFR AFRICAN-AMERICAN > 60; GFR NON-AFRICAN AMERICAN > 60
[2017-09-20 20:30] LABS: ACETAMINOPHEN < 10.0 ug/ml (10.0-20.0); SALICYLATE < 1 mg/dL (2.0-20.0)
[2017-09-20 20:32] LABS: BASO # 0.02 K/mm3 (0.0-2.0); BASO % 0.2 % (0.0-3.0); EOS # 0.1 (0.0-0.7); EOS % 0.7 % (1.5-5.0); GRAN # 5.44 (1.4-6.5); GRAN % 64.9 % (50.0-68.0); HEMOGLOBIN 15.3 g/dL (14.0-18.0); LYMPH # 2.5 (1.2-3.4); LYMPH % 29.4 % (22.0-35.0); MEAN CELL VOLUME 88.8 fl (80.0-105.0); MEAN CORPUSCULAR HEMOGLOBIN 30.7 pg (25.0-35.0); MEAN CORPUSCULAR HGB CONC 34.5 g/dl (31.0-37.0); MEAN PLATELET VOLUME 10.7 fl (7.0-11.0); MONO # 0.4 (0.1-0.6); MONO % 4.8 % (1.0-6.0); RBC 4.99 10^6/uL (3.5-6.1); RED CELL DISTRIBUTION WIDTH 12.7 % (11.5-14.5); WHITE BLOOD COUNT 8.4 10^3/ul (4.5-11.0)
== END 2017-09-20 21:30 | disposition home or self-care (01) ==
LOC: ED 18:25
DX: Z00.00 Encounter for general adult medical examination without abnormal findings (principal); F41.9 Anxiety disorder, unspecified; R00.2 Palpitations; Z91.14 Patient's other noncompliance with medication regimen
CPT/HCPCS: 80048; 85025; 99284; G0480

== ENCOUNTER 2017-10-09 02:25 | Emergency (ER) | payer MEDICARE, BC ==
[2017-10-09 02:33] VITALS: BMI 28.8
[2017-10-09 02:36] VITALS: RESP 18; TEMP 98.8; O2SAT 99
--- NOTE | 2017-10-09 03:29 | ED PDOC ---
Arrival/HPI - General Chief Complaint: Back Pain Time Seen by Provider: 10/09/17 02:50 Historian: Patient - History of Present Illness Narrative History of Present Illness (Text): 10/09/17 03:29 52 year old male, whose past medical history includes, substance abuse, chronic lower back pain, hypertension, and anxiety, presents to the emergency department complaining of lower back discomfort after moving his refrigerator to get out an object that had fallen. Patient states he pulled his lower back. patient is able to ambulate without any difficulty. Patient denies any fever, chills, chest pain, shortness of breath, nausea, vomiting, diarrhea, urinary symptoms, neck pain, leg pain/weakness headache, dizziness, or any other complaints. Time/Duration: 1 hour Symptom Onset: Sudden Symptom Course: Unchanged Activities at Onset: Light Context: Home Past Medical History - Provider Review Nursing Documentation Reviewed: Yes - Past History Past History: No Previous - Infectious Disease Hx of Infectious Diseases: None - Tetanus Immunization Tetanus Immunization: Unknown - Cardiac Hx Cardiac Disorders: Yes Hx Hypertension: Yes - Pulmonary Hx Respiratory Disorders: No - Neurological Hx Neurological Disorder: No - HEENT Hx HEENT Disorder: No - Renal Hx Renal Disorder: No - Endocrine/Metabolic Hx Endocrine Disorders: No - Hematological/Oncological Hx Blood Disorders: No - Integumentary Hx Dermatological Disorder: No - Musculoskeletal/Rheumatological Hx Musculoskeletal Disorders: Yes Hx Back Pain: Yes Hx Falls: Yes - Gastrointestinal Hx Gastrointestinal Disorders: No - Genitourinary/Gynecological Hx Genitourinary Disorders: No - Psychiatric Hx Psychophysiologic Disorder: Yes Hx Anxiety: Yes Hx Depression: Yes Hx Substance Use: Yes - Past Surgical History Past Surgical History: Non-Contributing - Surgical History Hx Orthopedic Surgery: Yes Other/Comment: Knee repair - Anesthesia Hx Anesthesia: Yes Hx Anesthesia Reactions: No Hx Malignant Hyperthermia: No - Suicidal Assessment Feels Threatened In Home Enviroment: No Family/Social History - Physician Review Nursing Documentation Reviewed: Yes Family/Social History: No Known Family HX Smoking Status: Light Smoker < 10 Cigarettes Daily Hx Alcohol Use: Yes Hx Substance Use: Yes Hx Substance Use Treatment: No Allergies/Home Meds Allergies/Adverse Reactions: Allergies No Known Allergies Allergy (Verified 09/20/17 18:35) Home Medications: Home Meds Medication Instructions Recorded Confirmed Atorvastatin Calcium [Lipitor] 20 mg PO DAILY 08/05/15 10/09/17 Review of Systems - Physician Review All systems were reviewed & negative as marked: Yes - Review of Systems Constitutional: absent: Fevers, Other (Chills) Respiratory: absent: SOB Cardiovascular: absent: Chest Pain Gastrointestinal: absent: Diarrhea, Nausea, Vomiting Genitourinary Male: absent: Dysuria, Frequency, Hematuria Musculoskeletal: Back Pain. absent: Neck Pain Neurological: absent: Headache, Dizziness Physical Exam Vital Signs Reviewed: Yes Vital Signs Temp Pulse Resp BP Pulse Ox 10/09/17 02:33 98.8 F 88 18 150/94 H 99 Temperature: Afebrile Blood Pressure: Normal Pulse: Regular Respiratory Rate: Normal Appearance: Positive for: Well-Appearing, Non-Toxic, Comfortable Pain Distress: None Mental Status: Positive for: Alert and Oriented X 3 - Systems Exam Head: Present: Atraumatic, Normocephalic Pupils: Present: PERRL Extroacular Muscles: Present: EOMI Conjunctiva: Present: Normal Mouth: Present: Moist Mucous Membranes Neck: Present: Normal Range of Motion Respiratory/Chest: Present: Clear to Auscultation, Good Air Exchange. No: Respiratory Distress, Accessory Muscle Use Cardiovascular: Present: Regular Rate and Rhythm, Normal S1, S2. No: Murmurs Abdomen: No: Tenderness, Distention, Peritoneal Signs Back: Present: Other ((+)Some mild paralumbar spasm (-) dorsal spinal tenderness ) Upper Extremity: Present: Normal Inspection, Normal ROM, Neurovascularly Intact. No: Cyanosis, Edema Lower Extremity: Present: Normal Inspection, Normal ROM, Neurovascularly Intact. No: Edema Neurological: Present: GCS=15, CN II-XII Intact, Speech Normal Skin: Present: Warm, Dry, Normal Color. No: Rashes Psychiatric: Present: Alert, Oriented x 3, Normal Insight, Normal Concentration Medical Decision Making ED Course and Treatment: 10/09/17 03:29 Impression: 52 year old male presents complaining of lower back discomfort after moving his refrigerator. Plan: -- Flexeril -- Toradol -- Reassess and disposition Prior Visits: Notes and results from previous visits were reviewed. Patient was last seen in the emergency department on 09/20/17 presents complaining of of anxiety. Patient was discharged. Progress Notes: - Medication Orders Current Medication Orders: Discontinued Medications Cyclobenzaprine HCl (Flexeril) 10 mg PO ONCE ONE Stop: 10/09/17 03:29 Last Admin: 10/09/17 03:49 Dose: 10 mg Ketorolac Tromethamine (Toradol) 60 mg IM ONCE ONE Stop: 10/09/17 03:29 Last Admin: 10/09/17 03:51 Dose: 60 mg MAR Pain Assessment Document 10/09/17 03:51 JOL (Rec: 10/09/17 03:51 JOL [id number]) Pain Reassessment Is this a pain reassessment? No Sleep Is patient sleeping during reassessment? No Presence of Pain Presence of Pain Yes Pain Scale Used Pain Scale Used Numeric Location Upper or Lower Lower Pain Location Body Site Back Description Intensity of Pain at present 6 IM Administration Charges Document 10/09/17 03:51 JOL (Rec: 10/09/17 03:51 JOL [id number]) Injection Site MAR Injection Site Left Deltoid Charges for Administration # of IM Administrations 1 - Scribe Statement The provider has reviewed the documentation as recorded by the Nieves Fried Provider Scribe Attestation: All medical record entries made by the Nieves were at my direction and personally dictated by me. I have reviewed the chart and agree that the record accurately reflects my personal performance of the history, physical exam, medical decision making, and the department course for this patient. I have also personally directed, reviewed, and agree with the discharge instructions and disposition. Disposition/Present on Arrival - Present on Arrival Any Indicators Present on Arrival: No History of DVT/PE: No History of Uncontrolled Diabetes: No Urinary Catheter: No History of Decub. Ulcer: No History Surgical Site Infection Following: None - Disposition Have Diagnosis and Disposition been Completed?: Yes Diagnosis: Low back strain, Muscle spasm Disposition: HOME/ ROUTINE Disposition Time: 05:19 Patient Plan: Discharge Condition: STABLE Discharge Instructions (ExitCare): Lumbar Muscle Strain (DC), Muscle Spasms (DC ) Additional Instructions: rest/no strenuous physical activity/medication as prescribed/follow up with your doctor Prescriptions: Cyclobenzaprine [Cyclobenzaprine HCl] 10 mg PO TID PRN #15 tab PRN Reason: Muscle Spasm Naproxen [Naprosyn] 500 mg PO BID PRN #14 tab PRN Reason: Pain Forms: [employer] (Lao)
[2017-10-09 06:29] VITALS: BP 134/77; PULSE 74
== END 2017-10-09 06:25 | disposition home or self-care (01) ==
LOC: ED 02:25
DX: S39.012A Strain of muscle, fascia and tendon of lower back, initial encounter (principal); X50.0XXA Overexertion from strenuous movement or load, initial encounter; Y93.E6 Activity, residential relocation; Y92.009 Unspecified place in unspecified non-institutional (private) residence as the place of occurrence of the external cause
CPT/HCPCS: 96372; 99283; J1885

== ENCOUNTER 2017-10-25 01:28 | Emergency (ER) | payer MEDICARE, BC ==
[2017-10-25 01:29] VITALS: BMI 28.8
--- NOTE | 2017-10-25 02:04 | ED PDOC ---
Arrival/HPI - General Chief Complaint: Back Pain Time Seen by Provider: 10/25/17 01:43 - History of Present Illness Narrative History of Present Illness (Text): 10/25/17 02:03 Patient is a 52 year old male whose past medical history includes chronic lower pain,lumbar disc disease who presents to the Emergency department complaining lower back pain. Patient reports pulling a muscle in his lower back while moving furniture. Patient is ambulating normally as he walked into the Emergency department. Patient denies any fever, chills,change in bowel or urinary habits, shortness of breath, chest pain, or other symptoms at this time. Symptom Onset: Sudden Context: Home Past Medical History - Provider Review Nursing Documentation Reviewed: Yes - Past History Past History: No Previous - Infectious Disease Hx of Infectious Diseases: None - Tetanus Immunization Tetanus Immunization: Unknown - Cardiac Hx Cardiac Disorders: Yes Hx Hypertension: Yes - Pulmonary Hx Respiratory Disorders: No - Neurological Hx Neurological Disorder: No - HEENT Hx HEENT Disorder: No - Renal Hx Renal Disorder: No - Endocrine/Metabolic Hx Endocrine Disorders: No - Hematological/Oncological Hx Blood Disorders: No - Integumentary Hx Dermatological Disorder: No - Musculoskeletal/Rheumatological Hx Musculoskeletal Disorders: Yes Hx Back Pain: Yes Hx Falls: Yes - Gastrointestinal Hx Gastrointestinal Disorders: No - Genitourinary/Gynecological Hx Genitourinary Disorders: No - Psychiatric Hx Psychophysiologic Disorder: Yes Hx Anxiety: Yes Hx Depression: Yes Hx Substance Use: Yes - Past Surgical History Past Surgical History: Non-Contributing - Surgical History Hx Orthopedic Surgery: Yes Other/Comment: Knee repair - Anesthesia Hx Anesthesia: Yes Hx Anesthesia Reactions: No Hx Malignant Hyperthermia: No - Suicidal Assessment Feels Threatened In Home Enviroment: No Family/Social History - Physician Review Nursing Documentation Reviewed: Yes Family/Social History: No Known Family HX Smoking Status: Light Smoker < 10 Cigarettes Daily Hx Alcohol Use: Yes Hx Substance Use: Yes Hx Substance Use Treatment: No Allergies/Home Meds Allergies/Adverse Reactions: Allergies No Known Allergies Allergy (Verified 10/25/17 01:55) Home Medications: Home Meds Medication Instructions Recorded Confirmed Atorvastatin Calcium [Lipitor] 20 mg PO DAILY 08/05/15 10/25/17 Review of Systems - Physician Review All systems were reviewed & negative as marked: Yes - Review of Systems Constitutional: absent: Fevers, Night Sweats Respiratory: absent: SOB Cardiovascular: absent: Chest Pain Physical Exam Vital Signs Temp Pulse Resp BP Pulse Ox 10/25/17 04:01 98.1 F 72 17 140/72 100 10/25/17 01:54 98.2 F 87 20 145/96 H 97 Temperature: Afebrile Blood Pressure: Hypertensive Pulse: Regular Respiratory Rate: Normal Appearance: Positive for: Well-Appearing Mental Status: Positive for: Alert and Oriented X 3 - Systems Exam Head: Present: Atraumatic, Normocephalic Pupils: Present: PERRL Extroacular Muscles: Present: EOMI Conjunctiva: Present: Normal Mouth: Present: Moist Mucous Membranes Neck: Present: Normal Range of Motion Respiratory/Chest: Present: Clear to Auscultation, Good Air Exchange. No: Respiratory Distress, Accessory Muscle Use Cardiovascular: Present: Regular Rate and Rhythm, Normal S1, S2. No: Murmurs Abdomen: No: Tenderness, Distention, Peritoneal Signs Back: Present: Normal Inspection, Pain with Leg Raise. No: CVA Tenderness, Midline Tenderness, Paraspinal Tenderness Upper Extremity: Present: Normal Inspection. No: Cyanosis, Edema Lower Extremity: Present: Normal Inspection. No: Edema Neurological: Present: GCS=15, CN II-XII Intact, Speech Normal Skin: Present: Warm, Dry, Normal Color. No: Rashes Psychiatric: Present: Alert, Oriented x 3, Normal Insight, Normal Concentration Medical Decision Making ED Course and Treatment: 10/25/17 02:08 Impression: Patient is a 52 year old male who has lower back pain. Differential Diagnosis included but are not limited to: Lower back strain, muscle strain vs lumbar radiculopathy Plan: --Toradol --Flexeril -- Reassess and disposition Prior Visits: Notes and results from previous visits were reviewed. Progress Notes: - Medication Orders Current Medication Orders: Discontinued Medications Cyclobenzaprine HCl (Flexeril) 10 mg PO ONCE ONE Stop: 10/25/17 02:01 Last Admin: 10/25/17 02:15 Dose: 10 mg Ketorolac Tromethamine (Toradol) 60 mg IM ONCE ONE Stop: 10/25/17 02:01 Last Admin: 10/25/17 02:16 Dose: 60 mg MAR Pain Assessment Document 10/25/17 02:16 IT (Rec: 10/25/17 02:16 IT [id number]) Pain Reassessment Is this a pain reassessment? No Sleep Is patient sleeping during reassessment? No Presence of Pain Presence of Pain Yes Pain Scale Used Pain Scale Used Numeric IM Administration Charges Document 10/25/17 02:16 IT (Rec: 10/25/17 02:16 IT [id number]) Injection Site MAR Injection Site Left Deltoid Charges for Administration # of IM Administrations 1 - Scribe Statement The provider has reviewed the documentation as recorded by the Scribe Candelario Martínez Provider Scribe Attestation: All medical record entries made by the Scribe were at my direction and personally dictated by me. I have reviewed the chart and agree that the record accurately reflects my personal performance of the history, physical exam, medical decision making, and the department course for this patient. I have also personally directed, reviewed, and agree with the discharge instructions and disposition Disposition/Present on Arrival - Present on Arrival Any Indicators Present on Arrival: No History of DVT/PE: No History of Uncontrolled Diabetes: No Urinary Catheter: No History of Decub. Ulcer: No History Surgical Site Infection Following: None - Disposition Have Diagnosis and Disposition been Completed?: Yes Diagnosis: Low back strain Disposition: HOME/ ROUTINE Disposition Time: 03:41 Patient Plan: Discharge Patient Problems: Current Active Problems Problem Status Onset Low back strain Acute Condition: GOOD Discharge Instructions (ExitCare): Lumbar Muscle Strain (DC) Additional Instructions: Take meds as prescribed/rest/no lifting/follow up with your doctor this week Prescriptions: Cyclobenzaprine [Cyclobenzaprine HCl] 10 mg PO TID PRN #15 tab PRN Reason: Muscle Spasm Naproxen [Naprosyn] 500 mg PO BID PRN #14 tab PRN Reason: Pain Forms: [employer] (H[place]er)
[2017-10-25 04:02] VITALS: BP 140/72; PULSE 72; RESP 17; TEMP 98.1; O2SAT 100
== END 2017-10-25 04:00 | disposition home or self-care (01) ==
LOC: ED 01:28
DX: S39.012A Strain of muscle, fascia and tendon of lower back, initial encounter (principal); X50.0XXA Overexertion from strenuous movement or load, initial encounter; Y93.E9 Activity, other interior property and clothing maintenance; Y92.89 Other specified places as the place of occurrence of the external cause
CPT/HCPCS: 96372; 99283; J1885

== ENCOUNTER 2017-11-09 12:10 | Emergency (ER) | payer MEDICARE, BC ==
[2017-11-09 12:13] VITALS: BMI 32.8
--- NOTE | 2017-11-09 12:34 | ED PDOC ---
Arrival/HPI - General Chief Complaint: Dizziness/Lightheaded Time Seen by Provider: 11/09/17 12:18 Historian: Patient - History of Present Illness Narrative History of Present Illness (Text): 11/09/17 12:32 52 year old male, whose past medical history includes substance abuse, hypertension (on unknown blood pressure medication), hyperlipidemia (on Lipitor) , chronic lower back pain, anxiety, and depression, presents to the Emergency department complaining of dizziness/ lightheadedness since 45 minutes. Patient informs walking outside when he felt like passing out from the heat. Patient denies any headache, trauma or previous episodes of syncope. Patient denies any fever, chills, nausea, vomiting, diarrhea, abdominal pain, chest pain, shortness of breath or any other complaints. Patient presents to the Emergency department for medical evaluation. 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) Symptom Onset: Gradual Symptom Course: Unchanged Activities at Onset: Light Context: Street Past Medical History - Provider Review Nursing Documentation Reviewed: Yes - Past History Past History: No Previous - Infectious Disease Hx of Infectious Diseases: None - Tetanus Immunization Tetanus Immunization: Unknown - Cardiac Hx Cardiac Disorders: Yes Hx Hypertension: Yes - Pulmonary Hx Respiratory Disorders: No - Neurological Hx Neurological Disorder: No - HEENT Hx HEENT Disorder: No - Renal Hx Renal Disorder: No - Endocrine/Metabolic Hx Endocrine Disorders: No - Hematological/Oncological Hx Blood Disorders: No - Integumentary Hx Dermatological Disorder: No - Musculoskeletal/Rheumatological Hx Musculoskeletal Disorders: Yes Hx Back Pain: Yes Hx Falls: Yes - Gastrointestinal Hx Gastrointestinal Disorders: No - Genitourinary/Gynecological Hx Genitourinary Disorders: No - Psychiatric Hx Psychophysiologic Disorder: Yes Hx Anxiety: Yes Hx Depression: Yes Hx Substance Use: Yes - Past Surgical History Past Surgical History: Non-Contributing - Surgical History Hx Orthopedic Surgery: Yes Other/Comment: Knee repair - Anesthesia Hx Anesthesia: Yes Hx Anesthesia Reactions: No Hx Malignant Hyperthermia: No - Suicidal Assessment Feels Threatened In Home Enviroment: No Family/Social History - Physician Review Nursing Documentation Reviewed: Yes Family/Social History: No Known Family HX Smoking Status: Light Smoker < 10 Cigarettes Daily Hx Alcohol Use: Yes Hx Substance Use: Yes Hx Substance Use Treatment: No Allergies/Home Meds Allergies/Adverse Reactions: Allergies No Known Allergies Allergy (Verified 10/25/17 01:55) Home Medications: Home Meds Medication Instructions Recorded Confirmed Atorvastatin Calcium [Lipitor] 20 mg PO DAILY 08/05/15 10/25/17 Review of Systems - Physician Review All systems were reviewed & negative as marked: Yes - Review of Systems Constitutional: Normal. absent: Fevers Eyes: Normal ENT: Normal Respiratory: Normal. absent: SOB Cardiovascular: Normal. absent: Chest Pain Gastrointestinal: Normal. absent: Abdominal Pain, Diarrhea, Nausea, Vomiting Genitourinary Male: Normal Musculoskeletal: Normal Skin: Normal Neurological: Dizziness. absent: Headache Endocrine: Normal Hemo/Lymphatic: Normal Physical Exam Vital Signs Reviewed: Yes Vital Signs Temp Pulse Resp BP Pulse Ox 11/09/17 14:15 99 H 20 98 11/09/17 12:46 97.8 F 17 132/80 98 11/09/17 12:38 97.6 F 102 H 19 115/69 96 Temperature: Afebrile Blood Pressure: Normal Pulse: Tachycardic Respiratory Rate: Normal Appearance: Positive for: Well-Appearing, Non-Toxic, Comfortable Pain Distress: None Mental Status: Positive for: Alert and Oriented X 3 - Systems Exam Head: Present: Atraumatic, Normocephalic Pupils: Present: PERRL Extroacular Muscles: Present: EOMI Conjunctiva: Present: Normal Respiratory/Chest: Present: Clear to Auscultation, Good Air Exchange. No: Respiratory Distress, Accessory Muscle Use Cardiovascular: Present: Regular Rate and Rhythm, Normal S1, S2. No: Murmurs Upper Extremity: Present: Normal Inspection. No: Cyanosis, Edema Lower Extremity: Present: Normal Inspection. No: Edema Neurological: Present: GCS=15, CN II-XII Intact, Speech Normal Skin: Present: Warm, Dry, Normal Color. No: Rashes Psychiatric: Present: Alert, Oriented x 3, Normal Insight, Normal Concentration Medical Decision Making ED Course and Treatment: 11/09/17 12:51 Impression: 52 year old male presents to the Emergency department for dizziness/ lightheadedness since 45 minutes prior to arrival. Plan: -- EKG -- Labs -- Urinalysis -- Reassess and disposition Progress Notes: 11/09/17 12:45 EKG: Ordered, reviewed, and independently interpreted the EKG. Rate : 98 BPM Rhythm : NSR Interpretation : No ST-segment elevations or depressions, no T-wave inversions, normal intervals. 11/09/17 14:15 Patient eloped from the Emergency department. - Lab Interpretations Lab Results: 11/09/17 12:45 11/09/17 12:45 Lab Results 11/09/17 12:45: Alcohol, Quantitative < 10 11/09/17 12:45: Sodium 142, Potassium 4.2, Chloride 105, Carbon Dioxide 25, Anion Gap 16, BUN 15, Creatinine 0.9, Est GFR ( Amer) > 60, Est GFR (Non- Af Amer) > 60, Random Glucose 171 H, Calcium 9.5, Total Bilirubin 0.4, AST 20, ALT 39, Alkaline Phosphatase 90, Lactate Dehydrogenase 349, Total Creatine Kinase 153, Troponin I < 0.01, Total Protein 7.1, Albumin 4.4, Globulin 2.7, Albumin/Globulin Ratio 1.6 11/09/17 12:45: PT 11.6, INR 1.01 11/09/17 12:45: WBC 9.4, RBC 5.19, Hgb 16.0, Hct 45.7, MCV 88.1, MCH 30.8, MCHC 35.0, RDW 12.9, Plt Count 219, MPV 10.6, Gran % 75.6 H, Lymph % (Auto) 19.9 L, [place] % (Auto) 4.1, Eos % (Auto) 0.2 L, Baso % (Auto) 0.2, Gran # 7.09 H, Lymph # (Auto) 1.9, [place] # (Auto) 0.4, Eos # (Auto) 0.0, Baso # (Auto) 0.02 - EKG Interpretation Interpreted by ED Physician: Yes Type: 12 lead EKG - Scribe Statement The provider has reviewed the documentation as recorded by the Scribe Monroe [place]. All medical record entries made by the Scribe were at my direction and personally dictated by me. I have reviewed the chart and agree that the record accurately reflects my personal performance of the history, physical exam, medical decision making, and the department course for this patient. I have also personally directed, reviewed, and agree with the discharge instructions and disposition. Disposition/Present on Arrival - Present on Arrival Any Indicators Present on Arrival: No History of DVT/PE: No History of Uncontrolled Diabetes: No Urinary Catheter: No History of Decub. Ulcer: No History Surgical Site Infection Following: None - Disposition Have Diagnosis and Disposition been Completed?: Yes Diagnosis: Malaise, Left against medical advice Disposition: ELOPEMENT - ER ONLY Disposition Time: 14:47 Patient Plan: Discharge Condition: GOOD Forms: [facility] (Romansh)
[2017-11-09 12:48] VITALS: BP 132/80; TEMP 97.8; O2SAT 98
[2017-11-09 12:57] LABS: BASO # 0.02 K/mm3 (0.0-2.0); BASO % 0.2 % (0.0-3.0); EOS % 0.2 % (1.5-5.0); GRAN # 7.09 (1.4-6.5); GRAN % 75.6 % (50.0-68.0); LYMPH # 1.9 (1.2-3.4); LYMPH % 19.9 % (22.0-35.0); MEAN CELL VOLUME 88.1 fl (80.0-105.0); MEAN CORPUSCULAR HEMOGLOBIN 30.8 pg (25.0-35.0); MEAN PLATELET VOLUME 10.6 fl (7.0-11.0); MONO # 0.4 (0.1-0.6); MONO % 4.1 % (1.0-6.0); RBC 5.19 10^6/uL (3.5-6.1); RED CELL DISTRIBUTION WIDTH 12.9 % (11.5-14.5); WHITE BLOOD COUNT 9.4 10^3/ul (4.5-11.0)
[2017-11-09 12:59] LABS: INR 1.01 (0.93-1.08); PROTHROMBIN TIME 11.6 SECONDS (9.4-12.5)
[2017-11-09 13:03] LABS: ALB/GLOB RATIO 1.6 (1.1-1.8); ALBUMIN 4.4 g/dL (3.0-4.8); ALT/SGPT 39 U/L (7-56); AST/SGOT 20 U/L (17-59); BLOOD UREA NITROGEN 15 mg/dL (7-21); CALCIUM 9.5 mg/dL (8.4-10.5); GFR AFRICAN-AMERICAN > 60; GFR NON-AFRICAN AMERICAN > 60
[2017-11-09 13:14] LABS: TROPONIN I < 0.01 ng/mL
[2017-11-09 14:16] VITALS: PULSE 99; RESP 20
--- NOTE | 2017-11-10 09:20 | CARD ---
APPROVED REPORT EKG Measurement Heart [id number] [place] 130P37 [id number] <Conclusion> Normal sinus rhythm Normal ECG
== END 2017-11-09 14:16 | disposition left against medical advice (07) ==
LOC: ED 12:10
DX: R53.81 Other malaise (principal); I10 Essential (primary) hypertension; F17.210 Nicotine dependence, cigarettes, uncomplicated
CPT/HCPCS: 80053; 82550; 83615; 84484; 85025; 85610; 93005; 99284; G0480

== ENCOUNTER 2017-11-11 02:07 | Inpatient (IN) | payer MEDICARE, BC ==
[2017-11-11 02:34] VITALS: BMI 34.7
--- NOTE | 2017-11-11 02:36 | ED PDOC ---
Arrival/HPI - General Time Seen by Provider: 11/11/17 02:11 Historian: Patient - History of Present Illness Narrative History of Present Illness (Text): 11/11/17 02:34 A 52 year old male, whose past medical history includes, substance abuse, hypertension, hyperlipidemia, chronic lower back pain, anxiety, and depression, presents to the emergency department expressing suicidal ideation. The patient states that he has a plan to jump off of a bridge. The patient presents to the emergency department for further evaluation. The patient denies fevers, chills, headache, dizziness, chest pain, shortness of breath, dyspnea on exertion, cough , abdominal pain, nausea, vomiting, diarrhea, back pain, neck pain, urinary/ bowel changes, or any other complaint. PMD: Dr. Solo Coffman Time/Duration: Other (Today) Symptom Onset: Sudden Symptom Course: Unchanged Activities at Onset: Rest, Light Context: Home Past Medical History - Provider Review Nursing Documentation Reviewed: Yes - Past History Past History: No Previous - Infectious Disease Hx of Infectious Diseases: None - Tetanus Immunization Tetanus Immunization: Unknown - Cardiac Hx Cardiac Disorders: Yes Hx Hypertension: Yes - Pulmonary Hx Respiratory Disorders: No - Neurological Hx Neurological Disorder: No - HEENT Hx HEENT Disorder: No - Renal Hx Renal Disorder: No - Endocrine/Metabolic Hx Endocrine Disorders: No - Hematological/Oncological Hx Blood Disorders: No - Integumentary Hx Dermatological Disorder: No - Musculoskeletal/Rheumatological Hx Musculoskeletal Disorders: Yes Hx Back Pain: Yes Hx Falls: Yes - Gastrointestinal Hx Gastrointestinal Disorders: No - Genitourinary/Gynecological Hx Genitourinary Disorders: No - Psychiatric Hx Psychophysiologic Disorder: Yes Hx Anxiety: Yes Hx Depression: Yes Hx Substance Use: Yes - Past Surgical History Past Surgical History: Non-Contributing - Surgical History Hx Orthopedic Surgery: Yes Other/Comment: Knee repair - Anesthesia Hx Anesthesia: Yes Hx Anesthesia Reactions: No Hx Malignant Hyperthermia: No - Suicidal Assessment Feels Threatened In Home Enviroment: No Family/Social History - Physician Review Nursing Documentation Reviewed: Yes Family/Social History: No Known Family HX Smoking Status: Light Smoker < 10 Cigarettes Daily Hx Alcohol Use: Yes Hx Substance Use: Yes Hx Substance Use Treatment: No Allergies/Home Meds Allergies/Adverse Reactions: Allergies No Known Allergies Allergy (Verified 11/11/17 02:32) Home Medications: Home Meds Medication Instructions Recorded Confirmed No Known Home Med 11/11/17 11/11/17 Review of Systems - Physician Review All systems were reviewed & negative as marked: Yes - Review of Systems Constitutional: absent: Fevers, Night Sweats Respiratory: absent: SOB, Cough Cardiovascular: absent: Chest Pain, COHEN Gastrointestinal: absent: Abdominal Pain, Stool Changes, Diarrhea, Nausea, Vomiting Genitourinary Male: absent: Urinary Output Changes Musculoskeletal: absent: Back Pain, Neck Pain Neurological: absent: Headache, Dizziness Psychiatric: Suicidal Ideation Physical Exam Vital Signs Reviewed: Yes Vital Signs Temp Pulse Resp BP Pulse Ox 11/11/17 02:33 97.8 F 98 H 18 143/84 98 Temperature: Afebrile Blood Pressure: Normal Pulse: Tachycardic Respiratory Rate: Normal Appearance: Positive for: Well-Appearing, Non-Toxic, Comfortable Pain Distress: None Mental Status: Positive for: Alert and Oriented X 3 - Systems Exam Head: Present: Atraumatic, Normocephalic Pupils: Present: PERRL Extroacular Muscles: Present: EOMI Conjunctiva: Present: Normal Mouth: Present: Moist Mucous Membranes Neck: Present: Normal Range of Motion Respiratory/Chest: Present: Clear to Auscultation, Good Air Exchange. No: Respiratory Distress, Accessory Muscle Use Cardiovascular: Present: Regular Rate and Rhythm, Normal S1, S2. No: Murmurs Abdomen: No: Tenderness, Distention, Peritoneal Signs Back: Present: Normal Inspection Upper Extremity: Present: Normal Inspection. No: Cyanosis, Edema Lower Extremity: Present: Normal Inspection. No: Edema Neurological: Present: GCS=15, CN II-XII Intact, Speech Normal Skin: Present: Warm, Dry, Normal Color. No: Rashes Psychiatric: Present: Alert, Oriented x 3, Normal Insight, Normal Concentration Medical Decision Making ED Course and Treatment: 11/11/17 02:39 Impression: A 52 year old male presents to the emergency department expressing suicidal ideation. Plan: -- EKG -- Chest X-ray -- Labs -- Urinalysis -- Reassess and disposition Progress Notes: 11/11/17 03:12: Chest X-ray read and interpreted by me shows no acute disease. 11/11/17 04:27 EKG: Ordered, reviewed, and independently interpreted the EKG. Rate : 80 BPM Rhythm : NSR Interpretation : Non- specific T wave changes 11/11/17 05:24: Discussed case with Dr. Reich in emergency department. She will come evaluate patient. - Lab Interpretations Lab Results: 11/11/17 02:45 11/11/17 02:45 Lab Results 11/11/17 02:45: Alcohol, Quantitative < 10 11/11/17 02:45: Salicylates < 1 L, Acetaminophen < 10.0 L 11/11/17 02:45: Sodium 143, Potassium 3.7, Chloride 107, Carbon Dioxide 25, Anion Gap 15, BUN 15, Creatinine 0.8, Est GFR ( Amer) > 60, Est GFR (Non- Af Amer) > 60, Random Glucose 118 H, Calcium 9.1, Magnesium 1.8, Total Bilirubin 0.3, AST 37, ALT 32, Alkaline Phosphatase 80, Total Protein 7.0, Albumin 4.2, Globulin 2.8, Albumin/Globulin Ratio 1.5 11/11/17 02:45: WBC 9.2, RBC 5.00, Hgb 15.2, Hct 44.3, MCV 88.6, MCH 30.4, MCHC 34.3, RDW 13.1, Plt Count 234, MPV 10.5, Gran % 66.4, Lymph % (Auto) 28.0, [place] % (Auto) 4.9, Eos % (Auto) 0.5 L, Baso % (Auto) 0.2, Gran # 6.12, Lymph # (Auto ) 2.6, [place] # (Auto) 0.5, Eos # (Auto) 0.1, Baso # (Auto) 0.02 I have reviewed the lab results: Yes - RAD Interpretation Radiology Orders: 11/11/17 02:34 CHEST PORTABLE [RAD] Stat - EKG Interpretation Interpreted by ED Physician: Yes Type: 12 lead EKG - Scribe Statement The provider has reviewed the documentation as recorded by the Salvatoreibpauline Boland Provider Scribe Attestation: All medical record entries made by the Scribe were at my direction and personally dictated by me. I have reviewed the chart and agree that the record accurately reflects my personal performance of the history, physical exam, medical decision making, and the department course for this patient. I have also personally directed, reviewed, and agree with the discharge instructions and disposition. Disposition/Present on Arrival - Present on Arrival History of DVT/PE: No History of Uncontrolled Diabetes: No Urinary Catheter: No History Surgical Site Infection Following: None - Disposition
[2017-11-11 03:15] LABS: BASO # 0.02 K/mm3 (0.0-2.0); BASO % 0.2 % (0.0-3.0); EOS # 0.1 (0.0-0.7); EOS % 0.5 % (1.5-5.0); GRAN # 6.12 (1.4-6.5); GRAN % 66.4 % (50.0-68.0); HEMOGLOBIN 15.2 g/dL (14.0-18.0); LYMPH # 2.6 (1.2-3.4); MEAN CELL VOLUME 88.6 fl (80.0-105.0); MEAN CORPUSCULAR HEMOGLOBIN 30.4 pg (25.0-35.0); MEAN CORPUSCULAR HGB CONC 34.3 g/dl (31.0-37.0); MEAN PLATELET VOLUME 10.5 fl (7.0-11.0); MONO # 0.5 (0.1-0.6); MONO % 4.9 % (1.0-6.0); RED CELL DISTRIBUTION WIDTH 13.1 % (11.5-14.5); WHITE BLOOD COUNT 9.2 10^3/ul (4.5-11.0)
[2017-11-11 03:18] LABS: ACETAMINOPHEN < 10.0 ug/ml (10.0-20.0); SALICYLATE < 1 mg/dL (2.0-20.0)
[2017-11-11 03:21] LABS: ALB/GLOB RATIO 1.5 (1.1-1.8); ALBUMIN 4.2 g/dL (3.0-4.8); ALT/SGPT 32 U/L (7-56); AST/SGOT 37 U/L (17-59); BLOOD UREA NITROGEN 15 mg/dL (7-21); CALCIUM 9.1 mg/dL (8.4-10.5); GFR AFRICAN-AMERICAN > 60; GFR NON-AFRICAN AMERICAN > 60
[2017-11-11 05:38] LABS: URINE BILIRUBIN NEGATIVE (NEGATIVE); URINE BLOOD TRACE-INTACT (NEGATIVE); URINE GLUCOSE (UA) NEGATIVE (NEGATIVE); URINE LEUKOCYTE ESTERASE NEGATIVE Leu/uL (NEGATIVE); URINE PROTEIN NEGATIVE mg/dL (<30 mg/dL); URINE UROBILINOGEN 0.2 E.U./dL (<1 E.U./dL)
[2017-11-11 05:42] LABS: URINE APPEARANCE CLEAR (CLEAR); URINE COLOR YELLOW (YELLOW)
[2017-11-11 05:44] LABS: BARBITURATES, UR NEGATIVE (NEGATIVE)
[2017-11-11 06:00] LABS: URINE EPITHELIAL CELLS 0 - 2 /hpf (0-5); URINE RBC 0 - 2 /hpf (0-2); URINE WBC 0 - 2 /hpf (0-6)
[2017-11-11 06:02] LABS: BENZODIAZEPINES, UR POSITIVE (NEGATIVE); OPIATES, UR NEGATIVE (NEGATIVE); PHENCYCLIDINE, UR NEGATIVE (NEGATIVE)
[2017-11-11] MEDS ORDERED: oxyCODONE 30 mg Immediate Release Tab PO STA (08:26)
--- NOTE | 2017-11-11 08:59 | RAD ---
HISTORY: pes COMPARISON: 09/19/2017 FINDINGS: LUNGS: No active pulmonary disease. PLEURA: No significant pleural effusion identified, no pneumothorax apparent. CARDIOVASCULAR: Normal. OSSEOUS STRUCTURES: No significant abnormalities. VISUALIZED UPPER ABDOMEN: Normal. OTHER FINDINGS: None. IMPRESSION: No active disease.
--- NOTE | 2017-11-11 09:31 | CARD ---
APPROVED REPORT EKG Measurement Heart [id number] <Conclusion> Normal sinus rhythm Nonspecific T wave abnormality Abnormal ECG
[2017-11-11] MEDS ORDERED: Magnesium Hydroxide Susp 30 ml UD PO PRN (12:20)
[2017-11-11] MEDS ORDERED: Alum-Mag Hydrox-Simethicone Susp (30 mL) PO PRN (12:20)
--- NOTE | 2017-11-11 14:50 | ED PDOC ---
Physical Exam - Physical Exam Narrative Physical Exam (Text): Signed out to me pending psychiatric evaluation. Dr. Cardona came to evaluate patient, accepts for admission for Major depression and suicide risk. Vital Signs Temp Pulse Resp BP Pulse Ox 11/11/17 10:00 98.2 F 84 18 140/98 H 98 11/11/17 08:34 149/88 11/11/17 08:00 98.5 F 78 18 148/98 H 99 11/11/17 05:55 73 18 141/87 98 11/11/17 02:33 97.8 F 98 H 18 143/84 98 Medical Decision Making - Lab Interpretations Lab Results: 11/11/17 02:45 11/11/17 02:45 Lab Results 11/11/17 05:00: Urine Opiates Screen Negative, Urine Methadone Screen Negative, Ur Barbiturates Screen Negative, Ur Phencyclidine Scrn Negative, Ur Amphetamines Screen Negative, U Benzodiazepines Scrn Positive, U Oth Cocaine Metabols Negative, U Cannabinoids Screen Negative 11/11/17 05:00: Urine Color Yellow, Urine Appearance Clear, Urine pH 6.0, Ur Specific [place] 1.025, Urine Protein Negative, Urine Glucose (UA) Negative, Urine Ketones Negative, Urine Blood Trace-intact H, Urine Nitrate Negative, Urine Bilirubin Negative, Urine Urobilinogen 0.2, Ur Leukocyte Esterase Negative , Urine RBC 0 - 2, Urine WBC 0 - 2, Ur Epithelial Cells 0 - 2 11/11/17 02:45: Alcohol, Quantitative < 10 11/11/17 02:45: Salicylates < 1 L, Acetaminophen < 10.0 L 11/11/17 02:45: Sodium 143, Potassium 3.7, Chloride 107, Carbon Dioxide 25, Anion Gap 15, BUN 15, Creatinine 0.8, Est GFR ( Amer) > 60, Est GFR (Non- Af Amer) > 60, Random Glucose 118 H, Calcium 9.1, Magnesium 1.8, Total Bilirubin 0.3, AST 37, ALT 32, Alkaline Phosphatase 80, Total Protein 7.0, Albumin 4.2, Globulin 2.8, Albumin/Globulin Ratio 1.5 11/11/17 02:45: WBC 9.2, RBC 5.00, Hgb 15.2, Hct 44.3, MCV 88.6, MCH 30.4, MCHC 34.3, RDW 13.1, Plt Count 234, MPV 10.5, Gran % 66.4, Lymph % (Auto) 28.0, [place] % (Auto) 4.9, Eos % (Auto) 0.5 L, Baso % (Auto) 0.2, Gran # 6.12, Lymph # (Auto ) 2.6, [place] # (Auto) 0.5, Eos # (Auto) 0.1, Baso # (Auto) 0.02 - RAD Interpretation Radiology Orders: 11/11/17 02:34 CHEST PORTABLE [RAD] Stat - Medication Orders Current Medication Orders: Acetaminophen (Tylenol 325mg Tab) 650 mg PO Q6H PRN PRN Reason: Pain, moderate (4-7) Al Hydrox/Mg Hydrox/Simethicone (Maalox Plus 30 Ml) 30 ml PO DAILY PRN PRN Reason: Indigestion / Heartburn Clonazepam (Klonopin) 1 mg PO TID DAVE PRN Reason: Protocol Last Admin: 11/11/17 13:23 Dose: 1 mg Behavioural Document 11/11/17 13:23 DC (Rec: 11/11/17 13:23 DC [id number]) Maintenance Maintenance Dose Yes Re-Assess: Reassess Psych Meds Document 11/11/17 14:23 DC (Rec: 11/11/17 14:33 DC [id number]) Reassess Psych Med Effective Divalproex Sodium (Depakote Er(Once Daily)) 250 mg PO HS DAVE PRN Reason: Protocol Magnesium Hydroxide (Milk Of Magnesia) 30 ml PO DAILY PRN PRN Reason: Constipation Zaleplon (Sonata) 5 mg PO HS PRN PRN Reason: Insomnia Discontinued Medications Alprazolam (Xanax) 2 mg PO STAT STA PRN Reason: Protocol Stop: 11/11/17 08:27 Last Admin: 11/11/17 08:33 Dose: 2 mg Amlodipine Besylate (Norvasc) 10 mg PO STAT STA Stop: 11/11/17 08:27 Last Admin: 11/11/17 08:34 Dose: 10 mg MAR Blood Pressure Document 11/11/17 08:34 EWO (Rec: 11/11/17 08:34 EWO [id number]) Blood Pressure Blood Pressure (100/60-150/90) 149/88 Atorvastatin Calcium (Lipitor) 20 mg PO STAT STA Stop: 11/11/17 08:27 Last Admin: 11/11/17 08:33 Dose: 20 mg Oxycodone HCl (Oxycodone Immediate Release Tab) 30 mg PO STAT STA Stop: 11/11/17 08:27 Last Admin: 11/11/17 08:34 Dose: 30 mg MAR Pain Assessment Document 11/11/17 08:34 LEENA (Rec: 11/11/17 08:34 LEENA [id number]) Pain Reassessment Is this a pain reassessment? No Sleep Is patient sleeping during reassessment? No Presence of Pain Presence of Pain Yes Pain Scale Used Pain Scale Used Numeric Location Pain Location Body Site Back Description Description Constant Intensity of Pain at present 8 Disposition/Present on Arrival - Present on Arrival Any Indicators Present on Arrival: No History of DVT/PE: No History of Uncontrolled Diabetes: No Urinary Catheter: No History of Decub. Ulcer: No History Surgical Site Infection Following: None - Disposition Have Diagnosis and Disposition been Completed?: Yes Diagnosis: Major depression Disposition: HOSPITALIZED Disposition Time: 09:00 Patient Plan: Admission Condition: GUARDED
[2017-11-11 16:20] VITALS: RESP 20; O2SAT 98
--- NOTE | 2017-11-11 16:25 | PCM.BM ---
<Sunil Willams - Last Filed: 11/11/17 16:22> Treatment Plan Problems - Problems identified on initial assessmt Ineffective Coping Date Initiated: 11/11/17 Time Initiated: Assessment reference: NA Status: Active Priority: 1 Feelings of Worthlessness Date Initiated: 11/11/17 Time Initiated: 30 Assessment reference: NA Status: Active Priority: 2 Medication Nonadherence Date Initiated: 11/11/17 Time Initiated: Assessment reference: NA Status: Active Priority: 3 Treatment assets and liabiliti Patient Assests: adapts well, cooperative, insightful, motivated, self-reliant, ADL independent, physically healthy, negotiates basic needs, financial stabiity , cognitively intact, good interpersonal skills Patient Liabilities: live alone, poor support system, relationship conflicts - Milieu Protocol Maintain good personal hygiene: daily Encourage regular showers, every shift Remind patient to perform daily oral care, every shift Assist patient to perform ADL's Maintain personal safety: every shift Educate patient to report safety concerns to staff, every shift Monitor environment for contraband/sharps Medication safety: Monitor for expected outcome, potential side effects: every shift, Assess barriers to learning: every shift, Assess readiness for medication education: every shift Family Contact Family involvement: Patient does not wish Family/SO involvement Family contact: Patient declines to allow family contact at present - Goals for Treatment Patient goals for treatment: "need a place to stay" Discharge/Continuing Care - Education Needs Education Needs: Patient Medication, Patient Diagnosis/Disease Process, Patient Coping Skills, Patient Anger Management skills, Patient Placement options, Patient Community resources, Patient Activities of Daily Living, Patient Pain, Patient Nutrition, Patient Uses of Medical Equipment, Patient Health Practices/ Safety, Patient Personal Hygiene/Grooming, Patient Aftercare Safety Plan, Patient Other - Discharge Discharge Criteria: Tolerates medication w/o severe side effects <Nabil Cardona - Last Filed: 11/12/17 11:17> - Diagnosis (1) Major depression Status: Acute Interventions: Klonopin 1 mg AMHS for anxiety Depakote 250 mg HS for mood control Sonata 5 mg HS prn: insomnia Awaiting medical consult. 11/12/17 11:17 (2) Benzodiazepine withdrawal Status: Acute Interventions: Klonopin 1 mg AMHS for anxiety Depakote 250 mg HS for mood control [place] 5 mg HS prn: insomnia Awaiting medical consult. 11/12/17 11:17
[2017-11-11] MEDS: Divalproex 250 mg ER (ONCE DAILY formulation) PO SCH (21:22)
[2017-11-12 08:55] LABS: GLUCOSE,FASTING 103 mg/dL (65-110); HDL CHOLESTEROL 41 mg/dL (29-60)
[2017-11-12 09:05] LABS: LDL CHOLESTEROL 135 mg/dL (0-129)
--- NOTE | 2017-11-12 11:16 | PCM.PSYCH ---
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 I interviewed patient in the emergency department yesterday and met with patient at bedside this morning. He remains pleasant and well-oriented to month , year, location and circumstances. Indicates that he is feeling better and that he slept very well last night. Tolerating medications well and he feels like his anxiety and mood are improving. Patient isn't forthcoming about current stressors but he seems more brightly superficial than guarded. Patient does indicate that he is now homeless due to issue with a friend. He denies any drug or excessive alcohol use. Patients responses are generally coherent and related to questioning. He denies perceptual disturbance and does not appear to be responding to internal stimuli. He has been in good control on the unit and there have been no reported behavioral issues thus far. Patient expresses his gratitude for our help on the unit. Belongings checked. A knife and mace were sent with security downstairs. Patient signed 48 hour notice at 07:20 am this morning. SOCIAL HISTORY Patient was born and raised in [place]. He is unemployed and homeless. Reports that he is dating a 21 yo female who lets him stay at her home sometimes. Patient never graduated high school, only went up to the 10th grade. Patient indicates that he is a social drinker and he denies any drug issues. His urine drug screen was only positive for benzos. Of note, patient reports history of xanax withdrawal seizures in the past. 10/2014 admission indicates "When was asked about the drugs, pt said "I will not tell you....", in more detailed questions pt said that he was taking "Roxys, but I will not tell you by whom" Questionable history of opioid abuse in the past related to 10/2014 admission. Patient has a history of chronic pain Patient has been incarcerated at [place] in the past. PSYCHIATRIC HISTORY Admission to [facility] 10/31/14-11/12/14. Diagnosis at that time was: Severe major depression with psychotic features, Benzodiazepine withdrawal with delirium, Opioid withdrawal delirium. Patient was discharged on Prozac 20 mg, Remeron 30 HS, Seroquel 50/100 Dr. Stanley consulted on patient in 2011 s/p overdose. Dr. Stanley recommended transfer to the inpatient psychiatric unit. After that no admission record was found Patient denies having any true suicide attempts, reports that overdose was a gesture for attention. Patient reports that he is prescribed xanax 2 mg po TID, prescribed by his PMD. Last use was 2-3 weeks ago however UDS was positive for benzos. Of note, patient told nursing that he has been noncompliant with seroquel for 2 weeks, this information was not provided to me during our interviews. Current Medications: Active Medications Generic Name Dose Route Start Last Admin Trade Name Freq PRN Reason Stop Dose Admin Acetaminophen 650 mg 11/11/17 12:20 Tylenol 325mg Tab PO Q6H PRN Pain, moderate (4-7) Al Hydrox/Mg Hydrox/Simethicone 30 ml 11/11/17 12:20 Maalox Plus 30 Ml PO DAILY PRN Indigestion / Heartburn Amlodipine Besylate 10 mg 11/12/17 08:00 Norvasc PO DAILY DAVE Atorvastatin Calcium 20 mg 11/12/17 08:00 Lipitor PO DAILY DAVE Clonazepam 1 mg 11/11/17 13:00 11/11/17 17:28 Klonopin PO 1 mg TID DAVE Administration Protocol Divalproex Sodium 250 mg 11/11/17 22:00 11/11/17 21:22 Depakote Er(Once Daily) PO 250 mg HS DAVE Administration Protocol Magnesium Hydroxide 30 ml 11/11/17 12:20 Milk Of Magnesia PO DAILY PRN Constipation Zaleplon 5 mg 11/11/17 12:26 Sonata PO HS PRN Insomnia Past Psychiatric History - Past Psychiatric History Pertinent Medical Hx (Current Medical&Sleep Prob, Allergies): Allergies Allergy/AdvReac Type Severity Reaction Status Date / Time No Known Allergies Allergy Verified 11/11/17 16:32 Alprazolam [Xanax] 2 mg PO QID 11/11/17 Atorvastatin [Lipitor] 20 mg PO DAILY 11/11/17 amLODIPine [Norvasc] 10 mg PO DAILY 11/11/17 oxyCODONE [oxyCODONE Immediate Release Tab] 30 mg PO TID 11/11/17 DSM 5 DX - DSM 5 DSM 5 Diagnosis: Mood Disorder NOS MDD without psychotic features r/o Adjustment disorder with depression r/o Amplification of symptoms for secondary gain r/o Benzo misuse/abuse - Recommended/Plan of Treatment Treatment Recommendations and Plan of Treatment: * group, milieu and supportive tx * Klonopin 1 mg AMHS for anxiety * Depakote 250 mg HS for mood control * Sonata 5 mg HS prn: insomnia * Awaiting medical consult. * Vitals reviewed and noted below: Selected Entries 11/11/17 11/11/17 11/12/17 11:23 16:32 06:58 Temperature 97.5 F L 98.4 F Pulse Rate 86 73 75 Respiratory 20 20 Rate Blood Pressure 110/75 109/73 119/80 * Patient signed 48 hour notice at 07:20 am this morning. If patient continues to improve, he can be discharged on 11/14/17 ER LABS AND STUDIES 11/11/17 03:12: Chest X-ray read and interpreted by Dr. Mac shows no acute disease. 11/11/17 04:27 EKG: Ordered, reviewed, and independently interpreted the EKG. Rate : 80 BPM Rhythm : NSR Interpretation : Non- specific T wave changes 11/11/17 02:45: Alcohol, Quantitative < 10 11/11/17 02:45: Salicylates < 1 L, Acetaminophen < 10.0 L 11/11/17 02:45: Sodium 143, Potassium 3.7, Chloride 107, Carbon Dioxide 25, Anion Gap 15, BUN 15, Creatinine 0.8, Est GFR ( Amer) > 60, Est GFR (Non- Af Amer) > 60, Random Glucose 118 H, Calcium 9.1, Magnesium 1.8, Total Bilirubin 0.3, AST 37, ALT 32, Alkaline Phosphatase 80, Total Protein 7.0, Albumin 4.2, Globulin 2.8, Albumin/Globulin Ratio 1.5 11/11/17 02:45: WBC 9.2, RBC 5.00, Hgb 15.2, Hct 44.3, MCV 88.6, MCH 30.4, MCHC 34.3, RDW 13.1, Plt Count 234, MPV 10.5, Gran % 66.4, Lymph % (Auto) 28.0, [place] % (Auto) 4.9, Eos % (Auto) 0.5 L, Baso % (Auto) 0.2, Gran # 6.12, Lymph # (Auto ) 2.6, [place] # (Auto) 0.5, Eos # (Auto) 0.1, Baso # (Auto) 0.02 Floor labs 11/12/17 11/12/17 07:55 07:55 Fasting Glucose 103 Triglycerides 134 Cholesterol 206 H LDL Cholesterol Direct 135 H HDL Cholesterol 41 TSH 3rd Generation 1.00 - Smoking Cessation Smoking Cessation Initiated: No
[2017-11-12] MEDS ORDERED: oxyCODONE 30 mg Immediate Release Tab PO PRN (11:35)
[2017-11-12] MEDS: oxyCODONE 10 mg Immediate Release Tab PO PRN ×2 (15:52→23:07)
[2017-11-12] MEDS ORDERED: oxyCODONE 30 mg Immediate Release Tab PO SCH (16:00)
[2017-11-12] MEDS: Divalproex 250 mg ER (ONCE DAILY formulation) PO SCH (23:07)
--- NOTE | 2017-11-12 23:26 | CON ---
DATE: 11/12/2017 HISTORY OF PRESENT ILLNESS: I was called to see him in the psychiatric floor. He was sleeping in bed. I easily awakened him and he is asking for pain medications. Round the clock he is in pain for which has been taking oxycodone regularly from his doctors on the outpatient. He is a 52-year-old man who comes into the emergency room expressing suicidal thoughts. He had a plan to jump off the bridge. He wants further evaluation. He states he is feeling little better from that. Patient has a past medical history that includes substance abuse, hypertension, high cholesterol, chronic low back pain from herniated disk, anxiety, depression. There is sudden onset of sudden change. He tells me his regular doctor is Dr. Alonso Coffman. So, I said "okay, I will get Dr. Gupta to take care of you here." He said, no. He wants me to take care of him. So, I will continue to take care of him. He also tells me he is going to be going home on Tuesday. PAST MEDICAL HISTORY: He has a past medical history of hypertension, back pain from herniated disk from falls. He is having anxiety, depression, substance abuse, suicidal thoughts. He has had knee repair. FAMILY HISTORY: No known family history. SOCIAL HISTORY: Still smoking. Still drinking. Still doing drugs. He is on oxycodone. ALLERGIES: NO KNOWN DRUG ALLERGIES. MEDICATIONS: His medication list, he takes atorvastatin for high cholesterol, Norvasc for hypertension, Xanax for his anxiety and takes 30 mg of oxycodone 2 to 3 times a day. REVIEW OF SYSTEMS: He has no fever, no night sweats, no shortness of breath, no cough, no chest pain or dyspnea on exertion, no abdominal pain, no stool changes, no diarrhea, nausea, or vomiting. No urinary tract problems. No back pain or neck pain at this time. No headache or dizziness, but he is suicidal. PHYSICAL EXAMINATION: GENERAL: He looks very comfortable to me right now, but he tells he is in lot of pain. VITAL SIGNS: He has 97.8 temperature, 98 pulse, 18 respiratory rate, 143/84 blood pressure, 98% O2 saturation on room air. HEENT: His head is atraumatic, normocephalic. Extraocular muscles are intact. Pupils are equal and reactive to light and accommodation. Throat is moist. NECK: Supple. HEART: Regular rate. Normal S1, S2. LUNGS: Decreased breath sounds, but clear to auscultation bilaterally. ABDOMEN: Soft, nontender. Positive bowel sounds. No guarding. No rebound. No CVA tenderness. EXTREMITIES: No edema bilaterally. NEUROLOGIC: GCS is 15. Cranial nerves II through XII grossly intact. Speech is normal. SKIN: Warm and dry. No apparent rashes. Multiple tattoos. PSYCHIATRIC: Alert and oriented x3. LYMPHATIC: Thyroid midline. No palpable appreciable lymphadenopathy. LABORATORY DATA: He has some tests done. Chest x-ray was okay. His urine drug screen only showed benzodiazepines. It did not show any opiates yet. Urine is clean. He has 143 sodium, potassium 3.7, BUN 13, creatinine 0.4, GFR is greater than 60, sugar is 118 and also 103, calcium 9.1, magnesium 1.8, total bilirubin 0.3, AST 37, ALT 32, alkaline phosphatase is 80, total protein 7, albumin is 4.2, globulin 2.8. Triglyceride is 134, cholesterol is 206, LDL is 135, TSH is 1. White count is 9.2, hemoglobin 15.2, hematocrit 45.3, platelets 234. PLAN: I will continue with treatment and care. We will check his labs tomorrow and offer him tramadol p.o. for his pain from 4 to 7 and I will offer him his oxycodone for severe pain from 7 to 10 and will see how he does. Btehel Sanchez DO
[2017-11-13 08:22] LABS: MEAN CELL VOLUME 87.8 fl (80.0-105.0); MEAN CORPUSCULAR HEMOGLOBIN 30.9 pg (25.0-35.0); MEAN CORPUSCULAR HGB CONC 35.2 g/dl (31.0-37.0); MEAN PLATELET VOLUME 10.5 fl (7.0-11.0); RBC 5.18 10^6/uL (3.5-6.1); RED CELL DISTRIBUTION WIDTH 12.9 % (11.5-14.5); WHITE BLOOD COUNT 8.2 10^3/ul (4.5-11.0)
[2017-11-13 08:43] LABS: ALB/GLOB RATIO 1.6 (1.1-1.8); ALBUMIN 4.5 g/dL (3.0-4.8); ALT/SGPT 26 U/L (7-56); AST/SGOT 15 U/L (17-59); BLOOD UREA NITROGEN 21 mg/dL (7-21); CALCIUM 9.1 mg/dL (8.4-10.5); GFR AFRICAN-AMERICAN > 60; GFR NON-AFRICAN AMERICAN > 60
[2017-11-13] MEDS: oxyCODONE 10 mg Immediate Release Tab PO PRN ×2 (08:49→20:12)
--- NOTE | 2017-11-13 10:40 | PCM.PYCHPN ---
Psychiatric Progress Note - Psychiatric Progress Note Patient seen today, length of contact: 25 min Problems Identified/Issues Discussed: History of Present Illness and Precipitating Events: Patient is a single 52 year old single male who has a psychiatric history of Major depression with psychotic features, Benzodiazepine withdrawal with delirium, Opioid withdrawal delirium, at least 1-2 prior psychiatric admissions , most recently at [facility] 10/31/14-11/12/14, no current outpatient psychiatric treatment, reportedly noncompliant with Xanax 2 mg po TID x2-3 (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 I interviewed patient in the emergency department yesterday and met with patient at bedside this morning. He remains pleasant and well-oriented to month , year, location and circumstances. Indicates that he is feeling better and that he slept very well last night. Tolerating medications well and he feels like his anxiety and mood are improving. Patient isn't forthcoming about current stressors but he seems more brightly superficial than guarded. Patient does indicate that he is now homeless due to issue with a friend. He denies any drug or excessive alcohol use. Patients responses are generally coherent and related to questioning. He denies perceptual disturbance and does not appear to be responding to internal stimuli. He has been in good control on the unit and there have been no reported behavioral issues thus far. Patient expresses his gratitude for our help on the unit. Belongings checked. A knife and mace were sent with security downstairs. Patient signed 48 hour notice at 07:20 am this morning. SOCIAL HISTORY Patient was born and raised in [place]. He is unemployed and homeless. Reports that he is dating a 21 yo female who lets him stay at her home sometimes. Patient never graduated high school, only went up to the 10th grade. Patient indicates that he is a social drinker and he denies any drug issues. His urine drug screen was only positive for benzos. Of note, patient reports history of xanax withdrawal seizures in the past. 10/2014 admission indicates "When was asked about the drugs, pt said "I will not tell you....", in more detailed questions pt said that he was taking "Roxys, but I will not tell you by whom" Questionable history of opioid abuse in the past related to 10/2014 admission. Patient has a history of chronic pain Patient has been incarcerated at [place] in the past. PSYCHIATRIC HISTORY Admission to [facility] 10/31/14-11/12/14. Diagnosis at that time was: Severe major depression with psychotic features, Benzodiazepine withdrawal with delirium, Opioid withdrawal delirium. Patient was discharged on Prozac 20 mg, Remeron 30 HS, Seroquel 50/100 Dr. Stanley consulted on patient in 2011 s/p overdose. Dr. Stanley recommended transfer to the inpatient psychiatric unit. After that no admission record was found Patient denies having any true suicide attempts, reports that overdose was a gesture for attention. Patient reports that he is prescribed xanax 2 mg po TID, prescribed by his PMD. Last use was 2-3 weeks ago however UDS was positive for benzos. Of note, patient told nursing that he has been noncompliant with seroquel for 2 weeks, this information was not provided to me during our interviews. PROGRESS NOTE I reviewed recent notes and met with patient in the hallway. He remains pleasant and well-oriented to month, year, location and circumstances. Indicates that he is feeling better and that sleep was more restless last night. Tolerating medications well and he feels like his anxiety and mood are improving. Patient remains brightly superficial about current stressors. No paranoia noted. Patients responses are generally coherent and related to questioning. He denies perceptual disturbance and does not appear to be responding to internal stimuli. He has been in good control on the unit and there have been no reported behavioral issues thus far. Diagnostic Results: Mood Disorder NOS MDD without psychotic features r/o Adjustment disorder with depression r/o Amplification of symptoms for secondary gain r/o Benzo misuse/abuse Medication Change: Yes (Sonata increased to 10 mg HS prn) Medical Record Reviewed: Yes Mental Status Examination - Cognitive Function Orientation: Person, Place, Situation Attention: WNL Concentration: WNL Association: WNL Fund of Knowledge: WNL - Mood Mood: Neutral (depression and anxiety are improving) - Affect Affect: Broad - Speech Speech: Appropriate - Formal Thought Process Formal Thought Process: No Impairment - Suicidal Ideation Suicidal Ideation: No - Homicidal Ideation Homicidal Ideation: No Goal/Treatment Plan - Goal/Treatment Plan Progress Toward Problem(s) and Goals/Treatment Plan: * group, milieu and supportive tx * Klonopin 1 mg AMHS for anxiety * Depakote 250 mg HS for mood control * Sonata increased to 10 mg HS prn: insomnia * Appreciate f/u by Dr. Sanchez on 11/12/17 regarding patient's complaints of pain. * Vitals reviewed and noted below: 11/13/17 07:02 Temperature 97.8 F Pulse Rate 80 Respiratory 20 Rate Blood Pressure 124/80 * Patient signed 48 hour notice at 07:20 am 11/12/17. If patient continues to improve, he can be discharged on 11/14/17 ER LABS AND STUDIES 11/11/17 03:12: Chest X-ray read and interpreted by Dr. Mac shows no acute disease. 11/11/17 04:27 EKG: Ordered, reviewed, and independently interpreted the EKG. Rate : 80 BPM Rhythm : NSR Interpretation : Non- specific T wave changes 11/11/17 02:45: Alcohol, Quantitative < 10 11/11/17 02:45: Salicylates < 1 L, Acetaminophen < 10.0 L 11/11/17 02:45: Sodium 143, Potassium 3.7, Chloride 107, Carbon Dioxide 25, Anion Gap 15, BUN 15, Creatinine 0.8, Est GFR ( Amer) > 60, Est GFR (Non- Af Amer) > 60, Random Glucose 118 H, Calcium 9.1, Magnesium 1.8, Total Bilirubin 0.3, AST 37, ALT 32, Alkaline Phosphatase 80, Total Protein 7.0, Albumin 4.2, Globulin 2.8, Albumin/Globulin Ratio 1.5 11/11/17 02:45: WBC 9.2, RBC 5.00, Hgb 15.2, Hct 44.3, MCV 88.6, MCH 30.4, MCHC 34.3, RDW 13.1, Plt Count 234, MPV 10.5, Gran % 66.4, Lymph % (Auto) 28.0, [place] % (Auto) 4.9, Eos % (Auto) 0.5 L, Baso % (Auto) 0.2, Gran # 6.12, Lymph # (Auto ) 2.6, [place] # (Auto) 0.5, Eos # (Auto) 0.1, Baso # (Auto) 0.02 Floor labs 11/12/17 11/12/17 07:55 07:55 Fasting Glucose 103 Triglycerides 134 Cholesterol 206 H LDL Cholesterol Direct 135 H HDL Cholesterol 41 TSH 3rd Generation 1.00
--- NOTE | 2017-11-13 13:43 | PN ---
DATE: 11/13/2017 SUBJECTIVE: I saw him resting comfortably in bed. He slept well. He is participating. He is taking his medications. He is feeling a little bit better with his pain meds, although I did discuss getting off his pain meds and seeing a pain management to get him off, he listened. MEDICATIONS: He is on Depakote, Klonopin, Lipitor, Maalox, milk of magnesia, Norvasc, oxycodone for pain management, Sonata, Tylenol, Ultram which I told him to use instead of the oxycodone if possible. PHYSICAL EXAMINATION: VITAL SIGNS: He has a 97.8 temp, 80 pulse, 124/80 blood pressure, 20 respiratory rate. HEENT: His head is atraumatic, normocephalic. HEART: Regular rate. LUNGS: Decreased breath sounds, but clear. ABDOMEN: Soft, obese. EXTREMITIES: No edema. LABORATORY DATA: He has 8.2 white count, 16 hemoglobin, 45.5 hematocrit with 240 platelets. 144 sodium, potassium 4.2, BUN 21, creatinine 0.8, GFR is greater than 60, sugar is 98, calcium is 9.1, total bili is 0.3, AST is 15, ALT is 26, alk phos 70, total protein 7.3, albumin is 4.5, total cholesterol is 206, TSH is 1. RPR was nonreactive. ASSESSMENT AND PLAN: As per Psychiatry, he tells me he is being discharged tomorrow. I told him he needs to follow up with an outpatient pain management doctor for his oxycodones. We will continue with aggressive treatment and care for this young man who has got chronic pain, herniated nucleus pulposus, depression, high cholesterol, hypertension. Bethel Sanchez DO [email or web address]
[2017-11-13] MEDS: Divalproex 250 mg ER (ONCE DAILY formulation) PO SCH (21:10)
[2017-11-14 06:35] VITALS: BP 115/76; PULSE 74; TEMP 97.6
[2017-11-14] MEDS: oxyCODONE 10 mg Immediate Release Tab PO PRN (07:18)
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
== END 2017-11-14 10:09 | disposition left against medical advice (07) | DRG 885 ==
LOC: ED 02:07 → ERH 09:04 → PSYC 11:06
PROVIDERS: ADMIT Psychiatry & Neurology Psychiatry; ATTEND Psychiatry & Neurology Psychiatry
DX: F32.2 Major depressive disorder, single episode, severe without psychotic features (principal); F13.239 Sedative, hypnotic or anxiolytic dependence with withdrawal, unspecified; R45.851 Suicidal ideations; F39 Unspecified mood [affective] disorder; I10 Essential (primary) hypertension; G89.29 Other chronic pain; F41.9 Anxiety disorder, unspecified; E78.00 Pure hypercholesterolemia, unspecified; F17.210 Nicotine dependence, cigarettes, uncomplicated; Z59.0 Homelessness; Z91.19 Patient's noncompliance with other medical treatment and regimen

== ENCOUNTER 2017-11-23 17:54 | Inpatient (IN) | payer MEDICARE, BC ==
[2017-11-23 18:06] VITALS: BMI 28.5
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
[2017-11-23 19:25] LABS: BASO # 0.03 K/mm3 (0.0-2.0); BASO % 0.3 % (0.0-3.0); EOS % 0.3 % (1.5-5.0); GRAN # 7.91 (1.4-6.5); GRAN % 72.2 % (50.0-68.0); HEMOGLOBIN 15.7 g/dL (14.0-18.0); LYMPH # 2.1 (1.2-3.4); LYMPH % 19.3 % (22.0-35.0); MEAN CELL VOLUME 87.8 fl (80.0-105.0); MEAN CORPUSCULAR HEMOGLOBIN 29.9 pg (25.0-35.0); MEAN CORPUSCULAR HGB CONC 34.1 g/dl (31.0-37.0); MEAN PLATELET VOLUME 10.9 fl (7.0-11.0); MONO # 0.9 (0.1-0.6); MONO % 7.9 % (1.0-6.0); RBC 5.25 10^6/uL (3.5-6.1); RED CELL DISTRIBUTION WIDTH 13.2 % (11.5-14.5); WHITE BLOOD COUNT 10.9 10^3/ul (4.5-11.0)
[2017-11-23 19:27] LABS: ACETAMINOPHEN < 10.0 ug/ml (10.0-20.0); SALICYLATE < 1 mg/dL (2.0-20.0)
[2017-11-23 19:35] LABS: ALB/GLOB RATIO 1.6 (1.1-1.8); ALBUMIN 4.8 g/dL (3.0-4.8); ALT/SGPT 46 U/L (7-56); AST/SGOT 28 U/L (17-59); BLOOD UREA NITROGEN 15 mg/dL (7-21); CALCIUM 9.9 mg/dL (8.4-10.5); GFR AFRICAN-AMERICAN > 60; GFR NON-AFRICAN AMERICAN > 60
[2017-11-23 21:10] LABS: URINE BILIRUBIN NEGATIVE (NEGATIVE); URINE BLOOD TRACE-INTACT (NEGATIVE); URINE GLUCOSE (UA) NEGATIVE (NEGATIVE); URINE LEUKOCYTE ESTERASE NEGATIVE Leu/uL (NEGATIVE); URINE PROTEIN NEGATIVE mg/dL (<30 mg/dL); URINE UROBILINOGEN 0.2 E.U./dL (<1 E.U./dL)
[2017-11-23 21:13] LABS: URINE APPEARANCE CLEAR (CLEAR); URINE COLOR YELLOW (YELLOW)
[2017-11-23 21:16] LABS: URINE BACTERIA FEW (NEG)
[2017-11-23 21:28] LABS: BARBITURATES, UR NEGATIVE (NEGATIVE); BENZODIAZEPINES, UR NEGATIVE (NEGATIVE); OPIATES, UR NEGATIVE (NEGATIVE)
[2017-11-23 21:43] LABS: PHENCYCLIDINE, UR NEGATIVE (NEGATIVE)
[2017-11-23 22:51] VITALS: O2SAT 98
[2017-11-23] MEDS: Divalproex 250 mg DR (BID formulation) PO SCH (23:49)
[2017-11-23] MEDS ORDERED: Alum-Mag Hydrox-Simethicone Susp (30 mL) PO PRN (23:53)
[2017-11-23] MEDS ORDERED: Magnesium Hydroxide Susp 30 ml UD PO PRN (23:53)
--- NOTE | 2017-11-24 02:26 | PCM.BM ---
<Merlin Garcia - Last Filed: 11/24/17 02:21> Treatment Plan Problems - Problems identified on initial assessmt Ineffective Coping Date Initiated: 11/24/17 Assessment reference: NA Status: Active Altered sleep imbalance Date Initiated: 11/24/17 Assessment reference: NA Status: Active Hopelessness Assessment reference: NA Status: Active Social isolation Assessment reference: NA Status: Active Activity intolerance Assessment reference: NA Status: Active Treatment assets and liabiliti Patient Assests: adapts well, cooperative, insightful, motivated, self-reliant, ADL independent, physically healthy, negotiates basic needs, financial stabiity , cognitively intact, good interpersonal skills Patient Liabilities: poor support system, substance abuse, legal issue - Milieu Protocol Maintain good personal hygiene: daily Encourage regular showers, daily Remind patient to perform daily oral care, daily Assist patient to perform ADL's Maintain personal safety: daily Educate patient to report safety concerns to staff, daily Monitor environment for contraband/sharps Medication safety: Monitor for expected outcome, potential side effects: daily, Assess barriers to learning: daily, Assess readiness for medication education: daily Family Contact Family involvement: Family/SO is involved Family contact: Patient agrees to contact Family contact name: Colleen Clark - Goals for Treatment Patient goals for treatment: I want to get better and go home Discharge/Continuing Care - Education Needs Education Needs: Patient Medication, Patient Diagnosis/Disease Process, Patient Coping Skills, Patient Anger Management skills - Discharge Discharge Criteria: Free of Suicidal thoughts, Normal sleep pattern <Bindu Sandy A - Last Filed: 11/24/17 15:38> - Diagnosis (1) Psychosis Status: Acute Interventions: 11/24/17 15:37 Psychoeducation/psychotherapy Psychopharmacology/adjustment of medications as needed/ monitoring possible side effects Evaluate pt on daily basis Compliance with medications and follow up appointments Long acting medication if pt is noncompliant with pill form Suicide and homicide risk assessment and prevention, coping strategies, safety plan Relapse prevention Reduction of symptoms Improve functional status Possible assertive community treatment Cognitive behavioral therapy Family involvement Possible social skill training as outpatient (2) Substance use disorder Status: Acute Interventions: 11/24/17 15:38 Monitoring withdrawal symptoms Medical detoxification Pharmacotherapy for alcohol/benzos/opioid dependence Maintaining sobriety Relapse prevention Possible rehabilitation Motivational interviewing 12-step programs: AA meetings
--- NOTE | 2017-11-24 08:20 | RAD ---
HISTORY: for medical clearance; suicidal COMPARISON: 11/11/2017 FINDINGS: LUNGS: No active pulmonary disease. PLEURA: No significant pleural effusion identified, no pneumothorax apparent. CARDIOVASCULAR: Normal. OSSEOUS STRUCTURES: No significant abnormalities. VISUALIZED UPPER ABDOMEN: Normal. OTHER FINDINGS: None. IMPRESSION: No active disease.
[2017-11-24 08:36] LABS: GLUCOSE,FASTING 95 mg/dL (65-110); HDL CHOLESTEROL 39 mg/dL (29-60)
[2017-11-24 08:46] LABS: LDL CHOLESTEROL 80 mg/dL (0-129)
[2017-11-24] MEDS: Divalproex 250 mg DR (BID formulation) PO SCH ×3 (09:12→21:25)
--- NOTE | 2017-11-24 11:03 | US ---
PROCEDURE: Ultrasound of the Kidneys HISTORY: microhematuria COMPARISON: Abdomen pelvis CT with contrast 12/25/2016. TECHNIQUE: Sonogram of the kidneys. FINDINGS: RIGHT KIDNEY: Measures: 11.4 x 5.4 x 5.1 cm. Normal size and contour is appreciated over corticomedullary differentiation is limited which may indicate intrinsic medical disease. No hydronephrosis or definite cystic or solid masses identified, however, a 3.5 mm calculus identified at the upper midpole. LEFT KIDNEY: Measures: 11.6 x 5.8 x 5.5 cm. Normal size and contour is appreciated over corticomedullary differentiation is limited which may indicate intrinsic medical disease. No stone, solid mass lesion or hydronephrosis visualized. OTHER FINDINGS: None. IMPRESSION: Potential intrinsic medical disease. No obstructive uropathy bilaterally. 3.5 mm calculus upper to midpole right kidney. None is seen at the left.
--- NOTE | 2017-11-24 12:34 | CARD ---
APPROVED REPORT EKG Measurement Heart [id number] <Conclusion> Normal sinus rhythm Nonspecific T wave abnormality Prolonged QT No change except the QTC is increased.
[2017-11-24] MEDS ORDERED: DiphenhydrAMINE 50 mg/ml Inj IM PRN (13:07)
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
[2017-11-25] MEDS: Divalproex 250 mg DR (BID formulation) PO SCH ×3 (09:11→21:00)
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
--- NOTE | 2017-11-25 16:07 | HP ---
HISTORY OF PRESENT ILLNESS: The patient is a 52-year-old male, currently admitted to Psychiatry. He presented to the emergency room complaining of depression and suicidal ideation. PAST MEDICAL HISTORY: Includes substance abuse, hypertension, hyperlipidemia, chronic lower back pain, anxiety and depression. Past medical history is also remarkable for a surgical knee repair. FAMILY HISTORY: Noncontributory. SOCIAL HISTORY: The patient is a heavy smoker and drinks alcohol. He does have a history of substance abuse. ALLERGIES: NO KNOWN ALLERGIES. PHYSICAL EXAMINATION: VITAL SIGNS: Temp of 97.7, pulse rate is 77, blood pressure 123/74, respiratory rate of 20. HEENT: PERRLA, EOMI. NECK: Supple with a full range of motion. LUNGS: Clear bilaterally. HEART: With a regular rate and rhythm. No murmurs, rubs or gallops. ABDOMEN: Soft, nontender. Bowel sounds are normoactive. EXTREMITIES: Show no deformities or edema. NEUROLOGICAL: There are no focal motor deficits. LABORATORY VALUES: WBC of 10.9, hemoglobin and hematocrit of and 46.1. SMA-23 is normal. Toxicology: Urine screen is negative. IMPRESSION: The patient was admitted to Psychiatry for psychiatric treatment. His vital signs and blood work are normal. We will follow chapito. Alonso Coffman MD
[2017-11-25] MEDS: Naproxen 550 mg Tab PO PRN (18:53)
--- NOTE | 2017-11-26 01:55 | PN ---
DATE: 11/25/2017 SUBJECTIVE: This 52-year-old male remains hospitalized on the psychiatric lopez. He is being followed by Dr. Bindu Sandy from Psychiatry. He has medical issues including chronic hypertension and hyperlipidemia and has been admitted to the psychiatric lopez because of recurrent severe depression and anxiety. PHYSICAL EXAMINATION: VITAL SIGNS: His temperature is 97.6, respirations 20, pulse 75, and blood pressure 105/72 with a pulse ox of 98% on room air. HEENT: Head: Normocephalic, atraumatic. Eyes: No icterus. NECK: Supple. HEART: S1, S2. LUNGS: Clear. ABDOMEN: Soft. EXTREMITIES: No edema. SKIN: With multiple tattoos. VASCULAR: Legs warm to touch. PSYCHOLOGICAL: Extremely anxious. NEUROLOGICAL: Intact. LABORATORY DATA: White count 10,900, hemoglobin 15.7, hematocrit 46.1, platelets 259,000. Sodium 143, K 4.1, chloride 103, bicarb 23, BUN 15, creatinine 0.7, random blood sugar 102. All liver function testing was normal including bilirubin 0.7, AST 28, ALT 46, and alk phos 95. Cholesterol 139, triglycerides 121, LDL 80, and HDL 39. TSH was normal at 0.82. RPR was nonreactive. IMPRESSION: A 52-year-old male admitted with suicidal posturing, anxiety, depression, chronic hypertension, hyperlipidemia, spinal arthritis, chronic pain syndrome, history of opioid abuse in his past. PLAN: Plan at present is to continue psychotropics as per Dr. Bindu Sandy, including Ativan, Depakote, Desyrel, Haldol, Klonopin, Neurontin, and Seroquel while continuing Norvasc 10 mg p.o. daily and Lipitor 20 mg p.o. daily as well as soft bland, heart-healthy diet and psychiatric lopez monitoring. All of the above was discussed with the patient and nursing. The patient's disposition will be decided by Psychiatry. Rhonda Henley MD CLARI
[2017-11-26] MEDS: Divalproex 250 mg DR (BID formulation) PO SCH ×3 (09:09→22:11)
[2017-11-26] MEDS: Naproxen 550 mg Tab PO PRN (09:12)
--- NOTE | 2017-11-26 11:15 | PCM.PYCHPN ---
Psychiatric Progress Note - Psychiatric Progress Note Patient seen today, length of contact: 25 min Problems Identified/Issues Discussed: Patient is a single 52 year old homeless single male who has a psychiatric history of Major depression with psychotic features, Benzodiazepine withdrawal with delirium, Opioid withdrawal delirium, at least 3 prior psychiatric admissions, most recently [place] [facility] [place], pt was discharged AMA, before that 10/31/14-11/12/14, +chronic noncompliance with no current outpatient psychiatric treatment, reportedly came to the hospital for evaluation of depressive symptoms, possible suicidal ideation with the plan to jump off the bridge. I reviewed recent notes and met with patient at bedside. Patient is very familiar to this insurance underwriter from his prior admission and patient recalls my care with him during this time. He is alert and oriented to month, year and location. Apparently patient's behavior has been elevated, labile, loud and grandiose on the unit. Staff notes indicate that he seemed delusional and disorganized. Behavior has been unpredictable. According to multiple accounts, he didn't appear to have much insight about his behavior but this morning he actually reports that he needs help and he is considering retracting his 48 hour letter (though [facility] has already determined he doesn't meet criteria for involuntary commitment). Patient reports that he has been irritable because he feels chastised and yelled at on the unit. Repeats the phrase "you know this isn't my first rodeo". He admits to feeling grayson and anxious. Currently he just feels tired though he indicates that he slept well. He denies hallucinations. Grandiose delusions were not elicited and its possible that this represents the beginning stages of improvement. Regardless, patient is willing to accept our care at this time and is considering extending his admission so that he can obtain full benefit from this hospitalization. Diagnostic Results: r/o substance induced psychosis r/o mood d/o h/o misuse and abuse benzos and pain meds r/o synthetic drug use r/o bipolar disorder r/o schizoaffective disorder Medication Change: Yes Medical Record Reviewed: Yes Mental Status Examination - Cognitive Function Orientation: Person, Place Memory: Impaired Attention: Poor Concentration: Poor Association: Loose Fund of Knowledge: Poor - Mood Mood: Other ("you know me, I am not stupid") - Affect Affect: Other (expanded, labile) - Speech Speech: Pressured - Formal Thought Process Formal Thought Process: Hallucinations, Delusions, Paranoia, Circumstantial - Suicidal Ideation Suicidal Ideation: No - Homicidal Ideation Homicidal Ideation: No Goal/Treatment Plan - Goal/Treatment Plan Need for Continued Stay: Remain at risks for inpatient hospitalization, Severe depression anxiety, Discharge may exacerbated symptoms, Severe functional impairment Progress Toward Problem(s) and Goals/Treatment Plan: * c/w current tx and plan * No new weekend labs thus far * Vitals reviewed and noted below: Selected Entries 11/25/17 11/25/17 11/25/17 07:05 07:56 15:47 Temperature 97.6 F Pulse Rate 75 85 Respiratory 20 Rate Blood Pressure 105/72 105/72 88/55 L * Patient signed 48 hour notice at 20:26 on 11/25/17. [facility] screener evaluated patient at 02:30 on 11/26/17 and determined that patient did not meet involuntary commitment criteria. Estimated Date of D/C: 11/29/17
[2017-11-27] MEDS: Naproxen 550 mg Tab PO PRN ×2 (08:32→22:08)
[2017-11-27] MEDS: Divalproex 250 mg DR (BID formulation) PO SCH ×3 (08:32→21:54)
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
--- NOTE | 2017-11-27 14:36 | PN ---
DATE: 11/27/2017 SUBJECTIVE: This 52-year-old male was examined at his chairside in the day room with nurse present. He is alert and cooperative with staff. He denies any fever, chills, chest pain, or shortness of breath and stating he is resting comfortably on his adjusted psychotropic medication. He denied any suicidal ideology. PHYSICAL EXAMINATION: VITAL SIGNS: Temperature 97.8, respirations 22, pulse 75, and blood pressure 129/87. Physical exam remains unchanged. LABORATORY DATA: White count 10,900, hemoglobin 15.7, hematocrit 46.1, and platelets 259,000. Glucose 95. Cholesterol 139, triglycerides 121, LDL 80, and HDL 39. BUN 15, creatinine 0.7. TSH 0.82. RPR was nonreactive. IMPRESSION: A 52-year-old male with chronic hypertension, hyperlipidemia with history of opioid misuse, history of chronic arthritis, admitted with anxiety and depression, now awaiting Psychiatry disposition. The patient is aware that for any additional opioid prescriptions, he will need to contact Pain Management and follow their recommendations. At the present time, he is tolerating Anaprox p.r.n., Ativan, Depakote, Desyrel, Flexeril, Klonopin, Lipitor, Neurontin, Norvasc, and Tylenol. All of the above was discussed with the patient at his bedside. Rhonda Henley MD MTDD
--- NOTE | 2017-11-27 15:24 | PCM.PYCHPN ---
Psychiatric Progress Note - Psychiatric Progress Note Patient seen today, length of contact: 25 min Problems Identified/Issues Discussed: Patient is a single 52 year old homeless single male who has a psychiatric history of Major depression with psychotic features, Benzodiazepine withdrawal with delirium, Opioid withdrawal delirium, at least 3 prior psychiatric admissions, most recently at [facility] [place] October 2017, pt was discharged AMA, before that 10/31/14-11/12/14, +chronic noncompliance with no current outpatient psychiatric treatment, reportedly came to the hospital for evaluation of depressive symptoms, possible suicidal ideation with the plan to jump off the bridge. I reviewed recent notes and met with patient at bedside. Patient is very familiar to this writer editor from his prior admission and patient recalls my care with him during this time. He is alert and oriented to month year and location. Apparently patient has been elevated, labile, loud and grandiose on the unit. Behavior has been unpredictable and he seemed delusional at times. He didnt appear to have much insight about his behavior but there seems to be some improvement over the weekend. During both my visits, patient acknowledged that he needs more support and stabilization even though [facility] has determined he doesnt meet criteria for involuntary commitment. Patient has been less volatile though still labile and irritable at times. He feels his medications are beneficial and denies side effects. He isn't suicidal or homicidal. Thought process gets scattered if he is allowed to ramble but he can be redirected. Still admits to feeling grayson and anxious. He denies hallucinations. Grandiose delusions were not elicited and its possible that this represents the beginning stages of improvement. Patient mentioned having a 20 year old girlfriend during his prior admission so some version of this is the truth and likely not a delusion. He does remain social, talkative and engaging with other patients. As noted in my prior note, patient is willing to accept our care at this time and agrees to extending his admission so that he can obtain full benefit from this hospitalization. Diagnostic Results: r/o substance induced psychosis r/o mood d/o h/o misuse and abuse benzos and pain meds r/o synthetic drug use r/o bipolar disorder r/o schizoaffective disorder Medication Change: Yes Medical Record Reviewed: Yes Mental Status Examination - Cognitive Function Orientation: Person, Place Memory: Impaired Attention: Poor Concentration: Poor Association: Loose Fund of Knowledge: Poor - Mood Mood: Other ("you know me, I am not stupid") - Affect Affect: Other (expanded, labile) - Speech Speech: Pressured - Formal Thought Process Formal Thought Process: Hallucinations, Delusions, Paranoia, Circumstantial - Suicidal Ideation Suicidal Ideation: No - Homicidal Ideation Homicidal Ideation: No Goal/Treatment Plan - Goal/Treatment Plan Need for Continued Stay: Remain at risks for inpatient hospitalization, Severe depression anxiety, Discharge may exacerbated symptoms, Severe functional impairment Progress Toward Problem(s) and Goals/Treatment Plan: * c/w current tx and plan * No new weekend labs * Appreciate f/u by Dr. Henley on 11/27/17~patient will not be prescribed opiates on the unit. * Vitals reviewed and noted below: 11/27/17 07:20 Temperature 97.8 F Pulse Rate 75 Respiratory 22 Rate Blood Pressure 129/87 * Patient signed 48 hour notice at 20:26 on 11/25/17. [facility] screener evaluated patient at 02:30 on 11/26/17 and determined that patient did not meet involuntary commitment criteria. Patient retracted 48 hour letter on 11/27/17 prior to its expiration. Estimated Date of D/C: 11/29/17
[2017-11-28 06:44] VITALS: BP 104/74; PULSE 62; RESP 18; TEMP 97.4
[2017-11-28] MEDS: Naproxen 550 mg Tab PO PRN (09:10)
[2017-11-28] MEDS: Divalproex 250 mg DR (BID formulation) PO SCH (09:10)
--- NOTE | 2017-11-28 16:06 | PN ---
DATE: 11/28/2017 SUBJECTIVE: This 52-year-old male was examined in the Psychiatric lopez. This case was reviewed in detail with himself and Nursing. The patient is planning to sign against medical advice. He has been cooperative with the nursing staff and is tolerating psychotropic medication. He did request the name and address of Pain Management physician, Dr. Kavon Peterson, which was discussed with the patient. PHYSICAL EXAMINATION: VITAL SIGNS: At the time of the interview, his temperature was 97.4, respirations 18, pulse 62 and blood pressure 104/74. Physical exam remains stable. LABORATORY DATA: White count 10,900, hemoglobin 15.7, hematocrit 46.1, platelets 259,000. Sodium 143, K 4.1, chloride 103, bicarbonate 23, BUN 15, creatinine 0.7, random blood sugar 102. All liver function testing were normal including bilirubin 0.7, AST 28, ALT 46 and alkaline phosphatase 95. Cholesterol 139, triglycerides 121, LDL 80 and HDL 39. TSH normal at 0.82. IMPRESSION: Chronic hypertension, hyperlipidemia, degenerative arthritis, anxiety neurosis, chronic recurrent depression and peripheral neuropathy. PLAN: The patient will continue medically on Norvasc 10 mg p.o. daily as well as Lipitor 20 mg p.o. at dinnertime. Psychotropic medication will be decided by Dr. Bindu Sandy and the patient will be reaching out to Dr. Peterson from Pain Management regarding opioid medication outline and tapering protocol. Hopefully, the patient will be compliant with this recommendation. It was discussed in detail with him at bedside. Rhonda Henley MD [facility]
== END 2017-11-28 13:28 | disposition left against medical advice (07) | DRG 885 ==
LOC: ED 17:54 → ERH 21:47 → PSYC 22:56
PROVIDERS: ADMIT Psychiatry & Neurology Psychiatry; ATTEND Psychiatry & Neurology Psychiatry
PROC: GZ3ZZZZ Medication Management (ICD-10-PCS; principal; 2017-11-23)
DX: F33.3 Major depressive disorder, recurrent, severe with psychotic symptoms (principal); R45.851 Suicidal ideations; G89.4 Chronic pain syndrome; M54.5 Low back pain; F41.1 Generalized anxiety disorder; I10 Essential (primary) hypertension; E78.5 Hyperlipidemia, unspecified; F17.210 Nicotine dependence, cigarettes, uncomplicated; G47.00 Insomnia, unspecified; G62.9 Polyneuropathy, unspecified; Z91.14 Patient's other noncompliance with medication regimen; Z59.0 Homelessness

== ENCOUNTER 2017-12-08 20:29 | Emergency (ER) | payer MEDICARE, BC ==
[2017-12-08 20:29] VITALS: BMI 28.5
[2017-12-08 21:01] VITALS: BP 134/68; PULSE 91; RESP 18; TEMP 98.5
--- NOTE | 2017-12-08 21:20 | ED PDOC ---
Arrival/HPI - General Chief Complaint: Chest Pain Time Seen by Provider: 12/08/17 21:08 Historian: Patient - History of Present Illness Narrative History of Present Illness (Text): 12/08/17 21:15 52 year old male presents to the Emergency department complaining of high blood pressure, left hand numbness, leg pain, and trouble sleeping. After denying other symptoms, patient also complained of chest pain that has been constant for 2 days. Patient repeatedly states he would like to stay in the hospital and would like some food. Patient was admitted and discharged last week but has not been taking his medications; they are still in his bag. Patient denies any fever , chills, shortness of breath, nausea, vomiting, diarrhea, urinary symptoms, back pain, neck pain, headache, dizziness, or any other complaints. Patient reports a cardiac family history but his parents had MIs in their older ages. Time/Duration: < week (2 days) Symptom Onset: Gradual Symptom Course: Unchanged Context: Home Past Medical History - Provider Review Nursing Documentation Reviewed: Yes - Past History Past History: No Previous - Infectious Disease Hx of Infectious Diseases: None - Tetanus Immunization Tetanus Immunization: Unknown - Cardiac Hx Cardiac Disorders: Yes Hx Hypertension: Yes - Pulmonary Hx Respiratory Disorders: No - Neurological Hx Neurological Disorder: Yes Hx Seizures: Yes - HEENT Hx HEENT Disorder: No - Renal Hx Renal Disorder: No - Endocrine/Metabolic Hx Endocrine Disorders: No - Hematological/Oncological Hx Blood Disorders: No - Integumentary Hx Dermatological Disorder: No - Musculoskeletal/Rheumatological Hx Musculoskeletal Disorders: Yes Hx Back Pain: Yes Hx Falls: Yes Hx Herniated Disk: Yes - Gastrointestinal Hx Gastrointestinal Disorders: No - Genitourinary/Gynecological Hx Genitourinary Disorders: No - Psychiatric Hx Anxiety: Yes Hx Bipolar Disorder: Yes Hx Depression: Yes Hx Substance Use: Yes - Past Surgical History Past Surgical History: Non-Contributing - Surgical History Hx Orthopedic Surgery: Yes Other/Comment: Knee repair - Anesthesia Hx Anesthesia: Yes Hx Anesthesia Reactions: No Hx Malignant Hyperthermia: No - Suicidal Assessment Feels Threatened In Home Enviroment: No Family/Social History - Physician Review Nursing Documentation Reviewed: Yes Family/Social History: CAD/SD (Parents had SD in older ages) Smoking Status: Heavy Smoker > 10 Cigarettes Daily Hx Alcohol Use: No Hx Substance Use: Yes Hx Substance Use Treatment: No Allergies/Home Meds Allergies/Adverse Reactions: Allergies No Known Allergies Allergy (Verified 12/08/17 20:45) Review of Systems - Physician Review All systems were reviewed & negative as marked: Yes - Review of Systems Constitutional: absent: Fevers, Night Sweats Respiratory: absent: SOB Cardiovascular: Chest Pain Gastrointestinal: absent: Diarrhea, Nausea, Vomiting Genitourinary Male: absent: Dysuria Musculoskeletal: Other (leg pain). absent: Back Pain, Neck Pain Neurological: absent: Headache, Dizziness Physical Exam Vital Signs Reviewed: Yes Vital Signs Temp Pulse Resp BP Pulse Ox 12/08/17 20:44 98.5 F 91 H 18 134/68 98 Temperature: Afebrile Blood Pressure: Normal Pulse: Tachycardic Respiratory Rate: Normal Appearance: Positive for: Well-Appearing, Non-Toxic, Comfortable Pain Distress: None Mental Status: Positive for: Alert and Oriented X 3, other (mildly anxious) - Systems Exam Head: Present: Atraumatic, Normocephalic Pupils: Present: PERRL Extroacular Muscles: Present: EOMI Conjunctiva: Present: Normal Mouth: Present: Moist Mucous Membranes Neck: Present: Normal Range of Motion Respiratory/Chest: Present: Clear to Auscultation, Good Air Exchange. No: Respiratory Distress, Accessory Muscle Use Cardiovascular: Present: Regular Rate and Rhythm, Normal S1, S2. No: Murmurs Abdomen: No: Tenderness, Distention, Peritoneal Signs Back: Present: Normal Inspection Upper Extremity: Present: Normal Inspection. No: Cyanosis, Edema Lower Extremity: Present: Normal Inspection. No: Edema Neurological: Present: GCS=15, CN II-XII Intact, Speech Normal Skin: Present: Warm, Dry, Normal Color. No: Rashes Psychiatric: Present: Alert, Oriented x 3, Normal Insight, Normal Concentration Medical Decision Making ED Course and Treatment: 12/08/17 21:22 Impression: 52 year old male presents to the Emergency department with multiple complaints including chest pain. Patient repeatedly states he would like to stay in the hospital for observation. Plan: -- Chest xray -- Labs -- Reassess and disposition Prior Visits: Notes and results from previous visits were reviewed. Patient was last seen in the emergency department on 11/09/17, was diagnosed with malaise and left against medical advice. Progress Notes: 12/08/17 21:47 patient states he wants to be evaluated by a psychiatrist and reports he is hearing voices and wants to hurt himself; expresses a plan to jump off a bridge. Patient appears to be malingering, patient will be screened in the morning. 12/08/17 23:21 Patient informed he will note be admitted for chest pain and reports he wants a psychiatric evaluation even though he did not express such complaints during his initial evaluation. Patient is well directed and is asking for food, was noted by ER staff to be stealing food from the fridge. Patient has a scheduled psychiatric follow up. Labs reviewed, troponin within normal limits. EKG unchanged. Stable for discharge home. - Lab Interpretations Lab Results: 12/08/17 21:27 12/08/17 21:27 Lab Results 12/08/17 21:27: WBC 10.3, RBC 5.07, Hgb 15.4, Hct 44.0, MCV 86.8, MCH 30.4, MCHC 35.0, RDW 12.9, Plt Count 272, MPV 10.2, Gran % 67.7, Lymph % (Auto) 24.7, Harnett % (Auto) 6.8 H, Eos % (Auto) 0.6 L, Baso % (Auto) 0.2, Gran # 6.94 H, Lymph # (Auto) 2.5, Harnett # (Auto) 0.7 H, Eos # (Auto) 0.1, Baso # (Auto) 0.02 12/08/17 21:27: Sodium 144, Potassium 3.9, Chloride 105, Carbon Dioxide 28, Anion Gap 16, BUN 9, Creatinine 0.8, Est GFR ( Amer) > 60, Est GFR (Non- Af Amer) > 60, Random Glucose 92, Calcium 9.8, Lactate Dehydrogenase 384, Total Creatine Kinase 229, Troponin I < 0.01 - RAD Interpretation Radiology Orders: 12/08/17 21:10 CHEST TWO VIEWS (PA/LAT) [RAD] Stat - EKG Interpretation EKG Interpretation (Text): 12/08/17 21:24 EKG: Ordered, reviewed, and independently interpreted the EKG. Rate : 88 BPM Rhythm : NSR Interpretation : T-wave flattening in v5 and v6. T-wave inversions in lead III and aVF. Comparison: Similar to prior on 11/23/17. No significant morphological differences. Interpreted by ED Physician: Yes Type: 12 lead EKG - Scribe Statement The provider has reviewed the documentation as recorded by the Scribe Mark Parada All medical record entries made by the Salvatoreibe were at my direction and personally dictated by me. I have reviewed the chart and agree that the record accurately reflects my personal performance of the history, physical exam, medical decision making, and the department course for this patient. I have also personally directed, reviewed, and agree with the discharge instructions and disposition. Disposition/Present on Arrival - Present on Arrival Any Indicators Present on Arrival: No History of DVT/PE: No History of Uncontrolled Diabetes: No Urinary Catheter: No History of Decub. Ulcer: No History Surgical Site Infection Following: None - Disposition Have Diagnosis and Disposition been Completed?: Yes Diagnosis: Chest pain, Noncompliance with medication regimen Disposition: HOME/ ROUTINE Disposition Time: 23:12 Patient Plan: Discharge Patient Problems: Current Active Problems Problem Status Onset Chest pain Acute Noncompliance with medication regimen Acute Condition: IMPROVED Discharge Instructions (ExitCare): Chest Pain (ED) Forms: [employer] (Citizen Of [place])
[2017-12-08 21:41] LABS: BASO # 0.02 K/mm3 (0.0-2.0); BASO % 0.2 % (0.0-3.0); EOS # 0.1 (0.0-0.7); EOS % 0.6 % (1.5-5.0); GRAN # 6.94 (1.4-6.5); GRAN % 67.7 % (50.0-68.0); HEMOGLOBIN 15.4 g/dL (14.0-18.0); LYMPH # 2.5 (1.2-3.4); LYMPH % 24.7 % (22.0-35.0); MEAN CELL VOLUME 86.8 fl (80.0-105.0); MEAN CORPUSCULAR HEMOGLOBIN 30.4 pg (25.0-35.0); MEAN PLATELET VOLUME 10.2 fl (7.0-11.0); MONO # 0.7 (0.1-0.6); MONO % 6.8 % (1.0-6.0); RBC 5.07 10^6/uL (3.5-6.1); RED CELL DISTRIBUTION WIDTH 12.9 % (11.5-14.5); WHITE BLOOD COUNT 10.3 10^3/ul (4.5-11.0)
[2017-12-08 21:47] LABS: BLOOD UREA NITROGEN 9 mg/dL (7-21); CALCIUM 9.8 mg/dL (8.4-10.5); GFR AFRICAN-AMERICAN > 60; GFR NON-AFRICAN AMERICAN > 60
[2017-12-08 21:58] LABS: TROPONIN I < 0.01 ng/mL
[2017-12-08 23:32] VITALS: O2SAT 99
--- NOTE | 2017-12-09 08:26 | RAD ---
HISTORY: chest pain COMPARISON: 11/23/2017 TECHNIQUE: Chest PA and lateral FINDINGS: LUNGS: No active pulmonary disease. PLEURA: No significant pleural effusion identified. No pneumothorax apparent. CARDIOVASCULAR: Normal. OSSEOUS STRUCTURES: No significant abnormalities. VISUALIZED UPPER ABDOMEN: Normal. OTHER FINDINGS: None. IMPRESSION: No active disease.
--- NOTE | 2017-12-09 08:42 | CARD ---
APPROVED REPORT EKG Measurement Heart [id number] <Conclusion> Normal sinus rhythm Nonspecific T wave abnormality Abnormal ECG
== END 2017-12-08 23:31 | disposition home or self-care (01) ==
LOC: ED 20:29
DX: R07.9 Chest pain, unspecified (principal); I10 Essential (primary) hypertension; Z91.14 Patient's other noncompliance with medication regimen; F17.210 Nicotine dependence, cigarettes, uncomplicated

== ENCOUNTER 2018-07-20 21:40 | Inpatient (IN) | payer MEDICARE, BC ==
[2018-07-20 21:40] VITALS: BMI 28.5
[2018-07-20 21:52] VITALS: O2SAT 96
[2018-07-20 22:28] LABS: BASO # 0.02 K/mm3 (0.0-2.0); BASO % 0.2 % (0.0-3.0); EOS # 0.1 (0.0-0.7); EOS % 1.1 % (1.5-5.0); LYMPH # 2.2 (1.2-3.4); LYMPH % 20.8 % (22.0-35.0); MEAN CELL VOLUME 87.1 fl (80.0-105.0); MEAN CORPUSCULAR HEMOGLOBIN 30.3 pg (25.0-35.0); MEAN CORPUSCULAR HGB CONC 34.7 g/dl (31.0-37.0); MEAN PLATELET VOLUME 10.3 fl (7.0-11.0); MONO # 0.8 (0.1-0.6); MONO % 7.1 % (1.0-6.0); RBC 5.95 10^6/uL (3.5-6.1); RED CELL DISTRIBUTION WIDTH 12.3 % (11.5-14.5); WHITE BLOOD COUNT 10.5 10^3/uL (4.5-11.0)
[2018-07-20 22:39] LABS: ACETAMINOPHEN < 10.0 ug/ml (10.0-20.0); SALICYLATE < 1 mg/dL (2.0-20.0)
--- NOTE | 2018-07-20 22:39 | ED PDOC ---
Arrival/HPI - General Historian: Patient - History of Present Illness Narrative History of Present Illness (Text): 07/21/18 00:09 52-year-old male with a history of depression presents today with anxiety and depression and feeling shaky and having hallucinations. Patient states that he spoke with his psychiatrist and his psychiatrist told him to come to the hospital for psychiatric admission. Patient denies chest pain or shortness of breath he denies dizziness or weakness. Patient states his psychiatrist cut his Valium from 10 mg down to 2 mg. Patient states his last dose of Valium was this afternoon. Patient states for the past 2 days he's been feeling extremely anxious and feeling very shaky and feeling depressed. Patient denies suicidal ideation at present time. Denies any other complaints patient denies alcohol use. <Deisi Myrick - Last Filed: 07/21/18 01:19> <Madhu Sosa - Last Filed: 07/21/18 02:22> - General Chief Complaint: Anxiety Time Seen by Provider: 07/20/18 21:41 Past Medical History - Provider Review Nursing Documentation Reviewed: Yes - Travel History Have you recently traveled outside [place] w/in the past 3 mons?: No - Past History Past History: No Previous - Infectious Disease Hx of Infectious Diseases: None - Tetanus Immunization Tetanus Immunization: Unknown - Cardiac Hx Cardiac Disorders: Yes Hx Hypertension: Yes - Pulmonary Hx Respiratory Disorders: No - Neurological Hx Neurological Disorder: Yes Hx Seizures: Yes - HEENT Hx HEENT Disorder: No - Renal Hx Renal Disorder: No - Endocrine/Metabolic Hx Endocrine Disorders: No - Hematological/Oncological Hx Blood Disorders: No - Integumentary Hx Dermatological Disorder: No - Musculoskeletal/Rheumatological Hx Musculoskeletal Disorders: Yes Hx Back Pain: Yes Hx Falls: Yes Hx Herniated Disk: Yes - Gastrointestinal Hx Gastrointestinal Disorders: No - Genitourinary/Gynecological Hx Genitourinary Disorders: No - Psychiatric Hx Psychophysiologic Disorder: Yes Hx Anxiety: Yes Hx Bipolar Disorder: Yes Hx Depression: Yes Hx Substance Use: Yes - Past Surgical History Past Surgical History: Non-Contributing - Surgical History Hx Orthopedic Surgery: Yes Other/Comment: Knee repair, 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 - Anesthesia Hx Anesthesia: Yes Hx Anesthesia Reactions: No Hx Malignant Hyperthermia: No - Suicidal Assessment Suicide Risk Precautions: Close Observation <Deisi Myrick - Last Filed: 07/21/18 01:19> Family/Social History - Physician Review Nursing Documentation Reviewed: Yes Family/Social History: Unknown Family HX Smoking Status: Heavy Smoker > 10 Cigarettes Daily Hx Alcohol Use: No Hx Substance Use: Yes Hx Substance Use Treatment: No <Deisi Myrick - Last Filed: 07/21/18 01:19> Allergies/Home Meds <Deisi Myrick - Last Filed: 07/21/18 01:19> <Madhu Sosa - Last Filed: 07/21/18 02:22> Allergies/Adverse Reactions: Allergies No Known Allergies Allergy (Verified 12/08/17 20:45) Home Medications: Home Meds Medication Instructions Recorded Confirmed Escitalopram Oxalate [Lexapro] 5 mg PO DAILY 07/20/18 07/20/18 diaZEpam [Valium] 2 mg PO BID 07/20/18 07/20/18 traZODone [Desyrel] 50 mg PO BID 07/20/18 07/20/18 Review of Systems - Review of Systems Constitutional: absent: Fatigue, Fevers Respiratory: absent: SOB, Cough Cardiovascular: absent: Chest Pain, Palpitations Gastrointestinal: absent: Abdominal Pain, Nausea, Vomiting Musculoskeletal: absent: Arthralgias Skin: absent: Rash, Pruritis Neurological: absent: Headache, Dizziness Psychiatric: Anxiety, Depression. absent: Suicidal Ideation <Deisi Myrick - Last Filed: 07/21/18 01:19> Physical Exam Vital Signs Reviewed: Yes Vital Signs Temp Pulse Resp BP Pulse Ox 07/20/18 21:51 98.1 F 106 H 18 153/99 H 96 Temperature: Afebrile Blood Pressure: Hypertensive Pulse: Tachycardic Respiratory Rate: Normal Appearance: Positive for: Well-Appearing, Non-Toxic, Comfortable Pain Distress: None Mental Status: Positive for: Alert and Oriented X 3 - Systems Exam Head: Present: Atraumatic Pupils: Present: PERRL Extroacular Muscles: Present: EOMI Mouth: Present: Moist Mucous Membranes Neck: Present: Normal Range of Motion Respiratory/Chest: Present: Clear to Auscultation, Good Air Exchange. No: Respiratory Distress, Accessory Muscle Use Cardiovascular: Present: Regular Rate and Rhythm, Normal S1, S2. No: Murmurs Abdomen: No: Tenderness, Distention, Rebound, Guarding Back: Present: Normal Inspection Upper Extremity: Present: Normal ROM Lower Extremity: Present: Normal ROM Neurological: Present: GCS=15, Speech Normal, Other (mild tremors) Skin: Present: Warm, Dry, Normal Color. No: Rashes Psychiatric: Present: Alert, Oriented x 3 <Deisi Myrick - Last Filed: 07/21/18 01:19> Vital Signs Temp Pulse Resp BP Pulse Ox 07/20/18 21:51 98.1 F 106 H 18 153/99 H 96 <Madhu Sosa - Last Filed: 07/21/18 02:22> Medical Decision Making ED Course and Treatment: 07/21/18 00:15 Patient is nontoxic well-appearing in no distress vital signs are stable. pt c/o severe anxiety. pt given 1mg of ativan IM. CBC WNL CMP WNL Tylenol WNL Salicylate WNL Alcohol level WNL Urine drug screen + benzos UA; + blood cxr: wnl ekg sinus tachycardia at 102 bpm normal axis no ST elevations QTC 458 pt is medically cleared for PES evaluation 07/21/18 01:19 Case signed out to dr sosa pending Pes evaluation and disposition. Reassessment Condition: Re-examined, Improving,but remains with symptoms - Medication Orders Current Medication Orders: Lorazepam (Ativan) 1 mg IM ONCE ONE; Protocol Stop: 07/20/18 22:36 <Deisi Myrick - Last Filed: 07/21/18 01:19> ED Course and Treatment: 07/21/18 02:21 As per PES, patient will be admitted to psychiatric service for further treatment. - Lab Interpretations Lab Results: Total Bilirubin 0.4 mg/dL (0.2-1.3) 07/20/18 22:24 AST 24 U/L (17-59) 07/20/18 22:24 ALT 41 U/L (7-56) 07/20/18 22:24 Alkaline Phosphatase 129 U/L (38-126) H D 07/20/18 22:24 Total Protein 8.1 g/dL (5.8-8.3) 07/20/18 22:24 Albumin 4.9 g/dL (3.0-4.8) H 07/20/18 22:24 Globulin 3.2 gm/dL 07/20/18 22:24 Albumin/Globulin Ratio 1.5 (1.1-1.8) 07/20/18 22:24 - Medication Orders Current Medication Orders: Discontinued Medications Lorazepam (Ativan) 1 mg IM ONCE ONE; Protocol Stop: 07/20/18 22:36 Last Admin: 07/20/18 23:27 Dose: 1 mg IM Administration Charges Document 07/20/18 23:27 IT (Rec: 07/20/18 23:27 IT [id number]) Injection Site MAR Injection Site Left Deltoid Charges for Administration # of IM Administrations 1 <Madhu Sosa - Last Filed: 07/21/18 02:22> - PA / DIVISION DIRECTOR / Resident Statement / has reviewed & agrees with the documentation as recorded. / has examined the patient and agrees with the treatment plan. <Madhu Sosa - Last Filed: 07/21/18 02:22> Disposition/Present on Arrival - Present on Arrival Any Indicators Present on Arrival: No History of DVT/PE: No History of Uncontrolled Diabetes: No Urinary Catheter: No History of Decub. Ulcer: No History Surgical Site Infection Following: None - Disposition Have Diagnosis and Disposition been Completed?: Yes Disposition Time: 01:09 <Deisi Myrick - Last Filed: 07/21/18 01:19> - Present on Arrival Any Indicators Present on Arrival: No History of DVT/PE: No History of Uncontrolled Diabetes: No Urinary Catheter: No History of Decub. Ulcer: No History Surgical Site Infection Following: None - Disposition Have Diagnosis and Disposition been Completed?: Yes Disposition Time: : <Madhu Sosa - Last Filed: 07/21/18 02:22> - Disposition Diagnosis: Major depression Disposition: HOSPITALIZED Patient Problems: Current Active Problems Problem Status Onset Major depression Acute Condition: STABLE Referrals: Alonso Coffman MD [Primary Care Provider] - Follow up with primary Forms: [employer] (Al[place]ian)
[2018-07-20 22:40] LABS: ALB/GLOB RATIO 1.5 (1.1-1.8); ALBUMIN 4.9 g/dL (3.0-4.8); ALT/SGPT 41 U/L (7-56); AST/SGOT 24 U/L (17-59); BLOOD UREA NITROGEN 7 mg/dL (7-21); CALCIUM 10.1 mg/dL (8.4-10.5); GFR NON-AFRICAN AMERICAN > 60
[2018-07-20 23:53] LABS: URINE BILIRUBIN NEGATIVE (NEGATIVE); URINE BLOOD SMALL (NEGATIVE); URINE GLUCOSE (UA) NEGATIVE (NEGATIVE); URINE LEUKOCYTE ESTERASE NEGATIVE Leu/uL (NEGATIVE); URINE PROTEIN TRACE mg/dL (<30 mg/dL); URINE UROBILINOGEN 0.2 E.U./dL (<1 E.U./dL)
[2018-07-20 23:59] LABS: URINE APPEARANCE CLEAR (CLEAR); URINE COLOR YELLOW (YELLOW)
[2018-07-21 00:11] LABS: URINE BACTERIA FEW /hpf; URINE WBC 0 - 2 /hpf (0-6)
[2018-07-21 00:51] LABS: BARBITURATES, UR NEGATIVE (NEGATIVE); BENZODIAZEPINES, UR POSITIVE (NEGATIVE); OPIATES, UR NEGATIVE (NEGATIVE); PHENCYCLIDINE, UR NEGATIVE (NEGATIVE)
[2018-07-21] MEDS ORDERED: Alum-Mag Hydrox-Simethicone Susp (30 mL) PO PRN (03:19)
[2018-07-21] MEDS ORDERED: Magnesium Hydroxide Susp 30 ml UD PO PRN (03:19)
--- NOTE | 2018-07-21 04:05 | PCM.BM ---
<Albert Lemos C - Last Filed: 07/21/18 04:02> Treatment Plan Problems - Problems identified on initial assessmt ANXIETY Date Initiated: 07/21/18 Time Initiated: 03:00 Assessment reference: NA Status: Active Priority: 1 INEFFECTIVE COPING Date Initiated: 07/21/18 Time Initiated: 03:00 Assessment reference: NA Status: Active Priority: 2 BENZOS ABUSE Date Initiated: 07/21/18 Time Initiated: 03:00 Assessment reference: NA Status: Active Priority: 3 MEDICATION NON ADHERENCE Date Initiated: 07/21/18 Time Initiated: 03:00 Assessment reference: NA Status: Active Priority: 4 Treatment assets and liabiliti Patient Assests: adapts well, cooperative, insightful, motivated, self-reliant, ADL independent, physically healthy, negotiates basic needs, financial stabiity, cognitively intact, good interpersonal skills Patient Liabilities: live alone, physical pain, financial problems, substance abuse - Milieu Protocol Maintain good personal hygiene: every other day Encourage regular showers, every shift Remind patient to perform daily oral care, every shift Assist patient to perform ADL's Maintain personal safety: every shift Educate patient to report safety concerns to staff, every shift Monitor environment for contraband/sharps Medication safety: Monitor for expected outcome, potential side effects: every shift, Assess barriers to learning: every shift, Assess readiness for medication education: every shift Family Contact Family involvement: Family/SO is involved Family contact: Patient agrees to contact Discharge/Continuing Care - Education Needs Education Needs: Patient Medication, Patient Diagnosis/Disease Process, Patient Coping Skills, Patient Placement options, Patient Activities of Daily Living, Patient Pain, Patient Uses of Medical Equipment, Patient Health Practices/Safety, Patient Personal Hygiene/Grooming, Patient Aftercare Safety Plan, Patient Other - Discharge Discharge Criteria: Tolerates medication w/o severe side effects, Free of Suicidal thoughts, Free of paranoid thoughts, Free of agitation, Normal sleep pattern, Ability to care for self <Bindu Sandy - Last Filed: 07/21/18 13:37> - Diagnosis (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, unspecified Status: Acute Interventions: 07/21/18 13:38 Psychoeducation Psychopharmacology/adjustment of medications as needed/ monitoring possible side effects Evaluate pt on daily basis Compliance with medications and follow up appointments Suicide and homicide risk assessment and prevention Relapse prevention Reduction of symptoms Improve functional status Family involvement As outpatient: cognitive behavioral therapy (2) Unspecified psychosis Status: Acute Interventions: Psychoeducation/psychotherapy Psychopharmacology/adjustment of medications as needed/ monitoring possible side effects Evaluate pt on daily basis Compliance with medications and follow up appointments Long acting medication if pt is noncompliant with pill form Suicide and homicide risk assessment and prevention, coping strategies, safety plan Relapse prevention Reduction of symptoms Improve functional status Possible assertive community treatment Cognitive behavioral therapy Family involvement Possible social skill training as outpatient (3) Anxiety disorder, unspecified Status: Acute Interventions: 07/21/18 13:44 Psychoeducation Psychopharmacology/adjustment of medications as needed/ monitoring possible side effects Evaluate pt on daily basis Discussion of importance of being compliant with medications and follow up appointments Suicide and homicide risk assessment and prevention, coping strategies, safety plan Reduction of symptoms Relaxation techniques and breathing exercises Improve functional status Family involvement Cognitive behavioral therapy as outpatient <Puja Chávez Y - Last Filed: 07/21/18 16:01> Family Contact Family contact: Patient agrees to contact - Outside Agency Dr. Quintana Agency contact name: Dr. Quintana
[2018-07-21 09:04] LABS: GLUCOSE,FASTING 132 mg/dL (65-110); HDL CHOLESTEROL 30 mg/dL (29-60)
[2018-07-21 09:15] LABS: LDL CHOLESTEROL 76 mg/dL (0-129)
--- NOTE | 2018-07-21 09:24 | RAD ---
Date of service: 07/21/2018 HISTORY: PES eval COMPARISON: Comparison chest 12/08/2017 FINDINGS: LUNGS: No active pulmonary disease. PLEURA: No significant pleural effusion identified, no pneumothorax apparent. CARDIOVASCULAR: No aortic atherosclerotic calcification present. Normal cardiac size. No pulmonary vascular congestion. OSSEOUS STRUCTURES: No significant abnormalities. VISUALIZED UPPER ABDOMEN: Normal. OTHER FINDINGS: None. IMPRESSION: No active disease.
--- NOTE | 2018-07-21 11:29 | CARD ---
APPROVED REPORT Date of service: 07/20/2018 EKG Measurement Heart [id number] [id number] <Conclusion> Sinus tachycardia Poor R Progression V1-V3.
[2018-07-21] MEDS ORDERED: Home Med 1 UNIT PO SCH (11:30)
--- NOTE | 2018-07-21 13:37 | PCM.PSYCH ---
Initial Psychiatric Evaluation - Initial Psychiatric Evaluation Type of Admission: Voluntary Legal Status: Capacity (Patient has a capacity to sign consent for treatment) Chief Complaint (in patient's own words): "My anxiety was out of control, I was thinking to end it all, but I did not want to kill myself, that is why he came to the hospital" Patient's Reaction to Hospitalization: Patient was admitted to the psychiatric inpatient unit for evaluation and stabilization of depressive symptoms, possible suicidal ideation, anxiety. History of Present Illness and Precipitating Events: shortly pt is a single 52 year old single male who has a psychiatric history of Major depression with psychotic features vs bipolar disorder, history of benzodiazepine withdrawal with delirium, h/o opioid withdrawal delirium, at least 4 prior psychiatric admissions, most recently at [facility] November 2017, back then patient presented with manic episode with psychosis, currently under care of outpatient psychiatrist , for psychiatric evaluation and possible admission. pt requires further evaluation and stabilization, med management. This patient is very familiar to this tag writer from previous multiple admissions, majority of the time patient is withdrawing from either benzodiazepines or pain killers, patient has history of psychosis, history of being noncompliant with medications and follow-up appointments. Patient was seen today at the treatment team meeting, patient presented with acceptable personal hygiene, anxious, restless, obviously sweating. Fair ADLs. Patient reported that she started to see started November 2017, who referred patient to the emergency room for possible admission because "my anxiety was out of control, I was feeling that I wanted to end it all, that is why I came to the hospital". Patient refused to disclose any suicidal plans, patient reported "who does not have suicidal ideation?, But it does not mean that I will kill myself". Patient reported that he feels anxious, frustrated, hopeless, helpless. Patient reported that she was not able to sleep, not able to function. Patient reported visual/auditory, hallucinations, denied command-type hallucinations, reported that he sees "shadows" denied paranoid ideation, but patient appears to be guarded. Patient reported that he is not using any drugs, denies drinking alcohol, reported that he smokes about 1 pack a day, counseling provided, nicotine patch offered. Past psychiatric history: PSYCHIATRIC HISTORY [place] [facility] [place] was d/c AMA diagnosis: Mood Disorder NOS MDD without psychotic features r/o Adjustment disorder with depression r/o Amplification of symptoms for secondary gain r/o Benzo misuse/abuse Patient signed 48 hour notice at 07:20 am 11/12/17. Patient was discharged AMA on 11/14/17 Most recent admission was in November 2017 patient was discharged on the following medications: Prescriptions/Medication Reconciliation: amLODIPine [Norvasc] 10 mg PO DAILY #7 tab Atorvastatin [Lipitor] 20 mg PO DIN #7 tab clonazePAM [Klonopin] 0.5 mg PO BID #30 tab Cyclobenzaprine [Flexeril] 10 mg PO TID #21 tab Divalproex [Depakote ER] 500 mg PO AMHS #30 ter Gabapentin [Neurontin] 300 mg PO TID #45 cap QUEtiapine [Seroquel] 100 mg PO DAILY #14 tab Quetiapine Fumarate [Seroquel] 200 mg PO HS #14 tablet traZODone [Desyrel] 50 mg PO HS #14 tab Patient is willing to resume Neurontin/Seroquel/trazodone/volume was confirmed with patient pharmacy. Patient denies having any true suicide attempts, reports that overdose was a gesture for attention. Patient's pharmacy was contacted [facility]'s pharmacy [phone]: Medication list confirmed Tramadol 50 mg 2 pills once a day Diazepam 2 mg 3 times a day Lexapro 10 mg daily Filled on July 08, prescriber is . Past medical history: Chronic back pain, patient reported that he has history of hypertension and dyslipidemia. PMD is Dr. Coffman. 07/20/18 22:24 07/20/18 22:24 Lab Results 07/21/18 07:00: TSH 3rd Generation 1.91 07/21/18 07:00: Fasting Glucose 132 H, Triglycerides 152, Cholesterol 126 L, LDL Cholesterol Direct 76, HDL Cholesterol 30 07/20/18 23:20: Urine Opiates Screen Negative, Urine Methadone Screen Negative, Ur Barbiturates Screen Negative, Ur Phencyclidine Scrn Negative, Ur Amphetamines Screen Negative, U Benzodiazepines Scrn Positive H, U Oth Cocaine Metabols Negative, U Cannabinoids Screen Negative 07/20/18 23:20: Urine Color Yellow, Urine Appearance Clear, Urine pH 6.0, Ur Specific [place] 1.025, Urine Protein Trace H, Urine Glucose (UA) Negative, Urine Ketones Negative, Urine Blood Small H, Urine Nitrate Negative, Urine Bilirubin Negative, Urine Urobilinogen 0.2, Ur Leukocyte Esterase Negative, Urine RBC 1 - 3 H, Urine WBC 0 - 2, Ur Epithelial Cells 1 - 3, Urine Bacteria Few 07/20/18 22:24: Alcohol, Quantitative < 10 07/20/18 22:24: Salicylates < 1 L, Acetaminophen < 10.0 L 07/20/18 22:24: Sodium 140, Potassium 4.2, Chloride 105, Carbon Dioxide 25, Anio n Gap 15, BUN 7, Creatinine 1.0, Est GFR ( Amer) > 60, Est GFR (Non-Af Amer) > 60, Random Glucose 118 H, Calcium 10.1, Total Bilirubin 0.4, AST 24, ALT 41, Alkaline Phosphatase 129 H D, Total Protein 8.1, Albumin 4.9 H, Globulin 3.2, Albumin/Globulin Ratio 1.5 07/20/18 22:24: WBC 10.5, RBC 5.95, Hgb 18.0 D, Hct 51.8, MCV 87.1, MCH 30.3, MCHC 34.7, RDW 12.3, Plt Count 279, MPV 10.3, Neut % (Auto) 70.8 H, Lymph % (Auto) 20.8 L, [place] % (Auto) 7.1 H, Eos % (Auto) 1.1 L, Baso % (Auto) 0.2, Lymph # (Auto) 2.2, [place] # (Auto) 0.8 H, Eos # (Auto) 0.1, Baso # (Auto) 0.02, Absolute Neuts (auto) 7.43 H Vital Signs Temp Pulse Resp BP Pulse Ox 07/21/18 10:53 134/83 07/21/18 07:11 98.2 F 82 220 H 134/83 07/21/18 03:41 98.4 F 91 H 20 140/93 H 07/21/18 03:26 20 07/21/18 03:12 98.2 F 98 H 18 148/89 96 07/20/18 21:51 98.1 F 106 H 18 153/99 H 96 The patient failed the outpatient lower level of care: Yes Current Medications: Active Medications Generic Name Dose Route Start Last Admin Trade Name Freq PRN Reason Stop Dose Admin Acetaminophen 650 mg 07/21/18 03:19 Tylenol 325mg Tab PO Q4H PRN Pain, Mild (1-3) Al Hydrox/Mg Hydrox/Simethicone 30 ml 07/21/18 03:19 Maalox Plus 30 Ml PO DAILY PRN Upset Stomach Magnesium Hydroxide 30 ml 07/21/18 03:19 Milk Of Magnesia PO DAILY PRN Constipation Present on Admission - Present on Admission Any Indicators Present on Admission: No Review of Systems - Review of Systems Systems not reviewed;Unavailable: Acuity of Condition - Constitutional Constitutional: As Per HPI - EENT Eyes: As Per HPI Ears: As Per HPI Nose/Mouth/Throat: As Per HPI - Cardiovascular Cardiovascular: As Per HPI - Respiratory Respiratory: As Per HPI - Gastrointestinal Gastrointestinal: As Per HPI - Genitourinary Genitourinary: As Per HPI - Reproductive: Male Reproductive:Male: As Per HPI - Musculoskeletal Musculoskeletal: As Per HPI - Integumentary Integumentary: As Per HPI - Neurological Neurological: As Per HPI - Psychiatric Psychiatric: As Per HPI - Endocrine Endocrine: As Per HPI - Hematologic/Lymphatic Hematologic: As Per HPI Past Patient History - Past Psychiatric History Previous Treatment History: Inpatient Prior Professional Help: See HPI Prior Psychiatric Treatment: See HPI At what hospital: See HPI Duration: See HPI Nature of Treatment: See HPI Explanation of prior treatment: See HPI - PSYCHIATRIC Hx Psychophysiologic Disorder: Yes Hx Anxiety: Yes Hx Bipolar Disorder: Yes Hx Depression: Yes Hx Substance Use: Yes - Infectious Disease Hx of Infectious Diseases: None - Tetanus Immunizations Tetanus Immunization: Unknown - CARDIAC Hx Cardiac Disorders: Yes Hx Hypertension: Yes - PULMONARY Hx Respiratory Disorders: No Hx Tuberculosis: No - NEUROLOGICAL HX Cerebrovascular Accident: No Hx Seizures: Yes - HEENT Hx HEENT Problems: No - RENAL Hx Chronic Kidney Disease: No - ENDOCRINE/METABOLIC Hx Endocrine Disorders: No - HEMATOLOGICAL/ONCOLOGICAL Hx Cancer: No Hx Human Immunodeficiency Virus (HIV): No - INTEGUMENTARY Hx Dermatological Problems: No - MUSCULOSKELETAL/RHEUMATOLOGICAL Hx Musculoskeletal Disorders: Yes Hx Back Pain: Yes Hx Falls: Yes Hx Herniated Disk: Yes - GASTROINTESTINAL Hx Gastrointestinal Disorders: No - GENITOURINARY/GYNECOLOGICAL Hx Sexually Transmitted Disorders: No - SURGICAL HISTORY Hx Orthopedic Surgery: Yes Other/Comment: Knee repair, 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 - ANESTHESIA Hx Anesthesia: Yes Hx Anesthesia Reactions: No Hx Malignant Hyperthermia: No - Medical/Surgical History Reviewed & confirmed: by ar Meds Allergies/Adverse Reactions: Allergies Allergy/AdvReac Type Severity Reaction Status Date / Time No Known Allergies Allergy Verified 07/21/18 03:56 Mental Status Examination - Personal Presentation Personal Presentation: Looks stated age - Affect Affect: Constricted, Flat - Motor Activity Motor Activity: Calm (But restless) - Reliability in Providing Information Reliability in Providing Information: Fair - Speech Speech: Organized - Mood Mood: Depressed, Anxious - Formal Thought Process Formal Thought Process: Hallucinations, Paranoia (Cannot be excluded) - Obsessions/Compulsions Obsessions: None Compulsions: None - Cognitive Functions Orientation: Person, Place, Situation, Time Sensorium: Alert Attention/Concentration: Easily distracted Abstract Thinking: Gravelly Estimate of Intelligence: Average Judgement: Intact, as evidence by: Insight regarding need for hospitalization - Risk Risk: Self-mutilation, Diminished functioning - Strength & Assets Inventory Strength & Assets Inventory: Cooperative (Patient has insurance, has supportive family) - Limitations Limitations: Other (History of misusing and abusing medications, history of noncompliance with medications and follow-up appointment) Psychiatric Physical Exam - Physical Exam Reviewed and confirmed: Emergency Department Physical Exam Results - Vital Signs Recent Vital Signs: Last Vital Signs Temp 98.2 F 07/21/18 07:11 Pulse 82 07/21/18 07:11 Resp 220 H 07/21/18 07:11 BP 134/83 07/21/18 07:11 Pulse Ox 96 07/21/18 03:12 - Labs Result Diagrams: 07/20/18 22:24 07/20/18 22:24 Labs: Laboratory Results - last 24 hr 07/20/18 07/20/18 07/20/18 22:24 22:24 22:24 WBC 10.5 RBC 5.95 Hgb 18.0 D Hct 51.8 MCV 87.1 MCH 30.3 MCHC 34.7 RDW 12.3 Plt Count 279 MPV 10.3 Neut % (Auto) 70.8 H Lymph % (Auto) 20.8 L [place] % (Auto) 7.1 H Eos % (Auto) 1.1 L Baso % (Auto) 0.2 Lymph # (Auto) 2.2 [place] # (Auto) 0.8 H Eos # (Auto) 0.1 Baso # (Auto) 0.02 Absolute Neuts (auto) 7.43 H Sodium 140 Potassium 4.2 Chloride 105 Carbon Dioxide 25 Anion Gap 15 BUN 7 Creatinine 1.0 Est GFR ( Amer) > 60 Est GFR (Non-Af Amer) > 60 Random Glucose 118 H Calcium 10.1 Total Bilirubin 0.4 AST 24 ALT 41 Alkaline Phosphatase 129 H D Total Protein 8.1 Albumin 4.9 H Globulin 3.2 Albumin/Globulin Ratio 1.5 TSH 3rd Generation Urine Color Urine Appearance Urine pH Ur Specific [place] Urine Protein Urine Glucose (UA) Urine Ketones Urine Blood Urine Nitrate Urine Bilirubin Urine Urobilinogen Ur Leukocyte Esterase Urine RBC Urine WBC Ur Epithelial Cells Urine Bacteria Salicylates < 1 L Urine Opiates Screen Urine Methadone Screen Acetaminophen < 10.0 L Ur Barbiturates Screen Ur Phencyclidine Scrn Ur Amphetamines Screen U Benzodiazepines Scrn U Oth Cocaine Metabols U Cannabinoids Screen Alcohol, Quantitative 07/20/18 07/20/18 07/20/18 22:24 23:20 23:20 WBC RBC Hgb Hct MCV MCH MCHC RDW Plt Count MPV Neut % (Auto) Lymph % (Auto) [place] % (Auto) Eos % (Auto) Baso % (Auto) Lymph # (Auto) [place] # (Auto) Eos # (Auto) Baso # (Auto) Absolute Neuts (auto) Sodium Potassium Chloride Carbon Dioxide Anion Gap BUN Creatinine Est GFR ( Amer) Est GFR (Non-Af Amer) Random Glucose Calcium Total Bilirubin AST ALT Alkaline Phosphatase Total Protein Albumin Globulin Albumin/Globulin Ratio TSH 3rd Generation Urine Color Yellow Urine Appearance Clear Urine pH 6.0 Ur Specific [place] 1.025 Urine Protein Trace H Urine Glucose (UA) Negative Urine Ketones Negative Urine Blood Small H Urine Nitrate Negative Urine Bilirubin Negative Urine Urobilinogen 0.2 Ur Leukocyte Esterase Negative Urine RBC 1 - 3 H Urine WBC 0 - 2 Ur Epithelial Cells 1 - 3 Urine Bacteria Few Salicylates Urine Opiates Screen Negative Urine Methadone Screen Negative Acetaminophen Ur Barbiturates Screen Negative Ur Phencyclidine Scrn Negative Ur Amphetamines Screen Negative U Benzodiazepines Scrn Positive H U Oth Cocaine Metabols Negative U Cannabinoids Screen Negative Alcohol, Quantitative < 10 07/21/18 07:00 WBC RBC Hgb Hct MCV MCH MCHC RDW Plt Count MPV Neut % (Auto) Lymph % (Auto) [place] % (Auto) Eos % (Auto) Baso % (Auto) Lymph # (Auto) [place] # (Auto) Eos # (Auto) Baso # (Auto) Absolute Neuts (auto) Sodium Potassium Chloride Carbon Dioxide Anion Gap BUN Creatinine Est GFR ( Amer) Est GFR (Non-Af Amer) Random Glucose Calcium Total Bilirubin AST ALT Alkaline Phosphatase Total Protein Albumin Globulin Albumin/Globulin Ratio TSH 3rd Generation 1.91 Urine Color Urine Appearance Urine pH Ur Specific [place] Urine Protein Urine Glucose (UA) Urine Ketones Urine Blood Urine Nitrate Urine Bilirubin Urine Urobilinogen Ur Leukocyte Esterase Urine RBC Urine WBC Ur Epithelial Cells Urine Bacteria Salicylates Urine Opiates Screen Urine Methadone Screen Acetaminophen Ur Barbiturates Screen Ur Phencyclidine Scrn Ur Amphetamines Screen U Benzodiazepines Scrn U Oth Cocaine Metabols U Cannabinoids Screen Alcohol, Quantitative - EKG Data EKG Interpreted by: ER Physician EKG shows normal: Sinus rhythm DSM Plan - DSM 5 DSM 5 Diagnosis: Mood disorder NOS Rule out bipolar disorder most recent episode mixed with psychosis history of benzodiazepine withdrawal with delirium, h/o opioid withdrawal delirium - Recommended/Plan of Treatment Treatment Recommendations and Plan of Treatment: Milieu/structure/supportive therapy SW consultation for discharge plan and social issues Med management: Neurontin 300mg po tid for neuropathy Depakote will be considered Lexapro will be discontinued Medication list was confirmed with patient pharmacy Seroquel 100 mg twice a day in the morning time at the nighttime for psychosis and mood stabilization Valium was increased to 5 mg 3 times a day for muscle relaxation as well as anxiety Trazodone 100 mg at the nighttime for insomnia as well as depression Flexeril 5 mg 3 times a day for muscle spasm Medical consult was called Dr. Coffman We will monitor vital signs Family involvement Follow up on labs Will monitor closely Pt was educated about risk/benefits and alternatives of medications, coping strategies (safety plan, suicide prevention), relapse prevention, importance of follow up with psychiatrist and therapist, stay away from drugs/alcohol/smoking Projected ELOS: 7 days Prognosis: Guarded Discharge Plan and Discharge Criteria: Patient will be more stable, less depressed, not psychotic, will be able to take care of himself, would not pose a threat to self or others. - Tobacco Cessation Tobacco Use Status for the last 30 days: Heavy User(>=5 cigs &/or cigars/pipes daily) Tobacco Use Treatment FDA-Approved Cessation Medication Provided: Yes Type of Medication Provided: Iftikharm CQ - Alcohol or Substance Abuse Does the patient have an Alcohol or Substance Abuse Disorder: Yes Initial Psych Certification - Initial Certification I certify that the inpatient psychiatric facility admission was medically neces j carlos for either: Treatment which could reasonbly be expected to improve pt's condition I estimate of hospitalization is necessary for proper treatment of the patient: 7 Unit of Time: Days My plans for post-hospital care for this patient are: Day treatment program, med management, possible intensive outpatient program
[2018-07-21] MEDS: BIOTIN 10000 MCG PO SCH (17:18)
[2018-07-22] MEDS ORDERED: BIOTIN 10000 MCG PO SCH (08:00)
[2018-07-22] MEDS: BIOTIN 10000 MCG PO SCH (08:54)
--- NOTE | 2018-07-22 10:05 | PCM.PYCHPN ---
Psychiatric Progress Note - Psychiatric Progress Note Patient seen today, length of contact: 25 min Problems Identified/Issues Discussed: I reviewed assessment and recent notes. I met with patient at bedside. He is coherent and superficially cooperative. Patient reports that he is feeling tir ed despite sleeping well. Affect is labile, mildly edgy and anxious. Patient denies any new issues including discomfort pain or side effects. Thought processes is coherent without any evidence of perceptual disturbance. Patient has a history of being manipulative, demanding and difficult on the unit however thus far there have been no major behavioral issues. Diagnostic Results: Mood disorder NOS Rule out bipolar disorder most recent episode mixed with psychosis history of benzodiazepine withdrawal with delirium, h/o opioid withdrawal delirium Mental Status Examination - Cognitive Function Orientation: Person, Place, Situation, Time Attention: WNL Concentration: Poor Fund of Knowledge: Poor - Mood Mood: Depressed, Anxious - Affect Affect: Flat, Other (labile, mildly edgy and anxious) - Formal Thought Process Formal Thought Process: Hallucinations, Paranoia (Cannot be excluded) - Suicidal Ideation Suicidal Ideation: No - Homicidal Ideation Homicidal Ideation: No Goal/Treatment Plan - Goal/Treatment Plan Progress Toward Problem(s) and Goals/Treatment Plan: * c/w current tx and plan * Vitals reviewed and noted below: Selected Entries 07/21/18 07/21/18 07:11 15:00 Temperature 98.2 F Pulse Rate 82 96 H Respiratory 20 Rate Blood Pressure 134/83 134/80
--- NOTE | 2018-07-22 12:41 | CON ---
HISTORY OF PRESENT ILLNESS: The patient is a 52-year-old man with a past medical history of anxiety disorder, depression, hypertension and hyperlipidemia who was admitted to the psychiatric inpatient unit for management of anxiety, depression and suicidal ideation. A medical consultation was placed to facilitate management of his medical comorbidities. This morning he feels ok but continues to endorse anxiousness but otherwise offers no complaints. PAST MEDICAL HISTORY: As per HPI, also sciatica. PAST SURGICAL HISTORY: Arthroscopic repair of right meniscal tear. FAMILY HISTORY: Significant for hypertension, hyperlipidemia and diabetes. SOCIAL HISTORY: The patient reports an active [id number] smoking history and social alcohol use. He also has a history of prescription opioid abuse. MEDICATIONS: Lisinopril 20 mg p.o. daily, Amlodipine 10 mg p.o. daily and Lipitor 20 mg p.o. daily. ALLERGIES: NKDA. REVIEW OF SYSTEMS: A 12-point review of systems is negative except as per HPI. PHYSICAL EXAMINATION: VITAL SIGNS: Temperature 98, pulse 85, blood pressure 127/79, respiratory rate 20, oxygen saturation 98% on room air. GENERAL: No apparent distress. HEENT: PERRL, EOMI. No scleral icterus. No conjunctival pallor. NECK: No JVD, no bruits. LUNGS: Clear to auscultation. CARDIOVASCULAR: Regular rate and rhythm. Normal S1 and S2. No murmurs. ABDOMEN: Normoactive bowel sounds. Soft, nontender, nondistended. EXTREMITIES: No edema. NEUROLOGIC: Awake, alert and oriented x 3. No focal motor deficits. LABORATORY DATA: WBC 10.5, hemoglobin 18, hematocrit 52, platelets 279,000. Sodium 140, potassium 4.2, chloride 105, bicarb 25, BUN 7, creatinine 1, glucose 118. ASSESSMENT: The patient is a 52-year-old man with a past medical history of anxiety disorder, depression, hypertension, hyperlipidemia and sciatica who was admitted to the inpatient psychiatric unit for management of anxiety and depression with suicidal ideation. PLAN: 1. Major depressive disorder. Continue with care as per primary psychiatric team. 2. Anxiety disorder. Continue with care as per primary psychiatric team. 3. Hypertension. Blood pressure controlled. Continue Amlodipine 10 mg p.o. daily. 4. Hyperlipidemia. Continue Lipitor 20 mg p.o. daily. 5. Sciatica. Continue Flexeril 5 mg p.o. t.i.d. and Neurontin 300 mg p.o. t.i.d. 6. Prophylaxis. GI prophylaxis not indicated as the patient is eating. DVT prophylaxis not indicated as the patient is ambulatory. CODE STATUS: Full code. Joseph Coffman MD MTDD
--- NOTE | 2018-07-23 08:47 | PCM.PYCHPN ---
Psychiatric Progress Note - Psychiatric Progress Note Patient seen today, length of contact: 25 min Problems Identified/Issues Discussed: I reviewed recent notes and met with patient at bedside. He is coherent and superficially cooperative. Patient reports that he is still feeling tired desp ite sleeping well. Fatigue is improving since yesterday. Affect remains labile, mildly edgy and anxious. Patient denies any new issues including discomfort pain or side effects. Has bouts of anxiety during the day for which he receives Ativan 2 mg. Thought process is coherent without any evidence of perceptual disturbance. Patient has a history of being manipulative, demanding and difficult on the unit however thus far there have been no major behavioral issues. Diagnostic Results: Mood disorder NOS Rule out bipolar disorder most recent episode mixed with psychosis history of benzodiazepine withdrawal with delirium, h/o opioid withdrawal delirium Medication Change: No Medical Record Reviewed: Yes Mental Status Examination - Cognitive Function Orientation: Person, Place, Situation, Time Attention: WNL Concentration: Poor Fund of Knowledge: Poor - Mood Mood: Depressed, Anxious - Affect Affect: Flat, Other (labile, mildly edgy and anxious) - Formal Thought Process Formal Thought Process: Hallucinations, Paranoia (Cannot be excluded) - Suicidal Ideation Suicidal Ideation: No - Homicidal Ideation Homicidal Ideation: No Goal/Treatment Plan - Goal/Treatment Plan Progress Toward Problem(s) and Goals/Treatment Plan: * c/w current tx and plan * Appreciate f/u by Dr. Coffman on 07/22/18~no new recommendations, will continue to follow up * Vitals reviewed and noted below: Selected Entries 07/21/18 07/21/18 07:11 15:00 Temperature 98.2 F Pulse Rate 82 96 H Respiratory 20 Rate Blood Pressure 134/83 134/80 * No new weekend lab results thus far
[2018-07-23] MEDS: BIOTIN 10000 MCG PO SCH (09:18)
[2018-07-24 07:03] VITALS: RESP 20
[2018-07-24] MEDS: BIOTIN 10000 MCG PO SCH (09:06)
--- NOTE | 2018-07-24 12:20 | PN ---
SUBJECTIVE: The patient was seen and examined at bedside on the inpatient psychiatric unit. No acute events overnight. He remains afebrile and hemodynamically stable. OBJECTIVE: VITAL SIGNS: Temperature 98.4, pulse 77, blood pressure 135/84 and respiratory rate 20. GENERAL: No apparent distress. HEENT: PERRL, EOMI. No scleral icterus. No conjunctival pallor. NECK: No JVD. No bruits. LUNGS: Clear to auscultation. CARDIOVASCULAR: Regular rate and rhythm. Normal S1 and S2. No murmurs. ABDOMEN: Normoactive bowel sounds, soft, nontender and nondistended. EXTREMITIES: No edema. NEUROLOGIC: Awake, alert and oriented x 3. No focal motor deficits. LABORATORY DATA: No new labs. ASSESSMENT: The patient is a 52-year-old man with a past medical history of anxiety disorder, depression, hypertension, hyperlipidemia and sciatica who was admitted to the inpatient psychiatric unit for management of anxiety and depression with suicidal ideation. PLAN: 1. Major depressive disorder. Continue with care as per primary psychiatric team. 2. Anxiety disorder. Continue with care as per primary psychiatric team. 3. Hypertension. Blood pressure controlled. Continue Amlodipine 10 mg p.o. daily. 4. Hyperlipidemia. Continue Lipitor 20 mg p.o. daily. 5. Sciatica. Continue Flexeril 5 mg p.o. t.i.d. and Neurontin 300 mg p.o. t.i.d. 6. Prophylaxis. GI prophylaxis not indicated as the patient is eating. DVT prophylaxis not indicated as the patient is ambulatory. CODE STATUS: Full code. Joseph Coffman MD MTDD
--- NOTE | 2018-07-24 16:11 | PCM.PYCHPN ---
Psychiatric Progress Note - Psychiatric Progress Note Patient seen today, length of contact: 25 min Patient Chief Complaint: "I feel less anxious, my tremor is little better, but can you increase my Valium?" Problems Identified/Issues Discussed: Risk/benefits and alternatives of medications discussed, suicide/ homicide prevention, past psychiatric h/o, current psychiatric symptoms, medical problems, risk/benefits and alternatives of medications, medications compliance, coping strategies, substance abuse h/o, relapse prevention, importance of follow up with psychiatrist and therapist, discharge plan. Medical Problems: Multiple medical issues Please see Dr. Coffman notes for more detailed information Diagnostic Results: 07/20/18 22:24 07/20/18 22:24 Lab Results 07/21/18 07:00: RPR Nonreactive 07/21/18 07:00: TSH 3rd Generation 1.91 07/21/18 07:00: Fasting Glucose 132 H, Triglycerides 152, Cholesterol 126 L, LDL Cholesterol Direct 76, HDL Cholesterol 30 07/20/18 23:20: Urine Opiates Screen Negative, Urine Methadone Screen Negative, Ur Barbiturates Screen Negative, Ur Phencyclidine Scrn Negative, Ur Amphetamines Screen Negative, U Benzodiazepines Scrn Positive H, U Oth Cocaine Metabols Negative, U Cannabinoids Screen Negative 07/20/18 23:20: Urine Color Yellow, Urine Appearance Clear, Urine pH 6.0, Ur Specific [place] 1.025, Urine Protein Trace H, Urine Glucose (UA) Negative, Urine Ketones Negative, Urine Blood Small H, Urine Nitrate Negative, Urine Bilirubin Negative, Urine Urobilinogen 0.2, Ur Leukocyte Esterase Negative, Urine RBC 1 - 3 H, Urine WBC 0 - 2, Ur Epithelial Cells 1 - 3, Urine Bacteria Few 07/20/18 22:24: Alcohol, Quantitative < 10 07/20/18 22:24: Salicylates < 1 L, Acetaminophen < 10.0 L 07/20/18 22:24: Sodium 140, Potassium 4.2, Chloride 105, Carbon Dioxide 25, Anion Gap 15, BUN 7, Creatinine 1.0, Est GFR ( Amer) > 60, Est GFR (Non- Af Amer) > 60, Random Glucose 118 H, Calcium 10.1, Total Bilirubin 0.4, AST 24, ALT 41, Alkaline Phosphatase 129 H D, Total Protein 8.1, Albumin 4.9 H, Globulin 3.2, Albumin/Globulin Ratio 1.5 07/20/18 22:24: WBC 10.5, RBC 5.95, Hgb 18.0 D, Hct 51.8, MCV 87.1, MCH 30.3, MCHC 34.7, RDW 12.3, Plt Count 279, MPV 10.3, Neut % (Auto) 70.8 H, Lymph % (Auto) 20.8 L, [place] % (Auto) 7.1 H, Eos % (Auto) 1.1 L, Baso % (Auto) 0.2, Lymph # (Auto) 2.2, [place] # (Auto) 0.8 H, Eos # (Auto) 0.1, Baso # (Auto) 0.02, Absolute Neuts (auto) 7.43 H Vital Signs Temp Pulse Resp BP Pulse Ox 07/24/18 09:07 135/84 07/24/18 07:00 98.4 F 77 20 135/84 07/23/18 16:00 89 131/79 07/23/18 09:19 128/85 07/23/18 09:15 86 18 128/85 07/22/18 16:00 97 H 128/89 07/22/18 08:53 127/79 07/22/18 07:31 98.0 F 85 20 127/79 07/21/18 15:00 96 H 20 134/80 07/21/18 10:53 134/83 07/21/18 07:11 98.2 F 82 220 H 134/83 07/21/18 03:41 98.4 F 91 H 20 140/93 H 07/21/18 03:26 20 07/21/18 03:12 98.2 F 98 H 18 148/89 96 07/20/18 21:51 98.1 F 106 H 18 153/99 H 96 DSM 5 Symptoms Update: shortly pt is a single 52 year old single male who has a psychiatric history of Major depression with psychotic features vs bipolar disorder, history of benzodiazepine withdrawal with delirium, h/o opioid withdrawal delirium, at [address] 4 prior psychiatric admissions, most recently at [facility] November 2017, back then patient presented with manic episode with psychosis, currently under care of outpatient psychiatrist , for psychiatric evaluation and possible admission. pt requires further evaluation and stabilization, med management. This patient is very familiar to this screen writer from previous multiple admissions, majority of the time patient is withdrawing from either benzodiazepines or pain killers, patient has history of psychosis, history of being noncompliant with medications and follow-up appointments. Patient was seen today next to the nursing station, patient presented to be less anxious, upper extremity tremor is improving, patient still fixated on valium, patient wants to increase the dose, this screen writer educated patient about risk of falls, and addiction potential, patient verbalized understanding. Patient complained that he feels depressed, reported that he is not able to sleep, willing to adjust medications. Patient denied suicidal ideations, denied intent or plan, but still complaining of feeling anxious, frustrated, hopeless, helpless. So far patient tolerates medications well, no side effects observed or reported, aims 0, no EPS. Impression: Most likely patient has mood spectrum disorder patient also has history of misuse and abuse pain killers as well as benzodiazepines Medication Change: Yes (Neurontin increased, Seroquel increased, possible increased) Medical Record Reviewed: Yes Consults ordered or reviewed: Medical consult appreciated Mental Status Examination - Cognitive Function Orientation: Person, Place, Situation, Time Attention: WNL Concentration: Poor Fund of Knowledge: Poor - Mood Mood: Depressed, Anxious - Affect Affect: Flat, Other (labile, mildly edgy and anxious) - Formal Thought Process Formal Thought Process: Hallucinations, Paranoia (Cannot be excluded) - Suicidal Ideation Suicidal Ideation: No - Homicidal Ideation Homicidal Ideation: No Goal/Treatment Plan - Goal/Treatment Plan Need for Continued Stay: Remain at risks for inpatient hospitalization, Severe depression anxiety, Discharge may exacerbated symptoms, Severe functional impairment Progress Toward Problem(s) and Goals/Treatment Plan: Milieu/structure/supportive therapy consultation for discharge plan and social issues Med management: Neurontin 600mg po tid for neuropathy Depakote will be considered Lexapro will be discontinued Medication list was confirmed with patient pharmacy Seroquel 100 mg in the morning and 200 mg at the nighttime for psychosis and mood stabilization Valium 5 mg 3 times a day for muscle relaxation as well as anxiety Trazodone 150 mg at the nighttime for insomnia as well as depression Flexeril 5 mg 3 times a day for muscle spasm Medical consult appreciated Dr. Coffman We will monitor vital signs Family involvement Follow up on labs Will monitor closely Pt was educated about risk/benefits and alternatives of medications, coping strategies (safety plan, suicide prevention), relapse prevention, importance of follow up with psychiatrist and therapist, stay away from drugs/alcohol/smoking Estimated Date of D/C: 07/28/18
[2018-07-25] MEDS: BIOTIN 10000 MCG PO SCH (09:13)
--- NOTE | 2018-07-25 15:53 | PCM.PYCHPN ---
Psychiatric Progress Note - Psychiatric Progress Note Patient seen today, length of contact: 30 minutes Patient Chief Complaint: "I am depressed, suicidal thoughts is always at the back of my mind, it does not mean that I am going to act on it, I feel very-very anxious..." Problems Identified/Issues Discussed: Risk/benefits and alternatives of medications discussed, suicide/ homicide prevention, past psychiatric h/o, current psychiatric symptoms, medical problems, risk/benefits and alternatives of medications, medications compliance, coping strategies, substance abuse h/o, relapse prevention, importance of follow up with psychiatrist and therapist, discharge plan. Medical Problems: Multiple medical issues Please see Dr. Coffman notes for more detailed information Diagnostic Results: 07/20/18 22:24 07/20/18 22:24 Lab Results 07/21/18 07:00: RPR Nonreactive 07/21/18 07:00: TSH 3rd Generation 1.91 07/21/18 07:00: Fasting Glucose 132 H, Triglycerides 152, Cholesterol 126 L, LDL Cholesterol Direct 76, HDL Cholesterol 30 07/20/18 23:20: Urine Opiates Screen Negative, Urine Methadone Screen Negative, Ur Barbiturates Screen Negative, Ur Phencyclidine Scrn Negative, Ur Amphetamines Screen Negative, U Benzodiazepines Scrn Positive H, U Oth Cocaine Metabols Negative, U Cannabinoids Screen Negative 07/20/18 23:20: Urine Color Yellow, Urine Appearance Clear, Urine pH 6.0, Ur Specific [place] 1.025, Urine Protein Trace H, Urine Glucose (UA) Negative, Urine Ketones Negative, Urine Blood Small H, Urine Nitrate Negative, Urine Bilirubin Negative, Urine Urobilinogen 0.2, Ur Leukocyte Esterase Negative, Urine RBC 1 - 3 H, Urine WBC 0 - 2, Ur Epithelial Cells 1 - 3, Urine Bacteria Few 07/20/18 22:24: Alcohol, Quantitative < 10 07/20/18 22:24: Salicylates < 1 L, Acetaminophen < 10.0 L 07/20/18 22:24: Sodium 140, Potassium 4.2, Chloride 105, Carbon Dioxide 25, Anion Gap 15, BUN 7, Creatinine 1.0, Est GFR ( Amer) > 60, Est GFR (Non- Af Amer) > 60, Random Glucose 118 H, Calcium 10.1, Total Bilirubin 0.4, AST 24, ALT 41, Alkaline Phosphatase 129 H D, Total Protein 8.1, Albumin 4.9 H, Globulin 3.2, Albumin/Globulin Ratio 1.5 07/20/18 22:24: WBC 10.5, RBC 5.95, Hgb 18.0 D, Hct 51.8, MCV 87.1, MCH 30.3, MCHC 34.7, RDW 12.3, Plt Count 279, MPV 10.3, Neut % (Auto) 70.8 H, Lymph % (Auto) 20.8 L, [place] % (Auto) 7.1 H, Eos % (Auto) 1.1 L, Baso % (Auto) 0.2, Lymph # (Auto) 2.2, [place] # (Auto) 0.8 H, Eos # (Auto) 0.1, Baso # (Auto) 0.02, Absolute Neuts (auto) 7.43 H Vital Signs Temp Pulse Resp BP Pulse Ox 07/24/18 09:07 135/84 07/24/18 07:00 98.4 F 77 20 135/84 07/23/18 16:00 89 131/79 07/23/18 09:19 128/85 07/23/18 09:15 86 18 128/85 07/22/18 16:00 97 H 128/89 07/22/18 08:53 127/79 07/22/18 07:31 98.0 F 85 20 127/79 07/21/18 15:00 96 H 20 134/80 07/21/18 10:53 134/83 07/21/18 07:11 98.2 F 82 220 H 134/83 07/21/18 03:41 98.4 F 91 H 20 140/93 H 07/21/18 03:26 20 07/21/18 03:12 98.2 F 98 H 18 148/89 96 07/20/18 21:51 98.1 F 106 H 18 153/99 H 96 DSM 5 Symptoms Update: shortly pt is a single 52 year old single male who has a psychiatric history of Major depression with psychotic features vs bipolar disorder, history of benzodiazepine withdrawal with delirium, h/o opioid withdrawal delirium, at least 4 prior psychiatric admissions, most recently at [facility] November 2017, back then patient presented with manic episode with psychosis, currently under care of outpatient psychiatrist , for psychiatric evaluation and possible admission. pt requires further evaluation and stabilization, med management. Patient was seen today at the treatment team meeting room with medical student and resident. Patient presented to be anxious, sweating, patient reported that she feels "depressed always, suicidal thoughts is always at the back of my mind, at the same time will let act on it? Of course not." She reported that he slept Seroquel will be increased, stabilization as well as symptoms which patient complained that he is hearing voices, denied, had hallucinations. Patient complained that he feels depressed and anxious, still complaining of feeling anxious, frustrated, hopeless, helpless. So far patient tolerates medications well, no side effects observed or reported, aims 0, no EPS. Impression: Most likely patient has mood spectrum disorder patient also has history of misuse and abuse pain killers as well as be nzodiazepines Medication Change: Yes (Valium increased to 7 mg thee times a day) Medical Record Reviewed: Yes Consults ordered or reviewed: Medical consult appreciated Mental Status Examination - Cognitive Function Orientation: Person, Place, Situation, Time Attention: WNL Concentration: Poor Fund of Knowledge: Poor - Mood Mood: Depressed, Anxious - Affect Affect: Flat, Other (labile, mildly edgy and anxious) - Formal Thought Process Formal Thought Process: Hallucinations, Paranoia (Cannot be excluded) - Suicidal Ideation Suicidal Ideation: No - Homicidal Ideation Homicidal Ideation: No Goal/Treatment Plan - Goal/Treatment Plan Need for Continued Stay: Remain at risks for inpatient hospitalization, Severe depression anxiety, Discharge may exacerbated symptoms, Severe functional impairment Progress Toward Problem(s) and Goals/Treatment Plan: Milieu/structure/supportive therapy consultation for discharge plan and social issues Med management: Neurontin 600mg po tid for neuropathy Seroquel 200 mg in the morning and 200 mg at the nighttime for psychosis and mood stabilization Valium 7 mg 3 times a day for muscle relaxation as well as anxiety Trazodone 150 mg at the nighttime for insomnia as well as depression Flexeril 5 mg 3 times a day for muscle spasm Medical consult appreciated Dr. Coffman We will monitor vital signs Family involvement Follow up on labs Will monitor closely Pt was educated about risk/benefits and alternatives of medications, coping strategies (safety plan, suicide prevention), relapse prevention, importance of follow up with psychiatrist and therapist, stay away from drugs/alcohol/smoking Estimated Date of D/C: 07/28/18
[2018-07-26] MEDS: BIOTIN 10000 MCG PO SCH (09:30)
--- NOTE | 2018-07-26 12:05 | PN ---
SUBJECTIVE: The patient was seen and examined in the inpatient psychiatric unit. No acute events overnight. He remains afebrile and hemodynamically stable. PHYSICAL EXAMINATION: VITAL SIGNS: Temperature 97.5, pulse 78, blood pressure 113/71, respiratory rate 20, oxygen saturation 98% on room air. GENERAL: No apparent distress. HEENT: PERRL, EOMI. No scleral icterus. No conjunctival pallor. NECK: No JVD, no bruits. LUNGS: Clear to auscultation. CARDIOVASCULAR: Regular rate and rhythm. Normal S1, S2. No murmurs. ABDOMEN: Normoactive bowel sounds, soft, nontender, nondistended. EXTREMITIES: No edema. NEUROLOGIC: Awake, alert and oriented x 3. No focal motor deficits. LABORATORY DATA: No new labs. ASSESSMENT: The patient is a 52-year-old man with a past medical history of anxiety disorder, depression, hypertension, hyperlipidemia and sciatica who was admitted to the inpatient psychiatric unit for management of anxiety and depression with suicidal ideation. PLAN: 1. Major depressive disorder. Continue with care as per primary psychiatric team. 2. Anxiety disorder. Continue with care as per primary psychiatric team. 3. Hypertension. Blood pressure controlled. Continue Amlodipine 10 mg p.o. daily. 4. Hyperlipidemia. Continue Lipitor 20 mg p.o. daily. 5. Sciatica. Continue Flexeril 5 mg p.o. t.i.d. and Neurontin 600 mg p.o. t.i.d. 6. Prophylaxis. GI prophylaxis is not indicated as the patient is eating. DVT prophylaxis not indicated as the patient is ambulatory. CODE STATUS: Full code. Joseph Coffman MD MTDD
--- NOTE | 2018-07-26 15:03 | PCM.PYCHPN ---
Psychiatric Progress Note - Psychiatric Progress Note Patient seen today, length of contact: 30 minutes Patient Chief Complaint: "I am so-so, but I could be worse with no medications..." Problems Identified/Issues Discussed: Risk/benefits and alternatives of medications discussed, suicide/ homicide prevention, past psychiatric h/o, current psychiatric symptoms, medical pr oblems, risk/benefits and alternatives of medications, medications compliance, coping strategies, substance abuse h/o, relapse prevention, importance of follow up with psychiatrist and therapist, discharge plan. Medical Problems: Multiple medical issues Please see Dr. Coffman notes for more detailed information Diagnostic Results: 07/20/18 22:24 07/20/18 22:24 Lab Results 07/21/18 07:00: RPR Nonreactive 07/21/18 07:00: TSH 3rd Generation 1.91 07/21/18 07:00: Fasting Glucose 132 H, Triglycerides 152, Cholesterol 126 L, LDL Cholesterol Direct 76, HDL Cholesterol 30 07/20/18 23:20: Urine Opiates Screen Negative, Urine Methadone Screen Negative, Ur Barbiturates Screen Negative, Ur Phencyclidine Scrn Negative, Ur Amphetamines Screen Negative, U Benzodiazepines Scrn Positive H, U Oth Cocaine Metabols Negative, U Cannabinoids Screen Negative 07/20/18 23:20: Urine Color Yellow, Urine Appearance Clear, Urine pH 6.0, Ur Specific [place] 1.025, Urine Protein Trace H, Urine Glucose (UA) Negative, Urine Ketones Negative, Urine Blood Small H, Urine Nitrate Negative, Urine Bilirubin Negative, Urine Urobilinogen 0.2, Ur Leukocyte Esterase Negative, Urine RBC 1 - 3 H, Urine WBC 0 - 2, Ur Epithelial Cells 1 - 3, Urine Bacteria Few 07/20/18 22:24: Alcohol, Quantitative < 10 07/20/18 22:24: Salicylates < 1 L, Acetaminophen < 10.0 L 07/20/18 22:24: Sodium 140, Potassium 4.2, Chloride 105, Carbon Dioxide 25, Anion Gap 15, BUN 7, Creatinine 1.0, Est GFR ( Amer) > 60, Est GFR (Non- Af Amer) > 60, Random Glucose 118 H, Calcium 10.1, Total Bilirubin 0.4, AST 24, ALT 41, Alkaline Phosphatase 129 H D, Total Protein 8.1, Albumin 4.9 H, Globulin 3.2, Albumin/Globulin Ratio 1.5 07/20/18 22:24: WBC 10.5, RBC 5.95, Hgb 18.0 D, Hct 51.8, MCV 87.1, MCH 30.3, MCHC 34.7, RDW 12.3, Plt Count 279, MPV 10.3, Neut % (Auto) 70.8 H, Lymph % (Auto) 20.8 L, [place] % (Auto) 7.1 H, Eos % (Auto) 1.1 L, Baso % (Auto) 0.2, Lymph # (Auto) 2.2, [place] # (Auto) 0.8 H, Eos # (Auto) 0.1, Baso # (Auto) 0.02, Absolute Neuts (auto) 7.43 H Vital Signs Temp Pulse Resp BP Pulse Ox 07/24/18 09:07 135/84 07/24/18 07:00 98.4 F 77 20 135/84 07/23/18 16:00 89 131/79 07/23/18 09:19 128/85 07/23/18 09:15 86 18 128/85 07/22/18 16:00 97 H 128/89 07/22/18 08:53 127/79 07/22/18 07:31 98.0 F 85 20 127/79 07/21/18 15:00 96 H 20 134/80 07/21/18 10:53 134/83 07/21/18 07:11 98.2 F 82 220 H 134/83 07/21/18 03:41 98.4 F 91 H 20 140/93 H 07/21/18 03:26 20 07/21/18 03:12 98.2 F 98 H 18 148/89 96 07/20/18 21:51 98.1 F 106 H 18 153/99 H 96 DSM 5 Symptoms Update: shortly pt is a single 52 year old single male who has a psychiatric history of Major depression with psychotic features vs bipolar disorder, history of benzodiazepine withdrawal with delirium, h/o opioid withdrawal delirium, at least 4 prior psychiatric admissions, most recently at [facility] November 2017, back then patient presented with manic episode with psychosis, currently under care of outpatient psychiatrist , for psychiatric evaluation and possible admission. pt requires further evaluation and stabilization, med management. Patient was seen today in his room, patient presented to be withdrawn, saying that he feels "so-so" acknowledged that he feels much better on his current medications, patient has a tendency of exaggerating all of his symptoms, complaining that he woke up 2 times at night, patient was educated about sleep p attern and it is normal to wake up during the nighttime. Patient was receptive. As per staff patient is doing well, attends groups, appetite and sleep is fine no aggression no agitation. Patient denied thoughts of harming himself or others, denied psychotic symptoms, patient does not present to be psychotic. So far patient tolerates medications well, no side effects observed or reported, aims 0, no EPS. Impression: Most likely patient has mood spectrum disorder patient also has history of misuse and abuse pain killers as well as benzodiazepines Medication Change: No (Adjusted yesterday) Medical Record Reviewed: Yes Consults ordered or reviewed: Medical consult appreciated Mental Status Examination - Cognitive Function Orientation: Person, Place, Situation, Time Attention: WNL Concentration: Poor (Improvement) Fund of Knowledge: Poor (Baseline) - Mood Mood: Depressed ("So-so"), Anxious - Affect Affect: Flat, Other (labile, mildly edgy and anxious) - Formal Thought Process Formal Thought Process: Hallucinations (Denied), Paranoia (Denied) - Suicidal Ideation Suicidal Ideation: No - Homicidal Ideation Homicidal Ideation: No Goal/Treatment Plan - Goal/Treatment Plan Need for Continued Stay: Remain at risks for inpatient hospitalization, Severe depression anxiety, Discharge may exacerbated symptoms, Severe functional impairment Progress Toward Problem(s) and Goals/Treatment Plan: Milieu/structure/supportive therapy SW consultation for discharge plan and social issues Med management: Neurontin 600mg po tid for neuropathy Seroquel 200 mg in the morning and 200 mg at the nighttime for psychosis and mood stabilization Valium 7 mg 3 times a day for muscle relaxation as well as anxiety Trazodone 150 mg at the nighttime for insomnia as well as depression Flexeril 5 mg 3 times a day for muscle spasm Medical consult appreciated Dr. Coffman We will monitor vital signs Family involvement Follow up on labs Will monitor closely Pt was educated about risk/benefits and alternatives of medications, coping strategies (safety plan, suicide prevention), relapse prevention, importance of follow up with psychiatrist and therapist, stay away from drugs/alcohol/smoking Estimated Date of D/C: 07/28/18
[2018-07-27 07:00] VITALS: BP 114/77; PULSE 81; TEMP 98
[2018-07-27] MEDS: BIOTIN 10000 MCG PO SCH (09:50)
--- NOTE | 2018-07-27 13:37 | PCM.PYCHDC ---
Mental Status Examination - Mental Status Examination Orientation: Person, Place, Situation, Time Memory: Intact Mood: Neutral Affect: Constricted (But reactive and mood congruent) Speech: Appropriate Attention: WNL Concentration: WNL Association: WNL Fund of Knowledge: WNL Formal Thought Process: No Impairment Description of patient's judgement and insight: Pt has improved insight into mental and medical illness, pt was compliant with medications and unit rules and regulations, pt was attending therapy groups, was calm, cooperative, socially appropriate, no behavioral incidents, no agitation, no aggression. Psychotic Thoughts and Behaviors: Pt denied v/a/t hallucinations, denied paranoid ideations, pt does not appear to be psychotic, and thought process is goal directed. Suicidal Ideation: No Current Homicidal Ideation?: No Plan: pt adamantly denied thoughts of harming self or others denied intent or plan. Discharge Summary - Discharge Note Reason for Hospitalization: Patient was admitted to the psychiatric inpatient unit for evaluation and stabilization of depressive symptoms, possible suicidal ideation, anxiety. Psychiatric History (includes Medical, Family, Personal Hx): See HPI Laboratory Data: 07/20/18 22:24 07/20/18 22:24 Lab Results 07/21/18 07:00: RPR Nonreactive 07/21/18 07:00: TSH 3rd Generation 1.91 07/21/18 07:00: Fasting Glucose 132 H, Triglycerides 152, Cholesterol 126 L, LDL Cholesterol Direct 76, HDL Cholesterol 30 07/20/18 23:20: Urine Opiates Screen Negative, Urine Methadone Screen Negative, Ur Barbiturates Screen Negative, Ur Phencyclidine Scrn Negative, Ur Amphetamines Screen Negative, U Benzodiazepines Scrn Positive H, U Oth Cocaine Metabols Negative, U Cannabinoids Screen Negative 07/20/18 23:20: Urine Color Yellow, Urine Appearance Clear, Urine pH 6.0, Ur Specific [place] 1.025, Urine Protein Trace H, Urine Glucose (UA) Negative, Urine Ketones Negative, Urine Blood Small H, Urine Nitrate Negative, Urine Bilirubin Negative, Urine Urobilinogen 0.2, Ur Leukocyte Esterase Negative, Urine RBC 1 - 3 H, Urine WBC 0 - 2, Ur Epithelial Cells 1 - 3, Urine Bacteria Few 07/20/18 22:24: Alcohol, Quantitative < 10 07/20/18 22:24: Salicylates < 1 L, Acetaminophen < 10.0 L 07/20/18 22:24: Sodium 140, Potassium 4.2, Chloride 105, Carbon Dioxide 25, Anion Gap 15, BUN 7, Creatinine 1.0, Est GFR ( Amer) > 60, Est GFR (Non- Af Amer) > 60, Random Glucose 118 H, Calcium 10.1, Total Bilirubin 0.4, AST 24, ALT 41, Alkaline Phosphatase 129 H D, Total Protein 8.1, Albumin 4.9 H, Globulin 3.2, Albumin/Globulin Ratio 1.5 07/20/18 22:24: WBC 10.5, RBC 5.95, Hgb 18.0 D, Hct 51.8, MCV 87.1, MCH 30.3, MCHC 34.7, RDW 12.3, Plt Count 279, MPV 10.3, Neut % (Auto) 70.8 H, Lymph % (Auto) 20.8 L, Sharp % (Auto) 7.1 H, Eos % (Auto) 1.1 L, Baso % (Auto) 0.2, Lymph # (Auto) 2.2, Sharp # (Auto) 0.8 H, Eos # (Auto) 0.1, Baso # (Auto) 0.02, Absolute Neuts (auto) 7.43 H Vital Signs Temp Pulse Resp BP Pulse Ox 07/27/18 09:49 114/77 07/27/18 07:00 98.0 F 81 20 114/77 07/26/18 15:00 102 H 20 124/76 07/26/18 09:27 113/71 07/26/18 07:15 97.5 F L 78 20 113/71 07/25/18 16:00 89 117/79 07/25/18 09:10 141/85 07/25/18 07:14 97.8 F 86 20 141/85 07/24/18 16:59 91 H 137/70 07/24/18 16:58 92 H 07/24/18 16:55 91 H 125/69 07/24/18 09:07 135/84 07/24/18 07:00 98.4 F 77 20 135/84 07/23/18 16:00 89 131/79 07/23/18 09:19 128/85 07/23/18 09:15 86 18 128/85 07/22/18 16:00 97 H 128/89 07/22/18 08:53 127/79 07/22/18 07:31 98.0 F 85 20 127/79 07/21/18 15:00 96 H 20 134/80 07/21/18 10:53 134/83 07/21/18 07:11 98.2 F 82 220 H 134/83 07/21/18 03:41 98.4 F 91 H 20 140/93 H 07/21/18 03:26 20 07/21/18 03:12 98.2 F 98 H 18 148/89 96 07/20/18 21:51 98.1 F 106 H 18 153/99 H 96 Consultations:: List each consultation separately and include: 1. Reason for request. 2. Findings. 3. Follow-up Consultations: Medical consult appreciated Please see notes for more detailed information Summary of Hospital Course include:: 1. Description of specific treatment plan utilized for patients during their course of treatmen. 2. Summarize the time- course for resolution of acute symptoms and/or regressed behaviors. 3. Describe issues identified and worked on during hospitalization. 4. Describe medication utilized. 5. Describe medical problems identified and treated. 6. Reassessment of suicide risk Summary of Hospital Course: shortly pt is a single 52 year old single male who has a psychiatric history of Major depression with psychotic features vs bipolar disorder, history of benzodiazepine withdrawal with delirium, h/o opioid withdrawal delirium, at least 4 prior psychiatric admissions, most recently at [facility] November 2017, back then patient presented with manic episode with psychosis, currently under care of outpatient psychiatrist , for psychiatric evaluation and possible admission. pt required further evaluation and stabilization, med management. 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 Patient was seen today at the treatment team meeting, patient presented with acceptable personal hygiene, anxious, restless, obviously sweating. Fair ADLs. Patient presented to be anxious, frustrated, hopeless, helpless, patient also reported to hear voices at the time of admission. Patient reported that he was not able to sleep, not able to function. Please see admission note for more detailed information. Over the course of this hospitalization patient was stabilized on the following medications: Neurontin 600mg po tid for neuropathy Seroquel 200 mg in the morning and 200 mg at the nighttime for psychosis and mood stabilization Valium was increased to 7 mg 3 times a day for muscle relaxation as well as anxiety Trazodone 150 mg at the nighttime for insomnia as well as depression Flexeril 5 mg 3 times a day for muscle spasm Medical consult appreciated Dr. Coffman Overall patient tolerated medications well, no side effects observed or reported, aims 0, no EPS. Over the course of this hospitalization pt was attending groups, pt also had medication management, had therapeutic milieu. Overall pt improved, less depressed, has realistic future oriented plans, pt denies any psychotic symptoms, anxiety was under control, pt was socially appropriate, no behavioral issues, pts insight improved as well and soon pt deemed to be ready for discharge. At the time of the discharge patient pose no imminent danger to self or others, will be following up at , information about follow up appointment, time and address provided to the pt, (see note for more detailed information). It is a patient responsibility to follow up with outpatient clinic, PMD as well as specialists In case patient will need to obtain results of studies pending at discharge, patient was provided with contact information of Psychiatric Inpatient unit [phone] as well as Medical Record Department [phone], as well as [facility] team [phone]. Nicotine patch was provided Counseling about smoking cessation provided [facility] smoking cessation treatment program information was provided by the pt was provided with prescriptions for two weeks and one refill for psychotropic meds, valium only one week supply and three refills in order to avoid to misuse, one week for medical meds (see medication reconciliation form) Pt was educated about safety plan in case of worsening of symptoms or in case of suicidal or homicidal ideation call 911 or go to the nearest ER, also was educated to take meds as prescribed and stay away from drugs, pt verbalized understanding. 07/20/18 22:24 07/20/18 22:24 Lab Results 07/21/18 07:00: TSH 3rd Generation 1.91 07/21/18 07:00: Fasting Glucose 132 H, Triglycerides 152, Cholesterol 126 L, LDL Cholesterol Direct 76, HDL Cholesterol 30 07/20/18 23:20: Urine Opiates Screen Negative, Urine Methadone Screen Negative, Ur Barbiturates Screen Negative, Ur Phencyclidine Scrn Negative, Ur Amphetamines Screen Negative, U Benzodiazepines Scrn Positive H, U Oth Cocaine Metabols Negative, U Cannabinoids Screen Negative 07/20/18 23:20: Urine Color Yellow, Urine Appearance Clear, Urine pH 6.0, Ur Specific [place] 1.025, Urine Protein Trace H, Urine Glucose (UA) Negative, Urine Ketones Negative, Urine Blood Small H, Urine Nitrate Negative, Urine Bilirubin Negative, Urine Urobilinogen 0.2, Ur Leukocyte Esterase Negative, Urine RBC 1 - 3 H, Urine WBC 0 - 2, Ur Epithelial Cells 1 - 3, Urine Bacteria Few 07/20/18 22:24: Alcohol, Quantitative < 10 07/20/18 22:24: Salicylates < 1 L, Acetaminophen < 10.0 L 07/20/18 22:24: Sodium 140, Potassium 4.2, Chloride 105, Carbon Dioxide 25, Anion Gap 15, BUN 7, Creatinine 1.0, Est GFR ( Amer) > 60, Est GFR (Non- Af Amer) > 60, Random Glucose 118 H, Calcium 10.1, Total Bilirubin 0.4, AST 24, ALT 41, Alkaline Phosphatase 129 H D, Total Protein 8.1, Albumin 4.9 H, Globulin 3.2, Albumin/Globulin Ratio 1.5 07/20/18 22:24: WBC 10.5, RBC 5.95, Hgb 18.0 D, Hct 51.8, MCV 87.1, MCH 30.3, MCHC 34.7, RDW 12.3, Plt Count 279, MPV 10.3, Neut % (Auto) 70.8 H, Lymph % (Au to) 20.8 L, Sharp % (Auto) 7.1 H, Eos % (Auto) 1.1 L, Baso % (Auto) 0.2, Lymph # (Auto) 2.2, Sharp # (Auto) 0.8 H, Eos # (Auto) 0.1, Baso # (Auto) 0.02, Absolute Neuts (auto) 7.43 H Vital Signs Temp Pulse Resp BP Pulse Ox 07/21/18 10:53 134/83 07/21/18 07:11 98.2 F 82 220 H 134/83 02/01/19 03:41 98.4 F 91 H 20 140/93 H 07/21/18 03:26 20 07/21/18 03:12 98.2 F 98 H 18 148/89 96 07/20/18 21:51 98.1 F 106 H 18 153/99 H 96 - Diagnosis (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, unspecified Current Visit: Yes Status: Chronic Priority: High (2) Unspecified psychosis Current Visit: Yes Status: Chronic Priority: Medium (3) Anxiety disorder, unspecified Current Visit: Yes Status: Chronic Priority: High - Final Diagnosis (DSM 5) Condition upon Discharge: STABLE Disposition: HOME/ ROUTINE Follow-up Treatment Plan: Overall pt improved, less depressed, has realistic future oriented plans, pt denies any psychotic symptoms, anxiety was under control, pt was socially appropriate, no behavioral issues, pts insight improved as well and soon pt deemed to be ready for discharge. At the time of the discharge patient pose no imminent danger to self or others, will be following up at , information about follow up appointment, time and address provided to the pt, (see note for more detailed inform ation). It is a patient responsibility to follow up with outpatient clinic, PMD as well as specialists In case patient will need to obtain results of studies pending at discharge, patient was provided with contact information of Psychiatric Inpatient unit [phone] as well as Medical Record Department [phone], as well as [facility] [employer] team [phone]. Nicotine patch was provided Counseling about smoking cessation provided [facility] smoking cessation treatment program information was provided by the pt was provided with prescriptions for two weeks and one refill for psychotropic meds, valium only one week supply and three refills in order to avoid to misuse, one week for medical meds (see medication reconciliation form) Pt was educated about safety plan in case of worsening of symptoms or in case of suicidal or homicidal ideation call 911 or go to the nearest ER, also was educated to take meds as prescribed and stay away from drugs, pt verbalized understanding. Prescriptions/Medication Reconciliation: amLODIPine [Norvasc] 10 mg PO DAILY #7 tab Atorvastatin [Lipitor] 20 mg PO DIN #7 tab Cyclobenzaprine [Flexeril] 5 mg PO TID #45 tab diaZEpam [Valium] 5 mg PO TID #21 tab diaZEpam [Valium] 2 mg PO TID #21 tab Gabapentin [Neurontin] 600 mg PO TID #45 tab Nicotine 21 mg/24 hr [Nicoderm Cq] 1 patch TD DAILY #14 patch Quetiapine Fumarate [Seroquel] 200 mg PO AMHS #30 tab Trazodone HCl 150 mg PO HS #14 tablet - Smoking Cessation Smoking Cessation Medication prescribed: Yes - Antipsychotic Medications Pt discharged on 2 or more routine antipsychotic medications: No
== END 2018-07-27 15:55 | disposition home or self-care (01) | DRG 885 ==
LOC: ED 21:40 → ERH 07-21 02:20 → PSYC 07-21 02:41
PROVIDERS: ADMIT Psychiatry & Neurology Psychiatry; ATTEND Psychiatry & Neurology Psychiatry
DX: F29 Unspecified psychosis not due to a substance or known physiological condition (principal); F06.30 Mood disorder due to known physiological condition, unspecified; F41.9 Anxiety disorder, unspecified; E78.5 Hyperlipidemia, unspecified; G62.9 Polyneuropathy, unspecified; I10 Essential (primary) hypertension; M54.30 Sciatica, unspecified side; F17.200 Nicotine dependence, unspecified, uncomplicated; Z83.3 Family history of diabetes mellitus